=== PATIENT | female | born 1935 | race Caucasian/White ===

== ENCOUNTER 2016-09-02 21:55 | Inpatient (IN) | payer OTHER ==
[2016-09-02 22:17] VITALS: BMI 50.8
[2016-09-02 22:46] LABS: BASOPHIL 0.4 % (0-2.0); EOSINOPHIL 0.7 % (0-4.5); MCH 28.5 pg (25.7-33.7); MCHC 32.6 g/dl (32.0-36.0); MEAN CELL VOLUME 87.5 fl (80-96); PLATELET COUNT 182 K/MM3 (134-434); RDW 16.2 % (11.6-15.6); WHITE BLOOD COUNT 15.7 K/mm3 (4.0-10.0)
--- NOTE | 2016-09-02 22:51 | PDOC ---
History of Present Illness - General Stated Complaint: DIFFICULTY BREATHING Time Seen by Provider: 09/02/16 21:58 History Source: Patient, Family (Daughter ) Exam Limitations: No Limitations - History of Present Illness Initial Comments: 09/02/16 23:22 81yo Female patient w/ significant past medical history presents to ED via EMS c /o diff breathing. Patient states she took Ativan 1.5 mg at 3pm because she was anxious, patient reports symptoms did not subside. When patient daughter went to check on her, she called 911. Patient denies CP, Abd pain, n/v/d, dizziness, fever, cough, congestion, back pain, rectal bleeding, hematuria, or any other complaints at this time. Timing/Duration: reports: this evening Severity: reports: moderate Possible Cause: Yes: unknown cause Modifying Factors: worse with: activity, albuterol inhaler, albuterol nebulizer , antibiotics, coughing, lying down, oxygen, rest, other Associated Symptoms: reports: shortness of breath. denies: denies symptoms, chest pain/soreness, cough, dizziness, earache, facial pain, fever/chills, headache, lightheadedness, muscle aches, nasal congestion, nasal drainage, sinus infection, sore throat, wheezing, other Aspirin Received prior to arrival: No: no aspirin today, unknown, 81 mg x 1, 81 mg x 2, 81 mg x 3, 81 mg x 4, 325 mg x 1, provided at home, provided by EMS, provided by ED Past History - Travel Traveled outside of the country in the last 30 days: No Close contact w/someone who was outside of country & ill: No - Past Medical History Allergies/Adverse Reactions: Allergies Allergy/AdvReac Type Severity Reaction Status Date / Time diltiazem HCl [From Cardizem] Allergy Rash Verified 05/11/16 16:33 Home Medications: Ambulatory Orders Allopurinol [Zyloprim -] 100 mg PO BID 05/11/16 Aspirin [ASA -] 81 mg PO DAILY 05/11/16 Atorvastatin Calcium [Lipitor] 10 mg PO DAILY 05/11/16 Gabapentin [Neurontin -] 100 mg PO QID 05/11/16 Gabapentin [Neurontin -] 300 mg PO DAILY 05/11/16 Glimepiride [Amaryl -] 1 mg PO PRN 05/11/16 Insulin (Levemir) [Levemir Vial] 30 unit SQ DAILY 05/11/16 Lorazepam [Ativan] 1 mg PO TID 05/11/16 Metoprolol Succinate [Toprol Xl -] 25 mg PO BID 05/11/16 Omeprazole Magnesium [Prilosec] 20 mg PO BID 05/11/16 Sertraline HCl [Zoloft -] 50 mg PO DAILY 05/11/16 Tramadol HCl [Ultram] 50 mg PO Q8H 05/11/16 Furosemide [Lasix -] 40 mg PO DAILY 09/02/16 Anemia: Yes Asthma: No Cancer: Yes (COLON) Cardiac Disorders: No CVA: No COPD: No CHF: No Dementia: No Diabetes: Yes (x20 yrs) GI Disorders: Yes (chronic constipation) Disorders: Yes HTN: Yes Hypercholesterolemia: Yes Liver Disease: No Suicide Attempt (Hx): No Seizures: No Thyroid Disease: No - Surgical History Abdominal Surgery: Yes (HERNIA,COLON RESECTION) Appendectomy: Yes Cardiac Surgery: No Cholecystectomy: No Lung Surgery: No Neurologic Surgery: No Orthopedic Surgery: No - Immunization History Immunization Up to Date: Yes - Psycho/Social/Smoking Cessation Hx Anxiety: No Suicidal Ideation: No Smoking Status: No Smoking History: Unknown if ever smoked Have you smoked in the past 12 months: No Number of Cigarettes Smoked Daily: 0 Hx Alcohol Use: No Drug/Substance Use Hx: No Substance Use Type: None Hx Substance Use Treatment: No Respiratory Specific PMHX - Complaint Specific PMHX Angina: No Bronchitis: No Pneumonia: No Pulmonary Embolus: No TB (Tuberculosis): No Review of Systems - Review of Systems Able to Perform ROS?: Yes Is the patient limited Upper Sorbian proficient: No Constitutional: No: Chills, Fever Respiratory: Yes: Shortness of Breath. No: Cough, Wheezing, Hemoptysis Cardiac (ROS): Yes: Palpitations. No: Chest Pain, Lightheadedness, Syncope, Chest Tightness ABD/GI: No: Constipated, Diarrhea, Nausea, Poor Appetite, Poor Fluid Intake, Vomiting : No: Dysuria, Flank Pain, Urgency Musculoskeletal: No: Back Pain Integumentary: No: Erythema, Rash Neurological: No: Headache, Numbness, Paresthesia, Seizure, Tingling, Tremors, Weakness, Ataxia, Dizziness All Other Systems: Reviewed and Negative *Physical Exam - Vital Signs Last Vital Signs Temp Pulse Resp BP Pulse Ox 98.7 F 58 L 26 H 150/95 100 09/02/16 22:12 09/02/16 22:12 09/02/16 22:12 09/02/16 22:12 09/02/16 22:13 - Physical Exam Comments: 09/02/16 23:34 Patient on Bipap upon arrival. General Appearance: Yes: Nourished, Appropriately Dressed, Apparent Distress, Mild Distress Neck: positive: Trachea midline, Supple. negative: Decreased range of motion, Stridor, Lymphadenopathy (R), Lymphadenopathy (L) Respiratory/Chest: positive: Accessory Muscle Use, Rales. negative: Respiratory Distress, Labored Respiration, Rapid RR Cardiovascular: positive: Regular Rhythm, Regular Rate, Edema (BLE) Gastrointestinal/Abdominal: positive: Normal Bowel Sounds, Soft, Distended. negative: Guarding, Rebound, Tenderness Musculoskeletal: positive: Normal Inspection. negative: CVA Tenderness, Vertebral Tenderness Extremity: positive: Normal Capillary Refill, Normal Inspection, Normal Range of Motion, Pedal Edema, Swelling. negative: Erythema Integumentary: positive: Normal Color, Dry, Warm. negative: Erythema, Hives, Petechiae, Swelling Neurologic: positive: inspector floor II-XII NML intact, Fully Oriented, Alert, Normal Mood/ Affect, Normal Response, Motor Strength 5/5 ED Treatment Course - LABORATORY CBC & Chemistry Diagram: 09/02/16 22:30 09/02/16 22:30 - RADIOLOGY Radiology Studies Ordered: Category Date Time Status CHEST X-RAY PORTABLE* [RAD] Stat Radiology 09/02/16 22:12 Ordered *DC/Admit/Observation/Transfer Diagnosis at time of Disposition: CKD (chronic kidney disease) stage 4, GFR 15-29 ml/min Pneumonia Qualifiers: Pneumonia type: due to unspecified organism Laterality: left Lung location: lower lobe of lung Qualified Code(s): J18.1 - Lobar pneumonia, unspecified organism CHF (congestive heart failure) Qualifiers: Congestive heart failure type: unspecified congestive heart failure type Congestive heart failure chronicity: acute on chronic Qualified Code(s): I50.9 - Heart failure, unspecified - Discharge Dispostion Condition at time of disposition: Fair Admit: Yes
[2016-09-02 23:22] LABS: INR 1.07 (0.82-1.09); PROTHROMBIN TIME (PATIENT) 11.8 SEC (9.98-11.88)
[2016-09-02 23:24] LABS: ACTIVATED PTT 28.9 SECONDS (26.9-34.4)
[2016-09-02 23:31] LABS: URINE APPEARANCE CLEAR; URINE BILIRUBIN NEGATIVE (NEGATIVE); URINE COLOR STRAW; URINE GLUCOSE (UA) NEGATIVE (NEGATIVE); URINE KETONE NEGATIVE (NEGATIVE); URINE LEUK ESTERASE NEGATIVE (NEGATIVE); URINE NITRITE NEGATIVE (NEGATIVE); URINE UROBILINOGEN NEGATIVE E.U./dl (0.2-1.0)
[2016-09-02 23:56] LABS: ALBUMIN 3.7 g/dl (3.4-5.0); CALCIUM 9.1 mg/dL (8.5-10.1)
[2016-09-03 00:03] LABS: URINE BLOOD 1+ (NEGATIVE); URINE PROTEIN 1+ (NEGATIVE)
[2016-09-03 00:07] LABS: URINE RBC <1 /hpf (0-3); URINE WBC <1 /hpf (3-5)
[2016-09-03 00:12] LABS: BILIRUBIN,TOTAL 0.5 mg/dL (0.2-1.0); CREATININE 1.6 mg/dL (0.55-1.02); TOT PROT 7.6 g/dl (6.4-8.2); TROPONIN I 0.06 ng/ml (0.00-0.05)
[2016-09-03] MEDS ORDERED: CEFTRIAXONE 2 GM in DEXTROSE 5%-WATER - 100 ML IVPB ONE (00:30)
[2016-09-03] MEDS ORDERED: FUROSEMIDE 40 MG/4 ML INJECTABLE VIAL IVPB ONE (00:30)
[2016-09-03] MEDS ORDERED: AZITHROMYCIN IVPB 500 MG in DEXTROSE 5%-WATER - 250 ML IVPB ONE (00:30)
[2016-09-03] MEDS ORDERED: AZITHROMYCIN IVPB 250 ML IVPB ONE (00:40)
[2016-09-03] MEDS ORDERED: FUROSEMIDE 40 MG/4 ML INJECTABLE VIAL ONE (00:42)
[2016-09-03] MEDS ORDERED: CEFTRIAXONE 100 ML IVPB ONE (01:18)
[2016-09-03] MEDS ORDERED: traMADol HCL 50 MG TABLET PO PRN (02:02)
[2016-09-03] MEDS: ACETAMINOPHEN 325 MG TABLET (FP) PO PRN ×3 (03:24→22:26)
[2016-09-03] MEDS ORDERED: LORazepam 1 MG TABLET PO SCH (06:00)
[2016-09-03] MEDS: INSULIN DETEMIR 100 UNITS/ML MDV SQ SCH (06:57)
[2016-09-03] MEDS: GLIMEPIRIDE 1 MG TABLET (FP) PO SCH (06:57)
[2016-09-03] MEDS ORDERED: PT OWN MED DRAWER 7, Y5N ONE ×2 (07:04→22:17)
[2016-09-03] MEDS: ALLOPURINOL 100 MG TABLET (FP) PO SCH ×2 (09:44→22:23)
[2016-09-03] MEDS: PANTOPRAZOLE 20 MG TABLET (FP) PO SCH ×2 (09:44→22:23)
[2016-09-03] MEDS: SERTRALINE HCL 50 MG TABLET (FP) PO SCH (09:44)
[2016-09-03] MEDS: METOPROLOL SUCCINATE 25 MG TAB.SR.24H (FP) PO SCH ×2 (09:44→22:27)
[2016-09-03] MEDS: cefTRIAXone 1 GM/50 ML BAG (PRE-DOCKED) IVPB SCH (09:46)
[2016-09-03] MEDS: ASPIRIN 81 MG CHEWABLE TABLETS PO SCH (09:46)
[2016-09-03] MEDS ORDERED: FUROSEMIDE 40 MG TABLET (FP) PO SCH (10:00)
[2016-09-03] MEDS ORDERED: GABAPENTIN 100 MG CAPSULE (FP) PO SCH (10:00)
[2016-09-03] MEDS ORDERED: OXYCODONE/APAP 5/325MG COMBO TABLET PO PRN (11:03)
[2016-09-03] MEDS: AZITHROMYCIN IVPB 500 MG/250 ML D5W PRE-DOCKED IVPB SCH (11:07)
--- NOTE | 2016-09-03 11:16 | HP ---
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 In ER CXR ? effusion VS infiltrate and high BNP, elevated WBC and renal failure. Patient on 700mg Gabapentin and Sertaline with tramadol. History Source: Patient Limitations to Obtaining History: No Limitations - Past Medical History Cardiovascular: Yes: CHF, HTN, Hyperlipdemia Gastrointestinal: Yes: Cancer, GERD, Other (Colon CA operated 7 years ago) Renal/: Yes: Renal Inusuff (creat 2 at baseline for years, stable, non proteinuric) ...: No Psych: Yes: Anxiety, Depression Musculoskeletal: Yes: Chronic low back pain Rheumatology: Yes: Gout Endocrine: Yes: Diabetes Mellitus - Past Surgical History Past Surgical History: Yes: Appendectomy, Colectomy (partial), Hernia Repair - Smoking History Smoking history: Never smoked Have you smoked in the past 12 months: No Aproximately how many cigarettes per day: 0 - Alcohol/Substance Use Hx Alcohol Use: No History of Substance Use: reports: None - Social History ADL: Independent History of Recent Travel: No Home Medications - Allergies Allergies/Adverse Reactions: Allergies Allergy/AdvReac Type Severity Reaction Status Date / Time diltiazem HCl [From Cardizem] Allergy Rash Verified 09/03/16 02:54 - Home Medications Home Medications: Ambulatory Orders Allopurinol [Zyloprim -] 100 mg PO BID 05/11/16 Aspirin [ASA -] 81 mg PO DAILY 05/11/16 Atorvastatin Calcium [Lipitor] 10 mg PO DAILY 05/11/16 Gabapentin [Neurontin -] 100 mg PO QID 05/11/16 Gabapentin [Neurontin -] 300 mg PO DAILY 05/11/16 Glimepiride [Amaryl -] 1 mg PO PRN 05/11/16 Insulin (Levemir) [Levemir Vial] 30 unit SQ DAILY 05/11/16 Lorazepam [Ativan] 1 mg PO TID 05/11/16 Metoprolol Succinate [Toprol Xl -] 25 mg PO BID 05/11/16 Omeprazole Magnesium [Prilosec] 20 mg PO BID 05/11/16 Sertraline HCl [Zoloft -] 50 mg PO DAILY 05/11/16 Tramadol HCl [Ultram] 50 mg PO Q8H 05/11/16 Furosemide [Lasix -] 40 mg PO DAILY 09/02/16 Family Disease History - Family Disease History Family Disease History: Diabetes: Mother, Heart Disease: Father, Other: Sister ( CVA) Review of Systems - Review of Systems Constitutional: reports: Weakness Eyes: reports: No Symptoms Cardiovascular: reports: Shortness of Breath Respiratory: reports: Orthopnea, PND. denies: Cough Gastrointestinal: reports: Constipation Genitourinary: reports: No Symptoms Musculoskeletal: reports: Back Pain Psychiatric: reports: Anxiety, Depression Physical Examination Vital Signs: Vital Signs Temperature 99.3 F 09/03/16 06:00 Pulse Rate 77 09/03/16 06:00 Respiratory Rate 20 09/03/16 06:00 Blood Pressure 107/71 09/03/16 06:00 O2 Sat by Pulse Oximetry (%) 94 L 09/03/16 03:00 Constitutional: Yes: Calm Eyes: Yes: Conjunctiva Clear Cardiovascular: Yes: Regular Rate and Rhythm, Other (markedly decreased heart sounds) Respiratory: Yes: Diminished, Rales (both bases) Gastrointestinal: Yes: Abdomen, Obese. No: Tenderness Renal/: Yes: Cee Present Edema: LLE: 1+, RLE: 1+ Neurological: Yes: Alert, Oriented Imaging - Results Chest X-ray: Report Reviewed Problem List - Problems (1) CHF (congestive heart failure) Assessment/Plan: On IV Lasix; ?? exacerbated by 700 mg Neurontin; will lower to 300mg a day Code(s): I50.9 - HEART FAILURE, UNSPECIFIED Qualifiers: Congestive heart failure type: unspecified congestive heart failure type Congestive heart failure chronicity: acute on chronic Qualified Code(s): I50.9 - Heart failure, unspecified (2) CKD (chronic kidney disease) stage 4, GFR 15-29 ml/min Assessment/Plan: To get Renal MD evaluation Code(s): N18.4 - CHRONIC KIDNEY DISEASE, STAGE 4 (SEVERE) (3) Pneumonia Assessment/Plan: WBC> 15,000; on antibiotics Pulmonary consult placed Code(s): J18.9 - PNEUMONIA, UNSPECIFIED ORGANISM Qualifiers: Pneumonia type: due to unspecified organism Laterality: left Lung location: lower lobe of lung Qualified Code(s): J18.1 - Lobar pneumonia, unspecified organism (4) Anxiety Assessment/Plan: On Rx Code(s): F41.9 - ANXIETY DISORDER, UNSPECIFIED (5) Chronic back pain greater than 3 months duration Assessment/Plan: Will Xray due to history Colon Ca Code(s): M54.9 - DORSALGIA, UNSPECIFIED G89.29 - OTHER CHRONIC PAIN
[2016-09-03] MEDS: HEPARIN NA (PORCINE) 5,000 UNITS/ML 1ML VIAL SQ SCH ×2 (11:52→22:23)
[2016-09-03] MEDS: GABAPENTIN 300 MG CAPSULE (FP) PO SCH (11:52)
--- NOTE | 2016-09-03 12:19 | EKG ---
Test Reason : Blood Pressure : / mmHG Vent. Rate : 103 BPM Atrial Rate : 103 BPM P-R Int : 198 ms QRS Dur : 142 ms QT Int : 418 ms P-R-T Axes : -05 -08 136 degrees QTc Int : 547 ms POOR DATA QUALITY, INTERPRETATION MAY BE ADVERSELY AFFECTED SINUS TACHYCARDIA WITH PREMATURE SUPRAVENTRICULAR COMPLEXES LEFT BUNDLE BRANCH BLOCK ABNORMAL ECG WHEN COMPARED WITH ECG OF 15-MAY-2015 14:32, FUSION COMPLEXES ARE NO LONGER PRESENT PREMATURE SUPRAVENTRICULAR COMPLEXES ARE NOW PRESENT Confirmed by KEN PRATT MD ([id number]) on 09/03/2016 12:18:52 PM Referred By: Confirmed By:KEN PRATT MD
--- NOTE | 2016-09-03 14:09 | CON.PULM ---
Consult Consult Specialty:: PULM/CCM Referred by:: JERMAINE Reason for Consultation:: abnormal CXR - History of Present Illness Chief Complaint: SOB History of Present Illness: 81 F, with listed multiple medical problems. Admitted via the ER due to progressive SOB. Patient is a life long non-smoker. No travel history or sick contacts. (+) Nasal congestion and mild URI symptoms. No hemoptysis. CXR : possible blunted left CP angle - History Source History Provided By: Patient Limitations to Obtaining History: No Limitations - Past Medical History Cardio/Vascular: Yes: CHF, HTN, Hyperlipdemia Gastrointestinal: Yes: Cancer, GERD, Other (Colon CA operated 7 years ago) Renal/: Yes: Renal Inusuff (creat 2 at baseline for years, stable, non proteinuric) ...: No Psych: Yes: Anxiety, Depression Musculoskeletal: Yes: Chronic low back pain Rheumatology: Yes: Gout Endocrine: Yes: Diabetes Mellitus - Past Surgical History Past Surgical History: Yes: Appendectomy, Colectomy (partial), Hernia Repair - Alcohol/Substance Use Hx Alcohol Use: No History of Substance Use: reports: None - Smoking History Smoking history: Never smoked Have you smoked in the past 12 months: No Aproximately how many cigarettes per day: 0 - Social History ADL: Independent History of Recent Travel: No Home Medications - Allergies Allergies/Adverse Reactions: Allergies Allergy/AdvReac Type Severity Reaction Status Date / Time diltiazem HCl [From Cardizem] Allergy Rash Verified 09/03/16 02:54 - Home Medications Home Medications: Ambulatory Orders Allopurinol [Zyloprim -] 100 mg PO BID 05/11/16 Aspirin [ASA -] 81 mg PO DAILY 05/11/16 Atorvastatin Calcium [Lipitor] 10 mg PO DAILY 05/11/16 Gabapentin [Neurontin -] 100 mg PO QID 05/11/16 Gabapentin [Neurontin -] 300 mg PO DAILY 05/11/16 Glimepiride [Amaryl -] 1 mg PO PRN 05/11/16 Insulin (Levemir) [Levemir Vial] 30 unit SQ DAILY 05/11/16 Lorazepam [Ativan] 1 mg PO TID 05/11/16 Metoprolol Succinate [Toprol Xl -] 25 mg PO BID 05/11/16 Omeprazole Magnesium [Prilosec] 20 mg PO BID 05/11/16 Sertraline HCl [Zoloft -] 50 mg PO DAILY 05/11/16 Tramadol HCl [Ultram] 50 mg PO Q8H 05/11/16 Furosemide [Lasix -] 40 mg PO DAILY 09/02/16 Family Disease History - Family Disease History Family Disease History: Diabetes: Mother, Heart Disease: Father, Other: Sister ( CVA) Physical Exam Vital Sings: Vital Signs Temperature 98.9 F 09/03/16 09:00 Pulse Rate 69 09/03/16 11:43 Respiratory Rate 20 09/03/16 09:00 Blood Pressure 126/65 09/03/16 09:00 O2 Sat by Pulse Oximetry (%) 95 09/03/16 11:43 Constitutional: Yes: Obese Eyes: Yes: WNL, Conjunctiva Clear, EOM Intact HENT: Yes: Atraumatic, Normocephalic Neck: Yes: Supple, Trachea Midline Cardiovascular: Yes: Regular Rate and Rhythm Respiratory: Yes: Diminished, On Nasal O2, Rhonchi, SOB. No: Accessory Muscle Use, Rales, Stridor, Tachypnea, Wheezes ...Inspection: Yes: WNL ...Clubbing: No Gastrointestinal: Yes: WNL, Normal Bowel Sounds, Soft, Abdomen, Obese Renal/: Yes: WNL Musculoskeletal: Yes: WNL Extremities: Yes: WNL Edema: Yes Peripheral Pulses WNL: Yes Integumentary: Yes: WNL Neurological: Yes: WNL, Alert, Oriented ...Motor Strength: WNL Psychiatric: Yes: WNL, Alert, Oriented Imaging - Results Chest X-ray: Report Reviewed, Image Reviewed Problem List - Problems (1) CHF (congestive heart failure) Code(s): I50.9 - HEART FAILURE, UNSPECIFIED Qualifiers: Congestive heart failure type: unspecified congestive heart failure type Congestive heart failure chronicity: acute on chronic Qualified Code(s): I50.9 - Heart failure, unspecified (2) CKD (chronic kidney disease) stage 4, GFR 15-29 ml/min Code(s): N18.4 - CHRONIC KIDNEY DISEASE, STAGE 4 (SEVERE) (3) Chest pain Code(s): R07.9 - CHEST PAIN, UNSPECIFIED (4) Chronic back pain greater than 3 months duration Code(s): M54.9 - DORSALGIA, UNSPECIFIED G89.29 - OTHER CHRONIC PAIN (5) Pneumonia Code(s): J18.9 - PNEUMONIA, UNSPECIFIED ORGANISM Qualifiers: Pneumonia type: due to unspecified organism Laterality: left Lung location: lower lobe of lung Qualified Code(s): J18.1 - Lobar pneumonia, unspecified organism (6) Anxiety Code(s): F41.9 - ANXIETY DISORDER, UNSPECIFIED (7) Back injury Code(s): S39.92XA - UNSPECIFIED INJURY OF LOWER BACK, INITIAL ENCOUNTER (8) Cervical spine arthritis Code(s): M46.92 - UNSPECIFIED INFLAMMATORY SPONDYLOPATHY, CERVICAL REGION (9) Diabetes Code(s): E11.9 - TYPE 2 DIABETES MELLITUS WITHOUT COMPLICATIONS (10) Dizziness Code(s): R42 - DIZZINESS AND GIDDINESS (11) GERD (gastroesophageal reflux disease) Code(s): K21.9 - GASTRO-ESOPHAGEAL REFLUX DISEASE WITHOUT ESOPHAGITIS (12) HTN (hypertension) with goal to be determined Code(s): I10 - ESSENTIAL (PRIMARY) HYPERTENSION (13) Hyperlipemia Code(s): E78.5 - HYPERLIPIDEMIA, UNSPECIFIED (14) Morbid obesity Code(s): E66.01 - MORBID (SEVERE) OBESITY DUE TO EXCESS CALORIES (15) Neuropathy Code(s): G62.9 - POLYNEUROPATHY, UNSPECIFIED Assessment/Plan Agree with empiric ABX coverage Check sputum Check urine Follow blood cultures O2 as needed Lasix Would hold on steroids for now VTE prophylaxis Will follow Thank you. Dr Cunha
[2016-09-03] MEDS: POLYETHYLENE GLYCOL 3350 119 GM BTL PO SCH (14:14)
--- NOTE | 2016-09-03 16:24 | CONSULT ---
Consult Consult Specialty:: Nephrology ( Eddie/ Vitaliy) Referred by:: Dr. Benavidez Reason for Consultation:: Many thanks for this consult referral. 81 y/o female known to me from outpatient f/u admitted with Acute shortess of breath and possible CHF, and ? Pleumonia. On Loop diuretics and IV abx. The patient has h /o Coronary artery disease, DM2, CA colon, s/p Hemicolectomy, Ch. back pain, peripheral neuropathy, HTN and Hyperlipidemia. the patient is morbidly obese, and has alos h/o Ch. PVD - History Source History Provided By: Patient, Medical Record - Past Medical History Cardio/Vascular: Yes: CHF, HTN, Hyperlipdemia Gastrointestinal: Yes: Cancer, GERD, Other (Colon CA operated 7 years ago) Renal/: Yes: Renal Inusuff (creat 2 at baseline for years, stable, non proteinuric) ...: No Heme/Onc: Yes: Anemia Psych: Yes: Anxiety, Depression Musculoskeletal: Yes: Chronic low back pain Rheumatology: Yes: Gout Endocrine: Yes: Diabetes Mellitus - Past Surgical History Past Surgical History: Yes: Appendectomy, Colectomy (partial), Hernia Repair - Alcohol/Substance Use Hx Alcohol Use: No History of Substance Use: reports: None - Smoking History Smoking history: Never smoked Have you smoked in the past 12 months: No Aproximately how many cigarettes per day: 0 - Social History ADL: Independent History of Recent Travel: No Home Medications - Allergies Allergies/Adverse Reactions: Allergies Allergy/AdvReac Type Severity Reaction Status Date / Time diltiazem HCl [From Cardizem] Allergy Rash Verified 09/03/16 02:54 - Home Medications Home Medications: Ambulatory Orders Allopurinol [Zyloprim -] 100 mg PO BID 05/11/16 Aspirin [ASA -] 81 mg PO DAILY 05/11/16 Atorvastatin Calcium [Lipitor] 10 mg PO DAILY 05/11/16 Gabapentin [Neurontin -] 100 mg PO QID 05/11/16 Gabapentin [Neurontin -] 300 mg PO DAILY 05/11/16 Glimepiride [Amaryl -] 1 mg PO PRN 05/11/16 Insulin (Levemir) [Levemir Vial] 30 unit SQ DAILY 05/11/16 Lorazepam [Ativan] 1 mg PO TID 05/11/16 Metoprolol Succinate [Toprol Xl -] 25 mg PO BID 05/11/16 Omeprazole Magnesium [Prilosec] 20 mg PO BID 05/11/16 Sertraline HCl [Zoloft -] 50 mg PO DAILY 05/11/16 Tramadol HCl [Ultram] 50 mg PO Q8H 05/11/16 Furosemide [Lasix -] 40 mg PO DAILY 09/02/16 Family Disease History - Family Disease History Family Disease History: Diabetes: Mother, Heart Disease: Father, Other: Sister ( CVA) Review of Systems - Review of Systems Constitutional: reports: Malaise, Weakness HENT: reports: No Symptoms Neck: reports: Stiffness Cardiovascular: reports: Edema, Shortness of Breath Respiratory: reports: Exercise Intolerance, SOB, SOB on Exertion Gastrointestinal: reports: Abdominal Pain, Bloating Genitourinary: reports: No Symptoms Breasts: reports: No Symptoms Reported Musculoskeletal: reports: Back Pain, Extremity Pain Integumentary: reports: Erythema Neurological: reports: Numbness Hematology/Lymphatic: reports: No Symptoms Psychiatric: reports: Anxiety Physical Exam Vital Signs: Vital Signs Temperature 97.7 F 09/03/16 13:45 Pulse Rate 68 09/03/16 13:45 Respiratory Rate 19 09/03/16 13:45 Blood Pressure 128/63 09/03/16 13:45 O2 Sat by Pulse Oximetry (%) 95 09/03/16 11:43 Constitutional: Yes: Well Nourished, Anxious, Obese HENT: Yes: Atraumatic, Normocephalic Neck: Yes: Trachea Midline Cardiovascular: Yes: Regular Rate and Rhythm, S1, S2 Respiratory: Yes: Regular, CTA Bilaterally, Diminished Gastrointestinal: Yes: Normal Bowel Sounds, Abdomen, Obese Renal/: Yes: WNL Extremities: Yes: Erythema Edema: Yes Edema: LLE: 1+, RLE: 1+ Neurological: Yes: Alert, Oriented Problem List - Problems (1) CHF (congestive heart failure) Code(s): I50.9 - HEART FAILURE, UNSPECIFIED Qualifiers: Congestive heart failure type: unspecified congestive heart failure type Congestive heart failure chronicity: acute on chronic Qualified Code(s): I50.9 - Heart failure, unspecified (2) Chest pain Code(s): R07.9 - CHEST PAIN, UNSPECIFIED (3) Chronic back pain greater than 3 months duration Code(s): M54.9 - DORSALGIA, UNSPECIFIED G89.29 - OTHER CHRONIC PAIN (4) Pneumonia Code(s): J18.9 - PNEUMONIA, UNSPECIFIED ORGANISM Qualifiers: Pneumonia type: due to unspecified organism Laterality: left Lung location: lower lobe of lung Qualified Code(s): J18.1 - Lobar pneumonia, unspecified organism (5) Anxiety Code(s): F41.9 - ANXIETY DISORDER, UNSPECIFIED (6) Back injury Code(s): S39.92XA - UNSPECIFIED INJURY OF LOWER BACK, INITIAL ENCOUNTER (7) Cellulitis Code(s): L03.90 - CELLULITIS, UNSPECIFIED (8) Cervical spine arthritis Code(s): M46.92 - UNSPECIFIED INFLAMMATORY SPONDYLOPATHY, CERVICAL REGION (9) Diabetes Code(s): E11.9 - TYPE 2 DIABETES MELLITUS WITHOUT COMPLICATIONS (10) Dizziness Code(s): R42 - DIZZINESS AND GIDDINESS (11) Edema Code(s): R60.9 - EDEMA, UNSPECIFIED (12) Hypertension Code(s): I10 - ESSENTIAL (PRIMARY) HYPERTENSION (13) Neuropathy Code(s): G62.9 - POLYNEUROPATHY, UNSPECIFIED (14) Normocytic anemia Code(s): D64.9 - ANEMIA, UNSPECIFIED (15) Renal insufficiency Code(s): N28.9 - DISORDER OF KIDNEY AND URETER, UNSPECIFIED Assessment/Plan 81 y/o female admitted with Acute shortness of breath. Has a possible Acute respiratory infection. On Antibiotics. The patient is also on IV loop diuretics for possible CHF ( Has edema of the LE) The Azotema is Acute, superimposed on CKD. The acute real dysfunctio most likely Hemodynamic Aneia Chronic, and related to multifactorial etiology. Basic w/u as ordered. Will monitor the renal functions with you. Thank you. Will follow with you. Iam Smith
[2016-09-03] MEDS: LORazepam 1 MG TABLET PO SCH (22:23)
[2016-09-03] MEDS: ATORVASTATIN CA 10 MG TABLET (FP) PO SCH (22:23)
[2016-09-03] MEDS: oxyCODONE HCL 5 MG TABLET PO PRN (22:25)
[2016-09-04] MEDS: NYSTATIN 100,000 UNIT/GM TOPICAL CREAM 15 GM TUBE TP SCH ×3 (00:03→21:30)
[2016-09-04] MEDS: ACETAMINOPHEN 325 MG TABLET (FP) PO PRN ×3 (05:31→18:30)
[2016-09-04] MEDS: oxyCODONE HCL 5 MG TABLET PO PRN ×3 (05:31→18:29)
[2016-09-04] MEDS ORDERED: PT OWN MED DRAWER 7, Y5N ONE ×3 (06:18→21:10)
[2016-09-04] MEDS: GLIMEPIRIDE 1 MG TABLET (FP) PO SCH (06:23)
[2016-09-04] MEDS: INSULIN DETEMIR 100 UNITS/ML MDV SQ SCH (06:26)
[2016-09-04 08:21] LABS: BASOPHIL 0.6 % (0-2.0); EOSINOPHIL 4.3 % (0-4.5); MCHC 32.6 g/dl (32.0-36.0); MEAN CELL VOLUME 88.9 fl (80-96); MEAN PLT VOLUME 9.1 fl (7.5-11.1); PLATELET COUNT 146 K/MM3 (134-434); RDW 15.3 % (11.6-15.6); WHITE BLOOD COUNT 6.7 K/mm3 (4.0-10.0)
[2016-09-04 09:00] LABS: ALBUMIN 2.9 g/dl (3.4-5.0); BILIRUBIN,TOTAL 0.3 mg/dL (0.2-1.0); CALCIUM 8.3 mg/dL (8.5-10.1); CREATININE 2.4 mg/dL (0.55-1.02); MAGNESIUM 1.9 mg/dL (1.8-2.4); TOT PROT 6.3 g/dl (6.4-8.2)
[2016-09-04] MEDS: cefTRIAXone 1 GM/50 ML BAG (PRE-DOCKED) IVPB SCH (09:31)
[2016-09-04] MEDS: PANTOPRAZOLE 20 MG TABLET (FP) PO SCH ×2 (09:31→21:31)
[2016-09-04] MEDS: LORazepam 1 MG TABLET PO SCH ×2 (09:32→21:26)
[2016-09-04] MEDS: HEPARIN NA (PORCINE) 5,000 UNITS/ML 1ML VIAL SQ SCH ×2 (09:32→21:29)
[2016-09-04] MEDS: ASPIRIN 81 MG CHEWABLE TABLETS PO SCH (09:32)
[2016-09-04] MEDS: GABAPENTIN 300 MG CAPSULE (FP) PO SCH (09:32)
[2016-09-04] MEDS: ALLOPURINOL 100 MG TABLET (FP) PO SCH ×2 (09:32→21:31)
[2016-09-04] MEDS: SERTRALINE HCL 50 MG TABLET (FP) PO SCH (09:32)
[2016-09-04] MEDS: POLYETHYLENE GLYCOL 3350 119 GM BTL PO SCH (09:33)
[2016-09-04] MEDS ORDERED: FUROSEMIDE 40 MG/4 ML INJECTABLE VIAL IVPB SCH (10:00)
[2016-09-04] MEDS: AZITHROMYCIN IVPB 500 MG/250 ML D5W PRE-DOCKED IVPB SCH (10:06)
[2016-09-04] MEDS: METOPROLOL SUCCINATE 25 MG TAB.SR.24H (FP) PO SCH ×3 (11:30→23:37)
--- NOTE | 2016-09-04 12:00 | PN ---
Progress Note (short form) - Note Progress Note: Subjectively feels better today. Nocturnal desaturation likely due to OSAS. BiPAP placed at bedside and patient reports that she used it with good response. Intake & Output 09/01/16 09/02/16 09/03/16 09/04/16 23:59 23:59 23:59 23:59 Intake Total 1150 Output Total 1600 300 Balance -450 -300 Weight 260 lb 279 lb 9.6 oz Last Vital Signs Temp Pulse Resp BP Pulse Ox 97.6 F 64 20 128/55 93 L 09/04/16 09:49 09/04/16 09:49 09/04/16 09:49 09/04/16 09:49 09/03/16 21:00 Active Medications Acetaminophen (Tylenol -) 650 mg PO Q6H PRN PRN Reason: FEVER OR PAIN Last Admin: 09/03/16 10:01 Dose: 650 mg Acetaminophen (Tylenol -) 325 mg PO Q4H PRN PRN Reason: PAIN 6-10 Stop: 09/06/16 11:15 Last Admin: 09/04/16 05:31 Dose: 325 mg Allopurinol (Zyloprim -) 100 mg PO BID [facility] Last Admin: 09/04/16 09:32 Dose: 100 mg Aspirin (Asa -) 81 mg PO DAILY [facility] Last Admin: 09/04/16 09:32 Dose: 81 mg Atorvastatin Calcium (Lipitor -) 10 mg PO HS [facility] Last Admin: 09/03/16 22:23 Dose: 10 mg Azithromycin (Zithromax 500mg Ivpb (Pre-Docked)) 500 mg IVPB DAILY [facility] Last Admin: 09/04/16 10:06 Dose: 500 mg Ceftriaxone Sodium (Rocephin 1gm Ivpb (Pre-Docked)) 1 gm IVPB DAILY [facility] Last Admin: 09/04/16 09:31 Dose: 1 gm Furosemide (Lasix Injection -) 40 mg IVPB DAILY [facility] Gabapentin (Neurontin -) 300 mg PO DAILY [facility] Last Admin: 09/04/16 09:32 Dose: 300 mg Glimepiride (Amaryl -) 1 mg PO DAILY@0700 [facility] Last Admin: 09/04/16 06:23 Dose: 1 mg Heparin Sodium (Porcine) (Heparin -) 5,000 unit SQ BID [facility] Last Admin: 09/04/16 09:32 Dose: 5,000 unit Insulin Detemir (Levemir Vial) 30 units SQ AM [facility] Last Admin: 09/04/16 06:26 Dose: 30 units Lorazepam (Ativan -) 1 mg PO BID [facility] Last Admin: 09/04/16 09:32 Dose: 1 mg Metoprolol Succinate (Toprol Xl -) 25 mg PO BID [facility] Last Admin: 09/03/16 22:27 Dose: 25 mg Nystatin (Mycostatin Cream -) 1 applic TP BID [facility] Last Admin: 09/04/16 09:51 Dose: Not Given Oxycodone HCl (Roxicodone -) 5 mg PO Q4H PRN PRN Reason: PAIN 6-10 Last Admin: 09/04/16 05:31 Dose: 5 mg Pantoprazole Sodium (Protonix -) 20 mg PO BID [facility] Last Admin: 09/04/16 09:31 Dose: 20 mg Polyethylene Glycol (Miralax (For Daily Use) -) 17 gm PO DAILY [facility] Last Admin: 09/04/16 09:33 Dose: Not Given Sertraline HCl (Zoloft -) 50 mg PO DAILY [facility] Last Admin: 09/04/16 09:32 Dose: 50 mg Constitutional: Yes: Obese, NAD on 4 L NC O2 Eyes: Yes: WNL, Conjunctiva Clear, EOM Intact HENT: Yes: Atraumatic, Normocephalic Neck: Yes: Supple, Trachea Midline Cardiovascular: Yes: Regular Rate and Rhythm Respiratory: Yes: Diminished, On Nasal O2, Rhonchi, SOB. No: Accessory Muscle Use, Rales, Stridor, Tachypnea, Wheezes ...Inspection: Yes: WNL ...Clubbing: No Gastrointestinal: Yes: WNL, Normal Bowel Sounds, Soft, Abdomen, Obese Renal/: Yes: WNL Musculoskeletal: Yes: WNL Extremities: Yes: WNL Edema: Yes Peripheral Pulses WNL: Yes Integumentary: Yes: WNL Neurological: Yes: WNL, Alert, Oriented ...Motor Strength: WNL Psychiatric: Yes: WNL, Alert, Oriented Laboratory Results - last 24 hr 09/03/16 09/04/16 09/04/16 16:17 06:23 07:00 WBC 6.7 D RBC 3.68 Hgb 10.7 D Hct 32.7 MCV 88.9 MCHC 32.6 RDW 15.3 Plt Count 146 MPV 9.1 Neutrophils % 62.0 D Lymphocytes % 24.0 D Monocytes % 9.1 D Eosinophils % 4.3 D Basophils % 0.6 Sodium Potassium Chloride Carbon Dioxide Anion Gap BUN Creatinine Creat Clearance w eGFR POC Glucometer 69 110 Random Glucose Calcium Magnesium Total Bilirubin AST ALT Alkaline Phosphatase Total Protein Albumin 09/04/16 07:00 WBC RBC Hgb Hct MCV MCHC RDW Plt Count MPV Neutrophils % Lymphocytes % Monocytes % Eosinophils % Basophils % Sodium 140 Potassium 4.0 Chloride 103 Carbon Dioxide 24 Anion Gap 13 BUN 68 H D Creatinine 2.4 H D Creat Clearance w eGFR 19.28 POC Glucometer Random Glucose 67 L D Calcium 8.3 L Magnesium 1.9 Total Bilirubin 0.3 D AST 22 ALT 22 Alkaline Phosphatase 88 Total Protein 6.3 L Albumin 2.9 L D Problem List - Problems (1) CHF (congestive heart failure) Code(s): I50.9 - HEART FAILURE, UNSPECIFIED Qualifiers: Congestive heart failure type: unspecified congestive heart failure type Congestive heart failure chronicity: acute on chronic Qualified Code(s): I50.9 - Heart failure, unspecified (2) CKD (chronic kidney disease) stage 4, GFR 15-29 ml/min Code(s): N18.4 - CHRONIC KIDNEY DISEASE, STAGE 4 (SEVERE) (3) Chest pain Code(s): R07.9 - CHEST PAIN, UNSPECIFIED (4) Chronic back pain greater than 3 months duration Code(s): M54.9 - DORSALGIA, UNSPECIFIED G89.29 - OTHER CHRONIC PAIN (5) Pneumonia Code(s): J18.9 - PNEUMONIA, UNSPECIFIED ORGANISM Qualifiers: Pneumonia type: due to unspecified organism Laterality: left Lung location: lower lobe of lung Qualified Code(s): J18.1 - Lobar pneumonia, unspecified organism (6) Anxiety Code(s): F41.9 - ANXIETY DISORDER, UNSPECIFIED (7) Back injury Code(s): S39.92XA - UNSPECIFIED INJURY OF LOWER BACK, INITIAL ENCOUNTER (8) Cervical spine arthritis Code(s): M46.92 - UNSPECIFIED INFLAMMATORY SPONDYLOPATHY, CERVICAL REGION (9) Diabetes Code(s): E11.9 - TYPE 2 DIABETES MELLITUS WITHOUT COMPLICATIONS (10) Dizziness Code(s): R42 - DIZZINESS AND GIDDINESS (11) GERD (gastroesophageal reflux disease) Code(s): K21.9 - GASTRO-ESOPHAGEAL REFLUX DISEASE WITHOUT ESOPHAGITIS (12) HTN (hypertension) with goal to be determined Code(s): I10 - ESSENTIAL (PRIMARY) HYPERTENSION (13) Hyperlipemia Code(s): E78.5 - HYPERLIPIDEMIA, UNSPECIFIED (14) Morbid obesity -> LIKELY OSAS Code(s): E66.01 - MORBID (SEVERE) OBESITY DUE TO EXCESS CALORIES (15) Neuropathy Code(s): G62.9 - POLYNEUROPATHY, UNSPECIFIED Assessment/Plan Agree with empiric ABX coverage Check sputum Follow blood cultures O2 as needed Lasix Would hold on steroids for now VTE prophylaxis Will need formal sleep apnea workup after discharge -> For now will order empiric BiPAP Dr Cunha Problem List - Problems (1) CHF (congestive heart failure) Code(s): I50.9 - HEART FAILURE, UNSPECIFIED Qualifiers: Congestive heart failure type: unspecified congestive heart failure type Congestive heart failure chronicity: acute on chronic Qualified Code(s): I50.9 - Heart failure, unspecified (2) CKD (chronic kidney disease) stage 4, GFR 15-29 ml/min Code(s): N18.4 - CHRONIC KIDNEY DISEASE, STAGE 4 (SEVERE) (3) Chest pain Code(s): R07.9 - CHEST PAIN, UNSPECIFIED (4) Chronic back pain greater than 3 months duration Code(s): M54.9 - DORSALGIA, UNSPECIFIED G89.29 - OTHER CHRONIC PAIN (5) Pneumonia Code(s): J18.9 - PNEUMONIA, UNSPECIFIED ORGANISM Qualifiers: Pneumonia type: due to unspecified organism Laterality: left Lung location: lower lobe of lung Qualified Code(s): J18.1 - Lobar pneumonia, unspecified organism (6) Anxiety Code(s): F41.9 - ANXIETY DISORDER, UNSPECIFIED (7) Back injury Code(s): S39.92XA - UNSPECIFIED INJURY OF LOWER BACK, INITIAL ENCOUNTER (8) Cervical spine arthritis Code(s): M46.92 - UNSPECIFIED INFLAMMATORY SPONDYLOPATHY, CERVICAL REGION (9) Diabetes Code(s): E11.9 - TYPE 2 DIABETES MELLITUS WITHOUT COMPLICATIONS (10) Dizziness Code(s): R42 - DIZZINESS AND GIDDINESS (11) GERD (gastroesophageal reflux disease) Code(s): K21.9 - GASTRO-ESOPHAGEAL REFLUX DISEASE WITHOUT ESOPHAGITIS (12) HTN (hypertension) with goal to be determined Code(s): I10 - ESSENTIAL (PRIMARY) HYPERTENSION (13) Hyperlipemia Code(s): E78.5 - HYPERLIPIDEMIA, UNSPECIFIED (14) Morbid obesity Code(s): E66.01 - MORBID (SEVERE) OBESITY DUE TO EXCESS CALORIES (15) Neuropathy Code(s): G62.9 - POLYNEUROPATHY, UNSPECIFIED
--- NOTE | 2016-09-04 13:18 | PN ---
Progress Note, Physician Chief Complaint: feels less SOB History of Present Illness: Patient with multiple comorbidities and dealing with CHF vs VIDYA vs CHF. Today she feels better but did use CPAP at nite. Lab show increasing renal lab values and Lasix held today as BP also a little lower. will repeat lab in AM. Xray of back noted: patient to follow up in Dr. Mcgowan's office visit. BGM noted; I will D/C generic amaryl due to low glucose value and higher renal lab. - Current Medication List Current Medications: Active Medications Acetaminophen (Tylenol -) 650 mg PO Q6H PRN PRN Reason: FEVER OR PAIN Last Admin: 09/03/16 10:01 Dose: 650 mg Acetaminophen (Tylenol -) 325 mg PO Q4H PRN PRN Reason: PAIN 6-10 Stop: 09/06/16 11:15 Last Admin: 09/04/16 05:31 Dose: 325 mg Allopurinol (Zyloprim -) 100 mg PO BID [facility] Last Admin: 09/04/16 09:32 Dose: 100 mg Aspirin (Asa -) 81 mg PO DAILY [facility] Last Admin: 09/04/16 09:32 Dose: 81 mg Atorvastatin Calcium (Lipitor -) 10 mg PO HS [facility] Last Admin: 09/03/16 22:23 Dose: 10 mg Azithromycin (Zithromax 500mg Ivpb (Pre-Docked)) 500 mg IVPB DAILY [facility] Last Admin: 09/04/16 10:06 Dose: 500 mg Furosemide (Lasix Injection -) 40 mg IVPB DAILY [facility] Gabapentin (Neurontin -) 300 mg PO DAILY [facility] Last Admin: 09/04/16 09:32 Dose: 300 mg Glimepiride (Amaryl -) 1 mg PO DAILY@0700 [facility] Last Admin: 09/04/16 06:23 Dose: 1 mg Heparin Sodium (Porcine) (Heparin -) 5,000 unit SQ BID [facility] Last Admin: 09/04/16 09:32 Dose: 5,000 unit Insulin Detemir (Levemir Vial) 30 units SQ AM [facility] Last Admin: 09/04/16 06:26 Dose: 30 units Lorazepam (Ativan -) 1 mg PO BID [facility] Last Admin: 09/04/16 09:32 Dose: 1 mg Metoprolol Succinate (Toprol Xl -) 25 mg PO BID [facility] Last Admin: 09/03/16 22:27 Dose: 25 mg Nystatin (Mycostatin Cream -) 1 applic TP BID [facility] Last Admin: 09/04/16 09:51 Dose: Not Given Oxycodone HCl (Roxicodone -) 5 mg PO Q4H PRN PRN Reason: PAIN 6-10 Last Admin: 09/04/16 05:31 Dose: 5 mg Pantoprazole Sodium (Protonix -) 20 mg PO BID [facility] Last Admin: 09/04/16 09:31 Dose: 20 mg Polyethylene Glycol (Miralax (For Daily Use) -) 17 gm PO DAILY [facility] Last Admin: 09/04/16 09:33 Dose: Not Given Sertraline HCl (Zoloft -) 50 mg PO DAILY [facility] Last Admin: 09/04/16 09:32 Dose: 50 mg - Objective Vital Signs: Vital Signs Temperature 97.6 F 09/04/16 09:49 Pulse Rate 64 09/04/16 09:49 Respiratory Rate 20 09/04/16 09:49 Blood Pressure 128/55 09/04/16 09:49 O2 Sat by Pulse Oximetry (%) 93 L 09/03/16 21:00 Constitutional: Yes: Calm Eyes: Yes: Conjunctiva Clear Cardiovascular: Yes: Regular Rate and Rhythm Respiratory: Yes: Diminished, Rhonchi (both bases) Gastrointestinal: Yes: Soft, Distention Genitourinary: Yes: Cee Present Edema: LLE: Trace, RLE: Trace Neurological: Yes: Alert, Oriented Labs: CBC, BMP 09/04/16 07:00 09/04/16 07:00 INR, PTT INR 1.07 (0.82-1.09) 09/02/16 22:30 - ....Imaging X-ray: Report Reviewed EKG: Report Reviewed Problem List - Problems (1) CHF (congestive heart failure) Assessment/Plan: Less SOB; will hold lasix today due to renal and BP issues. Code(s): I50.9 - HEART FAILURE, UNSPECIFIED Qualifiers: Congestive heart failure type: unspecified congestive heart failure type Congestive heart failure chronicity: acute on chronic Qualified Code(s): I50.9 - Heart failure, unspecified (2) CKD (chronic kidney disease) stage 4, GFR 15-29 ml/min Assessment/Plan: Higher values; await F/U renal MD Code(s): N18.4 - CHRONIC KIDNEY DISEASE, STAGE 4 (SEVERE) (3) Pneumonia Assessment/Plan: On antibiotic Rx Code(s): J18.9 - PNEUMONIA, UNSPECIFIED ORGANISM Qualifiers: Pneumonia type: due to unspecified organism Laterality: left Lung location: lower lobe of lung Qualified Code(s): J18.1 - Lobar pneumonia, unspecified organism (4) Anxiety Assessment/Plan: On Rx. Code(s): F41.9 - ANXIETY DISORDER, UNSPECIFIED (5) Chronic back pain greater than 3 months duration Assessment/Plan: Multiple changes noted; on pain Rx. Code(s): M54.9 - DORSALGIA, UNSPECIFIED G89.29 - OTHER CHRONIC PAIN (6) Diabetes Assessment/Plan: AM Glucose 67; to D/C amaryl for now. renal failure the issue. Code(s): E11.9 - TYPE 2 DIABETES MELLITUS WITHOUT COMPLICATIONS
--- NOTE | 2016-09-04 15:15 | CON.CARD ---
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 For the past 3 months has slowly decreased her lasix dose from 40 mg/day to 5- 10 mg/day due to side effects of urinary frequency/urgency For the past few months associated progressive weight gain and bai. Acutely worsened over the past 2 days - unable to walk to bathroom and back without significant dyspnea. + assocated early satiety and LE edema no cp, palps, dizziness, bleeding, transient neurologic symptoms no f/c/s, cough congestion, n/v/d, headache, visual disturbances. sleeps in a recliner at baseline. no worsened orthopnea. PMHx: per hpi Past Surgical History: Yes: Appendectomy, Colectomy (partial), Hernia Repair Social hx: never smoker, no etoh Family Disease History: Diabetes: Mother, Heart Disease: Father, Other: Sister ( CVA) ROS: per hpi Home Medications - Allergies Allergies/Adverse Reactions: Allergies Allergy/AdvReac Type Severity Reaction Status Date / Time diltiazem HCl [From Cardizem] Allergy Rash Verified 09/03/16 02:54 Ambulatory Orders Allopurinol [Zyloprim -] 100 mg PO BID 05/11/16 Aspirin [ASA -] 81 mg PO DAILY 05/11/16 Atorvastatin Calcium [Lipitor] 10 mg PO DAILY 05/11/16 Gabapentin [Neurontin -] 100 mg PO QID 05/11/16 Gabapentin [Neurontin -] 300 mg PO DAILY 05/11/16 Glimepiride [Amaryl -] 1 mg PO PRN 05/11/16 Insulin (Levemir) [Levemir Vial] 30 unit SQ DAILY 05/11/16 Lorazepam [Ativan] 1 mg PO TID 05/11/16 Metoprolol Succinate [Toprol Xl -] 25 mg PO BID 05/11/16 Omeprazole Magnesium [Prilosec] 20 mg PO BID 05/11/16 Sertraline HCl [Zoloft -] 50 mg PO DAILY 05/11/16 Tramadol HCl [Ultram] 50 mg PO Q8H 05/11/16 Furosemide [Lasix -] 40 mg PO DAILY 09/02/16 Current Medications Acetaminophen (Tylenol -) 650 mg PO Q6H PRN PRN Reason: FEVER OR PAIN Last Admin: 09/03/16 10:01 Dose: 650 mg Acetaminophen (Tylenol -) 325 mg PO Q4H PRN PRN Reason: PAIN 6-10 Stop: 09/06/16 11:15 Last Admin: 09/04/16 13:42 Dose: 325 mg Allopurinol (Zyloprim -) 100 mg PO BID [facility] Last Admin: 09/04/16 09:32 Dose: 100 mg Aspirin (Asa -) 81 mg PO DAILY [facility] Last Admin: 09/04/16 09:32 Dose: 81 mg Atorvastatin Calcium (Lipitor -) 10 mg PO HS [facility] Last Admin: 09/03/16 22:23 Dose: 10 mg Azithromycin (Zithromax 500mg Ivpb (Pre-Docked)) 500 mg IVPB DAILY [facility] Last Admin: 09/04/16 10:06 Dose: 500 mg Furosemide (Lasix Injection -) 40 mg IVPB DAILY [facility] Last Admin: 09/04/16 13:19 Dose: Not Given Gabapentin (Neurontin -) 300 mg PO DAILY [facility] Last Admin: 09/04/16 09:32 Dose: 300 mg Heparin Sodium (Porcine) (Heparin -) 5,000 unit SQ BID [facility] Last Admin: 09/04/16 09:32 Dose: 5,000 unit Insulin Detemir (Levemir Vial) 30 units SQ AM [facility] Last Admin: 09/04/16 06:26 Dose: 30 units Lorazepam (Ativan -) 1 mg PO BID [facility] Last Admin: 09/04/16 09:32 Dose: 1 mg Metoprolol Succinate (Toprol Xl -) 25 mg PO BID [facility] Last Admin: 09/04/16 13:43 Dose: 25 mg Nystatin (Mycostatin Cream -) 1 applic TP BID [facility] Last Admin: 09/04/16 09:51 Dose: Not Given Oxycodone HCl (Roxicodone -) 5 mg PO Q4H PRN PRN Reason: PAIN 6-10 Last Admin: 09/04/16 13:41 Dose: 5 mg Pantoprazole Sodium (Protonix -) 20 mg PO BID [facility] Last Admin: 09/04/16 09:31 Dose: 20 mg Polyethylene Glycol (Miralax (For Daily Use) -) 17 gm PO DAILY [facility] Last Admin: 09/04/16 09:33 Dose: Not Given Sertraline HCl (Zoloft -) 50 mg PO DAILY [facility] Last Admin: 09/04/16 09:32 Dose: 50 mg Vital Signs - 24 hr 09/03/16 09/03/16 09/03/16 18:00 21:00 22:34 Temperature 98.7 F Pulse Rate 72 77 Respiratory 20 Rate Blood Pressure 138/75 155/76 O2 Sat by Pulse 93 L Oximetry (%) 09/04/16 09/04/16 09/04/16 06:00 09:00 09:49 Temperature 98.1 F 97.6 F Pulse Rate 69 64 Respiratory 20 20 Rate Blood Pressure 121/55 128/55 O2 Sat by Pulse 94 L Oximetry (%) 09/04/16 13:51 Temperature 98.9 F Pulse Rate 73 Respiratory 16 Rate Blood Pressure 126/74 O2 Sat by Pulse Oximetry (%) Intake & Output 09/02/16 09/03/16 09/04/16 09/05/16 07:59 07:59 07:59 07:59 Intake Total 0 1150 Output Total 700 1200 400 Balance -700 -50 -400 Weight 279 lb 9.6 oz NAD, calm jvd tds, neck supple ctab, nl effort rrr nl s1, s2 no m/r/g + bs soft nt nd ext with trace edema + dp/pt no carotid bruits alert and oriented x3 no jaundice, diaphoresis CBC, BMP 09/04/16 07:00 09/04/16 07:00 Laboratory Tests 05/15/15 09/02/16 09/04/16 14:40 22:30 07:00 Magnesium 1.9 Total Bilirubin 0.3 D AST 22 ALT 22 Alkaline Phosphatase 88 Troponin I 0.06 H B-Natriuretic Peptide 2113.71 H 4973.38 H Albumin 2.9 L D EKG: sinus tach 103 bpm, pac. lbbb CXR: poor quality, cardiomegaly, possible pleural effusion Cardiomyopathy: -mild, global LV hypo with EF 40% noted on 08/17 echo and similarly on 12/17 mibi -no ischemia on perfusion images seen, and no transient ischemic dilation (TID) noted to suggest "balanced ischemia" from multivessel CAD -? obesity/VIDYA related (BMI around 50)--never tested per pt but sleeps in recliner -mild acute heart failure exacerbation in setting of non-adherence to lasix. Now s/p 40 mg IV lasix x2 with improvement in sx's, but worsened bun/cr. Would get weight to better assess volume status. (over vs. underdiuresis). Unless weight shows compelling data for under-diuresis, would transition to PO lasix 40 mg daily - con't toprol 25 bid HTN: -reasonably controlled here; no med changes at present, con't asa for primary prevention DM: -per dr oswald HPL: -on statin, -cont same--outpt f/u CKD: - bline cr around 2.0. managment as above.
[2016-09-04] MEDS: ATORVASTATIN CA 10 MG TABLET (FP) PO SCH (21:29)
[2016-09-05] MEDS: INSULIN DETEMIR 100 UNITS/ML MDV SQ SCH (06:31)
[2016-09-05] MEDS: ACETAMINOPHEN 325 MG TABLET (FP) PO PRN ×3 (06:32→21:13)
[2016-09-05] MEDS: oxyCODONE HCL 5 MG TABLET PO PRN ×3 (06:32→21:12)
[2016-09-05 06:55] LABS: BASOPHIL 0.9 % (0-2.0); EOSINOPHIL 5.2 % (0-4.5); MCH 28.7 pg (25.7-33.7); MCHC 32.3 g/dl (32.0-36.0); MEAN CELL VOLUME 88.9 fl (80-96); NEUTROPHILS 58.5 % (42.8-82.8); PLATELET COUNT 148 K/MM3 (134-434); RDW 15.8 % (11.6-15.6); WHITE BLOOD COUNT 6.2 K/mm3 (4.0-10.0)
[2016-09-05 07:19] LABS: CALCIUM 8.6 mg/dL (8.5-10.1); CREATININE 2.4 mg/dL (0.55-1.02); PHOSPHOROUS 5.4 mg/dL (2.5-4.9)
--- NOTE | 2016-09-05 08:58 | PN ---
Progress Note, Physician - Current Medication List Current Medications: Active Medications Acetaminophen (Tylenol -) 650 mg PO Q6H PRN PRN Reason: FEVER OR PAIN Last Admin: 09/03/16 10:01 Dose: 650 mg Acetaminophen (Tylenol -) 325 mg PO Q4H PRN PRN Reason: PAIN 6-10 Stop: 09/06/16 11:15 Last Admin: 09/05/16 06:32 Dose: 325 mg Allopurinol (Zyloprim -) 100 mg PO BID [facility] Last Admin: 09/04/16 21:31 Dose: 100 mg Aspirin (Asa -) 81 mg PO DAILY [facility] Last Admin: 09/04/16 09:32 Dose: 81 mg Atorvastatin Calcium (Lipitor -) 10 mg PO HS [facility] Last Admin: 09/04/16 21:29 Dose: 10 mg Azithromycin (Zithromax 500mg Ivpb (Pre-Docked)) 500 mg IVPB DAILY [facility] Last Admin: 09/04/16 10:06 Dose: 500 mg Furosemide (Lasix -) 40 mg PO DAILY [facility] Gabapentin (Neurontin -) 300 mg PO DAILY [facility] Last Admin: 09/04/16 09:32 Dose: 300 mg Heparin Sodium (Porcine) (Heparin -) 5,000 unit SQ BID [facility] Last Admin: 09/04/16 21:29 Dose: 5,000 unit Insulin Detemir (Levemir Vial) 30 units SQ AM [facility] Last Admin: 09/05/16 06:31 Dose: 30 units Lorazepam (Ativan -) 1 mg PO BID [facility] Last Admin: 09/04/16 21:26 Dose: 1 mg Metoprolol Succinate (Toprol Xl -) 25 mg PO BID [facility] Last Admin: 09/04/16 23:37 Dose: Not Given Nystatin (Mycostatin Cream -) 1 applic TP BID [facility] Last Admin: 09/04/16 21:30 Dose: 1 applic Oxycodone HCl (Roxicodone -) 5 mg PO Q4H PRN PRN Reason: PAIN 6-10 Last Admin: 09/05/16 06:32 Dose: 5 mg Pantoprazole Sodium (Protonix -) 20 mg PO BID [facility] Last Admin: 09/04/16 21:31 Dose: 20 mg Polyethylene Glycol (Miralax (For Daily Use) -) 17 gm PO DAILY [facility] Last Admin: 09/04/16 09:33 Dose: Not Given Sertraline HCl (Zoloft -) 50 mg PO DAILY [facility] Last Admin: 09/04/16 09:32 Dose: 50 mg - Objective Vital Signs: Vital Signs Temperature 98.4 F 09/05/16 06:00 Pulse Rate 67 09/05/16 06:00 Respiratory Rate 20 09/05/16 06:00 Blood Pressure 120/58 09/05/16 06:00 O2 Sat by Pulse Oximetry (%) 96 09/05/16 02:08 Labs: CBC, BMP 09/05/16 06:15 09/05/16 06:15 INR, PTT INR 1.07 (0.82-1.09) 09/02/16 22:30 Assessment/Plan CXR: poor quality, cardiomegaly, possible pleural effusion nonisch cardiomyopathy/acute syst chf: -moderately decr'd EF (global)--approx 40% noted on 08/17 echo and similarly on mibi -no ischemia on perfusion images seen, and no transient ischemic dilation (TID) noted to suggest "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 obesity/VIDYA related (BMI around 50)--never tested per pt but sleeps in recliner -09/04: mild acute heart failure exacerbation in setting of non-adherence to lasix. Now s/p 40 mg IV lasix x2 with improvement in sx's, but worsened bun/ cr. -wt 279 here initially, no f/u weights, no baseline weight to use as target ( may be confounded by calories/morbid obesity as well) -labile creatinines on prior admits here (1.7-3.0), ? baseline runs 1.7-2.0 -09/05: will use sx's and labs to guide diuresis -bnp here 4900 (prior range 1-2K) -cxr on admit no definite congestion seen -given bun/creat appears dry, will hold diuretics, follow daily weights (lift scale) -pt should be encouraged to comply with lasix as outpt, and if urinary freq is prohibitive, rec eval or trial of myrbetriq/other to allow adequate lasix dosing -rec outpt sleep study to r/o treatable cause of nonisch CMP -f/u rpt echo -con't toprol 25 bid; if EF remains low on echo here, would add nitrates/hydral as bp tolerates (defer TOMAS/ARB for now given OTF and previously labile creatinines--though should be re-visited as outpt HTN: -well controlled here; -same meds DM: -per dr oswald HPL: -on statin, -cont same--outpt f/u OTF on CKD: -labile creatinines in past, as above -suspect bun/creat up at present due to overdiuresis
[2016-09-05] MEDS ORDERED: PT OWN MED DRAWER 7, Y5N ONE ×2 (09:26→20:51)
[2016-09-05] MEDS: HEPARIN NA (PORCINE) 5,000 UNITS/ML 1ML VIAL SQ SCH ×2 (09:28→21:09)
[2016-09-05] MEDS: AZITHROMYCIN IVPB 500 MG/250 ML D5W PRE-DOCKED IVPB SCH (09:28)
[2016-09-05] MEDS: NYSTATIN 100,000 UNIT/GM TOPICAL CREAM 15 GM TUBE TP SCH ×2 (09:28→21:11)
[2016-09-05] MEDS: ALLOPURINOL 100 MG TABLET (FP) PO SCH ×2 (09:29→21:12)
[2016-09-05] MEDS: METOPROLOL SUCCINATE 25 MG TAB.SR.24H (FP) PO SCH ×2 (09:29→21:11)
[2016-09-05] MEDS: ASPIRIN 81 MG CHEWABLE TABLETS PO SCH (09:29)
[2016-09-05] MEDS: SERTRALINE HCL 50 MG TABLET (FP) PO SCH (09:29)
[2016-09-05] MEDS: GABAPENTIN 300 MG CAPSULE (FP) PO SCH (09:29)
[2016-09-05] MEDS: PANTOPRAZOLE 20 MG TABLET (FP) PO SCH ×2 (09:29→21:11)
[2016-09-05] MEDS: LORazepam 1 MG TABLET PO SCH ×2 (09:29→21:05)
[2016-09-05] MEDS: POLYETHYLENE GLYCOL 3350 119 GM BTL PO SCH (09:31)
--- NOTE | 2016-09-05 13:19 | PN ---
Progress Note (short form) - Note Progress Note: Renal Follow up for OTF on CKD and volume overload Pt seen and examined at the bedside getting ECHO done reports feeling better SOB is much improved no Chest pain, abd pain, N/V/D, no fever or chills Vital Signs Temperature 98.5 F 09/05/16 09:00 Pulse Rate 70 09/05/16 09:00 Respiratory Rate 20 09/05/16 09:00 Blood Pressure 153/74 09/05/16 09:00 O2 Sat by Pulse Oximetry (%) 95 09/05/16 09:00 Intake & Output 09/02/16 09/03/16 09/04/16 09/05/16 23:59 23:59 23:59 23:59 Intake Total 1150 1150 250 Output Total 1600 1100 1000 Balance -450 50 -750 Weight 260 lb 279 lb 9.6 oz Gen: NAD, awake and alert CVS: RRR, No M/R Lungs: Dec BS, no rales Abd: Soft, Obese, NT/ND Ext: Trace edema in LE CBC, BMP 09/05/16 06:15 09/05/16 06:15 Current Medications Acetaminophen (Tylenol -) 650 mg PO Q6H PRN PRN Reason: FEVER OR PAIN Last Admin: 09/03/16 10:01 Dose: 650 mg Acetaminophen (Tylenol -) 325 mg PO Q4H PRN PRN Reason: PAIN 6-10 Stop: 09/06/16 11:15 Last Admin: 09/05/16 06:32 Dose: 325 mg Allopurinol (Zyloprim -) 100 mg PO BID [facility] Last Admin: 09/05/16 09:29 Dose: 100 mg Aspirin (Asa -) 81 mg PO DAILY [facility] Last Admin: 09/05/16 09:29 Dose: 81 mg Atorvastatin Calcium (Lipitor -) 10 mg PO HS [facility] Last Admin: 09/04/16 21:29 Dose: 10 mg Azithromycin (Zithromax 500mg Ivpb (Pre-Docked)) 500 mg IVPB DAILY [facility] Last Admin: 09/05/16 09:28 Dose: 500 mg Gabapentin (Neurontin -) 300 mg PO DAILY [facility] Last Admin: 09/05/16 09:29 Dose: 300 mg Heparin Sodium (Porcine) (Heparin -) 5,000 unit SQ BID [facility] Last Admin: 09/05/16 09:28 Dose: 5,000 unit Insulin Detemir (Levemir Vial) 30 units SQ AM [facility] Last Admin: 09/05/16 06:31 Dose: 30 units Lorazepam (Ativan -) 1 mg PO BID [facility] Last Admin: 09/05/16 09:29 Dose: 1 mg Metoprolol Succinate (Toprol Xl -) 25 mg PO BID [facility] Last Admin: 09/05/16 09:29 Dose: 25 mg Nystatin (Mycostatin Cream -) 1 applic TP BID [facility] Last Admin: 09/05/16 09:28 Dose: 1 applic Oxycodone HCl (Roxicodone -) 5 mg PO Q4H PRN PRN Reason: PAIN 6-10 Last Admin: 09/05/16 06:32 Dose: 5 mg Pantoprazole Sodium (Protonix -) 20 mg PO BID [facility] Last Admin: 09/05/16 09:29 Dose: 20 mg Polyethylene Glycol (Miralax (For Daily Use) -) 17 gm PO DAILY [facility] Last Admin: 09/05/16 09:31 Dose: 17 gm Sertraline HCl (Zoloft -) 50 mg PO DAILY [facility] Last Admin: 09/05/16 09:29 Dose: 50 mg A/P 81 year old woman with PMhx of CKD Stage 4 w/o proteinuria, Hypertension, CHF presented with sob and admitted for acute CHF exacerbation with peak Cr elevation to 2.4 #Acute on Chronic Renal insufficiency in setting of CHF and IV diuresis Cr stable and pt is non-oliguric pt is clinically improved from CHF off diuretics at the present time once renal function improves can restart oral diuretics no TOMAS or ARB for now Trend BUN/Cr' Thank you Pablo Burks DO
--- NOTE | 2016-09-05 14:48 | PN ---
Progress Note, Physician History of Present Illness: PULMONARY ALERT,FEELING BETTER,LESS DYSPNEIC,SLEPT WELL ON BIPAP - Current Medication List Current Medications: Active Medications Acetaminophen (Tylenol -) 650 mg PO Q6H PRN PRN Reason: FEVER OR PAIN Last Admin: 09/03/16 10:01 Dose: 650 mg Acetaminophen (Tylenol -) 325 mg PO Q4H PRN PRN Reason: PAIN 6-10 Stop: 09/06/16 11:15 Last Admin: 09/05/16 14:41 Dose: 325 mg Allopurinol (Zyloprim -) 100 mg PO BID [facility] Last Admin: 09/05/16 09:29 Dose: 100 mg Aspirin (Asa -) 81 mg PO DAILY [facility] Last Admin: 09/05/16 09:29 Dose: 81 mg Atorvastatin Calcium (Lipitor -) 10 mg PO HS [facility] Last Admin: 09/04/16 21:29 Dose: 10 mg Azithromycin (Zithromax 500mg Ivpb (Pre-Docked)) 500 mg IVPB DAILY [facility] Last Admin: 09/05/16 09:28 Dose: 500 mg Gabapentin (Neurontin -) 300 mg PO DAILY [facility] Last Admin: 09/05/16 09:29 Dose: 300 mg Heparin Sodium (Porcine) (Heparin -) 5,000 unit SQ BID [facility] Last Admin: 09/05/16 09:28 Dose: 5,000 unit Insulin Detemir (Levemir Vial) 30 units SQ AM [facility] Last Admin: 09/05/16 06:31 Dose: 30 units Lorazepam (Ativan -) 1 mg PO BID [facility] Last Admin: 09/05/16 09:29 Dose: 1 mg Metoprolol Succinate (Toprol Xl -) 25 mg PO BID [facility] Last Admin: 09/05/16 09:29 Dose: 25 mg Nystatin (Mycostatin Cream -) 1 applic TP BID [facility] Last Admin: 09/05/16 09:28 Dose: 1 applic Oxycodone HCl (Roxicodone -) 5 mg PO Q4H PRN PRN Reason: PAIN 6-10 Last Admin: 09/05/16 14:39 Dose: 5 mg Pantoprazole Sodium (Protonix -) 20 mg PO BID [facility] Last Admin: 09/05/16 09:29 Dose: 20 mg Polyethylene Glycol (Miralax (For Daily Use) -) 17 gm PO DAILY [facility] Last Admin: 09/05/16 09:31 Dose: 17 gm Sertraline HCl (Zoloft -) 50 mg PO DAILY [facility] Last Admin: 09/05/16 09:29 Dose: 50 mg - Objective Vital Signs: Vital Signs Temperature 98.5 F 09/05/16 09:00 Pulse Rate 70 09/05/16 09:00 Respiratory Rate 20 09/05/16 09:00 Blood Pressure 153/74 09/05/16 09:00 O2 Sat by Pulse Oximetry (%) 95 09/05/16 09:00 Constitutional: Yes: Well Nourished, Calm Eyes: Yes: WNL HENT: Yes: WNL Neck: Yes: WNL Cardiovascular: Yes: Regular Rate and Rhythm, S1, S2 Respiratory: Yes: Diminished Gastrointestinal: Yes: Normal Bowel Sounds, Soft Extremities: Yes: WNL Edema: Yes Labs: CBC, BMP 09/05/16 06:15 09/05/16 06:15 INR, PTT INR 1.07 (0.82-1.09) 09/02/16 22:30 Assessment/Plan Problem List - Problems (1) CHF (congestive heart failure) Code(s): I50.9 - HEART FAILURE, UNSPECIFIED Qualifiers: Congestive heart failure type: unspecified congestive heart failure type Congestive heart failure chronicity: acute on chronic Qualified Code(s): I50.9 - Heart failure, unspecified (2) CKD (chronic kidney disease) stage 4, GFR 15-29 ml/min Code(s): N18.4 - CHRONIC KIDNEY DISEASE, STAGE 4 (SEVERE) (3) Chest pain Code(s): R07.9 - CHEST PAIN, UNSPECIFIED (4) Chronic back pain greater than 3 months duration Code(s): M54.9 - DORSALGIA, UNSPECIFIED G89.29 - OTHER CHRONIC PAIN (5) Pneumonia Code(s): J18.9 - PNEUMONIA, UNSPECIFIED ORGANISM Qualifiers: Pneumonia type: due to unspecified organism Laterality: left Lung location: lower lobe of lung Qualified Code(s): J18.1 - Lobar pneumonia, unspecified organism (6) Anxiety Code(s): F41.9 - ANXIETY DISORDER, UNSPECIFIED (7) Back injury Code(s): S39.92XA - UNSPECIFIED INJURY OF LOWER BACK, INITIAL ENCOUNTER (8) Cervical spine arthritis Code(s): M46.92 - UNSPECIFIED INFLAMMATORY SPONDYLOPATHY, CERVICAL REGION (9) Diabetes Code(s): E11.9 - TYPE 2 DIABETES MELLITUS WITHOUT COMPLICATIONS (10) Dizziness Code(s): R42 - DIZZINESS AND GIDDINESS (11) GERD (gastroesophageal reflux disease) Code(s): K21.9 - GASTRO-ESOPHAGEAL REFLUX DISEASE WITHOUT ESOPHAGITIS (12) HTN (hypertension) with goal to be determined Code(s): I10 - ESSENTIAL (PRIMARY) HYPERTENSION (13) Hyperlipemia Code(s): E78.5 - HYPERLIPIDEMIA, UNSPECIFIED (14) Morbid obesity -> LIKELY OSAS Code(s): E66.01 - MORBID (SEVERE) OBESITY DUE TO EXCESS CALORIES (15) Neuropathy Code(s): G62.9 - POLYNEUROPATHY, UNSPECIFIED Assessment/Plan ABX O2 as needed Lasix BIPAP VTE prophylaxis Will need formal sleep apnea workup after discharge . DR MOSLEY
--- NOTE | 2016-09-05 15:28 | PN ---
Physical Exam: SUBJECTIVE: Patient seen and examined. Denies any pain/discomfort, states she is comfortable at rest. OBJECTIVE: Appears comfortable at rest Cee with 800cc of cloudy yellow urine Vital Signs Period Temp Pulse Resp BP Sys/Lopez Pulse Ox Last 24 Hr 97.7 F-98.5 F 67-72 16-20 112-153/54-81 95-98 GENERAL: The patient is awake, alert, and fully oriented, in no acute distress. HEAD: Normal with no signs of trauma. EYES: PERRL, extraocular movements intact, sclera anicteric, conjunctiva clear. No ptosis. ENT: Ears normal, nares patent, oropharynx clear without exudates, moist mucous membranes. NECK: Trachea midline, full range of motion, supple. LUNGS: diminished breath sounds bilaterally HEART: Regular rate and rhythm ABDOMEN: Soft, nontender, nondistended, normoactive bowel sounds, no guarding, no rebound, no hepatosplenomegaly, no masses. EXTREMITIES: no edema. NEUROLOGICAL: Normal speech, gait not observed. PSYCH: Normal mood, normal affect. SKIN: Warm, dry, normal turgor, no rashes or lesions noted Laboratory Results - last 24 hr 09/04/16 09/04/16 09/04/16 17:12 17:32 17:32 WBC RBC Hgb Hct MCV MCHC RDW Plt Count MPV Neutrophils % Lymphocytes % Monocytes % Eosinophils % Basophils % Sodium Potassium Chloride Carbon Dioxide Anion Gap BUN Creatinine POC Glucometer 131 Random Glucose Calcium Phosphorus Magnesium B-Natriuretic Peptide U Random Total Protein Ur Random Sodium 13 Ur Random Urea Nitrogn 543 Urine Creatinine 09/04/16 09/04/16 09/05/16 17:32 17:32 06:15 WBC 6.2 RBC 3.62 Hgb 10.4 L Hct 32.2 L MCV 88.9 MCHC 32.3 RDW 15.8 H Plt Count 148 MPV 9.0 Neutrophils % 58.5 Lymphocytes % 25.5 Monocytes % 9.9 Eosinophils % 5.2 H Basophils % 0.9 Sodium Potassium Chloride Carbon Dioxide Anion Gap BUN Creatinine POC Glucometer Random Glucose Calcium Phosphorus Magnesium B-Natriuretic Peptide U Random Total Protein 30 H Ur Random Sodium Ur Random Urea Nitrogn Urine Creatinine 60.6 09/05/16 09/05/16 09/05/16 06:15 06:15 06:29 WBC RBC Hgb Hct MCV MCHC RDW Plt Count MPV Neutrophils % Lymphocytes % Monocytes % Eosinophils % Basophils % Sodium 139 Potassium 4.3 Chloride 101 Carbon Dioxide 29 D Anion Gap 9 BUN 72 H Creatinine 2.4 H POC Glucometer 145 Random Glucose 134 H D Calcium 8.6 Phosphorus 5.4 H Magnesium 2.0 B-Natriuretic Peptide 2394.97 H Cancelled U Random Total Protein Ur Random Sodium Ur Random Urea Nitrogn Urine Creatinine 09/05/16 11:04 WBC RBC Hgb Hct MCV MCHC RDW Plt Count MPV Neutrophils % Lymphocytes % Monocytes % Eosinophils % Basophils % Sodium Potassium Chloride Carbon Dioxide Anion Gap BUN Creatinine POC Glucometer 232 Random Glucose Calcium Phosphorus Magnesium B-Natriuretic Peptide U Random Total Protein Ur Random Sodium Ur Random Urea Nitrogn Urine Creatinine Active Medications Generic Name Dose Route Start Last Admin Trade Name Freq PRN Reason Stop Dose Admin Acetaminophen 650 mg 09/03/16 02:02 09/03/16 10:01 Tylenol - PO 650 mg Q6H PRN Administration FEVER OR PAIN Acetaminophen 325 mg 09/03/16 11:16 09/05/16 14:41 Tylenol - PO 09/06/16 11:15 325 mg Q4H PRN Administration PAIN 6-10 Allopurinol 100 mg 09/03/16 10:00 09/05/16 09:29 Zyloprim - PO 100 mg BID [facility] Administration Aspirin 81 mg 09/03/16 10:00 09/05/16 09:29 Asa - PO 81 mg DAILY [facility] Administration Atorvastatin Calcium 10 mg 09/03/16 22:00 09/04/16 21:29 Lipitor - PO 10 mg HS [facility] Administration Azithromycin 500 mg 09/03/16 10:00 09/05/16 09:28 Zithromax 500mg Ivpb (Pre-Docked) IVPB 500 mg DAILY [facility] Administration Gabapentin 300 mg 09/03/16 10:00 09/05/16 09:29 Neurontin - PO 300 mg DAILY [facility] Administration Heparin Sodium (Porcine) 5,000 unit 09/03/16 11:15 09/05/16 09:28 Heparin - SQ 5,000 unit BID [facility] Administration Insulin Detemir 30 units 09/03/16 07:00 09/05/16 06:31 Levemir Vial SQ 30 units AM [facility] Administration Lorazepam 1 mg 09/03/16 22:00 09/05/16 09:29 Ativan - PO 1 mg BID [facility] Administration Metoprolol Succinate 25 mg 09/03/16 10:00 09/05/16 09:29 Toprol Xl - PO 25 mg BID [facility] Administration Nystatin 1 applic 09/03/16 22:00 09/05/16 09:28 Mycostatin Cream - TP 1 applic BID [facility] Administration Oxycodone HCl 5 mg 09/03/16 11:16 09/05/16 14:39 Roxicodone - PO 5 mg Q4H PRN Administration PAIN 6-10 Pantoprazole Sodium 20 mg 09/03/16 10:00 09/05/16 09:29 Protonix - PO 20 mg BID [facility] Administration Polyethylene Glycol 17 gm 09/03/16 12:15 09/05/16 09:31 Miralax (For Daily Use) - PO 17 gm DAILY [facility] Administration Sertraline HCl 50 mg 09/03/16 10:00 09/05/16 09:29 Zoloft - PO 50 mg DAILY [facility] Administration ASSESSMENT/PLAN: Patient is an 81 year old patient with a past medical history of CHF, HTN, HLD, CKD , IDDM with probable diabetic neuropathy, hemicolectomy for Colon cancer, chronic back pain, GERD, anxiety/depression and gout who presents to the ED on with shortness of breath and orthopnea. Imaging: Chest Xray - 09/02/2106 - Cardiac silhouette shows mod enlarged unfolding of aortic arch, cannot rule out small left pleural effusion Cardiology: CHF - congestive heart failure - acute on chronic/orthopena Assessment/Plan: On home dose of Lasix PO 40mg daily, now in acute exacerbation She is now s/p 40 mg IV lasix x 2 with improvement in symptoms Tolerating CPAP and PRN oxygen Monitor BUN/Creat while on IV Lasix On Toprol 25mg BID Cardiology following Monitor daily weights, strict I&Os : Acute Kidney Injury Assessment/Plan: Acute on chronic Kidney Disease in setting of CHF and diuresis Baseline Creatinine ~ 1.5 - 2 Patient is improving from CHF, tolerating room air intermittently Lasix as per Cardiology Will continue to trend BUN/Cr Renal following Pulmonary: Pneumonia - acute Assessment/Plan: On Zithromax 500mg ivpb daily Oxygen PRN Monitor respiratory status on BIPAP and nasal cannula Tolerating periods of room air, no oxygen at home Check O2 saturation pre/post ambulation Endocrine: Diabetes mellitus Assessment/Plan: Monitor BGMs on Levemir and Novolog F.E.N. Fluids: No IVF, tolerating PO Electrolytes: bmp in a.m. Nutrition: diabetic diet Prophylaxis: DVT: Heparin BID GI: Protonix 20mg BID Disposition: Requires inpatient hospitalization. Full code. On d/c will need formal sleep apnea workup after discharge. Visit type - Emergency Visit Emergency Visit: Yes ED Registration Date: 09/03/16 Care time: The patient presented to the Emergency Department on the above date and was hospitalized for further evaluation of their emergent condition. - New Patient This patient is new to me today: Yes Date on this admission: 09/06/16 - Critical Care Critical Care patient: No - Discharge Referral Referred to [facility] Med [facility].C.: No
[2016-09-05] MEDS: ATORVASTATIN CA 10 MG TABLET (FP) PO SCH (21:10)
--- NOTE | 2016-09-05 21:31 | PN ---
Progress Note (short form) - Note Progress Note: Chief Complaint: SOB and Dizzyness S: sob improved, although not ambulating as much as she would at home. no cp , palps, dizziness. stopped IV lasix yesterday Current Medications Acetaminophen (Tylenol -) 650 mg PO Q6H PRN PRN Reason: FEVER OR PAIN Last Admin: 09/03/16 10:01 Dose: 650 mg Acetaminophen (Tylenol -) 325 mg PO Q4H PRN PRN Reason: PAIN 6-10 Stop: 09/06/16 11:15 Last Admin: 09/05/16 21:13 Dose: 325 mg Allopurinol (Zyloprim -) 100 mg PO BID [facility] Last Admin: 09/05/16 21:12 Dose: 100 mg Aspirin (Asa -) 81 mg PO DAILY [facility] Last Admin: 09/05/16 09:29 Dose: 81 mg Atorvastatin Calcium (Lipitor -) 10 mg PO HS [facility] Last Admin: 09/05/16 21:10 Dose: 10 mg Azithromycin (Zithromax 500mg Ivpb (Pre-Docked)) 500 mg IVPB DAILY [facility] Last Admin: 09/05/16 09:28 Dose: 500 mg Gabapentin (Neurontin -) 300 mg PO DAILY [facility] Last Admin: 09/05/16 09:29 Dose: 300 mg Heparin Sodium (Porcine) (Heparin -) 5,000 unit SQ BID [facility] Last Admin: 09/05/16 21:09 Dose: 5,000 unit Insulin Detemir (Levemir Vial) 30 units SQ AM [facility] Last Admin: 09/05/16 06:31 Dose: 30 units Lorazepam (Ativan -) 1 mg PO BID [facility] Last Admin: 09/05/16 21:05 Dose: 1 mg Metoprolol Succinate (Toprol Xl -) 25 mg PO BID [facility] Last Admin: 09/05/16 21:11 Dose: 25 mg Nystatin (Mycostatin Cream -) 1 applic TP BID [facility] Last Admin: 09/05/16 21:11 Dose: 1 applic Oxycodone HCl (Roxicodone -) 5 mg PO Q4H PRN PRN Reason: PAIN 6-10 Last Admin: 09/05/16 21:12 Dose: 5 mg Pantoprazole Sodium (Protonix -) 20 mg PO BID [facility] Last Admin: 09/05/16 21:11 Dose: 20 mg Polyethylene Glycol (Miralax (For Daily Use) -) 17 gm PO DAILY [facility] Last Admin: 09/05/16 09:31 Dose: 17 gm Sertraline HCl (Zoloft -) 50 mg PO DAILY [facility] Last Admin: 09/05/16 09:29 Dose: 50 mg Vital Signs - 24 hr 09/04/16 09/04/16 09/04/16 21:39 22:31 23:35 Temperature 97.8 F Pulse Rate 72 Respiratory 16 Rate Blood Pressure 125/59 112/57 O2 Sat by Pulse 98 Oximetry (%) 09/04/16 09/05/16 09/05/16 23:37 02:08 06:00 Temperature 98.4 F Pulse Rate 67 67 Respiratory 20 Rate Blood Pressure 113/61 120/58 O2 Sat by Pulse 96 Oximetry (%) 09/05/16 09/05/16 09/05/16 09:00 14:19 19:00 Temperature 98.5 F 98.5 F 97.7 F Pulse Rate 70 71 68 Respiratory 20 20 18 Rate Blood Pressure 153/74 119/54 132/68 O2 Sat by Pulse 95 Oximetry (%) Intake & Output 09/03/16 09/04/16 09/05/16 09/06/16 07:59 07:59 07:59 07:59 Intake Total 0 1150 1150 1200 Output Total 700 1200 1800 700 Balance -700 -50 -650 500 Weight 279 lb 9.6 oz 268 lbs NAD, calm jvd tds, neck supple ctab, nl effort rrr nl s1, s2 no m/r/g + bs soft nt nd ext with trace edema + dp/pt no carotid bruits alert and oriented x3 no jaundice, diaphoresis CBC, BMP 09/05/16 06:15 09/05/16 06:15 EKG: sinus tach 103 bpm, pac. lbbb CXR: poor quality, cardiomegaly, possible pleural effusion Cardiomyopathy: -mild, global LV hypo with EF 40% noted on 08/17 echo and similarly on 12/17 mibi -no ischemia on perfusion images seen, and no transient ischemic dilation (TID) noted to suggest "balanced ischemia" from multivessel CAD -? obesity/VIDYA related (BMI around 50)--never tested per pt but sleeps in recliner -mild acute heart failure exacerbation in setting of non-adherence to lasix. Now s/p 40 mg IV lasix x2 with improvement in sx's, but worsened bun/cr. Would get weight to better assess volume status. (over vs. underdiuresis). Unless weight shows compelling data for under-diuresis, - last received IV lasix yesterday. Would start PO lasix 40 mg tomorrow - con't toprol 25 bid HTN: -reasonably controlled here; no med changes at present, con't asa for primary prevention DM: -per dr oswald HPL: -on statin, -cont same--outpt f/u CKD: - bline cr around 2.0. managment as above.
[2016-09-06] MEDS: INSULIN DETEMIR 100 UNITS/ML MDV SQ SCH (06:31)
[2016-09-06] MEDS: oxyCODONE HCL 5 MG TABLET PO PRN ×2 (06:32→22:30)
[2016-09-06] MEDS: ACETAMINOPHEN 325 MG TABLET (FP) PO PRN ×2 (06:33→22:33)
[2016-09-06 07:22] LABS: BASOPHIL 0.6 % (0-2.0); EOSINOPHIL 4.2 % (0-4.5); MCH 28.8 pg (25.7-33.7); MCHC 32.3 g/dl (32.0-36.0); MEAN PLT VOLUME 9.1 fl (7.5-11.1); NEUTROPHILS 64.9 % (42.8-82.8); PLATELET COUNT 164 K/MM3 (134-434); RDW 15.5 % (11.6-15.6); WHITE BLOOD COUNT 6.6 K/mm3 (4.0-10.0)
[2016-09-06 07:52] LABS: CALCIUM 8.9 mg/dL (8.5-10.1); CREATININE 2.2 mg/dL (0.55-1.02); MAGNESIUM 2.1 mg/dL (1.8-2.4); PHOSPHOROUS 4.2 mg/dL (2.5-4.9)
[2016-09-06] MEDS ORDERED: PT OWN MED DRAWER 7, Y5N ONE (09:18)
[2016-09-06] MEDS: AZITHROMYCIN IVPB 500 MG/250 ML D5W PRE-DOCKED IVPB SCH (09:21)
[2016-09-06] MEDS: HEPARIN NA (PORCINE) 5,000 UNITS/ML 1ML VIAL SQ SCH ×2 (09:21→22:20)
[2016-09-06] MEDS: SERTRALINE HCL 50 MG TABLET (FP) PO SCH (09:22)
[2016-09-06] MEDS: METOPROLOL SUCCINATE 25 MG TAB.SR.24H (FP) PO SCH ×2 (09:22→22:23)
[2016-09-06] MEDS: PANTOPRAZOLE 20 MG TABLET (FP) PO SCH ×2 (09:22→22:23)
[2016-09-06] MEDS: NYSTATIN 100,000 UNIT/GM TOPICAL CREAM 15 GM TUBE TP SCH ×2 (09:22→22:22)
[2016-09-06] MEDS: ALLOPURINOL 100 MG TABLET (FP) PO SCH ×2 (09:22→22:23)
[2016-09-06] MEDS: LORazepam 1 MG TABLET PO SCH ×2 (09:22→22:20)
[2016-09-06] MEDS: GABAPENTIN 300 MG CAPSULE (FP) PO SCH (09:22)
[2016-09-06] MEDS: ASPIRIN 81 MG CHEWABLE TABLETS PO SCH (09:22)
[2016-09-06] MEDS: POLYETHYLENE GLYCOL 3350 119 GM BTL PO SCH (09:35)
--- NOTE | 2016-09-06 09:50 | PN ---
Physical Exam: SUBJECTIVE: Patient seen and examined. Denies chest pain or shortness of breath. OBJECTIVE: golden with hematuria, will d/c golden and send UA and UC will order PT and pre and post oxygen h/h sable Vital Signs Period Temp Pulse Resp BP Sys/Lopez Pulse Ox Last 24 Hr 97.7 F-98.7 F 68-76 18-20 108-134/45-68 93-98 GENERAL: The patient is awake, alert, and fully oriented, in no acute distress. HEAD: Normal with no signs of trauma. EYES: PERRL, extraocular movements intact, sclera anicteric, conjunctiva clear. No ptosis. ENT: Ears normal, nares patent, oropharynx clear without exudates, moist mucous membranes. NECK: Trachea midline, full range of motion, supple. LUNGS: diminished breath sounds bilaterally HEART: Regular rate and rhythm ABDOMEN: Soft, nontender, nondistended, normoactive bowel sounds, no guarding, no rebound, no hepatosplenomegaly, no masses. EXTREMITIES: no edema. NEUROLOGICAL: Normal speech, gait not observed. PSYCH: Normal mood, normal affect. SKIN: Warm, dry, normal turgor, no rashes or lesions noted Laboratory Results - last 24 hr 09/04/16 09/05/16 09/05/16 07:00 11:04 16:55 WBC RBC Hgb Hct MCV MCHC RDW Plt Count MPV Neutrophils % Lymphocytes % Monocytes % Eosinophils % Basophils % Sodium Potassium Chloride Carbon Dioxide Anion Gap BUN Creatinine POC Glucometer 232 171 Random Glucose Calcium Phosphorus Magnesium Carcinoembryonic Ag 4.4 09/06/16 09/06/16 09/06/16 05:35 05:35 06:28 WBC 6.6 RBC 3.74 Hgb 10.8 Hct 33.3 MCV 89.0 MCHC 32.3 RDW 15.5 Plt Count 164 MPV 9.1 Neutrophils % 64.9 Lymphocytes % 21.1 Monocytes % 9.2 Eosinophils % 4.2 Basophils % 0.6 Sodium 140 Potassium 4.4 Chloride 102 Carbon Dioxide 28 Anion Gap 10 BUN 68 H Creatinine 2.2 H POC Glucometer 147 Random Glucose 145 H Calcium 8.9 Phosphorus 4.2 D Magnesium 2.1 Carcinoembryonic Ag Active Medications Generic Name Dose Route Start Last Admin Trade Name Freq PRN Reason Stop Dose Admin Acetaminophen 650 mg 09/03/16 02:02 09/03/16 10:01 Tylenol - PO 650 mg Q6H PRN Administration FEVER OR PAIN Acetaminophen 325 mg 09/03/16 11:16 09/06/16 06:33 Tylenol - PO 09/06/16 11:15 325 mg Q4H PRN Administration PAIN 6-10 Allopurinol 100 mg 09/03/16 10:00 09/06/16 09:22 Zyloprim - PO 100 mg BID MANUEL Administration Aspirin 81 mg 09/03/16 10:00 09/06/16 09:22 Asa - PO 81 mg DAILY MANUEL Administration Atorvastatin Calcium 10 mg 09/03/16 22:00 09/05/16 21:10 Lipitor - PO 10 mg HS MANUEL Administration Azithromycin 500 mg 09/03/16 10:00 09/06/16 09:21 Zithromax 500mg Ivpb (Pre-Docked) IVPB 500 mg DAILY MANUEL Administration Gabapentin 300 mg 09/03/16 10:00 09/06/16 09:22 Neurontin - PO 300 mg DAILY MANUEL Administration Heparin Sodium (Porcine) 5,000 unit 09/03/16 11:15 09/06/16 09:21 Heparin - SQ 5,000 unit BID MANUEL Administration Insulin Detemir 30 units 09/03/16 07:00 09/06/16 06:31 Levemir Vial SQ 30 units AM MANUEL Administration Lorazepam 1 mg 09/03/16 22:00 09/06/16 09:22 Ativan - PO 1 mg BID MANUEL Administration Metoprolol Succinate 25 mg 09/03/16 10:00 09/06/16 09:22 Toprol Xl - PO 25 mg BID MANUEL Administration Nystatin 1 applic 09/03/16 22:00 09/06/16 09:22 Mycostatin Cream - TP 1 applic BID MANUEL Administration Oxycodone HCl 5 mg 09/03/16 11:16 09/06/16 06:32 Roxicodone - PO 5 mg Q4H PRN Administration PAIN 6-10 Pantoprazole Sodium 20 mg 09/03/16 10:00 09/06/16 09:22 Protonix - PO 20 mg BID MANUEL Administration Polyethylene Glycol 17 gm 09/03/16 12:15 09/06/16 09:35 Miralax (For Daily Use) - PO 17 gm DAILY MANUEL Administration Sertraline HCl 50 mg 09/03/16 10:00 09/06/16 09:22 Zoloft - PO 50 mg DAILY MANUEL Administration ASSESSMENT/PLAN: Patient is an 81 year old patient with a past medical history of CHF, HTN, HLD, CKD , IDDM with probable diabetic neuropathy, hemicolectomy for Colon cancer, chronic back pain, GERD, anxiety/depression and gout who presents to the ED on with shortness of breath and orthopnea. Imaging: Chest Xray - 09/02/2106 - Cardiac silhouette shows mod enlarged unfolding of aortic arch, cannot rule out small left pleural effusion Echo 09/06/2016 - LV sys fx mod. reduced, impaired LV relaxation, mild MV thickening, mild-mod mitral regurg, mod tricuspid regurg, mild pulm htn, mild aortic regurg. Cardiology: CHF - congestive heart failure - acute on chronic/orthopena Assessment/Plan: On home dose of Lasix PO 40mg daily, now in acute exacerbation Lasix as per cardiology Tolerating CPAP and PRN oxygen Monitor BUN/Creat while on IV Lasix On Toprol 25mg BID Cardiology following Monitor daily weights, strict I&Os : Acute Kidney Injury Assessment/Plan: Acute on chronic Kidney Disease in setting of CHF and diuresis Baseline Creatinine ~ 1.5 - 2 Patient is improving from CHF, tolerating room air intermittently Lasix as per Cardiology Will continue to trend BUN/Cr Renal following Pulmonary: Pneumonia - acute Assessment/Plan: On Zithromax 500mg ivpb daily Oxygen PRN Monitor respiratory status on BIPAP and nasal cannula Tolerating periods of room air, no oxygen at home Check O2 saturation pre/post ambulation Endocrine: Diabetes mellitus Assessment/Plan: Monitor BGMs on Levemir and Novolog F.E.N. Fluids: No IVF, tolerating PO Electrolytes: bmp in a.m. Nutrition: diabetic diet Prophylaxis: DVT: Heparin BID GI: Protonix 20mg BID Disposition: Requires inpatient hospitalization. Full code. On d/c will need formal sleep apnea workup after discharge. Visit type - Emergency Visit Emergency Visit: Yes ED Registration Date: 09/03/16 Care time: The patient presented to the Emergency Department on the above date and was hospitalized for further evaluation of their emergent condition. - New Patient This patient is new to me today: No - Critical Care Critical Care patient: No - Discharge Referral Referred to [facility] Med P.C.: No
[2016-09-06 11:44] LABS: URINE APPEARANCE SLCLOUDY; URINE BILIRUBIN NEGATIVE (NEGATIVE); URINE COLOR YELLOW; URINE GLUCOSE (UA) NEGATIVE (NEGATIVE); URINE KETONE NEGATIVE (NEGATIVE); URINE NITRITE NEGATIVE (NEGATIVE); URINE UROBILINOGEN NEGATIVE E.U./dl (0.2-1.0)
[2016-09-06 11:50] LABS: URINE BLOOD 3+ (NEGATIVE); URINE LEUK ESTERASE 1+ (NEGATIVE); URINE PROTEIN 2+ (NEGATIVE)
[2016-09-06 12:12] LABS: URINE RBC 1945 /hpf (0-3); URINE WBC 121 /hpf (3-5); YEAST MODERATE
--- NOTE | 2016-09-06 12:30 | PN ---
Progress Note (short form) - Note Progress Note: Renal Follow up for OTF on CKD and volume overload Pt seen and examined at the bedside has a mild cough (non-productive) sob is improved on NC o2 no chest pain, abd pain Vital Signs Temperature 98.4 F 09/06/16 09:00 Pulse Rate 70 09/06/16 10:47 Respiratory Rate 20 09/06/16 09:00 Blood Pressure 134/64 09/06/16 09:00 O2 Sat by Pulse Oximetry (%) 94 L 09/06/16 10:47 Intake & Output 09/03/16 09/04/16 09/05/16 09/06/16 23:59 23:59 23:59 23:59 Intake Total 1150 1150 1700 335 Output Total 1600 1100 2200 Balance -450 50 -500 335 Weight 279 lb 9.6 oz 268 lb 272 lb 2 oz Gen: NAD, awake and alert CVS: RRR, No M/R Lungs: Dec BS, no rales Abd: Soft, Obese, NT/ND Ext: Trace edema in LE CBC, BMP 09/06/16 05:35 09/06/16 05:35 Laboratory Tests 09/04/16 09/04/16 09/06/16 17:32 17:32 05:35 Calcium 8.9 Phosphorus 4.2 D Magnesium 2.1 Urine Protein Urine Blood Ur Leukocyte Esterase Urine RBC Urine WBC U Random Total Protein 30 H Urine Creatinine 60.6 09/06/16 11:00 Calcium Phosphorus Magnesium Urine Protein 2+ H Urine Blood 3+ H Ur Leukocyte Esterase 1+ H Urine RBC 1945 Urine WBC 121 U Random Total Protein Urine Creatinine Current Medications Acetaminophen (Tylenol -) 650 mg PO Q6H PRN PRN Reason: FEVER OR PAIN Last Admin: 09/03/16 10:01 Dose: 650 mg Allopurinol (Zyloprim -) 100 mg PO BID [facility] Last Admin: 09/06/16 09:22 Dose: 100 mg Aspirin (Asa -) 81 mg PO DAILY [facility] Last Admin: 09/06/16 09:22 Dose: 81 mg Atorvastatin Calcium (Lipitor -) 10 mg PO HS [facility] Last Admin: 09/05/16 21:10 Dose: 10 mg Azithromycin (Zithromax 500mg Ivpb (Pre-Docked)) 500 mg IVPB DAILY [facility] Last Admin: 09/06/16 09:21 Dose: 500 mg Gabapentin (Neurontin -) 300 mg PO DAILY [facility] Last Admin: 09/06/16 09:22 Dose: 300 mg Heparin Sodium (Porcine) (Heparin -) 5,000 unit SQ BID [facility] Last Admin: 09/06/16 09:21 Dose: 5,000 unit Insulin Detemir (Levemir Vial) 30 units SQ AM [facility] Last Admin: 09/06/16 06:31 Dose: 30 units Lorazepam (Ativan -) 1 mg PO BID [facility] Last Admin: 09/06/16 09:22 Dose: 1 mg Metoprolol Succinate (Toprol Xl -) 25 mg PO BID [facility] Last Admin: 09/06/16 09:22 Dose: 25 mg Nystatin (Mycostatin Cream -) 1 applic TP BID [facility] Last Admin: 09/06/16 09:22 Dose: 1 applic Oxycodone HCl (Roxicodone -) 5 mg PO Q4H PRN PRN Reason: PAIN 6-10 Last Admin: 09/06/16 06:32 Dose: 5 mg Pantoprazole Sodium (Protonix -) 20 mg PO BID [facility] Last Admin: 09/06/16 09:22 Dose: 20 mg Polyethylene Glycol (Miralax (For Daily Use) -) 17 gm PO DAILY [facility] Last Admin: 09/06/16 09:35 Dose: 17 gm Sertraline HCl (Zoloft -) 50 mg PO DAILY [facility] Last Admin: 09/06/16 09:22 Dose: 50 mg A/P 81 year old woman with PMhx of CKD Stage 4 w/o proteinuria, Hypertension, CHF presented with sob and admitted for acute CHF exacerbation with peak Cr elevation to 2.4 #Acute on Chronic Renal insufficiency in setting of CHF and IV diuresis Renal function with mild improvement off diuretics CHF is clinically improved continue to trend BUN/Cr Cardiology following will need maintenance diuretics on discharge Pt with subnephrotic proteinuria Thank you Pablo Burks DO
--- NOTE | 2016-09-06 13:09 | PN ---
Progress Note (short form) - Note Progress Note: Subjectively feels better today. Some cough. No CP. SOB improved. Intake & Output 09/03/16 09/04/16 09/05/16 09/06/16 23:59 23:59 23:59 23:59 Intake Total 1150 1150 1700 335 Output Total 1600 1100 2200 Balance -450 50 -500 335 Weight 279 lb 9.6 oz 268 lb 272 lb 2 oz Last Vital Signs Temp Pulse Resp BP Pulse Ox 98.4 F 70 20 134/64 94 L 09/06/16 09:00 09/06/16 10:47 09/06/16 09:00 09/06/16 09:00 09/06/16 10:47 Active Medications Acetaminophen (Tylenol -) 650 mg PO Q6H PRN PRN Reason: FEVER OR PAIN Last Admin: 09/03/16 10:01 Dose: 650 mg Allopurinol (Zyloprim -) 100 mg PO BID [facility] Last Admin: 09/06/16 09:22 Dose: 100 mg Aspirin (Asa -) 81 mg PO DAILY [facility] Last Admin: 09/06/16 09:22 Dose: 81 mg Atorvastatin Calcium (Lipitor -) 10 mg PO HS [facility] Last Admin: 09/05/16 21:10 Dose: 10 mg Azithromycin (Zithromax 500mg Ivpb (Pre-Docked)) 500 mg IVPB DAILY [facility] Last Admin: 09/06/16 09:21 Dose: 500 mg Gabapentin (Neurontin -) 300 mg PO DAILY [facility] Last Admin: 09/06/16 09:22 Dose: 300 mg Heparin Sodium (Porcine) (Heparin -) 5,000 unit SQ BID [facility] Last Admin: 09/06/16 09:21 Dose: 5,000 unit Insulin Detemir (Levemir Vial) 30 units SQ AM [facility] Last Admin: 09/06/16 06:31 Dose: 30 units Lorazepam (Ativan -) 1 mg PO BID [facility] Last Admin: 09/06/16 09:22 Dose: 1 mg Metoprolol Succinate (Toprol Xl -) 25 mg PO BID [facility] Last Admin: 09/06/16 09:22 Dose: 25 mg Nystatin (Mycostatin Cream -) 1 applic TP BID [facility] Last Admin: 09/06/16 09:22 Dose: 1 applic Oxycodone HCl (Roxicodone -) 5 mg PO Q4H PRN PRN Reason: PAIN 6-10 Last Admin: 09/06/16 06:32 Dose: 5 mg Pantoprazole Sodium (Protonix -) 20 mg PO BID [facility] Last Admin: 09/06/16 09:22 Dose: 20 mg Polyethylene Glycol (Miralax (For Daily Use) -) 17 gm PO DAILY [facility] Last Admin: 09/06/16 09:35 Dose: 17 gm Sertraline HCl (Zoloft -) 50 mg PO DAILY [facility] Last Admin: 09/06/16 09:22 Dose: 50 mg Constitutional: Yes: Obese, NAD on NC O2 Eyes: Yes: WNL, Conjunctiva Clear, EOM Intact HENT: Yes: Atraumatic, Normocephalic Neck: Yes: Supple, Trachea Midline Cardiovascular: Yes: Regular Rate and Rhythm Respiratory: Yes: Diminished, On Nasal O2, Rhonchi, SOB. No: Accessory Muscle Use, Rales, Stridor, Tachypnea, Wheezes ...Inspection: Yes: WNL ...Clubbing: No Gastrointestinal: Yes: WNL, Normal Bowel Sounds, Soft, Abdomen, Obese Renal/: Yes: WNL Musculoskeletal: Yes: WNL Extremities: Yes: WNL Edema: Yes Peripheral Pulses WNL: Yes Integumentary: Yes: WNL Neurological: Yes: WNL, Alert, Oriented ...Motor Strength: WNL Psychiatric: Yes: WNL, Alert, Oriented Laboratory Results - last 24 hr 09/04/16 09/05/16 09/06/16 07:00 16:55 05:35 WBC 6.6 RBC 3.74 Hgb 10.8 Hct 33.3 MCV 89.0 MCHC 32.3 RDW 15.5 Plt Count 164 MPV 9.1 Neutrophils % 64.9 Lymphocytes % 21.1 Monocytes % 9.2 Eosinophils % 4.2 Basophils % 0.6 Sodium Potassium Chloride Carbon Dioxide Anion Gap BUN Creatinine POC Glucometer 171 Random Glucose Calcium Phosphorus Magnesium Carcinoembryonic Ag 4.4 Urine Color Urine Appearance Urine pH Ur Specific [place] Urine Protein Urine Glucose (UA) Urine Ketones Urine Blood Urine Nitrite Urine Bilirubin Urine Urobilinogen Ur Leukocyte Esterase Urine RBC Urine WBC Ur Epithelial Cells Urine Yeast 09/06/16 09/06/16 09/06/16 05:35 06:28 11:00 WBC RBC Hgb Hct MCV MCHC RDW Plt Count MPV Neutrophils % Lymphocytes % Monocytes % Eosinophils % Basophils % Sodium 140 Potassium 4.4 Chloride 102 Carbon Dioxide 28 Anion Gap 10 BUN 68 H Creatinine 2.2 H POC Glucometer 147 Random Glucose 145 H Calcium 8.9 Phosphorus 4.2 D Magnesium 2.1 Carcinoembryonic Ag Urine Color Yellow Urine Appearance Slcloudy Urine pH 5.0 Ur Specific [place] 1.016 Urine Protein 2+ H Urine Glucose (UA) Negative Urine Ketones Negative Urine Blood 3+ H Urine Nitrite Negative Urine Bilirubin Negative Urine Urobilinogen Negative Ur Leukocyte Esterase 1+ H Urine RBC 1945 Urine WBC 121 Ur Epithelial Cells Rare Urine Yeast Moderate Problem List - Problems (1) CHF (congestive heart failure) Code(s): I50.9 - HEART FAILURE, UNSPECIFIED Qualifiers: Congestive heart failure type: unspecified congestive heart failure type Congestive heart failure chronicity: acute on chronic Qualified Code(s): I50.9 - Heart failure, unspecified (2) CKD (chronic kidney disease) stage 4, GFR 15-29 ml/min Code(s): N18.4 - CHRONIC KIDNEY DISEASE, STAGE 4 (SEVERE) (3) Chest pain Code(s): R07.9 - CHEST PAIN, UNSPECIFIED (4) Chronic back pain greater than 3 months duration Code(s): M54.9 - DORSALGIA, UNSPECIFIED G89.29 - OTHER CHRONIC PAIN (5) Pneumonia Code(s): J18.9 - PNEUMONIA, UNSPECIFIED ORGANISM Qualifiers: Pneumonia type: due to unspecified organism Laterality: left Lung location: lower lobe of lung Qualified Code(s): J18.1 - Lobar pneumonia, unspecified organism (6) Anxiety Code(s): F41.9 - ANXIETY DISORDER, UNSPECIFIED (7) Back injury Code(s): S39.92XA - UNSPECIFIED INJURY OF LOWER BACK, INITIAL ENCOUNTER (8) Cervical spine arthritis Code(s): M46.92 - UNSPECIFIED INFLAMMATORY SPONDYLOPATHY, CERVICAL REGION (9) Diabetes Code(s): E11.9 - TYPE 2 DIABETES MELLITUS WITHOUT COMPLICATIONS (10) Dizziness Code(s): R42 - DIZZINESS AND GIDDINESS (11) GERD (gastroesophageal reflux disease) Code(s): K21.9 - GASTRO-ESOPHAGEAL REFLUX DISEASE WITHOUT ESOPHAGITIS (12) HTN (hypertension) with goal to be determined Code(s): I10 - ESSENTIAL (PRIMARY) HYPERTENSION (13) Hyperlipemia Code(s): E78.5 - HYPERLIPIDEMIA, UNSPECIFIED (14) Morbid obesity -> LIKELY OSAS Code(s): E66.01 - MORBID (SEVERE) OBESITY DUE TO EXCESS CALORIES (15) Neuropathy Code(s): G62.9 - POLYNEUROPATHY, UNSPECIFIED Assessment/Plan Zmax O2 as needed Lasix Monitor off steroids VTE prophylaxis Will need formal sleep apnea workup after discharge Check O2 saturation pre/post ambulation Would be ideal to set up nocturnal O2 for now Can likely D/C tomorrow Dr Cunha Problem List - Problems (1) CHF (congestive heart failure) Code(s): I50.9 - HEART FAILURE, UNSPECIFIED Qualifiers: Congestive heart failure type: unspecified congestive heart failure type Congestive heart failure chronicity: acute on chronic Qualified Code(s ): I50.9 - Heart failure, unspecified (2) CKD (chronic kidney disease) stage 4, GFR 15-29 ml/min Code(s): N18.4 - CHRONIC KIDNEY DISEASE, STAGE 4 (SEVERE) (3) Chest pain Code(s): R07.9 - CHEST PAIN, UNSPECIFIED (4) Chronic back pain greater than 3 months duration Code(s): M54.9 - DORSALGIA, UNSPECIFIED G89.29 - OTHER CHRONIC PAIN (5) Pneumonia Code(s): J18.9 - PNEUMONIA, UNSPECIFIED ORGANISM Qualifiers: Pneumonia type: due to unspecified organism Laterality: left Lung location: lower lobe of lung Qualified Code(s): J18.1 - Lobar pneumonia, unspecified organism (6) Anxiety Code(s): F41.9 - ANXIETY DISORDER, UNSPECIFIED (7) Back injury Code(s): S39.92XA - UNSPECIFIED INJURY OF LOWER BACK, INITIAL ENCOUNTER (8) Cervical spine arthritis Code(s): M46.92 - UNSPECIFIED INFLAMMATORY SPONDYLOPATHY, CERVICAL REGION (9) Diabetes Code(s): E11.9 - TYPE 2 DIABETES MELLITUS WITHOUT COMPLICATIONS (10) Dizziness Code(s): R42 - DIZZINESS AND GIDDINESS (11) GERD (gastroesophageal reflux disease) Code(s): K21.9 - GASTRO-ESOPHAGEAL REFLUX DISEASE WITHOUT ESOPHAGITIS (12) HTN (hypertension) with goal to be determined Code(s): I10 - ESSENTIAL (PRIMARY) HYPERTENSION (13) Hyperlipemia Code(s): E78.5 - HYPERLIPIDEMIA, UNSPECIFIED (14) Morbid obesity Code(s): E66.01 - MORBID (SEVERE) OBESITY DUE TO EXCESS CALORIES (15) Neuropathy Code(s): G62.9 - POLYNEUROPATHY, UNSPECIFIED
--- NOTE | 2016-09-06 13:17 | PN ---
Progress Note (short form) - Note Progress Note: Chief Complaint: SOB and Dizzyness S: Mild increase in weight off diuretics. No worsening of HF symptoms. SOB remains improved, no cp, palps, dizziness. Current Medications Acetaminophen (Tylenol -) 650 mg PO Q6H PRN PRN Reason: FEVER OR PAIN Last Admin: 09/03/16 10:01 Dose: 650 mg Allopurinol (Zyloprim -) 100 mg PO BID [facility] Last Admin: 09/06/16 09:22 Dose: 100 mg Aspirin (Asa -) 81 mg PO DAILY [facility] Last Admin: 09/06/16 09:22 Dose: 81 mg Atorvastatin Calcium (Lipitor -) 10 mg PO HS [facility] Last Admin: 09/05/16 21:10 Dose: 10 mg Azithromycin (Zithromax 500mg Ivpb (Pre-Docked)) 500 mg IVPB DAILY [facility] Last Admin: 09/06/16 09:21 Dose: 500 mg Gabapentin (Neurontin -) 300 mg PO DAILY [facility] Last Admin: 09/06/16 09:22 Dose: 300 mg Heparin Sodium (Porcine) (Heparin -) 5,000 unit SQ BID [facility] Last Admin: 09/06/16 09:21 Dose: 5,000 unit Insulin Detemir (Levemir Vial) 30 units SQ AM [facility] Last Admin: 09/06/16 06:31 Dose: 30 units Lorazepam (Ativan -) 1 mg PO BID [facility] Last Admin: 09/06/16 09:22 Dose: 1 mg Metoprolol Succinate (Toprol Xl -) 25 mg PO BID [facility] Last Admin: 09/06/16 09:22 Dose: 25 mg Nystatin (Mycostatin Cream -) 1 applic TP BID [facility] Last Admin: 09/06/16 09:22 Dose: 1 applic Oxycodone HCl (Roxicodone -) 5 mg PO Q4H PRN PRN Reason: PAIN 6-10 Last Admin: 09/06/16 06:32 Dose: 5 mg Pantoprazole Sodium (Protonix -) 20 mg PO BID [facility] Last Admin: 09/06/16 09:22 Dose: 20 mg Polyethylene Glycol (Miralax (For Daily Use) -) 17 gm PO DAILY [facility] Last Admin: 09/06/16 09:35 Dose: 17 gm Sertraline HCl (Zoloft -) 50 mg PO DAILY [facility] Last Admin: 09/06/16 09:22 Dose: 50 mg Vital Signs - 24 hr 09/05/16 09/05/16 09/05/16 14:19 19:00 21:00 Temperature 98.5 F 97.7 F Pulse Rate 71 68 Respiratory 20 18 18 Rate Blood Pressure 119/54 132/68 O2 Sat by Pulse 98 Oximetry (%) 09/05/16 09/05/16 09/06/16 22:00 23:45 01:14 Temperature 98.4 F Pulse Rate 75 Respiratory 18 Rate Blood Pressure 108/45 O2 Sat by Pulse 98 93 L Oximetry (%) 09/06/16 09/06/16 09/06/16 06:00 09:00 10:44 Temperature 98.7 F 98.4 F Pulse Rate 69 76 Respiratory 20 20 Rate Blood Pressure 112/53 134/64 O2 Sat by Pulse 93 L 94 L Oximetry (%) 09/06/16 10:47 Temperature Pulse Rate 70 Respiratory Rate Blood Pressure O2 Sat by Pulse 94 L Oximetry (%) Intake & Output 09/04/16 09/05/16 09/06/16 09/07/16 07:59 07:59 07:59 07:59 Intake Total 1150 1150 1820 215 Output Total 1200 1800 1200 Balance -50 -650 620 215 Weight 268 lbs 272 lb 2 oz NAD, calm jvd tds, neck supple ctab, nl effort rrr nl s1, s2 no m/r/g + bs soft nt nd ext with trace edema + dp/pt no carotid bruits alert and oriented x3 no jaundice, diaphoresis CBC, BMP 09/06/16 05:35 09/06/16 05:35 EKG: sinus tach 103 bpm, pac. lbbb CXR: poor quality, cardiomegaly, possible pleural effusion Cardiomyopathy: -mild, global LV hypo with EF 40% noted on 08/17 echo and similarly on 12/17 mibi -no ischemia on perfusion images seen, and no transient ischemic dilation (TID) noted to suggest "balanced ischemia" from multivessel CAD -? obesity/VIDYA related (BMI around 50)--never tested per pt but sleeps in recliner -09/04: mild acute heart failure exacerbation in setting of non-adherence to lasix. Now s/p 40 mg IV lasix x2 with improvement in sx's, but worsened bun/ cr. Would get weight to better assess volume status. (over vs. underdiuresis) . Unless weight shows compelling data for under-diuresis, would transition to PO lasix 40 mg daily - 09/05: bun/cr unchanged po lasix held - 09/06: mild increase in weight, bun/cr improving. Will initiate po lasix 40 mg/ day. echo today. - con't toprol 25 bid HTN: -reasonably controlled here; no med changes at present, con't asa for primary prevention DM: -per dr oswald HPL: -on statin, -cont same--outpt f/u CKD: - bline cr around 2.0. managment as above.
[2016-09-06] MEDS: INSULIN SLIDING SCALE (NOVOLOG) 1 VIAL SQ SCH ×2 (17:57→22:25)
[2016-09-06] MEDS: ATORVASTATIN CA 10 MG TABLET (FP) PO SCH (22:22)
[2016-09-07] MEDS: INSULIN DETEMIR 100 UNITS/ML MDV SQ SCH (06:46)
[2016-09-07] MEDS: INSULIN SLIDING SCALE (NOVOLOG) 1 VIAL SQ SCH ×4 (06:47→21:35)
[2016-09-07] MEDS: oxyCODONE HCL 5 MG TABLET PO PRN ×2 (06:47→16:58)
[2016-09-07] MEDS: ACETAMINOPHEN 325 MG TABLET (FP) PO PRN ×2 (06:48→16:59)
[2016-09-07 08:09] LABS: ALBUMIN 2.8 g/dl (3.4-5.0); BASOPHIL 0.9 % (0-2.0); BILIRUBIN,TOTAL 0.3 mg/dL (0.2-1.0); CALCIUM 8.7 mg/dL (8.5-10.1); EOSINOPHIL 5.5 % (0-4.5); MAGNESIUM 2.2 mg/dL (1.8-2.4); MCH 28.7 pg (25.7-33.7); MCHC 32.5 g/dl (32.0-36.0); MEAN CELL VOLUME 88.3 fl (80-96); MEAN PLT VOLUME 9.2 fl (7.5-11.1); NEUTROPHILS 60.7 % (42.8-82.8); PHOSPHOROUS 3.7 mg/dL (2.5-4.9); PLATELET COUNT 156 K/MM3 (134-434); RDW 15.3 % (11.6-15.6); TOT PROT 6.3 g/dl (6.4-8.2)
[2016-09-07] MEDS ORDERED: PT OWN MED DRAWER 7, Y5N ONE (09:58)
[2016-09-07] MEDS: AZITHROMYCIN IVPB 500 MG/250 ML D5W PRE-DOCKED IVPB SCH (10:13)
[2016-09-07] MEDS: SERTRALINE HCL 50 MG TABLET (FP) PO SCH (10:14)
[2016-09-07] MEDS: LORazepam 1 MG TABLET PO SCH ×2 (10:14→20:59)
[2016-09-07] MEDS: ALLOPURINOL 100 MG TABLET (FP) PO SCH ×2 (10:14→20:59)
[2016-09-07] MEDS: PANTOPRAZOLE 20 MG TABLET (FP) PO SCH ×2 (10:14→20:59)
[2016-09-07] MEDS: ASPIRIN 81 MG CHEWABLE TABLETS PO SCH (10:14)
[2016-09-07] MEDS: METOPROLOL SUCCINATE 25 MG TAB.SR.24H (FP) PO SCH ×2 (10:14→20:59)
[2016-09-07] MEDS: POLYETHYLENE GLYCOL 3350 119 GM BTL PO SCH (10:14)
[2016-09-07] MEDS: HEPARIN NA (PORCINE) 5,000 UNITS/ML 1ML VIAL SQ SCH ×2 (10:14→20:59)
[2016-09-07] MEDS: NYSTATIN 100,000 UNIT/GM TOPICAL CREAM 15 GM TUBE TP SCH ×2 (10:15→21:50)
--- NOTE | 2016-09-07 11:51 | PN ---
Progress Note (short form) - Note Progress Note: Renal Follow up for OTF on CKD and volume overload Pt seen and examined at the bedside feels better no sob or chest pain no N//V/D Vital Signs Temperature 98.1 F 09/07/16 06:00 Pulse Rate 66 09/07/16 06:00 Respiratory Rate 22 09/07/16 06:00 Blood Pressure 129/63 09/07/16 06:00 O2 Sat by Pulse Oximetry (%) 97 09/07/16 02:52 Intake & Output 09/04/16 09/05/16 09/06/16 09/07/16 23:59 23:59 23:59 23:59 Intake Total 1150 1700 1185 305 Output Total 1100 2200 300 Balance 50 -500 885 305 Weight 268 lb 272 lb 2 oz 273 lb 6.4 oz Gen: NAD, awake and alert CVS: RRR, No M/R Lungs: Dec BS, no rales Abd: Soft, Obese, NT/ND Ext: Trace edema in LE CBC, BMP 09/07/16 06:30 09/07/16 06:30 Laboratory Tests 09/07/16 06:30 Calcium 8.7 Phosphorus 3.7 Magnesium 2.2 Albumin 2.8 L Current Medications Acetaminophen (Tylenol -) 650 mg PO Q6H PRN PRN Reason: FEVER OR PAIN Last Admin: 09/07/16 06:48 Dose: 650 mg Allopurinol (Zyloprim -) 100 mg PO BID [facility] Last Admin: 09/07/16 10:14 Dose: 100 mg Aspirin (Asa -) 81 mg PO DAILY [facility] Last Admin: 09/07/16 10:14 Dose: 81 mg Atorvastatin Calcium (Lipitor -) 10 mg PO HS [facility] Last Admin: 09/06/16 22:22 Dose: 10 mg Azithromycin (Zithromax 500mg Ivpb (Pre-Docked)) 500 mg IVPB DAILY [facility] Last Admin: 09/07/16 10:13 Dose: 500 mg Gabapentin (Neurontin -) 300 mg PO DAILY [facility] Last Admin: 09/06/16 09:22 Dose: 300 mg Heparin Sodium (Porcine) (Heparin -) 5,000 unit SQ BID [facility] Last Admin: 09/07/16 10:14 Dose: 5,000 unit Insulin Aspart (Novolog Vial Sliding Scale -) 1 vial SQ ACHS [facility] PRN Reason: Protocol Last Admin: 09/07/16 06:47 Dose: Not Given Insulin Detemir (Levemir Vial) 30 units SQ AM [facility] Last Admin: 09/07/16 06:46 Dose: 30 units Lorazepam (Ativan -) 1 mg PO BID [facility] Last Admin: 09/07/16 10:14 Dose: 1 mg Metoprolol Succinate (Toprol Xl -) 25 mg PO BID [facility] Last Admin: 09/07/16 10:14 Dose: 25 mg Nystatin (Mycostatin Cream -) 1 applic TP BID [facility] Last Admin: 09/07/16 10:15 Dose: 1 applic Oxycodone HCl (Roxicodone -) 5 mg PO Q4H PRN PRN Reason: PAIN 6-10 Last Admin: 09/07/16 06:47 Dose: 5 mg Pantoprazole Sodium (Protonix -) 20 mg PO BID [facility] Last Admin: 09/07/16 10:14 Dose: 20 mg Polyethylene Glycol (Miralax (For Daily Use) -) 17 gm PO DAILY [facility] Last Admin: 09/07/16 10:14 Dose: 17 gm Sertraline HCl (Zoloft -) 50 mg PO DAILY [facility] Last Admin: 09/07/16 10:14 Dose: 50 mg Torsemide (Demadex -) 20 mg PO DAILY [facility] A/P 81 year old woman with PMhx of CKD Stage 4 w/o proteinuria, Hypertension, CHF presented with sob and admitted for acute CHF exacerbation with peak Cr elevation to 2.4 #Acute on Chronic Renal insufficiency in setting of CHF and IV diuresis Renal function imporveved and near baseline Agree with starting Torsemide Trend BUN/cr and daily weights Thank you Pablo Burks DO
[2016-09-07] MEDS: GABAPENTIN 300 MG CAPSULE (FP) PO SCH (12:28)
[2016-09-07] MEDS: TORSEMIDE 20 MG TABLET (FP) PO SCH (12:28)
--- NOTE | 2016-09-07 13:02 | PN ---
Physical Exam: SUBJECTIVE: Patient seen and examined. She denies shortness of breath. Sitting in chair with 2 liter of oxygen. States she experiences intermittent periods of breathlessness at home. Does not have oxygen at home. OBJECTIVE: Sitting in chair, comfortable on 2 liters of nasal cannula. Vital Signs Period Temp Pulse Resp BP Sys/Lopez Pulse Ox Last 24 Hr 97.9 F-98.9 F 59-84 16-22 129-148/62-69 94-97 GENERAL: The patient is awake, alert, and fully oriented, in no acute distress. HEAD: Normal with no signs of trauma. EYES: PERRL, extraocular movements intact, sclera anicteric, conjunctiva clear. No ptosis. ENT: Ears normal, nares patent, oropharynx clear without exudates, moist mucous membranes. NECK: Trachea midline, full range of motion, supple. LUNGS: diminished breath sounds bilaterally HEART: Regular rate and rhythm ABDOMEN: Soft, nontender, nondistended, normoactive bowel sounds, no guarding, no rebound, no hepatosplenomegaly, no masses. EXTREMITIES: trace edema on bilateral lower extremity NEUROLOGICAL: Normal speech, gait not observed. PSYCH: Normal mood, normal affect. SKIN: Warm, dry, normal turgor, no rashes or lesions noted Laboratory Results - last 24 hr 09/06/16 09/06/16 09/07/16 17:11 22:24 06:30 WBC RBC Hgb Hct MCV MCHC RDW Plt Count MPV Neutrophils % Lymphocytes % Monocytes % Eosinophils % Basophils % Sodium 142 Potassium 4.0 Chloride 106 Carbon Dioxide 27 Anion Gap 9 BUN 69 H Creatinine 2.0 H Creat Clearance w eGFR 23.79 POC Glucometer 160 208 Random Glucose 107 H D Calcium 8.7 Phosphorus 3.7 Magnesium 2.2 Total Bilirubin 0.3 AST 20 ALT 26 Alkaline Phosphatase 92 Total Protein 6.3 L Albumin 2.8 L 09/07/16 09/07/16 09/07/16 06:30 06:45 12:27 WBC 7.0 RBC 3.47 L Hgb 10.0 L Hct 30.6 L MCV 88.3 MCHC 32.5 RDW 15.3 Plt Count 156 MPV 9.2 Neutrophils % 60.7 Lymphocytes % 22.9 Monocytes % 10.0 Eosinophils % 5.5 H Basophils % 0.9 Sodium Potassium Chloride Carbon Dioxide Anion Gap BUN Creatinine Creat Clearance w eGFR POC Glucometer 110 380 Random Glucose Calcium Phosphorus Magnesium Total Bilirubin AST ALT Alkaline Phosphatase Total Protein Albumin Active Medications Generic Name Dose Route Start Last Admin Trade Name Freq PRN Reason Stop Dose Admin Acetaminophen 650 mg 09/03/16 02:02 09/07/16 06:48 Tylenol - PO 650 mg Q6H PRN Administration FEVER OR PAIN Allopurinol 100 mg 09/03/16 10:00 09/07/16 10:14 Zyloprim - PO 100 mg BID MANUEL Administration Aspirin 81 mg 09/03/16 10:00 09/07/16 10:14 Asa - PO 81 mg DAILY MANUEL Administration Atorvastatin Calcium 10 mg 09/03/16 22:00 09/06/16 22:22 Lipitor - PO 10 mg HS MANUEL Administration Azithromycin 500 mg 09/03/16 10:00 09/07/16 10:13 Zithromax 500mg Ivpb (Pre-Docked) IVPB 500 mg DAILY MANUEL Administration Gabapentin 300 mg 09/03/16 10:00 09/07/16 12:28 Neurontin - PO 300 mg DAILY MANUEL Administration Heparin Sodium (Porcine) 5,000 unit 09/03/16 11:15 09/07/16 10:14 Heparin - SQ 5,000 unit BID MANUEL Administration Insulin Aspart 1 vial 09/06/16 16:30 09/07/16 12:29 Novolog Vial Sliding Scale - SQ 10 units ACHS MANUEL Administration Protocol Insulin Detemir 30 units 09/03/16 07:00 09/07/16 06:46 Levemir Vial SQ 30 units AM MANUEL Administration Lorazepam 1 mg 09/03/16 22:00 09/07/16 10:14 Ativan - PO 1 mg BID MANUEL Administration Metoprolol Succinate 25 mg 09/03/16 10:00 09/07/16 10:14 Toprol Xl - PO 25 mg BID MNAUEL Administration Nystatin 1 applic 09/03/16 22:00 09/07/16 10:15 Mycostatin Cream - TP 1 applic BID MANUEL Administration Oxycodone HCl 5 mg 09/03/16 11:16 09/07/16 06:47 Roxicodone - PO 5 mg Q4H PRN Administration PAIN 6-10 Pantoprazole Sodium 20 mg 09/03/16 10:00 09/07/16 10:14 Protonix - PO 20 mg BID MANUEL Administration Polyethylene Glycol 17 gm 09/03/16 12:15 09/07/16 10:14 Miralax (For Daily Use) - PO 17 gm DAILY MANUEL Administration Sertraline HCl 50 mg 09/03/16 10:00 09/07/16 10:14 Zoloft - PO 50 mg DAILY MANUEL Administration Torsemide 20 mg 09/07/16 10:00 09/07/16 12:28 Demadex - PO 20 mg DAILY MANUEL Administration ASSESSMENT/PLAN: Patient is an 81 year old patient with a past medical history of CHF, HTN, HLD, CKD , IDDM with probable diabetic neuropathy, hemicolectomy for Colon cancer, chronic back pain, GERD, anxiety/depression and gout who presents to the ED on with shortness of breath and orthopnea. Imaging: Chest Xray - 09/02/2106 - Cardiac silhouette shows mod enlarged unfolding of aortic arch, cannot rule out small left pleural effusion Echo 09/06/2016 - LV sys fx mod. reduced, impaired LV relaxation, mild MV thickening, mild-mod mitral regurg, mod tricuspid regurg, mild pulm htn, mild aortic regurg. Cardiology: CHF - congestive heart failure - acute on chronic/orthopena Assessment/Plan: On admission was on home dose of Lasix PO 40mg and came in acute exacerbation Started on Torsemide today Tolerating CPAP and PRN oxygen Monitor BUN/Creat On Toprol 25mg BID Cardiology following May require home oxygen, pre and post ordered prior to d/c Monitor daily weights, strict I&Os : Acute Kidney Injury Assessment/Plan: Acute on chronic Kidney Disease in setting of CHF and diuresis Baseline Creatinine ~ 1.5 - 2 Patient is improving from CHF, tolerating room air intermittently Will continue to trend BUN/Cr Renal following Pulmonary: Pneumonia - acute Assessment/Plan: On Zithromax 500mg ivpb daily Oxygen PRN Monitor respiratory status on BIPAP and nasal cannula Tolerating periods of room air, no oxygen at home Check O2 saturation pre/post ambulation Endocrine: Diabetes mellitus Assessment/Plan: Monitor BGMs on Levemir and Novolog F.E.N. Fluids: No IVF, tolerating PO Electrolytes: bmp in a.m. Nutrition: diabetic diet Prophylaxis: DVT: Heparin BID GI: Protonix 20mg BID Disposition: Requires inpatient hospitalization. Full code. On d/c will need formal sleep apnea workup after discharge. Visit type - Emergency Visit Emergency Visit: Yes ED Registration Date: 09/03/16 Care time: The patient presented to the Emergency Department on the above date and was hospitalized for further evaluation of their emergent condition. - New Patient This patient is new to me today: No - Critical Care Critical Care patient: No - Discharge Referral Referred to [facility] No
--- NOTE | 2016-09-07 15:27 | PN ---
Progress Note (short form) - Note Progress Note: PULMONARY RESTING COMFORTABLY Constitutional: Yes: Obese, NAD on NC O2 Eyes: Yes: WNL, Conjunctiva Clear, EOM Intact HENT: Yes: Atraumatic, Normocephalic Neck: Yes: Supple, Trachea Midline Cardiovascular: Yes: Regular Rate and Rhythm Respiratory: Yes: Diminished, On Nasal O2, Rhonchi, SOB. No: Accessory Muscle Use, Rales, Stridor, Tachypnea, Wheezes ...Inspection: Yes: WNL ...Clubbing: No Gastrointestinal: Yes: WNL, Normal Bowel Sounds, Soft, Abdomen, Obese Renal/: Yes: WNL Musculoskeletal: Yes: WNL Extremities: Yes: WNL Edema: Yes Peripheral Pulses WNL: Yes Integumentary: Yes: WNL Neurological: Yes: WNL, Alert, Oriented ...Motor Strength: WNL Psychiatric: Yes: WNL, Alert, Oriented LABS/MEDS/NOTES/IMAGING REVIEWED (1) CHF (congestive heart failure) Code(s): I50.9 - HEART FAILURE, UNSPECIFIED Qualifiers: Congestive heart failure type: unspecified congestive heart failure type Congestive heart failure chronicity: acute on chronic Qualified Code(s): I50.9 - Heart failure, unspecified (2) CKD (chronic kidney disease) stage 4, GFR 15-29 ml/min Code(s): N18.4 - CHRONIC KIDNEY DISEASE, STAGE 4 (SEVERE) (3) Chest pain Code(s): R07.9 - CHEST PAIN, UNSPECIFIED (4) Chronic back pain greater than 3 months duration Code(s): M54.9 - DORSALGIA, UNSPECIFIED G89.29 - OTHER CHRONIC PAIN (5) Pneumonia Code(s): J18.9 - PNEUMONIA, UNSPECIFIED ORGANISM Qualifiers: Pneumonia type: due to unspecified organism Laterality: left Lung location: lower lobe of lung Qualified Code(s): J18.1 - Lobar pneumonia, unspecified organism (6) Anxiety Code(s): F41.9 - ANXIETY DISORDER, UNSPECIFIED (7) Back injury Code(s): S39.92XA - UNSPECIFIED INJURY OF LOWER BACK, INITIAL ENCOUNTER (8) Cervical spine arthritis Code(s): M46.92 - UNSPECIFIED INFLAMMATORY SPONDYLOPATHY, CERVICAL REGION (9) Diabetes Code(s): E11.9 - TYPE 2 DIABETES MELLITUS WITHOUT COMPLICATIONS (10) Dizziness Code(s): R42 - DIZZINESS AND GIDDINESS (11) GERD (gastroesophageal reflux disease) Code(s): K21.9 - GASTRO-ESOPHAGEAL REFLUX DISEASE WITHOUT ESOPHAGITIS (12) HTN (hypertension) with goal to be determined Code(s): I10 - ESSENTIAL (PRIMARY) HYPERTENSION (13) Hyperlipemia Code(s): E78.5 - HYPERLIPIDEMIA, UNSPECIFIED (14) Morbid obesity -> LIKELY OSAS Code(s): E66.01 - MORBID (SEVERE) OBESITY DUE TO EXCESS CALORIES (15) Neuropathy Code(s): G62.9 - POLYNEUROPATHY, UNSPECIFIED O2 as needed Lasix Monitor off steroids VTE prophylaxis Will need formal sleep apnea workup after discharge Check O2 saturation pre/post ambulation Would be ideal to set up nocturnal O2 for now Petra ASHFORD MD
[2016-09-07 16:01] LABS: EOSINOPHIL 4.8 % (0-4.5); MCH 28.8 pg (25.7-33.7); MCHC 32.6 g/dl (32.0-36.0); MEAN CELL VOLUME 88.4 fl (80-96); MEAN PLT VOLUME 9.1 fl (7.5-11.1); NEUTROPHILS 65.8 % (42.8-82.8); PLATELET COUNT 167 K/MM3 (134-434); RDW 15.5 % (11.6-15.6); WHITE BLOOD COUNT 7.2 K/mm3 (4.0-10.0)
--- NOTE | 2016-09-07 18:16 | PN ---
Progress Note (short form) - Note Progress Note: CC: sob S: No worsening of HF symptoms. SOB remains improved, no cp, palps, dizziness. Current Medications Acetaminophen (Tylenol -) 650 mg PO Q6H PRN PRN Reason: FEVER OR PAIN Last Admin: 09/07/16 16:59 Dose: 650 mg Allopurinol (Zyloprim -) 100 mg PO BID [facility] Last Admin: 09/07/16 10:14 Dose: 100 mg Aspirin (Asa -) 81 mg PO DAILY [facility] Last Admin: 09/07/16 10:14 Dose: 81 mg Atorvastatin Calcium (Lipitor -) 10 mg PO HS [facility] Last Admin: 09/06/16 22:22 Dose: 10 mg Azithromycin (Zithromax 500mg Ivpb (Pre-Docked)) 500 mg IVPB DAILY [facility] Last Admin: 09/07/16 10:13 Dose: 500 mg Gabapentin (Neurontin -) 300 mg PO DAILY [facility] Last Admin: 09/07/16 12:28 Dose: 300 mg Heparin Sodium (Porcine) (Heparin -) 5,000 unit SQ BID [facility] Last Admin: 09/07/16 10:14 Dose: 5,000 unit Insulin Aspart (Novolog Vial Sliding Scale -) 1 vial SQ ACHS [facility] PRN Reason: Protocol Last Admin: 09/07/16 17:01 Dose: Not Given Insulin Detemir (Levemir Vial) 30 units SQ AM [facility] Last Admin: 09/07/16 06:46 Dose: 30 units Lorazepam (Ativan -) 1 mg PO BID [facility] Last Admin: 09/07/16 10:14 Dose: 1 mg Metoprolol Succinate (Toprol Xl -) 25 mg PO BID [facility] Last Admin: 09/07/16 10:14 Dose: 25 mg Nystatin (Mycostatin Cream -) 1 applic TP BID [facility] Last Admin: 09/07/16 10:15 Dose: 1 applic Oxycodone HCl (Roxicodone -) 5 mg PO Q4H PRN PRN Reason: PAIN 6-10 Last Admin: 09/07/16 16:58 Dose: 5 mg Pantoprazole Sodium (Protonix -) 20 mg PO BID [facility] Last Admin: 09/07/16 10:14 Dose: 20 mg Polyethylene Glycol (Miralax (For Daily Use) -) 17 gm PO DAILY [facility] Last Admin: 09/07/16 10:14 Dose: 17 gm Sertraline HCl (Zoloft -) 50 mg PO DAILY [facility] Last Admin: 09/07/16 10:14 Dose: 50 mg Torsemide (Demadex -) 20 mg PO DAILY [facility] Last Admin: 09/07/16 12:28 Dose: 20 mg Vital Signs - 24 hr 09/06/16 09/06/16 09/06/16 21:00 22:00 22:45 Temperature 98.9 F Pulse Rate 59 L Respiratory 16 16 Rate Blood Pressure 142/65 O2 Sat by Pulse 96 97 Oximetry (%) 09/07/16 09/07/16 09/07/16 02:52 06:00 09:00 Temperature 98.1 F Pulse Rate 66 Respiratory 22 22 Rate Blood Pressure 129/63 O2 Sat by Pulse 97 95 Oximetry (%) 09/07/16 09/07/16 10:00 14:14 Temperature 98.9 F 98.2 F Pulse Rate 66 62 Respiratory 20 22 Rate Blood Pressure 133/65 116/57 O2 Sat by Pulse Oximetry (%) Intake & Output 09/05/16 09/06/16 09/07/16 09/08/16 07:59 07:59 07:59 07:59 Intake Total 1150 1820 1185 425 Output Total 1800 1200 300 Balance -650 620 885 425 Weight 272 lb 2 oz 273 lb 6.4 oz NAD, calm jvd tds, neck supple ctab, nl effort rrr nl s1, s2 no m/r/g + bs soft nt nd ext with trace edema + dp/pt no carotid bruits alert and oriented x3 no jaundice, diaphoresis CBC, BMP 09/07/16 15:35 09/07/16 06:30 echo here: LV mod decreased systolic function. moderate global HK with severe apical HK, mild ar, Mild-mod MAC, mild-mod MR, mod tr, rvsp 30-40, Cardiomyopathy: -mild, global LV hypo with EF 40% noted on 08/17 echo and similarly on 12/17 mibi -no ischemia on perfusion images seen, and no transient ischemic dilation (TID) noted to suggest "balanced ischemia" from multivessel CAD -? obesity/VIDYA related (BMI around 50)--never tested per pt but sleeps in recliner -09/04: mild acute heart failure exacerbation in setting of non-adherence to lasix. Now s/p 40 mg IV lasix x2 with improvement in sx's, but worsened bun/ cr. Would get weight to better assess volume status. (over vs. underdiuresis) . Unless weight shows compelling data for under-diuresis, would transition to PO lasix 40 mg daily - 09/05: bun/cr unchanged po lasix held - 09/06: mild increase in weight, bun/cr improving. restarted on po diuretic mg/ day. echo today. - 09/07: weight and reanl function stable con't torsemide. - con't toprol 25 bid - echo here with worsened LV function and suggestion of worsened RWMA. currently still with hypoxia. consider repeat stress test as inpatient vs. outpatient once respiratory status improves. HTN: -reasonably controlled here; no med changes at present, con't asa for primary prevention DM: -per dr oswald HPL: -on statin, -cont same--outpt f/u CKD: - bline cr around 2.0. managment as above.
[2016-09-07] MEDS: ATORVASTATIN CA 10 MG TABLET (FP) PO SCH (20:59)
[2016-09-08] MEDS: oxyCODONE HCL 5 MG TABLET PO PRN ×2 (03:53→21:07)
[2016-09-08] MEDS: ACETAMINOPHEN 325 MG TABLET (FP) PO PRN (03:54)
[2016-09-08] MEDS: INSULIN DETEMIR 100 UNITS/ML MDV SQ SCH (06:33)
[2016-09-08] MEDS: INSULIN SLIDING SCALE (NOVOLOG) 1 VIAL SQ SCH ×4 (06:33→21:19)
[2016-09-08 07:42] LABS: EOSINOPHIL 5.1 % (0-4.5); MCHC 32.5 g/dl (32.0-36.0); NEUTROPHILS 67.3 % (42.8-82.8); PLATELET COUNT 160 K/MM3 (134-434); RDW 15.4 % (11.6-15.6); WHITE BLOOD COUNT 7.3 K/mm3 (4.0-10.0)
[2016-09-08 08:57] LABS: ALBUMIN 2.9 g/dl (3.4-5.0); BILIRUBIN,TOTAL 0.3 mg/dL (0.2-1.0); CALCIUM 9.1 mg/dL (8.5-10.1); CREATININE 2.1 mg/dL (0.55-1.02); MAGNESIUM 2.1 mg/dL (1.8-2.4); PHOSPHOROUS 4.2 mg/dL (2.5-4.9); TOT PROT 6.4 g/dl (6.4-8.2)
[2016-09-08] MEDS: METOPROLOL SUCCINATE 25 MG TAB.SR.24H (FP) PO SCH ×2 (10:55→21:12)
[2016-09-08] MEDS: SERTRALINE HCL 50 MG TABLET (FP) PO SCH (10:55)
[2016-09-08] MEDS: ALLOPURINOL 100 MG TABLET (FP) PO SCH ×2 (10:55→21:12)
[2016-09-08] MEDS: ASPIRIN 81 MG CHEWABLE TABLETS PO SCH (10:55)
[2016-09-08] MEDS: TORSEMIDE 20 MG TABLET (FP) PO SCH (10:55)
[2016-09-08] MEDS: PANTOPRAZOLE 20 MG TABLET (FP) PO SCH ×2 (10:55→21:12)
[2016-09-08] MEDS: GABAPENTIN 300 MG CAPSULE (FP) PO SCH (10:55)
[2016-09-08] MEDS: AZITHROMYCIN IVPB 500 MG/250 ML D5W PRE-DOCKED IVPB SCH (10:56)
[2016-09-08] MEDS: NYSTATIN 100,000 UNIT/GM TOPICAL CREAM 15 GM TUBE TP SCH ×2 (10:56→21:19)
[2016-09-08] MEDS: LORazepam 1 MG TABLET PO SCH ×2 (10:56→21:12)
[2016-09-08] MEDS: POLYETHYLENE GLYCOL 3350 119 GM BTL PO SCH (10:56)
[2016-09-08] MEDS: HEPARIN NA (PORCINE) 5,000 UNITS/ML 1ML VIAL SQ SCH ×2 (10:56→21:12)
--- NOTE | 2016-09-08 11:01 | PN ---
Physical Exam: SUBJECTIVE: Patient seen and examined at bedside. Lying in bed on BIPAP. OBJECTIVE: Vital Signs Period Temp Pulse Resp BP Sys/Lopez Pulse Ox Last 24 Hr 97.8 F-98.2 F 62-64 18-22 116-125/57-59 GENERAL: The patient is awake, alert, in no acute distress. HEAD: Normal with no signs of trauma. EYES: PERRL, extraocular movements intact, sclera anicteric, conjunctiva clear. No ptosis. LUNGS: Breath sounds equal, clear to auscultation bilaterally, no wheezes, no crackles, no accessory muscle use. HEART: Regular rate and rhythm, S1, S2 without murmur, rub or gallop. ABDOMEN: Soft, nontender, nondistended, normoactive bowel sounds, no guarding, no rebound, no hepatosplenomegaly, no masses. EXTREMITIES: 2+ pulses, warm, well-perfused, no edema. NEUROLOGICAL: Cranial nerves II through XII grossly intact. Normal speech, gait not observed. PSYCH: Normal mood, normal affect. SKIN: Warm, dry, normal turgor, no rashes or lesions noted Laboratory Results - last 24 hr 09/07/16 09/07/16 09/07/16 12:27 15:35 17:00 WBC 7.2 RBC 3.61 Hgb 10.4 L Hct 31.9 L MCV 88.4 MCHC 32.6 RDW 15.5 Plt Count 167 MPV 9.1 Neutrophils % 65.8 Lymphocytes % 19.6 Monocytes % 8.8 Eosinophils % 4.8 H Basophils % 1.0 Sodium Potassium Chloride Carbon Dioxide Anion Gap BUN Creatinine Creat Clearance w eGFR POC Glucometer 380 110 Random Glucose Calcium Phosphorus Magnesium Total Bilirubin AST ALT Alkaline Phosphatase Total Protein Albumin 09/07/16 09/08/16 09/08/16 21:29 06:30 06:30 WBC 7.3 RBC 3.41 L Hgb 9.9 L Hct 30.4 L MCV 89.0 MCHC 32.5 RDW 15.4 Plt Count 160 MPV 9.0 Neutrophils % 67.3 Lymphocytes % 18.5 Monocytes % 8.1 Eosinophils % 5.1 H Basophils % 1.0 Sodium 140 Potassium 4.2 Chloride 102 Carbon Dioxide 28 Anion Gap 10 BUN 71 H Creatinine 2.1 H Creat Clearance w eGFR 22.49 POC Glucometer 165 Random Glucose 136 H D Calcium 9.1 Phosphorus 4.2 Magnesium 2.1 Total Bilirubin 0.3 AST 21 ALT 24 Alkaline Phosphatase 89 Total Protein 6.4 Albumin 2.9 L 09/08/16 06:31 WBC RBC Hgb Hct MCV MCHC RDW Plt Count MPV Neutrophils % Lymphocytes % Monocytes % Eosinophils % Basophils % Sodium Potassium Chloride Carbon Dioxide Anion Gap BUN Creatinine Creat Clearance w eGFR POC Glucometer 153 Random Glucose Calcium Phosphorus Magnesium Total Bilirubin AST ALT Alkaline Phosphatase Total Protein Albumin Active Medications Generic Name Dose Route Start Last Admin Trade Name Freq PRN Reason Stop Dose Admin Acetaminophen 650 mg 09/03/16 02:02 09/08/16 03:54 Tylenol - PO 650 mg Q6H PRN Administration FEVER OR PAIN Allopurinol 100 mg 09/03/16 10:00 09/08/16 10:55 Zyloprim - PO 100 mg BID MANUEL Administration Aspirin 81 mg 09/03/16 10:00 09/08/16 10:55 Asa - PO 81 mg DAILY MANUEL Administration Atorvastatin Calcium 10 mg 09/03/16 22:00 09/07/16 20:59 Lipitor - PO 10 mg HS MANUEL Administration Azithromycin 500 mg 09/03/16 10:00 09/08/16 10:56 Zithromax 500mg Ivpb (Pre-Docked) IVPB 500 mg DAILY MANUEL Administration Gabapentin 300 mg 09/03/16 10:00 09/08/16 10:55 Neurontin - PO 300 mg DAILY MANUEL Administration Heparin Sodium (Porcine) 5,000 unit 09/03/16 11:15 09/08/16 10:56 Heparin - SQ 5,000 unit BID MANUEL Administration Insulin Aspart 1 vial 09/06/16 16:30 09/08/16 06:33 Novolog Vial Sliding Scale - SQ 2 units ACHS MANUEL Administration Protocol Insulin Detemir 30 units 09/03/16 07:00 09/08/16 06:33 Levemir Vial SQ 30 units AM MANUEL Administration Lorazepam 1 mg 09/03/16 22:00 09/08/16 10:56 Ativan - PO 1 mg BID MANUEL Administration Metoprolol Succinate 25 mg 09/03/16 10:00 09/08/16 10:55 Toprol Xl - PO 25 mg BID MANUEL Administration Nystatin 1 applic 09/03/16 22:00 09/08/16 10:56 Mycostatin Cream - TP 1 applic BID MANUEL Administration Oxycodone HCl 5 mg 09/03/16 11:16 09/08/16 03:53 Roxicodone - PO 5 mg Q4H PRN Administration PAIN 6-10 Pantoprazole Sodium 20 mg 09/03/16 10:00 09/08/16 10:55 Protonix - PO 20 mg BID MANUEL Administration Polyethylene Glycol 17 gm 09/03/16 12:15 09/08/16 10:56 Miralax (For Daily Use) - PO 17 gm DAILY MANUEL Administration Sertraline HCl 50 mg 09/03/16 10:00 09/08/16 10:55 Zoloft - PO 50 mg DAILY MANUEL Administration Torsemide 20 mg 09/07/16 10:00 09/08/16 10:55 Demadex - PO 20 mg DAILY MANUEL Administration ASSESSMENT/PLAN: 81 year-old woman with PMH of HTN, HLD, CHF, IDDM, and CKD Stage 4 w/o proteinuria, colon cancer s/p hemicolectomy, chronic back pain, GERD, and anxiety and depression, admitted for CHF exacerbation and OTF. Acute on chronic systolic and diastolic heart failure --Echo 09/06: LV function moderately reduced, also diastolic dysfunction, moderate global hypokinesis, severe apical wall hypokinesis; RV normal; mild to moderate MR; moderate TR; mild pHTN; mild AI --continue Torsemide Acute on chronic renal insufficiency, resolved --Cr 2.1, baseline 2.0 Hematuria --09/06 urine 1900 RBCs likely from golden trauma --will get repeat urine Chronic hypoxic respiratory failure --pre post testing today showed SaO2 81% on room air at rest; requires 3L NC at rest to achieve SaO2 93% --will require home O2 on discharge OSAS likely secondary to morbid obesity --BIPAP at night and PRN --will need outpatient workup CAP --afebrile, no leukocytosis --tomorrow last dose of azithromycin IDDM --Levemir 30U qam --Novolog sliding scale coverage F/E/N Fluids: PO intake adequate Electrolytes: replete as indicated Nutrition: diabetic diet DVT prophylaxis: subq heparin, oob, ambulation Dispo: continues to require inpatient care. Full Code. Visit type - Emergency Visit Emergency Visit: Yes ED Registration Date: 09/03/16 Care time: The patient presented to the Emergency Department on the above date and was hospitalized for further evaluation of their emergent condition. - New Patient This patient is new to me today: Yes Date on this admission: 09/08/16 - Critical Care Critical Care patient: No
[2016-09-08] MEDS ORDERED: INSULIN (NOVOLOG) ASPART 100 UNITS/ML 10ML VIAL ONE (11:25)
--- NOTE | 2016-09-08 12:19 | PN ---
Progress Note (short form) - Note Progress Note: OOB to chair. Subjectively feels better today. Some cough. No CP. SOB improved. Intake & Output 09/05/16 09/06/16 09/07/16 09/08/16 23:59 23:59 23:59 23:59 Intake Total 1700 1185 1395 215 Output Total 2200 300 Balance -700 099 0563 215 Weight 268 lb 272 lb 2 oz 273 lb 6.4 oz 273 lb 6.4 oz Last Vital Signs Temp Pulse Resp BP Pulse Ox 98.3 F 66 20 137/71 95 09/08/16 09:00 09/08/16 09:00 09/08/16 09:00 09/08/16 09:00 09/07/16 09:00 Active Medications Acetaminophen (Tylenol -) 650 mg PO Q6H PRN PRN Reason: FEVER OR PAIN Last Admin: 09/08/16 03:54 Dose: 650 mg Allopurinol (Zyloprim -) 100 mg PO BID [facility] Last Admin: 09/08/16 10:55 Dose: 100 mg Aspirin (Asa -) 81 mg PO DAILY [facility] Last Admin: 09/08/16 10:55 Dose: 81 mg Atorvastatin Calcium (Lipitor -) 10 mg PO HS [facility] Last Admin: 09/07/16 20:59 Dose: 10 mg Azithromycin (Zithromax 500mg Ivpb (Pre-Docked)) 500 mg IVPB DAILY [facility] Last Admin: 09/08/16 10:56 Dose: 500 mg Gabapentin (Neurontin -) 300 mg PO DAILY [facility] Last Admin: 09/08/16 10:55 Dose: 300 mg Heparin Sodium (Porcine) (Heparin -) 5,000 unit SQ BID [facility] Last Admin: 09/08/16 10:56 Dose: 5,000 unit Insulin Aspart (Novolog Vial Sliding Scale -) 1 vial SQ ACHS [facility] PRN Reason: Protocol Last Admin: 09/08/16 06:33 Dose: 2 units Insulin Detemir (Levemir Vial) 30 units SQ AM [facility] Last Admin: 09/08/16 06:33 Dose: 30 units Lorazepam (Ativan -) 1 mg PO BID [facility] Last Admin: 09/08/16 10:56 Dose: 1 mg Metoprolol Succinate (Toprol Xl -) 25 mg PO BID [facility] Last Admin: 09/08/16 10:55 Dose: 25 mg Nystatin (Mycostatin Cream -) 1 applic TP BID [facility] Last Admin: 09/08/16 10:56 Dose: 1 applic Oxycodone HCl (Roxicodone -) 5 mg PO Q4H PRN PRN Reason: PAIN 6-10 Last Admin: 09/08/16 03:53 Dose: 5 mg Pantoprazole Sodium (Protonix -) 20 mg PO BID [facility] Last Admin: 09/08/16 10:55 Dose: 20 mg Polyethylene Glycol (Miralax (For Daily Use) -) 17 gm PO DAILY [facility] Last Admin: 09/08/16 10:56 Dose: 17 gm Sertraline HCl (Zoloft -) 50 mg PO DAILY [facility] Last Admin: 09/08/16 10:55 Dose: 50 mg Torsemide (Demadex -) 20 mg PO DAILY [facility] Last Admin: 09/08/16 10:55 Dose: 20 mg Constitutional: Yes: Obese, NAD on NC O2 Eyes: Yes: WNL, Conjunctiva Clear, EOM Intact HENT: Yes: Atraumatic, Normocephalic Neck: Yes: Supple, Trachea Midline Cardiovascular: Yes: Regular Rate and Rhythm Respiratory: Yes: Diminished, On Nasal O2, Rhonchi, SOB. No: Accessory Muscle Use, Rales, Stridor, Tachypnea, Wheezes ...Inspection: Yes: WNL ...Clubbing: No Gastrointestinal: Yes: WNL, Normal Bowel Sounds, Soft, Abdomen, Obese Renal/: Yes: WNL Musculoskeletal: Yes: WNL Extremities: Yes: WNL Edema: Yes Peripheral Pulses WNL: Yes Integumentary: Yes: WNL Neurological: Yes: WNL, Alert, Oriented ...Motor Strength: WNL Psychiatric: Yes: WNL, Alert, Oriented Laboratory Results - last 24 hr 09/07/16 09/07/16 09/07/16 12:27 15:35 17:00 WBC 7.2 RBC 3.61 Hgb 10.4 L Hct 31.9 L MCV 88.4 MCHC 32.6 RDW 15.5 Plt Count 167 MPV 9.1 Neutrophils % 65.8 Lymphocytes % 19.6 Monocytes % 8.8 Eosinophils % 4.8 H Basophils % 1.0 Sodium Potassium Chloride Carbon Dioxide Anion Gap BUN Creatinine Creat Clearance w eGFR POC Glucometer 380 110 Random Glucose Calcium Phosphorus Magnesium Total Bilirubin AST ALT Alkaline Phosphatase Total Protein Albumin 09/07/16 09/08/16 09/08/16 21:29 06:30 06:30 WBC 7.3 RBC 3.41 L Hgb 9.9 L Hct 30.4 L MCV 89.0 MCHC 32.5 RDW 15.4 Plt Count 160 MPV 9.0 Neutrophils % 67.3 Lymphocytes % 18.5 Monocytes % 8.1 Eosinophils % 5.1 H Basophils % 1.0 Sodium 140 Potassium 4.2 Chloride 102 Carbon Dioxide 28 Anion Gap 10 BUN 71 H Creatinine 2.1 H Creat Clearance w eGFR 22.49 POC Glucometer 165 Random Glucose 136 H D Calcium 9.1 Phosphorus 4.2 Magnesium 2.1 Total Bilirubin 0.3 AST 21 ALT 24 Alkaline Phosphatase 89 Total Protein 6.4 Albumin 2.9 L 09/08/16 09/08/16 06:31 11:11 WBC RBC Hgb Hct MCV MCHC RDW Plt Count MPV Neutrophils % Lymphocytes % Monocytes % Eosinophils % Basophils % Sodium Potassium Chloride Carbon Dioxide Anion Gap BUN Creatinine Creat Clearance w eGFR POC Glucometer 153 221 Random Glucose Calcium Phosphorus Magnesium Total Bilirubin AST ALT Alkaline Phosphatase Total Protein Albumin Problem List - Problems (1) CHF (congestive heart failure) Code(s): I50.9 - HEART FAILURE, UNSPECIFIED Qualifiers: Congestive heart failure type: unspecified congestive heart failure type Congestive heart failure chronicity: acute on chronic Qualified Code(s): I50.9 - Heart failure, unspecified (2) CKD (chronic kidney disease) stage 4, GFR 15-29 ml/min Code(s): N18.4 - CHRONIC KIDNEY DISEASE, STAGE 4 (SEVERE) (3) Chest pain Code(s): R07.9 - CHEST PAIN, UNSPECIFIED (4) Chronic back pain greater than 3 months duration Code(s): M54.9 - DORSALGIA, UNSPECIFIED G89.29 - OTHER CHRONIC PAIN (5) Pneumonia Code(s): J18.9 - PNEUMONIA, UNSPECIFIED ORGANISM Qualifiers: Pneumonia type: due to unspecified organism Laterality: left Lung location: lower lobe of lung Qualified Code(s): J18.1 - Lobar pneumonia, unspecified organism (6) Anxiety Code(s): F41.9 - ANXIETY DISORDER, UNSPECIFIED (7) Back injury Code(s): S39.92XA - UNSPECIFIED INJURY OF LOWER BACK, INITIAL ENCOUNTER (8) Cervical spine arthritis Code(s): M46.92 - UNSPECIFIED INFLAMMATORY SPONDYLOPATHY, CERVICAL REGION (9) Diabetes Code(s): E11.9 - TYPE 2 DIABETES MELLITUS WITHOUT COMPLICATIONS (10) Dizziness Code(s): R42 - DIZZINESS AND GIDDINESS (11) GERD (gastroesophageal reflux disease) Code(s): K21.9 - GASTRO-ESOPHAGEAL REFLUX DISEASE WITHOUT ESOPHAGITIS (12) HTN (hypertension) with goal to be determined Code(s): I10 - ESSENTIAL (PRIMARY) HYPERTENSION (13) Hyperlipemia Code(s): E78.5 - HYPERLIPIDEMIA, UNSPECIFIED (14) Morbid obesity -> LIKELY OSAS Code(s): E66.01 - MORBID (SEVERE) OBESITY DUE TO EXCESS CALORIES (15) Neuropathy Code(s): G62.9 - POLYNEUROPATHY, UNSPECIFIED Assessment/Plan Zmax D/C after tomorrow's dose O2 as needed Lasix Monitor off steroids VTE prophylaxis Check O2 saturation pre/post ambulation Can likely D/C tomorrow Will need formal sleep apnea workup after discharge : concern for OSAS as the patient snores, has a history of witnessed apneas, has Excessive Daytime Sleepiness, and has been noted to desaturate at night during the hospital course. Dr Cunha Problem List - Problems (1) CHF (congestive heart failure) Code(s): I50.9 - HEART FAILURE, UNSPECIFIED Qualifiers: Congestive heart failure type: unspecified congestive heart failure type Congestive heart failure chronicity: acute on chronic Qualified Code(s ): I50.9 - Heart failure, unspecified (2) CKD (chronic kidney disease) stage 4, GFR 15-29 ml/min Code(s): N18.4 - CHRONIC KIDNEY DISEASE, STAGE 4 (SEVERE) (3) Chest pain Code(s): R07.9 - CHEST PAIN, UNSPECIFIED (4) Chronic back pain greater than 3 months duration Code(s): M54.9 - DORSALGIA, UNSPECIFIED G89.29 - OTHER CHRONIC PAIN (5) Pneumonia Code(s): J18.9 - PNEUMONIA, UNSPECIFIED ORGANISM Qualifiers: Pneumonia type: due to unspecified organism Laterality: left Lung location: lower lobe of lung Qualified Code(s): J18.1 - Lobar pneumonia, unspecified organism (6) Anxiety Code(s): F41.9 - ANXIETY DISORDER, UNSPECIFIED (7) Back injury Code(s): S39.92XA - UNSPECIFIED INJURY OF LOWER BACK, INITIAL ENCOUNTER (8) Cervical spine arthritis Code(s): M46.92 - UNSPECIFIED INFLAMMATORY SPONDYLOPATHY, CERVICAL REGION (9) Diabetes Code(s): E11.9 - TYPE 2 DIABETES MELLITUS WITHOUT COMPLICATIONS (10) Dizziness Code(s): R42 - DIZZINESS AND GIDDINESS (11) GERD (gastroesophageal reflux disease) Code(s): K21.9 - GASTRO-ESOPHAGEAL REFLUX DISEASE WITHOUT ESOPHAGITIS (12) HTN (hypertension) with goal to be determined Code(s): I10 - ESSENTIAL (PRIMARY) HYPERTENSION (13) Hyperlipemia Code(s): E78.5 - HYPERLIPIDEMIA, UNSPECIFIED (14) Morbid obesity Code(s): E66.01 - MORBID (SEVERE) OBESITY DUE TO EXCESS CALORIES (15) Neuropathy Code(s): G62.9 - POLYNEUROPATHY, UNSPECIFIED
--- NOTE | 2016-09-08 13:43 | PN ---
Progress Note, Physician Chief Complaint: Patient with CKD 4 admitted with CHF. On PO Torsemide. Maintains good urine output. Reports feeling better. Vital signs in acceptable range. History of Present Illness: Shortness of breath improved. - Current Medication List Current Medications: Active Medications Acetaminophen (Tylenol -) 650 mg PO Q6H PRN PRN Reason: FEVER OR PAIN Last Admin: 09/08/16 03:54 Dose: 650 mg Allopurinol (Zyloprim -) 100 mg PO BID [facility] Last Admin: 09/08/16 10:55 Dose: 100 mg Aspirin (Asa -) 81 mg PO DAILY [facility] Last Admin: 09/08/16 10:55 Dose: 81 mg Atorvastatin Calcium (Lipitor -) 10 mg PO HS [facility] Last Admin: 09/07/16 20:59 Dose: 10 mg Azithromycin (Zithromax 500mg Ivpb (Pre-Docked)) 500 mg IVPB DAILY [facility] Last Admin: 09/08/16 10:56 Dose: 500 mg Gabapentin (Neurontin -) 300 mg PO DAILY [facility] Last Admin: 09/08/16 10:55 Dose: 300 mg Heparin Sodium (Porcine) (Heparin -) 5,000 unit SQ BID [facility] Last Admin: 09/08/16 10:56 Dose: 5,000 unit Insulin Aspart (Novolog Vial Sliding Scale -) 1 vial SQ ACHS [facility] PRN Reason: Protocol Last Admin: 09/08/16 12:56 Dose: 4 units Insulin Detemir (Levemir Vial) 30 units SQ AM [facility] Last Admin: 09/08/16 06:33 Dose: 30 units Lorazepam (Ativan -) 1 mg PO BID [facility] Last Admin: 09/08/16 10:56 Dose: 1 mg Metoprolol Succinate (Toprol Xl -) 25 mg PO BID [facility] Last Admin: 09/08/16 10:55 Dose: 25 mg Nystatin (Mycostatin Cream -) 1 applic TP BID [facility] Last Admin: 09/08/16 10:56 Dose: 1 applic Oxycodone HCl (Roxicodone -) 5 mg PO Q4H PRN PRN Reason: PAIN 6-10 Last Admin: 09/08/16 03:53 Dose: 5 mg Pantoprazole Sodium (Protonix -) 20 mg PO BID [facility] Last Admin: 09/08/16 10:55 Dose: 20 mg Polyethylene Glycol (Miralax (For Daily Use) -) 17 gm PO DAILY [facility] Last Admin: 09/08/16 10:56 Dose: 17 gm Sertraline HCl (Zoloft -) 50 mg PO DAILY [facility] Last Admin: 09/08/16 10:55 Dose: 50 mg Torsemide (Demadex -) 20 mg PO DAILY [facility] Last Admin: 09/08/16 10:55 Dose: 20 mg - Objective Vital Signs: Vital Signs Temperature 98.3 F 09/08/16 09:00 Pulse Rate 76 09/08/16 12:35 Respiratory Rate 20 09/08/16 09:00 Blood Pressure 137/71 09/08/16 09:00 O2 Sat by Pulse Oximetry (%) 95 09/08/16 12:42 Constitutional: Yes: Well Nourished, Anxious Eyes: Yes: Conjunctiva Clear HENT: No: WNL, Atraumatic, Normocephalic, Drooling, Epistaxis, Hoarseness, Nasal Congestion, Pharyngeal Erythema, Rhinnorhea, Thrush, Tonsillar Exudate, Other Neck: No: WNL, Supple, Trachea Midline, Decreased ROM, Lymphadenopathy, Rigid, Tenderness, Thyromegaly, Other Cardiovascular: Yes: S1, S2, S3 Respiratory: Yes: Regular, Diminished Gastrointestinal: Yes: Soft, Abdomen, Obese Edema: Yes Neurological: Yes: Alert Labs: CBC, BMP 09/08/16 06:30 09/08/16 06:30 INR, PTT INR 1.07 (0.82-1.09) 09/02/16 22:30 Problem List - Problems (1) CHF (congestive heart failure) Code(s): I50.9 - HEART FAILURE, UNSPECIFIED Qualifiers: Congestive heart failure type: unspecified congestive heart failure type Congestive heart failure chronicity: acute on chronic Qualified Code(s ): I50.9 - Heart failure, unspecified (2) Chest pain Code(s): R07.9 - CHEST PAIN, UNSPECIFIED (3) Chronic back pain greater than 3 months duration Code(s): M54.9 - DORSALGIA, UNSPECIFIED G89.29 - OTHER CHRONIC PAIN (4) Pneumonia Code(s): J18.9 - PNEUMONIA, UNSPECIFIED ORGANISM Qualifiers: Pneumonia type: due to unspecified organism Laterality: left Lung location: lower lobe of lung Qualified Code(s): J18.1 - Lobar pneumonia, unspecified organism (5) Anxiety Code(s): F41.9 - ANXIETY DISORDER, UNSPECIFIED (6) Back injury Code(s): S39.92XA - UNSPECIFIED INJURY OF LOWER BACK, INITIAL ENCOUNTER (7) Cellulitis Code(s): L03.90 - CELLULITIS, UNSPECIFIED (8) Cervical spine arthritis Code(s): M46.92 - UNSPECIFIED INFLAMMATORY SPONDYLOPATHY, CERVICAL REGION (9) Diabetes Code(s): E11.9 - TYPE 2 DIABETES MELLITUS WITHOUT COMPLICATIONS (10) Dizziness Code(s): R42 - DIZZINESS AND GIDDINESS (11) Edema Code(s): R60.9 - EDEMA, UNSPECIFIED (12) Hypertension Code(s): I10 - ESSENTIAL (PRIMARY) HYPERTENSION (13) Neuropathy Code(s): G62.9 - POLYNEUROPATHY, UNSPECIFIED (14) Normocytic anemia Code(s): D64.9 - ANEMIA, UNSPECIFIED (15) Renal insufficiency Code(s): N28.9 - DISORDER OF KIDNEY AND URETER, UNSPECIFIED Assessment/Plan 81 y/o female admitted with Acute shortness of breath. The patient is also on PO Torsemide. BUN/ Cr slightly higher than her baseline. Will just watch for now. Aneima Chronic, and related to multifactorial etiology. Taper off steroids. Will monitor the renal functions on the current regimen. When discharged, the patient will require close outpatient f/u. Thank you. Will follow with you. Iam Smith
--- NOTE | 2016-09-08 20:58 | PN ---
Progress Note (short form) - Note Progress Note: CC: sob States that she had a pre and post - O2 sat today but her oxygen was low at rest. SOB is stable and ambulating to bathroom without dyspnea on oxygen. no cp, palps, dizziness. Current Medications Acetaminophen (Tylenol -) 650 mg PO Q6H PRN PRN Reason: FEVER OR PAIN Last Admin: 09/08/16 03:54 Dose: 650 mg Allopurinol (Zyloprim -) 100 mg PO BID [facility] Last Admin: 09/08/16 10:55 Dose: 100 mg Aspirin (Asa -) 81 mg PO DAILY [facility] Last Admin: 09/08/16 10:55 Dose: 81 mg Atorvastatin Calcium (Lipitor -) 10 mg PO HS [facility] Last Admin: 09/07/16 20:59 Dose: 10 mg Azithromycin (Zithromax 500mg Ivpb (Pre-Docked)) 500 mg IVPB DAILY [facility] Last Admin: 09/08/16 10:56 Dose: 500 mg Gabapentin (Neurontin -) 300 mg PO DAILY [facility] Last Admin: 09/08/16 10:55 Dose: 300 mg Heparin Sodium (Porcine) (Heparin -) 5,000 unit SQ BID [facility] Last Admin: 09/08/16 10:56 Dose: 5,000 unit Insulin Aspart (Novolog Vial Sliding Scale -) 1 vial SQ ACHS [facility] PRN Reason: Protocol Last Admin: 09/08/16 18:23 Dose: 2 units Insulin Detemir (Levemir Vial) 30 units SQ AM [facility] Last Admin: 09/08/16 06:33 Dose: 30 units Lorazepam (Ativan -) 1 mg PO BID [facility] Last Admin: 09/08/16 10:56 Dose: 1 mg Metoprolol Succinate (Toprol Xl -) 25 mg PO BID [facility] Last Admin: 09/08/16 10:55 Dose: 25 mg Nystatin (Mycostatin Cream -) 1 applic TP BID [facility] Last Admin: 09/08/16 10:56 Dose: 1 applic Oxycodone HCl (Roxicodone -) 5 mg PO Q4H PRN PRN Reason: PAIN 6-10 Last Admin: 09/08/16 03:53 Dose: 5 mg Pantoprazole Sodium (Protonix -) 20 mg PO BID [facility] Last Admin: 09/08/16 10:55 Dose: 20 mg Polyethylene Glycol (Miralax (For Daily Use) -) 17 gm PO DAILY [facility] Last Admin: 09/08/16 10:56 Dose: 17 gm Sertraline HCl (Zoloft -) 50 mg PO DAILY [facility] Last Admin: 09/08/16 10:55 Dose: 50 mg Torsemide (Demadex -) 20 mg PO DAILY [facility] Last Admin: 09/08/16 10:55 Dose: 20 mg Vital Signs - 24 hr 09/07/16 09/08/16 09/08/16 22:00 06:32 09:00 Temperature 97.9 F 98.1 F 98.3 F Pulse Rate 69 63 66 Respiratory 18 20 20 Rate Blood Pressure 120/75 125/57 137/71 O2 Sat by Pulse 95 93 L Oximetry (%) 09/08/16 09/08/16 09/08/16 12:35 12:42 14:23 Temperature 98.2 F Pulse Rate 70 67 Respiratory 24 Rate Blood Pressure 143/67 O2 Sat by Pulse 93 L 95 Oximetry (%) 09/08/16 09/08/16 09/08/16 14:46 14:47 18:00 Temperature 98.0 F Pulse Rate 70 74 Respiratory 16 Rate Blood Pressure 152/82 O2 Sat by Pulse 93 L 95 Oximetry (%) Intake & Output 09/06/16 09/07/16 09/08/16 09/09/16 07:59 07:59 07:59 07:59 Intake Total 1820 1185 1275 1080 Output Total 1200 300 Balance 409 455 1341 1080 Weight 272 lb 2 oz 273 lb 6.4 oz 273 lb 6.4 oz NAD, calm jvd tds, neck supple ctab, nl effort rrr nl s1, s2 no m/r/g + bs soft nt nd no e/c/c + dp/pt no carotid bruits alert and oriented x3 no jaundice, diaphoresis CBC, BMP 09/08/16 06:30 09/08/16 06:30 EKG: sinus tach 103 bpm, pac. lbbb CXR: poor quality, cardiomegaly, possible pleural effusion echo here: LV mod decreased systolic function. moderate global HK with severe apical HK, mild ar, Mild-mod MAC, mild-mod MR, mod tr, rvsp 30-40, acute heart failure exacerbation (NICM): -mild, global LV hypo with EF 40% and anterior HK noted on 08/17 echo and similarly on 12/17 mibi -no ischemia on perfusion images seen, and no transient ischemic dilation (TID) noted to suggest "balanced ischemia" from multivessel CAD --> presumed NICM -? obesity/VIDYA related (BMI around 50)--never tested per pt but sleeps in recliner -09/04: mild acute heart failure exacerbation in setting of non-adherence to lasix. Now s/p 40 mg IV lasix x2 with improvement in sx's, but worsened bun/ cr. Would get weight to better assess volume status. (over vs. underdiuresis) . Unless weight shows compelling data for under-diuresis, would transition to PO lasix 40 mg daily - 09/05: Weight responded to IV lasix. Appears now to be successfully diuresed/ overdiuresed. holding lasix. - 09/06: mild increase in weight, bun/cr improving. started on torsemide 20 mg/day - 09/08-09/09: weight and renal function stable on torsemide continue - con't toprol 25 bid - echo here with worsened LV function and suggestion of worsened RWMA. currently still with hypoxia. consider repeat stress test as inpatient vs. outpatient once respiratory status improves. HTN: -reasonably controlled here; no med changes at present, con't asa for primary prevention DM: -per pmd HPL: -on statin, -cont same--outpt f/u CKD: - bline cr around 2.0. managment as above.
[2016-09-08] MEDS: ATORVASTATIN CA 10 MG TABLET (FP) PO SCH (21:12)
[2016-09-08 22:21] LABS: URINE APPEARANCE CLEAR; URINE BILIRUBIN NEGATIVE (NEGATIVE); URINE COLOR STRAW; URINE GLUCOSE (UA) NEGATIVE (NEGATIVE); URINE KETONE NEGATIVE (NEGATIVE); URINE NITRITE NEGATIVE (NEGATIVE); URINE UROBILINOGEN NEGATIVE E.U./dl (0.2-1.0)
[2016-09-08 22:40] LABS: URINE BLOOD 3+ (NEGATIVE); URINE LEUK ESTERASE 2+ (NEGATIVE); URINE PROTEIN 1+ (NEGATIVE)
[2016-09-08 22:53] LABS: URINE BACTERIA RARE /hpf (NONE SEEN); URINE MUCUS RARE; URINE RBC 51 /hpf (0-3); URINE WBC 15 /hpf (3-5)
[2016-09-09] MEDS: INSULIN DETEMIR 100 UNITS/ML MDV SQ SCH (06:36)
[2016-09-09] MEDS: INSULIN SLIDING SCALE (NOVOLOG) 1 VIAL SQ SCH ×3 (06:37→17:02)
[2016-09-09] MEDS: oxyCODONE HCL 5 MG TABLET PO PRN ×2 (06:39→15:04)
[2016-09-09] MEDS: ACETAMINOPHEN 325 MG TABLET (FP) PO PRN ×2 (06:40→15:03)
[2016-09-09 07:47] LABS: BASOPHIL 1.3 % (0-2.0); EOSINOPHIL 5.7 % (0-4.5); MCH 28.6 pg (25.7-33.7); MCHC 32.5 g/dl (32.0-36.0); MEAN CELL VOLUME 87.9 fl (80-96); MEAN PLT VOLUME 8.9 fl (7.5-11.1); PLATELET COUNT 166 K/MM3 (134-434); RDW 15.2 % (11.6-15.6)
[2016-09-09 08:12] LABS: BILIRUBIN,TOTAL 0.5 mg/dL (0.2-1.0); CALCIUM 9.3 mg/dL (8.5-10.1); COCKROFT - GAULT 39.559; CREATININE 2.1 mg/dL (0.55-1.02); PHOSPHOROUS 3.9 mg/dL (2.5-4.9); TOT PROT 6.5 g/dl (6.4-8.2)
[2016-09-09] MEDS ORDERED: PT OWN MED DRAWER 7, Y5N ONE (10:47)
[2016-09-09] MEDS: AZITHROMYCIN IVPB 500 MG/250 ML D5W PRE-DOCKED IVPB SCH (10:55)
[2016-09-09] MEDS: HEPARIN NA (PORCINE) 5,000 UNITS/ML 1ML VIAL SQ SCH (10:55)
[2016-09-09] MEDS: GABAPENTIN 300 MG CAPSULE (FP) PO SCH (10:56)
[2016-09-09] MEDS: TORSEMIDE 20 MG TABLET (FP) PO SCH (10:56)
[2016-09-09] MEDS: POLYETHYLENE GLYCOL 3350 119 GM BTL PO SCH (10:56)
[2016-09-09] MEDS: METOPROLOL SUCCINATE 25 MG TAB.SR.24H (FP) PO SCH (10:56)
[2016-09-09] MEDS: SERTRALINE HCL 50 MG TABLET (FP) PO SCH (10:56)
[2016-09-09] MEDS: ALLOPURINOL 100 MG TABLET (FP) PO SCH (10:56)
[2016-09-09] MEDS: LORazepam 1 MG TABLET PO SCH (10:56)
[2016-09-09] MEDS: NYSTATIN 100,000 UNIT/GM TOPICAL CREAM 15 GM TUBE TP SCH (10:56)
[2016-09-09] MEDS: ASPIRIN 81 MG CHEWABLE TABLETS PO SCH (10:56)
[2016-09-09] MEDS: PANTOPRAZOLE 20 MG TABLET (FP) PO SCH (10:56)
--- NOTE | 2016-09-09 13:37 | DS ---
Physical Exam: SUBJECTIVE: Patient seen and examined OBJECTIVE: Vital Signs Period Temp Pulse Resp BP Sys/Lopez Pulse Ox Last 24 Hr 97.4 F-98.2 F 65-86 16-24 122-152/65-82 93-96 PHYSICAL EXAM GENERAL: The patient is awake, alert, in no acute distress. HEAD: Normal with no signs of trauma. EYES: PERRL, extraocular movements intact, sclera anicteric, conjunctiva clear. No ptosis. LUNGS: Breath sounds equal, clear to auscultation bilaterally, no wheezes, no crackles, no accessory muscle use. HEART: Regular rate and rhythm, S1, S2 without murmur, rub or gallop. ABDOMEN: Soft, nontender, nondistended, normoactive bowel sounds, no guarding, no rebound, no hepatosplenomegaly, no masses. EXTREMITIES: 2+ pulses, warm, well-perfused, no edema. NEUROLOGICAL: Cranial nerves II through XII grossly intact. Normal speech, gait not observed. PSYCH: Normal mood, normal affect. SKIN: Warm, dry, normal turgor, no rashes or lesions noted LABS Laboratory Results - last 24 hr 09/08/16 09/08/16 09/08/16 18:02 21:18 21:28 WBC RBC Hgb Hct MCV MCHC RDW Plt Count MPV Neutrophils % Lymphocytes % Monocytes % Eosinophils % Basophils % Sodium Potassium Chloride Carbon Dioxide Anion Gap BUN Creatinine Creat Clearance w eGFR POC Glucometer 164 144 Random Glucose Calcium Phosphorus Magnesium Total Bilirubin AST ALT Alkaline Phosphatase Total Protein Albumin Urine Color Straw Urine Appearance Clear Urine pH 5.0 Ur Specific [place] 1.009 Urine Protein 1+ H Urine Glucose (UA) Negative Urine Ketones Negative Urine Blood 3+ H Urine Nitrite Negative Urine Bilirubin Negative Urine Urobilinogen Negative Ur Leukocyte Esterase 2+ H Urine RBC 51 Urine WBC 15 Ur Epithelial Cells Rare Urine Bacteria Rare Urine Mucus Rare 09/09/16 09/09/16 09/09/16 06:30 06:30 06:34 WBC 6.0 RBC 3.46 L Hgb 9.9 L Hct 30.4 L MCV 87.9 MCHC 32.5 RDW 15.2 Plt Count 166 MPV 8.9 Neutrophils % 56.0 Lymphocytes % 27.9 D Monocytes % 9.1 Eosinophils % 5.7 H Basophils % 1.3 Sodium 142 Potassium 4.2 Chloride 103 Carbon Dioxide 29 Anion Gap 10 BUN 76 H Creatinine 2.1 H Creat Clearance w eGFR 22.49 POC Glucometer 160 Random Glucose 142 H Calcium 9.3 Phosphorus 3.9 Magnesium 2.0 Total Bilirubin 0.5 D AST 21 ALT 24 Alkaline Phosphatase 89 Total Protein 6.5 Albumin 3.0 L Urine Color Urine Appearance Urine pH Ur Specific [place] Urine Protein Urine Glucose (UA) Urine Ketones Urine Blood Urine Nitrite Urine Bilirubin Urine Urobilinogen Ur Leukocyte Esterase Urine RBC Urine WBC Ur Epithelial Cells Urine Bacteria Urine Mucus 09/09/16 11:09 WBC RBC Hgb Hct MCV MCHC RDW Plt Count MPV Neutrophils % Lymphocytes % Monocytes % Eosinophils % Basophils % Sodium Potassium Chloride Carbon Dioxide Anion Gap BUN Creatinine Creat Clearance w eGFR POC Glucometer 154 Random Glucose Calcium Phosphorus Magnesium Total Bilirubin AST ALT Alkaline Phosphatase Total Protein Albumin Urine Color Urine Appearance Urine pH Ur Specific [place] Urine Protein Urine Glucose (UA) Urine Ketones Urine Blood Urine Nitrite Urine Bilirubin Urine Urobilinogen Ur Leukocyte Esterase Urine RBC Urine WBC Ur Epithelial Cells Urine Bacteria Urine Mucus HOSPITAL COURSE: Date of Admission:09/03/16 Date of Discharge: 09/09/16 81 year-old woman with PMH of HTN, HLD, CHF, IDDM, and CKD Stage 4 w/o proteinuria, colon cancer s/p hemicolectomy, chronic back pain, GERD, and anxiety and depression, admitted for CHF exacerbation and OTF. Acute on chronic systolic and diastolic heart failure --Echo 09/06: LV function moderately reduced, also diastolic dysfunction, moderate global hypokinesis, severe apical wall hypokinesis; RV normal; mild to moderate MR; moderate TR; mild pHTN; mild AI --continued Torsemide Acute on chronic renal insufficiency, resolved --Cr 2.1, baseline 2.0 Hematuria, resolved --09/06 urine 1900 RBCs likely from golden trauma --repeat urine resolved Chronic hypoxic respiratory failure --pre post testing today showed SaO2 81% on room air at rest; requires 3L NC at rest to achieve SaO2 93% --will require home O2 on discharge OSAS likely secondary to morbid obesity --BIPAP at night and PRN --will need outpatient workup CAP --afebrile, no leukocytosis --completed course of azithromycin IDDM --Levemir 30U qam --Novolog sliding scale coverage Minutes to complete discharge: 35 Discharge Summary Reason For Visit: CONGESTIVE HEART FAILURE,CHRONIC KIDNEY DISEASE, Current Active Problems CHF (congestive heart failure) (Acute) CKD (chronic kidney disease) stage 4, GFR 15-29 ml/min (Acute) Chest pain (Acute) Chronic back pain greater than 3 months duration (Acute) Pneumonia (Acute) Condition: Improved - Instructions Diet, Activity, Other Instructions: A new prescription has been sent to your pharmacy for torsemide which is a diuretic/water pill. You should take this medication instead of Lasix. Stop taking Lasix and start taking torsemide. You should follow up with your regular trimming department blocker, Dr. Rosas, within one week of your discharge. Arrangements are being made for delivery of oxygen to your home. Return to the emergency department for any new or worsening symptoms. Referrals: Hattie Mcgowan MD [Primary Care Provider] - Disposition: INTERMEDIATE FACILITY - Home Medications Comprehensive Discharge Medication List: Ambulatory Orders Allopurinol [Zyloprim -] 100 mg PO BID 05/11/16 Aspirin [ASA -] 81 mg PO DAILY 05/11/16 Atorvastatin Calcium [Lipitor] 10 mg PO DAILY 05/11/16 Gabapentin [Neurontin -] 100 mg PO QID 05/11/16 Gabapentin [Neurontin -] 300 mg PO DAILY 05/11/16 Glimepiride [Amaryl -] 1 mg PO PRN 05/11/16 Insulin (Levemir) [Levemir Vial] 30 unit SQ DAILY 05/11/16 Lorazepam [Ativan] 1 mg PO TID 05/11/16 Metoprolol Succinate [Toprol Xl -] 25 mg PO BID 05/11/16 Omeprazole Magnesium [Prilosec] 20 mg PO BID 05/11/16 Sertraline HCl [Zoloft -] 50 mg PO DAILY 05/11/16 Tramadol HCl [Ultram] 50 mg PO Q8H 05/11/16 Furosemide [Lasix -] 40 mg PO DAILY 09/02/16 This patient is new to me today: Yes Date on this admission: 09/16/16 Emergency Visit: Yes ED Registration Date: 09/03/16 Care time: The patient presented to the Emergency Department on the above date and was hospitalized for further evaluation of their emergent condition. Critical Care patient: No - Discharge Referral Referred to [facility] Med P.C.: No
[2016-09-09] MEDS ORDERED: MINERAL OIL ENEMA 133 ML ENEMA PR ONE (14:30)
--- NOTE | 2016-09-09 15:07 | PN ---
Progress Note (short form) - Note Progress Note: Renal Follow up for OTF on CKD and volume overload Pt seen and examined at the bedside no acute complaints feels weak no sob or chest pain has not had a BM in 1 week Vital Signs Temperature 98.2 F 09/09/16 10:00 Pulse Rate 68 09/09/16 10:00 Respiratory Rate 22 09/09/16 10:00 Blood Pressure 134/68 09/09/16 10:00 O2 Sat by Pulse Oximetry (%) 94 L 09/09/16 09:53 Intake & Output 09/06/16 09/07/16 09/08/16 09/09/16 23:59 23:59 23:59 23:59 Intake Total 1185 1395 1280 165 Output Total 300 300 Balance 885 1395 980 165 Weight 272 lb 2 oz 273 lb 6.4 oz 273 lb 6.4 oz 272 lb 3.2 oz Gen: NAD, awake and alert CVS: RRR, No M/R Lungs: Dec BS, no rales Abd: Soft, Obese, NT/ND Ext: Trace edema in LE CBC, BMP 09/09/16 06:30 09/09/16 06:30 Current Medications Acetaminophen (Tylenol -) 650 mg PO Q6H PRN PRN Reason: FEVER OR PAIN Last Admin: 09/09/16 06:40 Dose: 650 mg Allopurinol (Zyloprim -) 100 mg PO BID [facility] Last Admin: 09/09/16 10:56 Dose: 100 mg Aspirin (Asa -) 81 mg PO DAILY [facility] Last Admin: 09/09/16 10:56 Dose: 81 mg Atorvastatin Calcium (Lipitor -) 10 mg PO HS [facility] Last Admin: 09/08/16 21:12 Dose: 10 mg Azithromycin (Zithromax 500mg Ivpb (Pre-Docked)) 500 mg IVPB DAILY [facility] Last Admin: 09/09/16 10:55 Dose: 500 mg Gabapentin (Neurontin -) 300 mg PO DAILY [facility] Last Admin: 09/09/16 10:56 Dose: 300 mg Heparin Sodium (Porcine) (Heparin -) 5,000 unit SQ BID [facility] Last Admin: 09/09/16 10:55 Dose: 5,000 unit Insulin Aspart (Novolog Vial Sliding Scale -) 1 vial SQ ACHS [facility] PRN Reason: Protocol Last Admin: 09/09/16 11:41 Dose: 2 units Insulin Detemir (Levemir Vial) 30 units SQ AM [facility] Last Admin: 09/09/16 06:36 Dose: 30 units Lorazepam (Ativan -) 1 mg PO BID [facility] Last Admin: 09/09/16 10:56 Dose: 1 mg Metoprolol Succinate (Toprol Xl -) 25 mg PO BID [facility] Last Admin: 09/09/16 10:56 Dose: 25 mg Nystatin (Mycostatin Cream -) 1 applic TP BID [facility] Last Admin: 09/09/16 10:56 Dose: 1 applic Oxycodone HCl (Roxicodone -) 5 mg PO Q4H PRN PRN Reason: PAIN 6-10 Last Admin: 09/09/16 06:39 Dose: 5 mg Pantoprazole Sodium (Protonix -) 20 mg PO BID [facility] Last Admin: 09/09/16 10:56 Dose: 20 mg Polyethylene Glycol (Miralax (For Daily Use) -) 17 gm PO DAILY [facility] Last Admin: 09/09/16 10:56 Dose: 17 gm Sertraline HCl (Zoloft -) 50 mg PO DAILY [facility] Last Admin: 09/09/16 10:56 Dose: 50 mg Torsemide (Demadex -) 20 mg PO DAILY [facility] Last Admin: 09/09/16 10:56 Dose: 20 mg A/P 81 year old woman with PMhx of CKD Stage 4 w/o proteinuria, Hypertension, CHF presented with sob and admitted for acute CHF exacerbation with peak Cr elevation to 2.4 #Acute on Chronic Renal insufficiency in setting of CHF and IV diuresis Renal function now stable continue Torsemide 20mg Daily Trend daily weights to follow up with Dr. Morgan next week for monitoring of renal function #Constipation Will given Mineral Oil ennemas avoid Fleet enemas because of renal insufficiency Thank you Pablo Burks DO
[2016-09-09 15:10] VITALS: BP 141/76; PULSE 82; TEMP 97.7
== END 2016-09-09 20:12 | DRG 291 ==
LOC: JER 21:55 → JERBED 09-03 00:37 → UNDOADMIN 09-03 00:49 → JERBED 09-03 00:49 → J5S 09-03 03:06
PROVIDERS: ADMIT Internal Medicine; ATTEND Nurse Practitioner Family
PROC: 5A09557 Assistance with Respiratory Ventilation, Greater than 96 Consecutive Hours, Continuous Positive Airway Pressure (ICD-10-PCS; principal; 2016-09-04)
DX: I13.0 Hypertensive heart and chronic kidney disease with heart failure and stage 1 through stage 4 chronic kidney disease, or unspecified chronic kidney disease (principal); I50.43 Acute on chronic combined systolic (congestive) and diastolic (congestive) heart failure; J18.9 Pneumonia, unspecified organism; N18.4 Chronic kidney disease, stage 4 (severe); N17.8 Other acute kidney failure; Z68.43 Body mass index [BMI] 50.0-59.9, adult; J96.11 Chronic respiratory failure with hypoxia; D64.9 Anemia, unspecified; E78.00 Pure hypercholesterolemia, unspecified; E11.9 Type 2 diabetes mellitus without complications; M54.89 Other dorsalgia; E11.40 Type 2 diabetes mellitus with diabetic neuropathy, unspecified; K21.9 Gastro-esophageal reflux disease without esophagitis; F41.8 Other specified anxiety disorders; M10.9 Gout, unspecified; E11.22 Type 2 diabetes mellitus with diabetic chronic kidney disease; I42.8 Other cardiomyopathies; I50.9 Heart failure, unspecified; E66.01 Morbid (severe) obesity due to excess calories; Z71.3 Dietary counseling and surveillance; M46.82 Other specified inflammatory spondylopathies, cervical region; G47.33 Obstructive sleep apnea (adult) (pediatric); R31.9 Hematuria, unspecified; Z79.4 Long term (current) use of insulin; Z85.038 Personal history of other malignant neoplasm of large intestine
CPT/HCPCS: 36415; 71010-TC; 72100-TC; 80048; 80053; 81003; 81015; 82378; 82550; 82570; 83735; 83880; 84100; 84156; 84300; 84484; 84540; 85025; 85610; 85730; 87040; 87070; 87086; 87205; 87899; 93005; 93010; 93306-TC; 94660; 94761; 97116-GP; 97161-GP; 99283-25; J1644

== ENCOUNTER 2017-05-17 09:42 | Inpatient (IN) | payer OTHER ==
--- NOTE | 2017-05-17 11:09 | PDOC ---
History of Present Illness - General Chief Complaint: Injury Stated Complaint: FALL Time Seen by Provider: 05/17/17 09:47 History Source: Patient Exam Limitations: No Limitations - History of Present Illness Initial Comments: 05/17/17 09:47 81-year-old female presents the ED status post injury. Patient states was leaning over to cone picker a pill that she dropped to the floor when she started slide forward onto a chair that she was using to reach down and get the medication. Patient states the chair started to slide forward causing her to continue to strain her low back. Patient then started to call for her daughter who arrived and placed a pillow beneath her knees secondary to chronic bilateral knee pain. Patient states continue to slide forward and so her daughter called EMS who arrived and could not get patient up off the ground without being her first on the ground and then lifting her up. Patient was complaining of lower back pain and difficulty intubating secondary to low back pain so was brought to the ER for further evaluation. Patient states no previous injury of back pain but has history of arthritic knees and hands. Patient states took her medications morning including her tramadol. Patient has no other complaints at this time. Occurred: reports: just prior to arrival Severity: reports: mild Pain Location: reports: back Method of Injury: Yes: other (strain) Loss of Consciousness: no loss of consciousness Associated Symptoms (Fall): trouble walking Past History - Travel Traveled outside of the country in the last 30 days: No - Past Medical History Allergies/Adverse Reactions: Allergies Allergy/AdvReac Type Severity Reaction Status Date / Time diltiazem HCl [From Cardizem] Allergy Rash Verified 05/17/17 10:16 Home Medications: Ambulatory Orders Allopurinol [Zyloprim -] 100 mg PO BID 05/17/17 Aspirin [Ecotrin] 81 mg PO Q2D 05/17/17 Atorvastatin Ca [Lipitor] 10 mg PO HS 05/17/17 Ergocalciferol [Vitamin D2] 50,000 unit PO ONCE 05/17/17 Gabapentin [Neurontin] 300 mg PO DAILY 05/17/17 Glimepiride [Amaryl] 1 mg PO PRN 05/17/17 Insulin (Levemir) [Levemir Vial] 38 unit SQ DAILY 05/17/17 Lorazepam [Ativan] 1 mg PO TID 05/17/17 Omeprazole Magnesium [Prilosec] 20 mg PO DAILY 05/17/17 Sertraline HCl [Zoloft -] 50 mg PO DAILY 05/17/17 Torsemide 20 mg PO DAILY 05/17/17 Tramadol HCl 50 mg PO TID 05/17/17 Anemia: Yes Asthma: No Cancer: Yes (COLON) Cardiac Disorders: No CVA: No COPD: No CHF: No Dementia: No Diabetes: Yes (x20 yrs) GI Disorders: Yes (chronic constipation) Disorders: Yes HTN: Yes Hypercholesterolemia: Yes Liver Disease: No Seizures: No Thyroid Disease: No - Surgical History Abdominal Surgery: Yes (HERNIA,COLON RESECTION) Appendectomy: Yes Cardiac Surgery: No Cholecystectomy: No Lung Surgery: No Neurologic Surgery: No Orthopedic Surgery: No - Immunization History Immunization Up to Date: Yes - Suicide/Smoking/Psychosocial Hx Smoking Status: No Smoking History: Never smoked Have you smoked in the past 12 months: No Number of Cigarettes Smoked Daily: 0 Information on smoking cessation initiated: No Hx Alcohol Use: No Drug/Substance Use Hx: No Substance Use Type: None Hx Substance Use Treatment: No Patient Lives Alone: No Lives with/in: daughter Trauma Specific PMHX - Complaint Specific PMHX Back Injury: No Review of Systems - Review of Systems Able to Perform ROS?: Yes Constitutional: No: Symptoms Reported ABD/GI: No: Symptoms Reported Musculoskeletal: Yes: Back Pain, Muscle Pain (lower back) Integumentary: No: Symptoms Reported Neurological: No: Weakness Hematologic/Lymphatic: No: Symptoms Reported *Physical Exam - Vital Signs Last Vital Signs Temp Pulse Resp BP Pulse Ox 98.9 F 78 14 127/63 99 05/17/17 10:11 05/17/17 10:11 05/17/17 10:11 05/17/17 10:11 05/17/17 10:11 - Physical Exam General Appearance: Yes: Nourished, Appropriately Dressed. No: Apparent Distress Neck: positive: Supple. negative: Decreased range of motion Respiratory/Chest: positive: Lungs Clear, Normal Breath Sounds. negative: Respiratory Distress, Accessory Muscle Use Cardiovascular: positive: Regular Rhythm, Regular Rate. negative: Murmur Gastrointestinal/Abdominal: positive: Soft. negative: Tenderness Musculoskeletal: positive: Vertebral Tenderness (t11-l4). negative: CVA Tenderness Integumentary: positive: Normal Color, Warm, Moist Neurologic: positive: Normal Mood/Affect, Motor Strength 5/5 (moving all extremities actively) ED Treatment Course - RADIOLOGY Radiology Studies Ordered: Category Date Time Status SPINE-LUMBAR ONLY [RAD] Stat Radiology 05/17/17 10:34 Ordered SPINE-THORACIC [RAD] Stat Radiology 05/17/17 10:34 Ordered Medical Decision Making - Medical Decision Making 05/17/17 10:04 Patient complains of low back pain. Patient on exam has T11-L3 tenderness. Patient had no other acute findings. Patient ordered for x-rays of her lumbar and thoracic spine including one Percocet. If negative will attempt to ambulate patient. Family at bedside. 05/17/17 12:05 Patient's x-ray of the lumbar and thoracic spine shows no gross evidence of fracture or acute bony pathology. There are severe degenerative arthritic changes and diffuse osteoporosis. Patient will attempt to ambulate. 05/17/17 12:47 Patient was able to ambulate with myself and a medical biller/coder without difficulty. After discussing with pt of her discharge, patient was fearful stating she feels as if she may fall she goes home. Patient states the bathroom at home is down the [address]iel and feels she cannot walk that distance. Daughter is requesting physical therapy/evaluation. I have discussed case with case management who recommended PT eval. Patient has an appointment at 1:00 for evaluation. Patient currently in wheelchair. 05/17/17 14:20 Physical therapy states patient has limited mobility and would benefit from short-term rehabilitation for gait strengthening imbalance. Case discussed with hospitalist who accepted the case. Patient placed for labs, chest x-ray and urine. 05/17/17 14:34 Pt apparently is under the [facility], Pt's admission switched to Dr Nik Patterson whom I spoke to and states to admit to med/surg obs status. *DC/Admit/Observation/Transfer Diagnosis at time of Disposition: Weakness of back, Obesity, Back pain - Discharge Dispostion Admit: Yes - Referrals Referrals: Hattie Mcgowan MD [Primary Care Provider] - - Patient Instructions - Post Discharge Activity
[2017-05-17] MEDS ORDERED: ONDANSETRON 4 MG/2 ML VIAL IVPUSH PRN (15:02)
--- NOTE | 2017-05-17 15:13 | HP ---
Admitting History and Physical - Primary Care Physician PCP: Radha Cano - Admission Chief Complaint: I'm in pain History of Present Illness: Ms Carl is an 81 year old female who comes in complaining of pain. She says she has chronic pain in her shoulders and knees at home. She was sitting today and dropped a pill. She was reaching forward to get it and she began to lose her balance and slip. She says she did not fall nor did she hit her back. She says her daughter was able to stop her fall so she did not sustain trauma, but also she was caught in an uncomfortable half sitting/half slipping position. EMS was called and when they arrived they were able to lower her to the floor. After that she came into the ER. She says that it was mechanical and she did not have lightheadedness, vertigo, or loss of consciousness. She denies fevers, chills, chest pain, shortness of breath, nausea, vomiting, diarrhea, constipation, difficulty or pain on urination, or swelling. She is endorsing hitting her abdomen on the chair repeatedly and that is causing her a lot of pain. She says she also is having worsening of her arm, shoulder, and knee pain. Spoke with Antionette Tirado who states that she was able to ambulate her without difficulty (also as documented in her note) and after she was told she was safe for discharge that she became unable to ambulate. History Source: Patient Limitations to Obtaining History: No Limitations - Past Medical History Cardiovascular: Yes: CHF, HTN, Hyperlipdemia Gastrointestinal: Yes: Cancer, GERD, Other (Colon CA operated 7 years ago) Renal/: Yes: Renal Inusuff (creat 2 at baseline for years, stable, non proteinuric) Heme/Onc: Yes: Anemia Psych: Yes: Anxiety, Depression Musculoskeletal: Yes: Chronic low back pain Rheumatology: Yes: Gout Endocrine: Yes: Diabetes Mellitus - Past Surgical History Past Surgical History: Yes: Appendectomy, Colectomy (partial), Hernia Repair - Smoking History Smoking history: Never smoked Have you smoked in the past 12 months: No Aproximately how many cigarettes per day: 0 - Alcohol/Substance Use Hx Alcohol Use: No History of Substance Use: reports: None - Social History Usual Living Arrangement: Yes: With Child ADL: Independent History of Recent Travel: No Home Medications - Allergies Allergies/Adverse Reactions: Allergies Allergy/AdvReac Type Severity Reaction Status Date / Time diltiazem HCl [From Cardizem] Allergy Rash Verified 05/17/17 10:16 - Home Medications Home Medications: Ambulatory Orders Allopurinol [Zyloprim -] 100 mg PO BID 05/17/17 Aspirin [Ecotrin] 81 mg PO Q2D 05/17/17 Atorvastatin Ca [Lipitor] 10 mg PO HS 05/17/17 Ergocalciferol [Vitamin D2] 50,000 unit PO ONCE 05/17/17 Gabapentin [Neurontin] 300 mg PO DAILY 05/17/17 Glimepiride [Amaryl] 1 mg PO PRN 05/17/17 Insulin (Levemir) [Levemir Vial] 38 unit SQ DAILY 05/17/17 Lorazepam [Ativan] 1 mg PO TID 05/17/17 Omeprazole Magnesium [Prilosec] 20 mg PO DAILY 05/17/17 Sertraline HCl [Zoloft -] 50 mg PO DAILY 05/17/17 Torsemide 20 mg PO DAILY 05/17/17 Tramadol HCl 50 mg PO TID 05/17/17 Family Disease History - Family Disease History Family Disease History: Diabetes: Mother, Heart Disease: Father, Other: Sister ( CVA) Review of Systems Findings/Remarks: Full review of systems obtained, as per HPI and otherwise negative. Physical Examination Vital Signs: Vital Signs Temperature 36.6 C 05/17/17 14:10 Pulse Rate 78 05/17/17 10:11 Respiratory Rate 16 05/17/17 14:10 Blood Pressure 145/76 05/17/17 14:10 O2 Sat by Pulse Oximetry (%) 99 05/17/17 10:11 Constitutional: Yes: No Distress, Calm, Obese Eyes: Yes: Conjunctiva Clear, EOM Intact, PERRL Cardiovascular: Yes: Regular Rate and Rhythm. No: Gallop, Murmur, Rub Respiratory: Yes: Regular, CTA Bilaterally. No: Rales, Rhonchi, Wheezes Gastrointestinal: Yes: Normal Bowel Sounds, Soft. No: Distention, Tenderness Extremities: Yes: WNL Edema: No Labs: Laboratory Results - last 24 hr 05/17/17 05/17/17 15:09 15:09 WBC 11.0 H D RBC 4.17 D Hgb 12.1 D Hct 37.6 D MCV 90.2 MCH 29.1 MCHC 32.2 RDW 15.5 Plt Count 212 D MPV 9.3 Neutrophils % 80.4 D Lymphocytes % 13.8 D Monocytes % 4.6 Eosinophils % 0.7 D Basophils % 0.5 Sodium 140 Potassium 4.6 Chloride 105 Carbon Dioxide 26 Anion Gap 9 BUN 45 H D Creatinine 1.6 H D Creat Clearance w eGFR 30.78 Random Glucose 160 H Calcium 9.4 Total Bilirubin 0.4 AST 29 D ALT 25 Alkaline Phosphatase 138 H D Total Protein 7.4 Albumin 3.3 L Imaging - Results Chest X-ray: Report Reviewed, Image Reviewed X-ray: Report Reviewed Problem List - Problems (1) Back pain Assessment/Plan: -patient complains of possible back pain, but also abdominal pain that she cannot distinguish -patient did not have any trauma, states she did not fall off her chair -admit under observation -pain control with percocet -PT consult and evaluation -may benefit from home PT -? secondary gain Code(s): M54.9 - DORSALGIA, UNSPECIFIED Qualifiers: Back pain location: back pain in unspecified location Chronicity: acute Back pain laterality: midline Qualified Code(s): M54.9 - Dorsalgia, unspecified (2) CAD (coronary artery disease) Assessment/Plan: -stable -continue toprol xl, aspirin, lipitor Code(s): I25.10 - ATHSCL HEART DISEASE OF [place] CORONARY ARTERY W/O ANG PCTRS (3) CHF (congestive heart failure) Assessment/Plan: -not in exacerbation -continue torsemide Code(s): I50.9 - HEART FAILURE, UNSPECIFIED Qualifiers: Congestive heart failure type: unspecified congestive heart failure type Congestive heart failure chronicity: acute on chronic Qualified Code(s): I50.9 - Heart failure, unspecified (4) Diabetes Assessment/Plan: -continue levemir -diabetic diet -FSBS and SSI Code(s): E11.9 - TYPE 2 DIABETES MELLITUS WITHOUT COMPLICATIONS Qualifiers: Diabetes mellitus type: type 2 Diabetes mellitus complication status: with kidney complications Diabetes mellitus complication detail: with chronic kidney disease Diabetes mellitus half-way insulin use: with half-way use Chronic kidney disease stage: stage 4 (severe) Qualified Code(s): E11.22 - Type 2 diabetes mellitus with diabetic chronic kidney disease; N18.4 - Chronic kidney disease, stage 4 (severe); N18.4 - Chronic kidney disease, stage 4 ( severe); N18.4 - Chronic kidney disease, stage 4 (severe); N18.4 - Chronic kidney disease, stage 4 (severe); Z79.4 - jail (current) use of insulin; Z79.4 - jail (current) use of insulin; Z79.4 - intermediate accountant (current) use of insulin; Z79.4 - intermediate accountant (current) use of insulin (5) HTN (hypertension) with goal to be determined Assessment/Plan: -continue toprol xl and torsemide -monitor Code(s): I10 - ESSENTIAL (PRIMARY) HYPERTENSION (6) Hyperlipemia Assessment/Plan: -continue lipitor Code(s): E78.5 - HYPERLIPIDEMIA, UNSPECIFIED (7) Morbid obesity Assessment/Plan: -outpatient weight loss program Code(s): E66.01 - MORBID (SEVERE) OBESITY DUE TO EXCESS CALORIES Assessment/Plan Dispo -planning for 24 hour observation and evaluation if ambulation is improved with pain control tomorrow
[2017-05-17 15:24] LABS: BASO % 0.5 % (0-2.0); EOS % 0.7 % (0-4.5); MCH 29.1 pg (25.7-33.7); MCHC 32.2 g/dl (32.0-36.0); MEAN CELL VOLUME 90.2 fl (80-96); MEAN PLT VOLUME 9.3 fl (7.5-11.1); NEUT % 80.4 % (42.8-82.8); PLATELET COUNT 212 K/MM3 (134-434); RDW 15.5 % (11.6-15.6)
[2017-05-17 15:37] LABS: CALCIUM 9.4 mg/dL (8.5-10.1)
[2017-05-17 15:41] LABS: ALBUMIN 3.3 g/dl (3.4-5.0); ANION GAP 9 (8-16); CO2 26 mmol/L (21-32); CREATININE 1.6 mg/dL (0.55-1.02); GLUCOSE,RANDOM 160 mg/dL (74-106); SGPT/ALT 25 U/L (12-78)
[2017-05-17 15:43] LABS: ALK PHOS 138 U/L (45-117); BILIRUBIN,TOTAL 0.4 mg/dL (0.2-1.0); TOT PROT 7.4 g/dl (6.4-8.2)
[2017-05-17 15:45] LABS: SGOT/AST 29 U/L (15-37)
[2017-05-17] MEDS: INSULIN SLIDING SCALE (NOVOLOG) 1 VIAL SQ SCH ×2 (16:36→22:20)
[2017-05-17 16:49] VITALS: BMI 55.3
[2017-05-17 18:22] LABS: URINE APPEARANCE SLCLOUDY; URINE BILIRUBIN NEGATIVE (NEGATIVE); URINE BLOOD NEGATIVE (NEGATIVE); URINE COLOR YELLOW; URINE GLUCOSE (UA) NEGATIVE (NEGATIVE); URINE KETONE NEGATIVE (NEGATIVE); URINE NITRITE NEGATIVE (NEGATIVE); URINE UROBILINOGEN NEGATIVE mg/dL (0.2-1.0)
[2017-05-17 18:44] LABS: URINE LEUK ESTERASE 3+ (NEGATIVE); URINE PROTEIN 1+ (NEGATIVE)
[2017-05-17 18:57] LABS: URINE RBC 2 /hpf (0-3); URINE WBC 36 /hpf (3-5)
[2017-05-17] MEDS: oxyCODONE HCL 5 MG TABLET PO PRN (19:56)
[2017-05-17] MEDS: ACETAMINOPHEN 325 MG TABLET (FP) PO PRN (19:57)
[2017-05-17 22:01] LABS: URINE LEUK ESTERASE 2+ (NEGATIVE)
[2017-05-17] MEDS: LORazepam 1 MG TABLET PO SCH (22:17)
[2017-05-17] MEDS: DOCUSATE SODIUM 100 MG CAPSULE (FP) PO SCH (22:18)
[2017-05-17] MEDS: POLYETHYLENE GLYCOL 3350 119 GM BTL PO SCH (22:18)
[2017-05-17] MEDS: ATORVASTATIN CA 10 MG TABLET (FP) PO SCH (22:18)
[2017-05-17] MEDS: NYSTATIN 100,000 UNIT/GM TOPICAL CREAM 15 GM TUBE TP SCH (23:00)
[2017-05-18] MEDS: ACETAMINOPHEN 325 MG TABLET (FP) PO PRN ×4 (04:04→20:29)
[2017-05-18] MEDS: oxyCODONE HCL 5 MG TABLET PO PRN ×4 (04:04→20:28)
[2017-05-18] MEDS: LORazepam 1 MG TABLET PO SCH ×3 (06:23→21:33)
[2017-05-18] MEDS: INSULIN DETEMIR 100 UNITS/ML MDV SQ SCH (06:23)
[2017-05-18] MEDS: INSULIN SLIDING SCALE (NOVOLOG) 1 VIAL SQ SCH ×4 (06:23→21:38)
[2017-05-18] MEDS ORDERED: INSULIN (NOVOLOG) ASPART 100 UNITS/ML 10ML VIAL ONE (07:04)
[2017-05-18 08:49] LABS: BASO % 0.9 % (0-2.0); EOS % 2.5 % (0-4.5); MCHC 32.3 g/dl (32.0-36.0); MEAN CELL VOLUME 89.8 fl (80-96); MEAN PLT VOLUME 8.8 fl (7.5-11.1); NEUT % 71.9 % (42.8-82.8); PLATELET COUNT 175 K/MM3 (134-434); WHITE BLOOD COUNT 7.7 K/mm3 (4.0-10.0)
[2017-05-18] MEDS: ASPIRIN COATED 81 MG TABLET.EC PO SCH (09:34)
[2017-05-18] MEDS: SERTRALINE HCL 50 MG TABLET (FP) PO SCH (09:34)
[2017-05-18] MEDS: GABAPENTIN 300 MG CAPSULE (FP) PO SCH (09:34)
[2017-05-18] MEDS: PANTOPRAZOLE 20 MG TABLET (FP) PO SCH (09:35)
[2017-05-18] MEDS: DOCUSATE SODIUM 100 MG CAPSULE (FP) PO SCH ×2 (09:35→21:33)
[2017-05-18] MEDS: ALLOPURINOL 100 MG TABLET (FP) PO SCH (09:35)
[2017-05-18] MEDS ORDERED: PT OWN MED DRAWER 7, Y5N ONE (09:41)
[2017-05-18 10:04] LABS: ANION GAP 11 (8-16); CALCIUM 8.8 mg/dL (8.5-10.1); CO2 25 mmol/L (21-32); CREATININE 1.6 mg/dL (0.55-1.02); GLUCOSE,RANDOM 146 mg/dL (74-106); PHOSPHOROUS 3.4 mg/dL (2.5-4.9)
[2017-05-18] MEDS: TORSEMIDE 20 MG TABLET (FP) PO SCH (12:22)
[2017-05-18] MEDS: POLYETHYLENE GLYCOL 3350 119 GM BTL PO SCH ×2 (12:23→21:33)
[2017-05-18] MEDS: NYSTATIN 100,000 UNIT/GM TOPICAL CREAM 15 GM TUBE TP SCH ×2 (12:23→21:33)
--- NOTE | 2017-05-18 15:58 | PN ---
Progress Note, Physician Chief Complaint: Ms Carl complains of pain in her back, abdomen, arms, and legs again today but says it is better controlled with percocet. - Current Medication List Current Medications: Active Medications Acetaminophen (Tylenol -) 650 mg PO Q4H PRN PRN Reason: FEVER OR PAIN Last Admin: 05/18/17 12:21 Dose: 650 mg Allopurinol (Zyloprim -) 200 mg PO DAILY [facility] Last Admin: 05/18/17 09:35 Dose: 200 mg Aspirin (Ecotrin -) 81 mg PO DAILY [facility] Last Admin: 05/18/17 09:34 Dose: 81 mg Atorvastatin Calcium (Lipitor -) 10 mg PO HS [facility] Last Admin: 05/17/17 22:18 Dose: 10 mg Docusate Sodium (Colace -) 100 mg PO BID [facility] Last Admin: 05/18/17 09:35 Dose: 100 mg Gabapentin (Neurontin -) 300 mg PO DAILY [facility] Last Admin: 05/18/17 09:34 Dose: 300 mg Insulin Aspart (Novolog Vial Sliding Scale -) 1 vial SQ ACHS [facility] PRN Reason: Protocol Last Admin: 05/18/17 12:00 Dose: Not Given Insulin Detemir (Levemir Vial) 38 units SQ AM [facility] Last Admin: 05/18/17 06:23 Dose: 38 units Lorazepam (Ativan -) 1 mg PO TID [facility] Last Admin: 05/18/17 14:39 Dose: 1 mg Nystatin (Mycostatin Cream -) 1 applic TP BID [facility] Last Admin: 05/18/17 12:23 Dose: 1 applic Ondansetron HCl (Zofran Injection) 4 mg IVPUSH Q6H PRN PRN Reason: NAUSEA Oxycodone HCl (Roxicodone -) 5 mg PO Q4H PRN PRN Reason: PAIN Last Admin: 05/18/17 12:20 Dose: 5 mg Pantoprazole Sodium (Protonix -) 20 mg PO DAILY [facility] Last Admin: 05/18/17 09:35 Dose: 20 mg Polyethylene Glycol (Miralax (For Daily Use) -) 17 gm PO BID [facility] Last Admin: 05/18/17 12:23 Dose: 17 grams Sertraline HCl (Zoloft -) 50 mg PO DAILY [facility] Last Admin: 05/18/17 09:34 Dose: 25 mg Torsemide (Demadex -) 20 mg PO DAILY [facility] Last Admin: 05/18/17 12:22 Dose: 10 mg - Objective Vital Signs: Vital Signs Temperature 36.9 C 05/18/17 14:38 Pulse Rate 80 05/18/17 14:38 Respiratory Rate 20 05/18/17 14:38 Blood Pressure 132/65 05/18/17 14:38 O2 Sat by Pulse Oximetry (%) 96 05/17/17 22:00 Constitutional: Yes: No Distress, Calm, Obese Cardiovascular: Yes: Regular Rate and Rhythm. No: Gallop, Murmur, Rub Respiratory: Yes: Regular, CTA Bilaterally. No: Rales, Rhonchi, Wheezes Gastrointestinal: Yes: Normal Bowel Sounds, Soft. No: Distention, Tenderness Extremities: Yes: WNL Edema: No Labs: CBC, BMP 05/18/17 08:00 05/18/17 08:00 Problem List - Problems (1) Back pain Code(s): M54.9 - DORSALGIA, UNSPECIFIED Qualifiers: Back pain location: back pain in unspecified location Chronicity: acute Back pain laterality: midline Qualified Code(s): M54.9 - Dorsalgia, unspecified (2) CAD (coronary artery disease) Code(s): I25.10 - ATHSCL HEART DISEASE OF [place] CORONARY ARTERY W/O ANG PCTRS (3) CHF (congestive heart failure) Code(s): I50.9 - HEART FAILURE, UNSPECIFIED Qualifiers: Congestive heart failure type: unspecified congestive heart failure type Congestive heart failure chronicity: acute on chronic Qualified Code(s): I50.9 - Heart failure, unspecified (4) Diabetes Code(s): E11.9 - TYPE 2 DIABETES MELLITUS WITHOUT COMPLICATIONS Qualifiers: Diabetes mellitus type: type 2 Diabetes mellitus complication status: with kidney complications Diabetes mellitus complication detail: with chronic kidney disease Diabetes mellitus termite renewal inspector insulin use: with termite renewal inspector use Chronic kidney disease stage: stage 4 (severe) Qualified Code(s): E11.22 - Type 2 diabetes mellitus with diabetic chronic kidney disease; N18.4 - Chronic kidney disease, stage 4 (severe); N18.4 - Chronic kidney disease, stage 4 ( severe); N18.4 - Chronic kidney disease, stage 4 (severe); N18.4 - Chronic kidney disease, stage 4 (severe); Z79.4 - lobsterman (current) use of insulin; Z79.4 - FPC (current) use of insulin; Z79.4 - lobsterman (current) use of insulin; Z79.4 - lobsterman (current) use of insulin (5) HTN (hypertension) with goal to be determined Code(s): I10 - ESSENTIAL (PRIMARY) HYPERTENSION (6) Hyperlipemia Code(s): E78.5 - HYPERLIPIDEMIA, UNSPECIFIED (7) Morbid obesity Code(s): E66.01 - MORBID (SEVERE) OBESITY DUE TO EXCESS CALORIES Assessment/Plan (1) Back pain Assessment/Plan: -patient with multiple pain complaints, improved with oxycodone -continue prn oxycodone -continue PT -will keep patient again to have PT again tomorrow Code(s): M54.9 - DORSALGIA, UNSPECIFIED Qualifiers: Back pain location: back pain in unspecified location Chronicity: acute Back pain laterality: midline Qualified Code(s): M54.9 - Dorsalgia, unspecified (2) CAD (coronary artery disease) Assessment/Plan: -stable -continue toprol xl, aspirin, lipitor Code(s): I25.10 - ATHSCL HEART DISEASE OF [place] CORONARY ARTERY W/O ANG PCTRS (3) CHF (congestive heart failure) Assessment/Plan: -not in exacerbation -continue torsemide Code(s): I50.9 - HEART FAILURE, UNSPECIFIED Qualifiers: Congestive heart failure type: unspecified congestive heart failure type Congestive heart failure chronicity: acute on chronic Qualified Code(s): I50.9 - Heart failure, unspecified (4) Diabetes Assessment/Plan: -continue levemir -diabetic diet -FSBS and SSI Code(s): E11.9 - TYPE 2 DIABETES MELLITUS WITHOUT COMPLICATIONS Qualifiers: Diabetes mellitus type: type 2 Diabetes mellitus complication status: with kidney complications Diabetes mellitus complication detail: with chronic kidney disease Diabetes mellitus alf insulin use: with alf use Chronic kidney disease stage: stage 4 (severe) Qualified Code(s): E11.22 - Type 2 diabetes mellitus with diabetic chronic kidney disease; N18.4 - Chronic kidney disease, stage 4 (severe); N18.4 - Chronic kidney disease, stage 4 ( severe); N18.4 - Chronic kidney disease, stage 4 (severe); N18.4 - Chronic kidney disease, stage 4 (severe); Z79.4 - lobsterman (current) use of insulin; Z79.4 - FPC (current) use of insulin; Z79.4 - lobsterman (current) use of insulin; Z79.4 - lobsterman (current) use of insulin (5) HTN (hypertension) with goal to be determined Assessment/Plan: -continue toprol xl and torsemide -monitor Code(s): I10 - ESSENTIAL (PRIMARY) HYPERTENSION (6) Hyperlipemia Assessment/Plan: -continue lipitor Code(s): E78.5 - HYPERLIPIDEMIA, UNSPECIFIED (7) Morbid obesity Assessment/Plan: -outpatient weight loss program Code(s): E66.01 - MORBID (SEVERE) OBESITY DUE TO EXCESS CALORIES
[2017-05-18] MEDS: ATORVASTATIN CA 10 MG TABLET (FP) PO SCH (21:33)
[2017-05-19] MEDS: oxyCODONE HCL 5 MG TABLET PO PRN (01:32)
[2017-05-19] MEDS: INSULIN SLIDING SCALE (NOVOLOG) 1 VIAL SQ SCH ×4 (06:07→22:15)
[2017-05-19] MEDS: INSULIN DETEMIR 100 UNITS/ML MDV SQ SCH (06:07)
[2017-05-19] MEDS: LORazepam 1 MG TABLET PO SCH ×3 (06:07→22:18)
[2017-05-19] MEDS ORDERED: BISACODYL 10 MG SUPP.RECT RC ONE (10:15)
[2017-05-19] MEDS ORDERED: PT OWN MED DRAWER 7, Y5N ONE (10:17)
[2017-05-19] MEDS: ALLOPURINOL 100 MG TABLET (FP) PO SCH (10:19)
[2017-05-19] MEDS: DOCUSATE SODIUM 100 MG CAPSULE (FP) PO SCH ×2 (10:19→22:18)
[2017-05-19] MEDS: SERTRALINE HCL 50 MG TABLET (FP) PO SCH (10:19)
[2017-05-19] MEDS: ASPIRIN COATED 81 MG TABLET.EC PO SCH ×2 (10:19→10:33)
[2017-05-19] MEDS: GABAPENTIN 300 MG CAPSULE (FP) PO SCH (10:19)
[2017-05-19] MEDS: PANTOPRAZOLE 20 MG TABLET (FP) PO SCH (10:19)
[2017-05-19] MEDS: TORSEMIDE 20 MG TABLET (FP) PO SCH (10:20)
[2017-05-19] MEDS: POLYETHYLENE GLYCOL 3350 119 GM BTL PO SCH ×2 (10:27→22:17)
[2017-05-19] MEDS ORDERED: MAGNESIUM CITRATE 300 ML BOTTLE PO PRN (10:30)
--- NOTE | 2017-05-19 11:11 | PN ---
Progress Note, Physician Chief Complaint: Ms Carl complains of difficulty urinating and bloating abdominal pain. Still with chronic pain complaints. No sob. - Current Medication List Current Medications: Active Medications Acetaminophen (Tylenol -) 650 mg PO Q4H PRN PRN Reason: FEVER OR PAIN Last Admin: 05/18/17 20:29 Dose: 650 mg Allopurinol (Zyloprim -) 200 mg PO DAILY [facility] Last Admin: 05/19/17 10:19 Dose: 200 mg Aspirin (Ecotrin -) 81 mg PO DAILY [facility] Last Admin: 05/19/17 10:33 Dose: Not Given Atorvastatin Calcium (Lipitor -) 10 mg PO HS [facility] Last Admin: 05/18/17 21:33 Dose: 10 mg Docusate Sodium (Colace -) 100 mg PO BID [facility] Last Admin: 05/19/17 10:19 Dose: 100 mg Gabapentin (Neurontin -) 300 mg PO DAILY [facility] Last Admin: 05/19/17 10:19 Dose: 300 mg Insulin Aspart (Novolog Vial Sliding Scale -) 1 vial SQ ACHS [facility] PRN Reason: Protocol Last Admin: 05/19/17 06:07 Dose: Not Given Insulin Detemir (Levemir Vial) 38 units SQ AM [facility] Last Admin: 05/19/17 06:07 Dose: 38 units Lorazepam (Ativan -) 1 mg PO TID [facility] Last Admin: 05/19/17 06:07 Dose: 1 mg Magnesium Citrate (Citroma -) 300 ml PO Q48H PRN PRN Reason: CONSTIPATION Stop: 05/21/17 10:29 Nystatin (Mycostatin Cream -) 1 applic TP BID [facility] Last Admin: 05/18/17 21:33 Dose: 1 applic Ondansetron HCl (Zofran Injection) 4 mg IVPUSH Q6H PRN PRN Reason: NAUSEA Oxycodone HCl (Roxicodone -) 5 mg PO Q4H PRN PRN Reason: PAIN Last Admin: 05/19/17 01:32 Dose: 5 mg Pantoprazole Sodium (Protonix -) 20 mg PO DAILY [facility] Last Admin: 05/19/17 10:19 Dose: 20 mg Polyethylene Glycol (Miralax (For Daily Use) -) 17 gm PO BID [facility] Last Admin: 05/19/17 10:27 Dose: 17 grams Sertraline HCl (Zoloft -) 50 mg PO DAILY [facility] Last Admin: 05/19/17 10:19 Dose: 50 mg Simethicone (Mylicon -) 80 mg PO Q6H PRN PRN Reason: GAS Torsemide (Demadex -) 20 mg PO DAILY [facility] Last Admin: 05/19/17 10:20 Dose: Not Given - Objective Vital Signs: Vital Signs Temperature 36.8 C 05/19/17 10:00 Pulse Rate 109 H 05/19/17 10:00 Respiratory Rate 20 05/19/17 10:00 Blood Pressure 96/43 05/19/17 10:00 O2 Sat by Pulse Oximetry (%) 93 L 05/19/17 00:00 Constitutional: Yes: No Distress, Calm, Obese (morbid) Cardiovascular: Yes: Regular Rate and Rhythm. No: Gallop, Murmur, Rub Respiratory: Yes: Regular, CTA Bilaterally. No: Rales, Rhonchi, Wheezes Gastrointestinal: Yes: Normal Bowel Sounds, Soft, Distention. No: Tenderness Extremities: Yes: WNL Edema: No Labs: CBC, BMP 05/18/17 08:00 05/18/17 08:00 Problem List - Problems (1) Back pain Code(s): M54.9 - DORSALGIA, UNSPECIFIED Qualifiers: Back pain location: back pain in unspecified location Chronicity: acute Back pain laterality: midline Qualified Code(s): M54.9 - Dorsalgia, unspecified (2) CAD (coronary artery disease) Code(s): I25.10 - ATHSCL HEART DISEASE OF [place] CORONARY ARTERY W/O ANG PCTRS (3) CHF (congestive heart failure) Code(s): I50.9 - HEART FAILURE, UNSPECIFIED Qualifiers: Congestive heart failure type: unspecified congestive heart failure type Congestive heart failure chronicity: acute on chronic Qualified Code(s): I50.9 - Heart failure, unspecified (4) Diabetes Code(s): E11.9 - TYPE 2 DIABETES MELLITUS WITHOUT COMPLICATIONS Qualifiers: Diabetes mellitus type: type 2 Diabetes mellitus complication status: with kidney complications Diabetes mellitus complication detail: with chronic kidney disease Diabetes mellitus snf insulin use: with watermelon inspector use Chronic kidney disease stage: stage 4 (severe) Qualified Code(s): E11.22 - Type 2 diabetes mellitus with diabetic chronic kidney disease; N18.4 - Chronic kidney disease, stage 4 (severe); N18.4 - Chronic kidney disease, stage 4 ( severe); N18.4 - Chronic kidney disease, stage 4 (severe); N18.4 - Chronic kidney disease, stage 4 (severe); Z79.4 - halfway (current) use of insulin; Z79.4 - halfway (current) use of insulin; Z79.4 - terminal manager (current) use of insulin; Z79.4 - terminal manager (current) use of insulin (5) HTN (hypertension) with goal to be determined Code(s): I10 - ESSENTIAL (PRIMARY) HYPERTENSION (6) Hyperlipemia Code(s): E78.5 - HYPERLIPIDEMIA, UNSPECIFIED (7) Morbid obesity Code(s): E66.01 - MORBID (SEVERE) OBESITY DUE TO EXCESS CALORIES Assessment/Plan (1) Back pain Assessment/Plan: -continue oxycodone prn -continue PT -patient unsafe discharge home, will admit to inpatient for further PT and improvement -may need SNF Code(s): M54.9 - DORSALGIA, UNSPECIFIED Qualifiers: Back pain location: back pain in unspecified location Chronicity: acute Back pain laterality: midline Qualified Code(s): M54.9 - Dorsalgia, unspecified (2) CAD (coronary artery disease) Assessment/Plan: -stable -continue toprol xl, aspirin, lipitor Code(s): I25.10 - ATHSCL HEART DISEASE OF [place] CORONARY ARTERY W/O ANG PCTRS (3) CHF (congestive heart failure) Assessment/Plan: -not in exacerbation -continue torsemide, hold for hypotesion Code(s): I50.9 - HEART FAILURE, UNSPECIFIED Qualifiers: Congestive heart failure type: unspecified congestive heart failure type Congestive heart failure chronicity: acute on chronic Qualified Code(s): I50.9 - Heart failure, unspecified (4) Diabetes Assessment/Plan: -continue levemir -diabetic diet -FSBS and SSI Code(s): E11.9 - TYPE 2 DIABETES MELLITUS WITHOUT COMPLICATIONS Qualifiers: Diabetes mellitus type: type 2 Diabetes mellitus complication status: with kidney complications Diabetes mellitus complication detail: with chronic kidney disease Diabetes mellitus snf insulin use: with watermelon inspector use Chronic kidney disease stage: stage 4 (severe) Qualified Code(s): E11.22 - Type 2 diabetes mellitus with diabetic chronic kidney disease; N18.4 - Chronic kidney disease, stage 4 (severe); N18.4 - Chronic kidney disease, stage 4 ( severe); N18.4 - Chronic kidney disease, stage 4 (severe); N18.4 - Chronic kidney disease, stage 4 (severe); Z79.4 - halfway (current) use of insulin; Z79.4 - halfway (current) use of insulin; Z79.4 - terminal manager (current) use of insulin; Z79.4 - terminal manager (current) use of insulin (5) HTN (hypertension) with goal to be determined Assessment/Plan: -continue toprol xl and torsemide -monitor Code(s): I10 - ESSENTIAL (PRIMARY) HYPERTENSION (6) Hyperlipemia Assessment/Plan: -continue lipitor Code(s): E78.5 - HYPERLIPIDEMIA, UNSPECIFIED (7) Morbid obesity Assessment/Plan: -outpatient weight loss program Code(s): E66.01 - MORBID (SEVERE) OBESITY DUE TO EXCESS CALORIES (9) Hesitancy -bladder scan shows minimal urine -however with hesitancy will check urinalysis and urine culture -if positive, start antibiotics (10) Constipation -secondary to narcotics -continue colace and miralax -bisacodyl suppository -mag citrate
[2017-05-19] MEDS: SIMETHICONE 80 MG TAB.CHEW (FP) PO PRN (12:18)
[2017-05-19 13:31] LABS: TROPONIN I 0.05 ng/ml (0.00-0.05)
[2017-05-19] MEDS: HEPARIN NA (PORCINE) 5,000 UNITS/ML 1ML VIAL SQ SCH ×2 (13:51→22:18)
[2017-05-19] MEDS: NYSTATIN 100,000 UNIT/GM TOPICAL CREAM 15 GM TUBE TP SCH ×2 (13:55→22:17)
[2017-05-19 17:57] LABS: URINE APPEARANCE CLEAR; URINE BILIRUBIN NEGATIVE (NEGATIVE); URINE BLOOD NEGATIVE (NEGATIVE); URINE COLOR LTYELLOW; URINE GLUCOSE (UA) NEGATIVE (NEGATIVE); URINE KETONE NEGATIVE (NEGATIVE); URINE LEUK ESTERASE TRACE (NEGATIVE); URINE NITRITE NEGATIVE (NEGATIVE); URINE PROTEIN NEGATIVE (NEGATIVE); URINE UROBILINOGEN NEGATIVE mg/dL (0.2-1.0)
[2017-05-19 19:23] LABS: TROPONIN I 0.05 ng/ml (0.00-0.05)
[2017-05-19 20:31] LABS: URINE LEUK ESTERASE Negative (NEGATIVE)
[2017-05-19] MEDS: ATORVASTATIN CA 10 MG TABLET (FP) PO SCH (22:18)
[2017-05-20] MEDS: INSULIN DETEMIR 100 UNITS/ML MDV SQ SCH (06:27)
[2017-05-20] MEDS ORDERED: INSULIN DETEMIR 100 UNITS/ML MDV SQ ONE ×2 (06:27→07:35)
[2017-05-20] MEDS: HEPARIN NA (PORCINE) 5,000 UNITS/ML 1ML VIAL SQ SCH ×3 (06:28→21:27)
[2017-05-20] MEDS: LORazepam 1 MG TABLET PO SCH ×3 (06:28→21:27)
[2017-05-20] MEDS: INSULIN SLIDING SCALE (NOVOLOG) 1 VIAL SQ SCH ×4 (06:28→21:40)
[2017-05-20] MEDS: ACETAMINOPHEN 325 MG TABLET (FP) PO PRN ×2 (06:37→12:00)
[2017-05-20] MEDS ORDERED: INSULIN (NOVOLOG) ASPART 100 UNITS/ML 10ML VIAL ONE ×3 (07:35→18:42)
[2017-05-20] MEDS ORDERED: PT OWN MED DRAWER 7, Y5N ONE (09:02)
[2017-05-20] MEDS: GABAPENTIN 300 MG CAPSULE (FP) PO SCH (09:13)
[2017-05-20] MEDS: DOCUSATE SODIUM 100 MG CAPSULE (FP) PO SCH ×2 (09:13→21:27)
[2017-05-20] MEDS: ASPIRIN COATED 81 MG TABLET.EC PO SCH (09:13)
[2017-05-20] MEDS: SERTRALINE HCL 50 MG TABLET (FP) PO SCH (09:13)
[2017-05-20] MEDS: TORSEMIDE 20 MG TABLET (FP) PO SCH (09:14)
[2017-05-20] MEDS: PANTOPRAZOLE 20 MG TABLET (FP) PO SCH (09:14)
[2017-05-20] MEDS: POLYETHYLENE GLYCOL 3350 119 GM BTL PO SCH ×2 (09:14→21:27)
[2017-05-20] MEDS: NYSTATIN 100,000 UNIT/GM TOPICAL CREAM 15 GM TUBE TP SCH ×2 (09:14→21:27)
[2017-05-20] MEDS: ALLOPURINOL 100 MG TABLET (FP) PO SCH (09:14)
[2017-05-20] MEDS: oxyCODONE HCL 5 MG TABLET PO PRN ×2 (11:59→20:01)
--- NOTE | 2017-05-20 12:30 | PN ---
Progress Note, Physician Chief Complaint: C/O Chest Wall pain , running nose, and constipation History of Present Illness: 81 yrs old morbidly obese F with multiple medical co-morbidities present with a mechanical fall with back and chest trauma, H/O HTN, T2DM, CAD, High Cholesterol, back apin - Current Medication List Current Medications: Active Medications Acetaminophen (Tylenol -) 650 mg PO Q4H PRN PRN Reason: FEVER OR PAIN Last Admin: 05/20/17 12:00 Dose: 650 mg Allopurinol (Zyloprim -) 200 mg PO DAILY [facility] Last Admin: 05/20/17 09:14 Dose: 200 mg Aspirin (Ecotrin -) 81 mg PO DAILY [facility] Last Admin: 05/20/17 09:13 Dose: 81 mg Atorvastatin Calcium (Lipitor -) 10 mg PO HS [facility] Last Admin: 05/19/17 22:18 Dose: 10 mg Docusate Sodium (Colace -) 100 mg PO BID [facility] Last Admin: 05/20/17 09:13 Dose: 100 mg Gabapentin (Neurontin -) 300 mg PO DAILY [facility] Last Admin: 05/20/17 09:13 Dose: 300 mg Heparin Sodium (Porcine) (Heparin -) 5,000 unit SQ TID [facility] Last Admin: 05/20/17 06:28 Dose: 5,000 unit Insulin Aspart (Novolog Vial Sliding Scale -) 1 vial SQ ACHS [facility] PRN Reason: Protocol Last Admin: 05/20/17 11:59 Dose: 2 units Insulin Detemir (Levemir Vial) 38 units SQ AM [facility] Last Admin: 05/20/17 06:27 Dose: 38 units Lorazepam (Ativan -) 1 mg PO TID [facility] Last Admin: 05/20/17 06:28 Dose: 1 mg Magnesium Citrate (Citroma -) 300 ml PO Q48H PRN PRN Reason: CONSTIPATION Stop: 05/21/17 10:29 Nystatin (Mycostatin Cream -) 1 applic TP BID [facility] Last Admin: 05/20/17 09:14 Dose: 1 applic Ondansetron HCl (Zofran Injection) 4 mg IVPUSH Q6H PRN PRN Reason: NAUSEA Last Admin: 05/19/17 12:18 Dose: 4 mg Oxycodone HCl (Roxicodone -) 5 mg PO Q4H PRN PRN Reason: PAIN Last Admin: 05/20/17 11:59 Dose: 5 mg Pantoprazole Sodium (Protonix -) 20 mg PO DAILY [facility] Last Admin: 05/20/17 09:14 Dose: 20 mg Polyethylene Glycol (Miralax (For Daily Use) -) 17 gm PO BID [facility] Last Admin: 05/20/17 09:14 Dose: 17 grams Sertraline HCl (Zoloft -) 50 mg PO DAILY [facility] Last Admin: 05/20/17 09:13 Dose: 50 mg Simethicone (Mylicon -) 80 mg PO Q6H PRN PRN Reason: GAS Last Admin: 05/19/17 12:18 Dose: 80 mg Torsemide (Demadex -) 20 mg PO DAILY [facility] Last Admin: 05/20/17 09:14 Dose: 20 mg - Objective Vital Signs: Vital Signs Temperature 98.6 F 05/20/17 09:12 Pulse Rate 113 H 05/20/17 09:12 Respiratory Rate 22 05/20/17 09:12 Blood Pressure 123/81 05/20/17 09:12 O2 Sat by Pulse Oximetry (%) 94 L 05/20/17 09:10 Sitting on the lilly c/o chest wall pain HEENT: Mm moist no anemioa, PERRLA EOMI NECK; No JVSD No Bruit CHEST: Small bruise on ant chest wall at sternum tenderest + CVS: S1S2 R ABD: Obese, non tender Bs + EXT: Trace edema feet DRAW MACHINE OPERATOR: Non focal Labs: CBC, BMP 05/18/17 08:00 05/18/17 08:00 Problem List - Problems (1) Fall Assessment/Plan: At base line patient has gait instability due to obesity, old age and back pain , will F/U PT recommendations Code(s): W19.XXXA - UNSPECIFIED FALL, INITIAL ENCOUNTER (2) Morbid obesity with BMI of 50.0-59.9, adult Assessment/Plan: Nutritional consult as out patient Code(s): E66.01 - MORBID (SEVERE) OBESITY DUE TO EXCESS CALORIES; Z68.43 - BODY MASS INDEX (BMI) 50-59.9 , ADULT (3) CHF (congestive heart failure) Assessment/Plan: H/O Diastolic HF at present compensated Code(s): I50.9 - HEART FAILURE, UNSPECIFIED Qualifiers: Congestive heart failure type: unspecified congestive heart failure type Congestive heart failure chronicity: acute on chronic Qualified Code(s): I50.9 - Heart failure, unspecified (4) Chronic back pain greater than 3 months duration Assessment/Plan: Chronic pain cont pain management Code(s): M54.9 - DORSALGIA, UNSPECIFIED; G89.29 - OTHER CHRONIC PAIN (5) GERD (gastroesophageal reflux disease) Assessment/Plan: ConT PPI Code(s): K21.9 - GASTRO-ESOPHAGEAL REFLUX DISEASE WITHOUT ESOPHAGITIS (6) T2DM (type 2 diabetes mellitus) Assessment/Plan: On Levmir and correction dose insulin optimize Glycemic control Code(s): E11.9 - TYPE 2 DIABETES MELLITUS WITHOUT COMPLICATIONS (7) CAD (coronary artery disease) Assessment/Plan: Stable no c/o cardaic chest pain cont all home meds Code(s): I25.10 - ATHSCL HEART DISEASE OF [place] CORONARY ARTERY W/O ANG PCTRS (8) Anxiety Assessment/Plan: Cont Home medication at present satble Code(s): F41.9 - ANXIETY DISORDER, UNSPECIFIED (9) Ambulatory dysfunction Assessment/Plan: Pt evaluation, fall precautions Code(s): R26.2 - DIFFICULTY IN WALKING, NOT ELSEWHERE CLASSIFIED
[2017-05-20] MEDS ORDERED: BISACODYL 5 MG TABLET.DR (FP) PO PRN (12:33)
[2017-05-20] MEDS: LORATADINE 10 MG TABLET PO SCH (12:55)
[2017-05-20] MEDS: ATORVASTATIN CA 10 MG TABLET (FP) PO SCH (21:27)
[2017-05-21] MEDS: INSULIN SLIDING SCALE (NOVOLOG) 1 VIAL SQ SCH ×4 (06:04→21:48)
[2017-05-21] MEDS: INSULIN DETEMIR 100 UNITS/ML MDV SQ SCH (06:23)
[2017-05-21] MEDS: LORazepam 1 MG TABLET PO SCH ×3 (06:23→21:48)
[2017-05-21] MEDS: HEPARIN NA (PORCINE) 5,000 UNITS/ML 1ML VIAL SQ SCH ×3 (06:23→21:48)
[2017-05-21] MEDS ORDERED: INSULIN (NOVOLOG) ASPART 100 UNITS/ML 10ML VIAL ONE (06:31)
[2017-05-21 08:12] LABS: BASO % 0.7 % (0-2.0); EOS % 2.6 % (0-4.5); MCH 28.8 pg (25.7-33.7); MEAN PLT VOLUME 9.3 fl (7.5-11.1); NEUT % 74.4 % (42.8-82.8); PLATELET COUNT 156 K/MM3 (134-434); RDW 15.8 % (11.6-15.6); WHITE BLOOD COUNT 7.9 K/mm3 (4.0-10.0)
[2017-05-21 08:30] LABS: ANION GAP 12 (8-16); CALCIUM 8.6 mg/dL (8.5-10.1); CO2 25 mmol/L (21-32); CREATININE 1.9 mg/dL (0.55-1.02); GLUCOSE,RANDOM 158 mg/dL (74-106)
[2017-05-21] MEDS: SERTRALINE HCL 50 MG TABLET (FP) PO SCH (09:20)
[2017-05-21] MEDS: LORATADINE 10 MG TABLET PO SCH (09:20)
[2017-05-21] MEDS: DOCUSATE SODIUM 100 MG CAPSULE (FP) PO SCH ×2 (09:20→21:47)
[2017-05-21] MEDS: ASPIRIN COATED 81 MG TABLET.EC PO SCH (09:20)
[2017-05-21] MEDS: PANTOPRAZOLE 20 MG TABLET (FP) PO SCH (09:20)
[2017-05-21] MEDS: TORSEMIDE 20 MG TABLET (FP) PO SCH (09:20)
[2017-05-21] MEDS: GABAPENTIN 300 MG CAPSULE (FP) PO SCH (09:20)
[2017-05-21] MEDS: ALLOPURINOL 100 MG TABLET (FP) PO SCH (09:20)
[2017-05-21] MEDS: NYSTATIN 100,000 UNIT/GM TOPICAL CREAM 15 GM TUBE TP SCH (09:21)
[2017-05-21] MEDS: POLYETHYLENE GLYCOL 3350 119 GM BTL PO SCH ×2 (09:21→21:48)
[2017-05-21] MEDS: oxyCODONE HCL 5 MG TABLET PO PRN ×2 (09:27→13:50)
--- NOTE | 2017-05-21 11:47 | PN ---
Progress Note, Physician Chief Complaint: C/O Chest Wall pain , running nose, and constipation History of Present Illness: 81 yrs old morbidly obese F with multiple medical co-morbidities present with a mechanical fall with back and chest trauma, H/O HTN, T2DM, CAD, High Cholesterol, back apin - Current Medication List Current Medications: Active Medications Acetaminophen (Tylenol -) 650 mg PO Q4H PRN PRN Reason: FEVER OR PAIN Last Admin: 05/20/17 12:00 Dose: 650 mg Allopurinol (Zyloprim -) 200 mg PO DAILY [facility] Last Admin: 05/21/17 09:20 Dose: 200 mg Aspirin (Ecotrin -) 81 mg PO DAILY [facility] Last Admin: 05/21/17 09:20 Dose: 81 mg Atorvastatin Calcium (Lipitor -) 10 mg PO HS [facility] Last Admin: 05/20/17 21:27 Dose: 10 mg Bisacodyl (Dulcolax -) 5 mg PO DAILY [facility] PRN Reason: CONSTIPATION Docusate Sodium (Colace -) 100 mg PO BID [facility] Last Admin: 05/21/17 09:20 Dose: 100 mg Gabapentin (Neurontin -) 300 mg PO DAILY [facility] Last Admin: 05/21/17 09:20 Dose: 300 mg Heparin Sodium (Porcine) (Heparin -) 5,000 unit SQ TID [facility] Last Admin: 05/21/17 06:23 Dose: 5,000 unit Insulin Aspart (Novolog Vial Sliding Scale -) 1 vial SQ ACHS [facility] PRN Reason: Protocol Last Admin: 05/21/17 06:04 Dose: Not Given Insulin Detemir (Levemir Vial) 38 units SQ AM [facility] Last Admin: 05/21/17 06:23 Dose: 38 units Loratadine (Claritin -) 10 mg PO DAILY [facility] Last Admin: 05/21/17 09:20 Dose: 10 mg Lorazepam (Ativan -) 1 mg PO TID [facility] Last Admin: 05/21/17 06:23 Dose: 1 mg Nystatin (Mycostatin Cream -) 1 applic TP BID [facility] Last Admin: 05/21/17 09:21 Dose: 1 applic Ondansetron HCl (Zofran Injection) 4 mg IVPUSH Q6H PRN PRN Reason: NAUSEA Last Admin: 05/19/17 12:18 Dose: 4 mg Oxycodone HCl (Roxicodone -) 5 mg PO Q4H PRN PRN Reason: PAIN Last Admin: 05/21/17 09:27 Dose: 5 mg Pantoprazole Sodium (Protonix -) 20 mg PO DAILY [facility] Last Admin: 05/21/17 09:20 Dose: 20 mg Polyethylene Glycol (Miralax (For Daily Use) -) 17 gm PO BID [facility] Last Admin: 05/21/17 09:21 Dose: Not Given Sertraline HCl (Zoloft -) 50 mg PO DAILY [facility] Last Admin: 05/21/17 09:20 Dose: 50 mg Simethicone (Mylicon -) 80 mg PO Q6H PRN PRN Reason: GAS Last Admin: 05/19/17 12:18 Dose: 80 mg Torsemide (Demadex -) 20 mg PO DAILY [facility] Last Admin: 05/21/17 09:20 Dose: 20 mg - Objective Vital Signs: Vital Signs Temperature 98.0 F 05/21/17 06:00 Pulse Rate 102 H 05/21/17 06:00 Respiratory Rate 20 05/21/17 06:00 Blood Pressure 110/80 05/21/17 06:00 O2 Sat by Pulse Oximetry (%) 90 L 05/20/17 21:00 Sitting on the lilly c/o chest wall pain HEENT: Mm moist no anemioa, PERRLA EOMI NECK; No JVSD No Bruit CHEST: Small bruise on ant chest wall at sternum tenderest + CVS: S1S2 R ABD: Obese, non tender Bs + EXT: Trace edema feet ANIMAL ASSISTED THERAPIST: Non focal Labs: CBC, BMP 05/21/17 07:45 05/21/17 07:45 Problem List - Problems (1) Fall Assessment/Plan: At base line patient has gait instability due to obesity, old age and back pain , will F/U PT recommendations Code(s): W19.XXXA - UNSPECIFIED FALL, INITIAL ENCOUNTER (2) Morbid obesity with BMI of 50.0-59.9, adult Assessment/Plan: Nutritional consult as out patient Code(s): E66.01 - MORBID (SEVERE) OBESITY DUE TO EXCESS CALORIES; Z68.43 - BODY MASS INDEX (BMI) 50-59.9 , ADULT (3) CHF (congestive heart failure) Assessment/Plan: H/O Diastolic HF at present compensated Code(s): I50.9 - HEART FAILURE, UNSPECIFIED Qualifiers: Congestive heart failure type: unspecified congestive heart failure type Congestive heart failure chronicity: acute on chronic Qualified Code(s): I50.9 - Heart failure, unspecified (4) Chronic back pain greater than 3 months duration Assessment/Plan: Chronic pain cont pain management Code(s): M54.9 - DORSALGIA, UNSPECIFIED; G89.29 - OTHER CHRONIC PAIN (5) GERD (gastroesophageal reflux disease) Assessment/Plan: ConT PPI Code(s): K21.9 - GASTRO-ESOPHAGEAL REFLUX DISEASE WITHOUT ESOPHAGITIS (6) T2DM (type 2 diabetes mellitus) Assessment/Plan: On Levmir and correction dose insulin optimize Glycemic control Code(s): E11.9 - TYPE 2 DIABETES MELLITUS WITHOUT COMPLICATIONS (7) CAD (coronary artery disease) Assessment/Plan: Stable no c/o cardaic chest pain cont all home meds Code(s): I25.10 - ATHSCL HEART DISEASE OF [place] CORONARY ARTERY W/O ANG PCTRS (8) Anxiety Assessment/Plan: Cont Home medication at present satble Code(s): F41.9 - ANXIETY DISORDER, UNSPECIFIED (9) Ambulatory dysfunction Assessment/Plan: Pt evaluation, fall precautions Code(s): R26.2 - DIFFICULTY IN WALKING, NOT ELSEWHERE CLASSIFIED
[2017-05-21] MEDS: SIMETHICONE 80 MG TAB.CHEW (FP) PO PRN (19:54)
[2017-05-21] MEDS: ATORVASTATIN CA 10 MG TABLET (FP) PO SCH (21:47)
[2017-05-22] MEDS: NYSTATIN 100,000 UNIT/GM TOPICAL CREAM 15 GM TUBE TP SCH ×2 (01:36→11:38)
[2017-05-22] MEDS: HEPARIN NA (PORCINE) 5,000 UNITS/ML 1ML VIAL SQ SCH ×2 (06:01→15:08)
[2017-05-22] MEDS: LORazepam 1 MG TABLET PO SCH ×2 (06:01→15:08)
[2017-05-22] MEDS: SIMETHICONE 80 MG TAB.CHEW (FP) PO PRN (06:01)
[2017-05-22] MEDS: INSULIN SLIDING SCALE (NOVOLOG) 1 VIAL SQ SCH ×2 (06:42→11:38)
[2017-05-22] MEDS: INSULIN DETEMIR 100 UNITS/ML MDV SQ SCH (06:42)
[2017-05-22] MEDS: DOCUSATE SODIUM 100 MG CAPSULE (FP) PO SCH (09:50)
[2017-05-22] MEDS: LORATADINE 10 MG TABLET PO SCH (09:51)
[2017-05-22] MEDS: PANTOPRAZOLE 20 MG TABLET (FP) PO SCH (09:51)
[2017-05-22] MEDS: ALLOPURINOL 100 MG TABLET (FP) PO SCH (09:51)
[2017-05-22] MEDS: GABAPENTIN 300 MG CAPSULE (FP) PO SCH (09:52)
[2017-05-22] MEDS: ASPIRIN COATED 81 MG TABLET.EC PO SCH (09:52)
[2017-05-22] MEDS: SERTRALINE HCL 50 MG TABLET (FP) PO SCH (09:52)
[2017-05-22] MEDS: POLYETHYLENE GLYCOL 3350 119 GM BTL PO SCH (09:52)
[2017-05-22] MEDS: TORSEMIDE 20 MG TABLET (FP) PO SCH (09:56)
[2017-05-22] MEDS ORDERED: INSULIN (NOVOLOG) ASPART 100 UNITS/ML 10ML VIAL ONE (11:36)
--- NOTE | 2017-05-22 12:04 | DS ---
Physical Examination Vital Signs: Vital Signs Temperature 37.2 C 05/22/17 09:57 Pulse Rate 111 H 05/22/17 09:57 Respiratory Rate 22 05/22/17 09:57 Blood Pressure 128/89 05/22/17 09:57 O2 Sat by Pulse Oximetry (%) 93 L 05/21/17 21:00 Constitutional: Yes: No Distress, Calm, Obese Cardiovascular: Yes: Regular Rate and Rhythm. No: Gallop, Murmur, Rub Respiratory: Yes: Regular, CTA Bilaterally. No: Rales, Rhonchi, Wheezes Gastrointestinal: Yes: Normal Bowel Sounds, Soft. No: Distention, Tenderness Extremities: Yes: WNL Edema: No Labs: CBC, BMP 05/21/17 07:45 05/21/17 07:45 Discharge Summary Reason For Visit: FALL Current Active Problems Back pain (Acute) Fall (Acute) Morbid obesity with BMI of 50.0-59.9, adult (Acute) Obesity (Acute) T2DM (type 2 diabetes mellitus) (Acute) Weakness of back (Acute) Hospital Course: (1) Back pain Code(s): M54.9 - DORSALGIA, UNSPECIFIED Qualifiers: Back pain location: back pain in unspecified location Chronicity: acute Back pain laterality: midline Qualified Code(s): M54.9 - Dorsalgia, unspecified (2) CAD (coronary artery disease) Code(s): I25.10 - ATHSCL HEART DISEASE OF [place] CORONARY ARTERY W/O ANG PCTRS (3) CHF (congestive heart failure) Code(s): I50.9 - HEART FAILURE, UNSPECIFIED Qualifiers: Congestive heart failure type: unspecified congestive heart failure type Congestive heart failure chronicity: acute on chronic Qualified Code(s): I50.9 - Heart failure, unspecified (4) Diabetes Code(s): E11.9 - TYPE 2 DIABETES MELLITUS WITHOUT COMPLICATIONS Qualifiers: Diabetes mellitus type: type 2 Diabetes mellitus complication status: with kidney complications Diabetes mellitus complication detail: with chronic kidney disease Diabetes mellitus termite exterminator helper insulin use: with termite exterminator helper use Chronic kidney disease stage: stage 4 (severe) Qualified Code(s): E11.22 - Type 2 diabetes mellitus with diabetic chronic kidney disease; N18.4 - Chronic kidney disease, stage 4 (severe); N18.4 - Chronic kidney disease, stage 4 ( severe); N18.4 - Chronic kidney disease, stage 4 (severe); N18.4 - Chronic kidney disease, stage 4 (severe); Z79.4 - termite technician (current) use of insulin; Z79.4 - termite technician (current) use of insulin; Z79.4 - senior living (current) use of insulin; Z79.4 - termite technician (current) use of insulin (5) HTN (hypertension) with goal to be determined Code(s): I10 - ESSENTIAL (PRIMARY) HYPERTENSION (6) Hyperlipemia Code(s): E78.5 - HYPERLIPIDEMIA, UNSPECIFIED (7) Morbid obesity Code(s): E66.01 - MORBID (SEVERE) OBESITY DUE TO EXCESS CALORIES Ms Carl is an 81 year old female who comes in with worsening back pain secondary to slipping out of the chair. She did not fall nor did she have trauma , but she states holding herself from falling caused an exacerbation of her pain. She says when EMS came she was lowered to the floor, but when she was being stood up to come to the hospital the chair hit her chest multiple times causing chest pain. She originally came in under observation, however after attempting PT here she was unsafe to discharge home. She continued to have PT here and pain control. She complained of constipation and was started on a stool softener. She had a bowel movement after this. Currently she is stable and safe for discharge to SNF for further care. 32 minutes spent in preparation of this discharge Condition: Stable - Instructions Diet, Activity, Other Instructions: 1800kcal diabetic diet. Up with assistance, further activity per PT at SNF Referrals: Radha Cano MD [Staff Physician] - Disposition: [facility]ILITY - Home Medications Comprehensive Discharge Medication List: Ambulatory Orders Allopurinol [Zyloprim -] 100 mg PO BID 05/17/17 Aspirin [Ecotrin] 81 mg PO Q2D 05/17/17 Atorvastatin Ca [Lipitor] 10 mg PO HS 05/17/17 Ergocalciferol [Vitamin D2] 50,000 unit PO MONTHLY 05/17/17 Gabapentin [Neurontin] 300 mg PO HS 05/17/17 Insulin (Levemir) [Levemir Vial] 38 unit SQ DAILY 05/17/17 Lactobacillus Acidophilus [Acidophilus Probiotic] 0.5 mg PO ASDIR 05/17/17 Lorazepam [Ativan] 1 mg PO TID 05/17/17 Metoprolol Tartrate 25 mg PO BID 05/17/17 Omeprazole Magnesium [Prilosec] 20 mg PO DAILY 05/17/17 Ropinirole HCl 0.5 mg PO DAILY 05/17/17 Sertraline HCl [Zoloft -] 50 mg PO DAILY 05/17/17 Torsemide 20 mg PO DAILY 05/17/17 Tramadol HCl 50 mg PO TID 05/17/17 Bisacodyl [Bisacodyl -] 5 mg PO DAILY PRN tablet. 05/22/17 Docusate Sodium [Colace -] 100 mg PO BID capsule 05/22/17 Insulin Sliding Scale [Novolog Vial Sliding Scale -] 1 vial SQ ACHS units 05/22 Loratadine [Claritin -] 10 mg PO DAILY tablet 05/22/17 Nystatin Cream [Mycostatin Cream -] 1 applic TP BID applic 05/22/17 Polyethylene Glycol 3350 [Miralax 119 gm Btl -] 17 gm PO BID bottle 05/22/17 Simethicone [Mylicon -] 80 mg PO Q6H PRN tab.chew 05/22/17
[2017-05-22 13:57] VITALS: BP 120/75; PULSE 113; TEMP 97.8
--- NOTE | 2017-05-23 01:52 | EKG ---
Test Reason : Blood Pressure : / mmHG Vent. Rate : 101 BPM Atrial Rate : 101 BPM P-R Int : 196 ms QRS Dur : 142 ms QT Int : 402 ms P-R-T Axes : -05 -11 155 degrees QTc Int : 521 ms SINUS TACHYCARDIA LEFT BUNDLE BRANCH BLOCK ABNORMAL ECG WHEN COMPARED WITH ECG OF 02-SEP-2016 22:18, PREMATURE SUPRAVENTRICULAR COMPLEXES ARE NO LONGER PRESENT Confirmed by RENA PATEL MD ([id number]) on 05/23/2017 1:51:48 AM Referred By: Confirmed By:RENA PATEL MD
== END 2017-05-22 16:26 | DRG 552 ==
LOC: JER 09:42 → JERBED 14:23 → J5S 19:38 → OBSVTOIN 05-19 11:06
PROVIDERS: ADMIT Internal Medicine; ATTEND Internal Medicine
DX: M54.89 Other dorsalgia (principal); I13.0 Hypertensive heart and chronic kidney disease with heart failure and stage 1 through stage 4 chronic kidney disease, or unspecified chronic kidney disease; N18.4 Chronic kidney disease, stage 4 (severe); Z68.43 Body mass index [BMI] 50.0-59.9, adult; I50.32 Chronic diastolic (congestive) heart failure; E66.01 Morbid (severe) obesity due to excess calories; K59.09 Other constipation; K21.9 Gastro-esophageal reflux disease without esophagitis; F41.8 Other specified anxiety disorders; M10.9 Gout, unspecified; S29.8XXA Other specified injuries of thorax, initial encounter; D64.9 Anemia, unspecified; I25.10 Atherosclerotic heart disease of native coronary artery without angina pectoris; E78.5 Hyperlipidemia, unspecified; E11.22 Type 2 diabetes mellitus with diabetic chronic kidney disease; R39.11 Hesitancy of micturition; R26.89 Other abnormalities of gait and mobility; R26.2 Difficulty in walking, not elsewhere classified; W01.0XXA Fall on same level from slipping, tripping and stumbling without subsequent striking against object, initial encounter; Y93.89 Activity, other specified; Y92.098 Other place in other non-institutional residence as the place of occurrence of the external cause; Z85.038 Personal history of other malignant neoplasm of large intestine; Z79.4 Long term (current) use of insulin
CPT/HCPCS: 36415; 71010-TC; 72070-TC; 72100-TC; 73562-TC-RT; 80048; 80053; 81003; 81015; 82550; 82553; 83735; 84100; 84484; 85025; 87086; 93005; 93010; 97116-GP; 97162-GP; 99284-25; G0378; J1644

== ENCOUNTER 2018-07-20 15:08 | Inpatient (IN) | payer OTHER, MEDICARE ==
--- NOTE | 2018-07-20 15:14 | PDOC ---
Rapid Medical Evaluation Medical Evaluation: Allergies Allergy/AdvReac Type Severity Reaction Status Date / Time diltiazem HCl [From Cardizem] Allergy Rash Verified 07/20/18 15:10 07/20/18 15:10 I performed a brief in-person evaluation of this patient. Chief complaint: Shortness of breath since Monday night Pertinent physical exam findings: Mild tachypnea. Clear lungs, Irregular rhythm , no murmurs, LE edema with ulcerations. I have ordered the following: EKG, CXR, cardiac labs Patient will proceed to the ED for further evaluation. Discharge Disposition - Diagnosis Shortness of breath - Referrals - Patient Instructions - Post Discharge Activity
--- NOTE | 2018-07-20 15:35 | PDOC ---
History of Present Illness - General Chief Complaint: Shortness of Breath Stated Complaint: SENT BY PCP Time Seen by Provider: 07/20/18 15:29 History Source: Patient, Family (Daughter) Exam Limitations: No Limitations Past History - Past Medical History Allergies/Adverse Reactions: Allergies Allergy/AdvReac Type Severity Reaction Status Date / Time diltiazem HCl [From Cardizem] Allergy Rash Verified 07/20/18 15:10 Home Medications: Ambulatory Orders Allopurinol [Zyloprim -] 100 mg PO BID 05/17/17 Aspirin [Ecotrin] 81 mg PO Q2D 05/17/17 Atorvastatin Ca [Lipitor] 10 mg PO HS 05/17/17 Ergocalciferol [Vitamin D2] 50,000 unit PO MONTHLY 05/17/17 Gabapentin [Neurontin] 300 mg PO BID 05/17/17 Insulin (Levemir) [Levemir Vial] 38 unit SQ DAILY 05/17/17 Lorazepam [Ativan] 1 mg PO BID 05/17/17 Metoprolol Tartrate 25 mg PO BID 05/17/17 Omeprazole Magnesium [Prilosec] 20 mg PO DAILY 05/17/17 Ropinirole HCl 0.5 mg PO DAILY 05/17/17 Torsemide 20 mg PO DAILY 05/17/17 Tramadol HCl 50 mg PO BID 05/17/17 Furosemide Injection [Lasix Injection -] 40 mg IVPUSH ONCE #1 vial 07/20/18 Glimepiride [Amaryl -] 1 mg PO DAILY 07/20/18 LORazepam [Ativan] 1 mg PO BID 07/20/18 Anemia: Yes Asthma: No Cancer: Yes (COLON) Cardiac Disorders: No CVA: No COPD: No CHF: No Dementia: No Diabetes: Yes (x20 yrs) GI Disorders: Yes (chronic constipation) Disorders: Yes HTN: Yes Hypercholesterolemia: Yes Liver Disease: No Seizures: No Thyroid Disease: No - Surgical History Abdominal Surgery: Yes (HERNIA,COLON RESECTION) Appendectomy: Yes Cardiac Surgery: No Cholecystectomy: No Lung Surgery: No Neurologic Surgery: No Orthopedic Surgery: No - Immunization History Immunization Up to Date: Yes - Suicide/Smoking/Psychosocial Hx Smoking Status: No Smoking History: Unknown if ever smoked Have you smoked in the past 12 months: No Number of Cigarettes Smoked Daily: 0 Hx Alcohol Use: No Drug/Substance Use Hx: No Substance Use Type: None Hx Substance Use Treatment: No *Physical Exam - Vital Signs Last Vital Signs Temp Pulse Resp BP Pulse Ox 97.5 F L 95 H 22 H 130/80 96 07/20/18 15:18 07/20/18 15:18 07/20/18 15:18 07/20/18 15:18 07/20/18 15:18 Moderate Sedation - Procedure Monitoring Vital Signs: Procedure Monitoring Vital Signs Temperature 97.5 F L 07/20/18 15:18 Pulse Rate 95 H 07/20/18 15:18 Respiratory Rate 22 H 07/20/18 15:18 Blood Pressure 130/80 07/20/18 15:18 O2 Sat by Pulse Oximetry (%) 96 07/20/18 15:18 ED Treatment Course - LABORATORY CBC & Chemistry Diagram: 07/20/18 15:32 07/20/18 15:32 Medical Decision Making - Medical Decision Making Pt was seen at bedside, also will be seen by attending Dr. Coleman. Pt presenting with complaints of worsened SOB from her baseline since Monday (07/18) night. Pt states she can normally ambulate around the house with a walker, but has been unable to even walk to the bathroom in her home without getting SOB since Monday night. The pt normally has to sleep in a recliner propped upwards. Vitals stable, pt afebrile. Pt in NAD, normal body habitus. PE showed pt alert and oriented. secretary to the vice president generally intact, muscular strength and sensation intact. Eyes PERRLA, EOMI. Oropharynx without erythema or exudates. No nasal congestion , hearing intact. Clear heart sounds, S1/S2, no JVD, b/l pedal edema, or heart murmur. Clear lung sounds, no respiratory distress, wheezes, crackles, or accessory muscle use. No abdominal or CVA tenderness to palpation, no rebound, no guarding. Abdomen soft, non-distended, and with normoactive bowel sounds. Skin without jaundice or rash. Considering CHF exacerbation vs ACS vs infectious (pneumonia). Less concern for PE as pt not tachycardic, leg swelling is b/l and chronic. Ordered work-up including CBC, CMP, BNP, troponin, ECG, chest x-ray. Pt comfortable and saturating mid 90%s on room air. Will reassess after lab work for needed diuresis. Will continue to reassess pt and monitor for symptomatic improvement. 07/20/18 15:52 ECG showed LBBB, chronic for pt, no acute ST segment elevations. Chest x-ray showed cardiomegaly and increased infiltrate in RML and RLL. No fevers/chills, no increased WBC -- likely CHF exacerbation. CBC WNL. CMP: BUN/Cr 49/2.0 Coags WNL BNP 2078, which is consistent with prior admissions. Trop .05 -- likely demand 07/20/18 16:30 Providing 40 mg IV lasix for diuresis. Spoke with hospitalist team who accepted pt for admission to tele observation. 07/20/18 17:14 *DC/Admit/Observation/Transfer Diagnosis at time of Disposition: Shortness of breath - Prescriptions Prescriptions: Furosemide Injection [Lasix Injection -] 40 mg IVPUSH ONCE #1 vial - Referrals - Patient Instructions - Post Discharge Activity
[2018-07-20 15:54] LABS: BASO % 0.8 % (0-2.0); EOS % 3.1 % (0-4.5); HEMATOCRIT 35.6 % (32.4-45.2); HEMOGLOBIN 11.8 GM/dL (10.7-15.3); LYMPH % 21.6 % (8-40); MCH 31.2 pg (25.7-33.7); MCHC 33.2 g/dl (32.0-36.0); MEAN CELL VOLUME 94.1 fl (80-96); MEAN PLT VOLUME 8.8 fl (7.5-11.1); MONO % 7.1 % (3.8-10.2); NEUT % 67.4 % (42.8-82.8); PLATELET COUNT 179 K/MM3 (134-434); RBC 3.78 M/mm3 (3.60-5.2); RDW 15.7 % (11.6-15.6); WHITE BLOOD COUNT 8.5 K/mm3 (4.0-10.0)
[2018-07-20 16:05] LABS: INR 0.96 (0.83-1.09); PROTHROMBIN TIME (PATIENT) 11.3 SEC (9.7-13.0)
[2018-07-20 16:22] LABS: ALBUMIN 3.4 g/dl (3.4-5.0); ALK PHOS 93 U/L (45-117); ANION GAP 7 MMOL/L (8-16); BILIRUBIN,TOTAL 0.4 mg/dL (0.2-1); BLOOD UREA NITROGEN 49 mg/dL (7-18); CHLORIDE 104 mmol/L (98-107); CO2 30 mmol/L (21-32); GLUCOSE,RANDOM 119 mg/dL (74-106); N-TERMINAL BNP 2078.9 pg/ml (5-450); POTASSIUM 4.5 mmol/L (3.5-5.1); SGOT/AST 16 U/L (15-37); SGPT/ALT 16 U/L (13-61); SODIUM 141 mmol/L (136-145); TOT PROT 7.3 g/dl (6.4-8.2)
--- NOTE | 2018-07-20 17:03 | PDOC ---
Attending Attestation - HPI HPI: 07/20/18 17:16 The patient is a 82 year old female, with a significant PMH of diabetes, CHF, hypertension, hyperlipidemia, and renal insufficiency, who presents to the emergency department with 2 days of worsening shortness of breath. The patient states she is normally able to walk around her apartment with the assistance of a walker. However, she states beginning Monday night she began to feel short of breath and is unable to even ambulate to the bathroom. The patient states she did not take her Lasix this morning but reports she has otherwise been compliant with her medications. The patient denies chest pain, palpitations, headache and dizziness. Denies fever, chills, nausea, vomit, diarrhea and constipation. Denies dysuria, frequency, urgency and hematuria. Allergies: diltiazem HCl Documentation prepared by Ramos Banuelos, acting as medical biller for Kenneth Coleman MD. - Physicial Exam PE: 07/20/18 17:49 Vitals: Triage vital signs reviewed General Appearance: No acute distress, well nourished, well developed Head: Atraumatic Neck: Supple; No nuchal rigidity Chest Wall: Nontender Cardiac: Regular rate and rhythm, no murmurs, no rubs, no gallops Lungs: (+) Bilateral crackles on auscultation. Abdomen: Soft, nondistended, normal bowel sounds, nontender to palpation Rectal: Exam deferred Extremities: (+) Bilateral lower extremity edema. Full range of motion to all extremities, no cyanosis, clubbing. Skin: Warm and dry, no rashes or lesions, no rash, no petechiae Psych: Normal mood, normal affect <Ramos Banuelos - Last Filed: 07/20/18 17:49> - Resident Resident Name: Shirley Sarah - ED Attending Attestation I have performed the following: I have examined & evaluated the patient, The case was reviewed & discussed with the resident, I agree w/resident's findings & plan, Exceptions are as noted - Medical Decision Making The patient is a 82 year old female, with a significant PMH of diabetes, CHF, hypertension, hyperlipidemia, and renal insufficiency, who presents to the emergency department with 2 days of worsening shortness of breath. The patient states she is normally able to walk around her apartment with the assistance of a walker. However, she states beginning Monday night she began to feel short of breath and is unable to even ambulate to the bathroom. The patient states she did not take her Lasix this morning but reports she has otherwise been compliant with her medications. History and examination consistent with CHF exacerbation patient with difficulty ambulating secondary to dyspnea and leg swelling We will observe overnight for diuresis and further management. <Kenneth Coleman - Last Filed: 07/20/18 18:52> Heart Score/ECG Review - ECG Impressions Comment:: 07/20/18 18:52 Left bundle-branch block unchanged from previous EKG. <Kenneth Coleman - Last Filed: 07/20/18 18:52>
[2018-07-20] MEDS ORDERED: FUROSEMIDE 40 MG/4 ML INJECTABLE VIAL IVPUSH ONE (17:12)
[2018-07-20] MEDS ORDERED: FUROSEMIDE 40 MG/4 ML INJECTABLE VIAL ONE (17:43)
--- NOTE | 2018-07-20 18:00 | PN ---
Teaching Attending Note Name of Resident: Christiano Centeno ATTENDING PHYSICIAN STATEMENT I saw and evaluated the patient. I reviewed the resident's note and discussed the case with the resident. I agree with the resident's findings and plan as documented with exceptions below. SUBJECTIVE: 82 yof with PMHx of chronic systolic heart failure, morbid obesity, VIDYA not on CPAP, IDDM, CKD stage III (baseline cr around 1.8-2), HTN, HLD, colon ca s/p resection 2006, has been progressively getting short of breath with exertion, over last 1 year. Uses a walker to ambulate. Over last 2 days patient has been getting short of breath with minimal exertion, today was seen by PCP who advised her to come to the ED. Sleeps on a recliner with no recent change. Has chronic leg edema with blisters with no recent exacerbation or change. Denies any weight gain, dietary non compliance, fevers, chills, URI like illness, chest pain, palpitations, abdominal or urinary symptoms. Reports seen her system validation engineer Dr. Rosas 1 year ago, with last stress test/2D echo about a year back. 12 point ROS done, neg except above. OBJECTIVE: Vital Signs Period Temp Pulse Resp BP Sys/Lopez Pulse Ox Last 24 Hr 97.5 F 95 22 130/80 93-96 Intake & Output 07/17/18 07/18/18 07/19/18 07/20/18 23:59 23:59 23:59 23:59 Weight 175 lb GENERAL: Awake, alert, and fully oriented, in no acute distress. HEAD: Normal with no signs of trauma. EYES: Pupils equal, round and reactive to light, extraocular movements intact, sclera anicteric, conjunctiva clear. No lid lag. EARS, NOSE, THROAT: Ears normal, nares patent, oropharynx clear without exudates. Moist mucous membranes. NECK: soft, supple, no JVD, body habitus limiting further exam. LUNGS: patient unable to sit up currently, few dependent rales, no wheezing, positive air entry HEART: Regular rate and rhythm, normal S1 and S2 ABDOMEN: Soft, obese, scars from prior abdominal surgeries, vague LMQ tenderness (chronic per patient), no voluntary or involuntary guarding or rigidity MUSCULOSKELETAL: no spinal tenderness, moves all extremities freely UPPER EXTREMITIES: 2+ pulses, warm, well-perfused. No cyanosis. No clubbing. No peripheral edema. LOWER EXTREMITIES: chronic skin hyperpigmentation with healed superifical ulcers /blisters, no active erythema or discharge, 1+ pedal edema L>R NEUROLOGICAL: AAOX3, facial symmetry, speech normal tongue midline, moves all extremities in bed with no focal deficit, further exam limited PSYCHIATRIC: Cooperative. Good eye contact. Appropriate mood and affect. SKIN: Warm, dry, normal turgor, no rashes or lesions noted, normal capillary refill. Home Medications Medication Instructions Recorded Aspirin [Ecotrin] 81 mg PO Q2D 05/17/17 Atorvastatin Ca [Lipitor] 10 mg PO HS 05/17/17 Ergocalciferol [Vitamin D2] 50,000 unit PO MONTHLY 05/17/17 Gabapentin [Neurontin] 300 mg PO BID 05/17/17 Insulin (Levemir) [Levemir Vial] 38 unit SQ DAILY 05/17/17 Omeprazole Magnesium [Prilosec] 20 mg PO DAILY 05/17/17 Torsemide 20 mg PO DAILY 05/17/17 Tramadol HCl 50 mg PO BID 05/17/17 Allopurinol [Zyloprim -] 100 mg PO BID 07/20/18 Glimepiride [Amaryl -] 1 mg PO HS 07/20/18 LORazepam [Ativan] 1 mg PO BID 07/20/18 Metoprolol Succinate [Toprol Xl] 25 mg PO BID 07/20/18 Ropinirole HCl [Requip] 0.5 mg PO HS 07/20/18 Active Medications Allopurinol (Zyloprim -) 100 mg PO BID [facility] Aspirin (Ecotrin -) 81 mg PO Q2D [facility] Atorvastatin Calcium (Lipitor -) 10 mg PO HS [facility] Ergocalciferol (Drisdol -) 50,000 unit PO MONTHLY [facility] Furosemide (Lasix Injection -) 40 mg IVPUSH ONCE ONE Stop: 07/20/18 17:13 Last Admin: 07/20/18 17:44 Dose: 40 mg Furosemide (Lasix -) 40 mg PO DAILY [facility] Gabapentin (Neurontin -) 300 mg PO BID [facility] Heparin Sodium (Porcine) (Heparin -) 5,000 unit SQ BID [facility] Insulin Aspart (Novolog Vial Sliding Scale -) 0 vial SQ ACHS [facility]; Protocol Insulin Detemir (Levemir Vial) 38 units SQ AM [facility] Lorazepam (Ativan -) 1 mg PO BID [facility] Metoprolol Succinate (Toprol Xl -) 25 mg PO BID [facility] Non-Formulary Medication (Omeprazole Magnesium [Prilosec]) 20 mg PO DAILY [facility] Ropinirole HCl (Requip -) 0.5 mg PO HS [facility] Tramadol HCl (Ultram -) 50 mg PO BID [facility] Laboratory Results - last 24 hr 07/20/18 07/20/18 07/20/18 15:32 15:32 15:32 WBC 8.5 RBC 3.78 Hgb 11.8 Hct 35.6 MCV 94.1 MCH 31.2 MCHC 33.2 RDW 15.7 H Plt Count 179 MPV 8.8 Absolute Neuts (auto) 5.8 Neutrophils % 67.4 Lymphocytes % 21.6 D Monocytes % 7.1 Eosinophils % 3.1 Basophils % 0.8 Nucleated RBC % 0 PT with INR 11.30 INR 0.96 Sodium 141 Potassium 4.5 Chloride 104 Carbon Dioxide 30 Anion Gap 7 L BUN 49 H Creatinine 2.0 H Creat Clearance w eGFR 23.74 Random Glucose 119 H Calcium 9.0 Total Bilirubin 0.4 AST 16 ALT 16 Alkaline Phosphatase 93 Creatine Kinase 85 Troponin I 0.05 B-Natriuretic Peptide 2078.9 H Total Protein 7.3 Albumin 3.4 CXR images reviewed, ?RLL airspace disease, await official read EKG: NSR, LBBB ASSESSMENT AND PLAN: 82 yof with PMHx of chronic systolic heart failure, morbid obesity, VIDYA not on CPAP, IDDM, CKD stage III (baseline cr around 1.8-2), HTN, HLD, colon ca s/p resection 2006 admitted with worsening dyspnea on exertion -Dyspnea on exertion, ?acute on chronic systolic heart failure, ?anginal equivalent, VIDYA with suspected OHS with progression, low suspicion for infectious process -CKD stage III -IDDM -VIDYA not on cpap (unable to tolerate) -HTN -HLD -Colon cancer s/p resection in 2006 Plan: Trial with lasix 40 mg IV x 1, strict I/Os, daily weights. Additional diuresis if patient responds well. Exertional symptoms, ?anginal equivalent. Telemetry/cycle troponins. ASA/statin/metoprolol. Low suspicion for infectious process. Influenza screen CT chest non contrast. 2D echo, can be done outpatient if patient improves. Cardiology consult Dr. Ginelli. Creatinine at baseline, monitor on diuresis. Continue levemir, ISS. diabetic diet, hold amaryl Continue gabapentin/ativan/tramadol with monitoring of respiratory status DVTPPX heparin Code status: discussed with patient in detail, wants to be DNR/DNI, Witnessed by Daughter Cecilia. Wants her daughter Cecilia to be her HCP. Will need PT eval and CM consult for dispo planning. Admit to obs tele Plan discussed with patient and daughter at bedside in detail, all questions answered total admit time 55 min .
--- NOTE | 2018-07-20 18:15 | HP ---
Admitting History and Physical - Primary Care Physician PCP: Rachael MD - Admission Chief Complaint: shortness of breath History of Present Illness: 82 yo F h/o IDDM, systolic CHF, HTN, HLD, and chronic kidney disease p/w worsening shortness of breath x 2 days. Patient endorses increasing exertional dyspnea since this Monday. She usually walks around her block with walker fine but now would become short of breath from living room to bathroom. She admits to missing 2 doses of torsemide. Denies chest pain, abd pain, urinary or bowel sx. History Source: Patient, Family Member Limitations to Obtaining History: No Limitations - Past Medical History Cardiovascular: Yes: CHF, HTN, Hyperlipdemia Gastrointestinal: Yes: Cancer, GERD, Other (Colon CA operated 7 years ago) Renal/: Yes: Renal Inusuff (creat 2 at baseline for years, stable, non proteinuric) Heme/Onc: Yes: Anemia Psych: Yes: Anxiety, Depression Musculoskeletal: Yes: Chronic low back pain Rheumatology: Yes: Gout Endocrine: Yes: Diabetes Mellitus - Past Surgical History Past Surgical History: Yes: Appendectomy, Colectomy (partial), Hernia Repair - Smoking History Smoking history: Unknown if ever smoked Have you smoked in the past 12 months: No Aproximately how many cigarettes per day: 0 - Alcohol/Substance Use Hx Alcohol Use: No History of Substance Use: reports: None - Social History ADL: Independent History of Recent Travel: No Home Medications - Allergies Allergies/Adverse Reactions: Allergies Allergy/AdvReac Type Severity Reaction Status Date / Time diltiazem HCl [From Cardizem] Allergy Rash Verified 07/20/18 15:10 - Home Medications Home Medications: Ambulatory Orders Aspirin [Ecotrin] 81 mg PO Q2D 05/17/17 Atorvastatin Ca [Lipitor] 10 mg PO HS 05/17/17 Ergocalciferol [Vitamin D2] 50,000 unit PO MONTHLY 05/17/17 Gabapentin [Neurontin] 300 mg PO BID 05/17/17 Insulin (Levemir) [Levemir Vial] 38 unit SQ DAILY 05/17/17 Omeprazole Magnesium [Prilosec] 20 mg PO DAILY 05/17/17 Torsemide 20 mg PO DAILY 05/17/17 Tramadol HCl 50 mg PO BID 05/17/17 Allopurinol [Zyloprim -] 100 mg PO BID 07/20/18 Glimepiride [Amaryl -] 1 mg PO HS 07/20/18 LORazepam [Ativan] 1 mg PO BID 07/20/18 Metoprolol Succinate [Toprol Xl] 25 mg PO BID 07/20/18 Ropinirole HCl [Requip] 0.5 mg PO HS 07/20/18 Family Disease History - Family Disease History Family Disease History: Diabetes: Mother, Heart Disease: Father, Other: Sister ( CVA) Review of Systems - Review of Systems Constitutional: reports: Loss of Appetite, Weakness. denies: Fever Cardiovascular: reports: Edema, Shortness of Breath. denies: Chest Pain, Palpitations Respiratory: reports: Exercise Intolerance, Orthopnea, PND, Snoring, SOB on Exertion. denies: Cough Neurological: reports: No Symptoms Physical Examination Vital Signs: Vital Signs Temperature 97.5 F L 07/20/18 15:18 Pulse Rate 95 H 07/20/18 15:18 Respiratory Rate 22 H 07/20/18 15:18 Blood Pressure 130/80 07/20/18 15:18 O2 Sat by Pulse Oximetry (%) 93 L 07/20/18 15:55 Constitutional: Yes: No Distress, Calm, Obese Cardiovascular: Yes: Regular Rate and Rhythm, S1, S2. No: Murmur Respiratory: Yes: Other (dependent crackles in R lobe) Gastrointestinal: Yes: Normal Bowel Sounds, Soft, Abdomen, Obese, Tenderness Edema: Yes Edema: LLE: 2+, RLE: 2+ Peripheral Pulses WNL: Yes Neurological: Yes: Alert, Oriented Labs: CBC, BMP 07/20/18 15:32 07/20/18 15:32 Imaging - Results X-ray: Report Reviewed, Image Reviewed Assessment/Plan 82 yo F h/o IDDM, systolic CHF, HTN, HLD, and chronic kidney disease admitted for chf exacerbation. acute on chronic systolic and diastolic heart failure - IV lasix 40mg x 1 in ED - cont. PO lasix 40mg tomorrow - strict I/O daily weight - Sodium controlled diet CKD stage 3-4 - at baseline, cont. to monitor VIDYA - 2/2 morbid obesty - outpatient pulm. followup for c-pap IDDM - cont. levemir 38 units in AM with breakfast - BGM and sliding scale FEN - no additoinal fluid - replete as needed - nutrition: sodium controlled diet PT eval dvt: subq heparin Visit type - Emergency Visit Emergency Visit: Yes ED Registration Date: 07/20/18 Care time: The patient presented to the Emergency Department on the above date and was hospitalized for further evaluation of their emergent condition. - New Patient This patient is new to me today: Yes Date on this admission: 07/20/18 - Critical Care Critical Care patient: No
[2018-07-20 19:06] LABS: URINE APPEARANCE CLEAR; URINE BILIRUBIN NEGATIVE (<2.0 mg/dL); URINE COLOR LTYELLOW; URINE GLUCOSE (UA) NEGATIVE (NEGATIVE); URINE KETONE NEGATIVE (NEGATIVE); URINE LEUK ESTERASE 1+ (NEGATIVE); URINE NITRITE NEGATIVE (NEGATIVE); URINE PROTEIN NEGATIVE (NEGATIVE); URINE UROBILINOGEN NEGATIVE mg/dL (0.2-1.0)
[2018-07-20 19:12] LABS: EPI CELLS FEW /HPF (FEW); URINE MUCUS RARE
[2018-07-20] MEDS ORDERED: metoPROLOL SUCCINATE 25 MG TAB.SR.24H (FP) PO SCH (22:00)
[2018-07-20] MEDS: traMADol HCL 50 MG TABLET PO SCH (23:47)
[2018-07-20] MEDS: ATORVASTATIN CA 10 MG TABLET (FP) PO SCH (23:49)
[2018-07-20] MEDS: ALLOPURINOL 100 MG TABLET (FP) PO SCH (23:49)
[2018-07-20] MEDS: LORazepam 1 MG TABLET PO SCH (23:49)
[2018-07-20] MEDS: GABAPENTIN 300 MG CAPSULE (FP) PO SCH (23:49)
[2018-07-20] MEDS: HEPARIN NA (PORCINE) 5,000 UNITS/ML 1ML VIAL SQ SCH (23:49)
[2018-07-20] MEDS: INSULIN SLIDING SCALE (NOVOLOG) 1 VIAL SQ SCH (23:50)
[2018-07-20] MEDS: metoPROLOL SUCCINATE 25 MG TAB.SR.24H (FP) PO SCH (23:53)
[2018-07-21] MEDS: rOPINIRole HCL 0.5 MG TABLET PO SCH ×2 (00:14→22:37)
[2018-07-21] MEDS: INSULIN SLIDING SCALE (NOVOLOG) 1 VIAL SQ SCH ×4 (06:01→22:37)
[2018-07-21] MEDS: INSULIN (LEVEMIR) 100 UNITS/ML UNITS SQ SCH (06:36)
[2018-07-21 07:50] LABS: BASO % 0.8 % (0-2.0); EOS % 3.8 % (0-4.5); HEMATOCRIT 34.7 % (32.4-45.2); HEMOGLOBIN 11.6 GM/dL (10.7-15.3); LYMPH % 25.5 % (8-40); MCH 31.3 pg (25.7-33.7); MCHC 33.5 g/dl (32.0-36.0); MEAN CELL VOLUME 93.5 fl (80-96); MEAN PLT VOLUME 9.1 fl (7.5-11.1); MONO % 8.1 % (3.8-10.2); NEUT % 61.8 % (42.8-82.8); PLATELET COUNT 172 K/MM3 (134-434); RBC 3.72 M/mm3 (3.60-5.2); RDW 15.6 % (11.6-15.6); WHITE BLOOD COUNT 7.8 K/mm3 (4.0-10.0)
[2018-07-21 08:06] LABS: INR 1.02 (0.83-1.09)
[2018-07-21 08:08] LABS: ACTIVATED PTT 27.3 SECONDS (25.2-36.5)
[2018-07-21 08:57] LABS: ANION GAP 8 MMOL/L (8-16); BLOOD UREA NITROGEN 47 mg/dL (7-18); CALCIUM 9.1 mg/dL (8.5-10.1); CHLORIDE 105 mmol/L (98-107); CO2 29 mmol/L (21-32); CREATININE 1.8 mg/dL (0.55-1.3); GLUCOSE,RANDOM 114 mg/dL (74-106); MAGNESIUM 1.9 mg/dL (1.8-2.4); POTASSIUM 3.9 mmol/L (3.5-5.1); SODIUM 142 mmol/L (136-145)
--- NOTE | 2018-07-21 09:42 | CON.CARD ---
Consult Consult Specialty:: cardio - History of Present Illness Chief Complaint: sob History of Present Illness: 82 F here with increased sob sx's longstanding h/o sob walking across the room at home, but incr severity of the sob the past 3-4 days. sleeps in recliner long time--no PND sx's. chronic feet swelling, not appreciably worse she says but new skin blisters being treated by vascular. feels chest heaviness which is mild when she has her PATINO sx's--this is also unchanged for 2+ yrs she says. she feels this sx was present at time of prior workup with stress test <2 yrs ago. +audible wheezing at times--THIS IS NEW FOR HER notes that she is having difficulty urinating after IV lasix here. feels urge but cannot expel--has to push on her abdomen near bladder to get it out. has urinary incontinence upon standing up at home, and here today her sob felt better but after ate breakfast she felt breathless. also, was unable to get up oob to work with PT today denies sore throat, cough/phlegm PMH: syst CHF likely nonischemic CAD morbid obesity CKD HTN DM - Past Medical History Cardio/Vascular: Yes: CHF, HTN, Hyperlipdemia Gastrointestinal: Yes: Cancer, GERD, Other (Colon CA operated 7 years ago) Renal/: Yes: Renal Inusuff (creat 2 at baseline for years, stable, non proteinuric) Psych: Yes: Anxiety, Depression Musculoskeletal: Yes: Chronic low back pain Rheumatology: Yes: Gout Endocrine: Yes: Diabetes Mellitus - Past Surgical History Past Surgical History: Yes: Appendectomy, Colectomy (partial), Hernia Repair - Alcohol/Substance Use Hx Alcohol Use: No History of Substance Use: reports: None - Smoking History Smoking history: Unknown if ever smoked Have you smoked in the past 12 months: No Aproximately how many cigarettes per day: 0 - Social History ADL: Independent History of Recent Travel: No Home Medications - Allergies Allergies/Adverse Reactions: Allergies Allergy/AdvReac Type Severity Reaction Status Date / Time diltiazem HCl [From Cardizem] Allergy Rash Verified 07/20/18 15:10 - Home Medications Home Medications: Ambulatory Orders Aspirin [Ecotrin] 81 mg PO Q2D 05/17/17 Atorvastatin Ca [Lipitor] 10 mg PO HS 05/17/17 Ergocalciferol [Vitamin D2] 50,000 unit PO MONTHLY 05/17/17 Gabapentin [Neurontin] 300 mg PO BID 05/17/17 Insulin (Levemir) [Levemir Vial] 38 unit SQ DAILY 05/17/17 Omeprazole Magnesium [Prilosec] 20 mg PO DAILY 05/17/17 Torsemide 20 mg PO DAILY 05/17/17 Tramadol HCl 50 mg PO BID 05/17/17 Allopurinol [Zyloprim -] 100 mg PO BID 07/20/18 Glimepiride [Amaryl -] 1 mg PO HS 07/20/18 LORazepam [Ativan] 1 mg PO BID 07/20/18 Metoprolol Succinate [Toprol Xl] 25 mg PO BID 07/20/18 Ropinirole HCl [Requip] 0.5 mg PO HS 07/20/18 Family Disease History - Family Disease History Family Disease History: Diabetes: Mother, Heart Disease: Father, Other: Sister ( CVA) Review of Systems - Review of Systems Constitutional: denies: Chills, Fever Eyes: denies: Eye Pain HENT: denies: Nasal Congestion Neck: denies: Stiffness Cardiovascular: denies: Palpitations Respiratory: denies: Orthopnea, PND Gastrointestinal: denies: Diarrhea, Rectal Bleeding Genitourinary: denies: Burning, Hematuria Musculoskeletal: denies: Muscle Pain Integumentary: denies: Rash Neurological: denies: Numbness, Seizure, Syncope Endocrine: denies: Excessive Sweating Hematology/Lymphatic: denies: Excessive Bleeding Vital Signs: Vital Signs Temperature 97.9 F 07/21/18 06:00 Pulse Rate 75 07/21/18 06:00 Respiratory Rate 20 07/21/18 06:00 Blood Pressure 117/75 07/21/18 06:00 O2 Sat by Pulse Oximetry (%) 93 L 07/21/18 01:54 Constitutional: Yes: Well Nourished, No Distress Eyes: No: Sclera Icterus HENT: No: Nasal Congestion Neck: No: Decreased ROM Respiratory: Yes: CTA Bilaterally. No: Accessory Muscle Use, Rales, Wheezes Gastrointestinal: Yes: Normal Bowel Sounds. No: Distention, Hepatomegaly, Palpable Mass, Tenderness Cardiovascular: Yes: Regular Rate and Rhythm JVD: No Carotid Bruit: No PMI: Non-Displaced Heart Sounds: Yes: S1, S2. No: Gallop Murmur: No: Systolic Murmur, Diastolic Murmur Musculoskeletal: Yes: Other (No kyphosis) Extremities: No: Cold, Cyanosis Edema: Yes (1+ nonpitting ankles) Peripheral Pulses: 2+ Left Carotid, 2+ Right Carotid, 2+ Left Doralis Pedis, 2+ Right Dorsalis Pedis Integumentary: No: Jaundice Neurological: Yes: Alert, Oriented (x3) Psychiatric: No: Agitated - Other Data Labs, Other Data: CBC, BMP 07/21/18 07:00 07/21/18 07:00 INR, PTT INR 1.02 (0.83-1.09) 07/21/18 07:00 Troponin, BNP 07/20/18 07/21/18 15:32 00:30 Troponin I 0.05 0.05 B-Natriuretic Peptide 2078.9 H Troponin, BNP 07/20/18 07/21/18 15:32 00:30 Troponin I 0.05 0.05 B-Natriuretic Peptide 2078.9 H Laboratory Tests 07/20/18 07/21/18 07/21/18 15:32 00:30 07:00 WBC Hgb Plt Count Sodium 142 Potassium 3.9 Carbon Dioxide 29 BUN 47 H Creatinine 1.8 H AST 16 ALT 16 Troponin I 0.05 0.05 B-Natriuretic Peptide 2078.9 H Albumin 3.4 07/21/18 07:00 WBC 7.8 Hgb 11.6 Plt Count 172 Sodium Potassium Carbon Dioxide BUN Creatinine AST ALT Troponin I B-Natriuretic Peptide Albumin Assessment/Plan EKG: NSR, LBBB (no change) CT chest: probable mild ATX > small infiltrate in RLL. mild R base bronchiectasis. extensive cor calcifications. no pulmonary vascular congestion, no effusions. Echo 2017: LV mod decreased systolic function. moderate global HK with severe apical HK, mild ar, Mild-mod MAC, mild-mod MR, mod tr, rvsp 30-40 MPI (mandy) 2017: LBBB on EKG. mild apical-anteroseptal ischemia. mildly reduced LVEF. no TID. MPI (mandy) 2014: LBBB on EKG. no ischemia. EF 40%. no TID noted. acute syst CHF, venous ins'y/chronic LE edema: -h/o NICM with moderately reduced LVEF, follows with dr arana as outpt (last seen 2017)--controlled on torsemide 20 qd -on metoprolol 25 bid, no TOMAS sec to advanced CKD -here with incr SOB (NYHA IV) the past few days -BNP 2K in pt with low GFR (baseline 2-4K) -CT chest no effusions or pulm edema/vasc congestion pattern. new wheezing sx's at home. -given no signs of pulm infection, acute cardiac ischemia (would not likely cause wheezing), or other etiology, the most likely etiology of acute on chronic PATINO WITH NEW WHEEZING is volume overload (? right > left sided) -received lasix 40 IV yest--renal fxn improved. still with sob today. physical habitus very TDS for volume assessment (short/thick neck). + urinary obstructive sx's described. -07/21: repeat lasix 40 IV x 1 today. observe sx's and creatinine--? golden, renal sono depending on clinical course (d/w'd dr coronado, hospitalist). reassess tomorrow re: lasix dose. -repeat echo (r/o cor pulmonale in obese pt never worked up for sleep apnea) ? CAD: -++cor calcifications on CT chest--images reviewed, with dense calcifications in distal LMCA, involving LAD/LCX bifurcation and mult calcifications along LAD (less so in RCA) - mild ischemia in small area of LAD distribution on 2017 stress test (apical anteroseptum) with corresponding regional variability of LV dysfunction worst in this region on echo. - medically managed by dr arana (hi risk of ANUSHKA from cath, ? perfusion appearance artifactual related to LBBB/soft tissue or breast attenuation) - has chronic mild chest heaviness accompanying her sob which is unchanged presently--CHF > angina sx - old LBBB on EKG. troponins neg here - continue home aspirin, statin, BB - will rpt pharm MPI here monday to r/o high risk or changed ischemia pattern. depending on clinical course, can consider outpatient FDG-PET perfusion for more accurate non-invasive rule out of balanced ischemia--per dr arana HTN: - bp controlled - cont home meds DM, on insulin: -per pmd HPL: -continue home statin (atorva 10) CKD: - bline creat 1.7-2.0. - renal fxn stable here
[2018-07-21] MEDS ORDERED: FUROSEMIDE 40 MG/4 ML INJECTABLE VIAL IVPUSH ONE (09:53)
[2018-07-21] MEDS ORDERED: PATIENT'S OWN MEDICATION (NON-FORMULARY) (Omeprazole Magnesium [Prilosec] 20 MG) PO SCH (10:00)
[2018-07-21] MEDS ORDERED: FUROSEMIDE 40 MG TABLET (FP) PO SCH (10:00)
[2018-07-21] MEDS ORDERED: FUROSEMIDE 40 MG/4 ML INJECTABLE VIAL IVPUSH SCH (10:00)
[2018-07-21] MEDS ORDERED: PT OWN MED DRAWER 7, Y5N ONE (11:19)
[2018-07-21] MEDS: HEPARIN NA (PORCINE) 5,000 UNITS/ML 1ML VIAL SQ SCH ×2 (11:28→22:40)
[2018-07-21] MEDS: traMADol HCL 50 MG TABLET PO SCH ×2 (11:28→22:35)
[2018-07-21] MEDS: ALLOPURINOL 100 MG TABLET (FP) PO SCH ×2 (11:29→22:34)
[2018-07-21] MEDS: LORazepam 1 MG TABLET PO SCH ×2 (11:29→22:34)
[2018-07-21] MEDS: GABAPENTIN 300 MG CAPSULE (FP) PO SCH ×2 (11:29→22:34)
[2018-07-21] MEDS: PANTOPRAZOLE 20 MG TABLET (FP) PO SCH (11:29)
[2018-07-21] MEDS: metoPROLOL SUCCINATE 25 MG TAB.SR.24H (FP) PO SCH ×2 (11:30→22:35)
--- NOTE | 2018-07-21 13:07 | EKG ---
Test Reason : Blood Pressure : / mmHG Vent. Rate : 082 BPM Atrial Rate : 082 BPM P-R Int : 208 ms QRS Dur : 126 ms QT Int : 418 ms P-R-T Axes : 035 -09 149 degrees QTc Int : 488 ms POOR DATA QUALITY, INTERPRETATION MAY BE ADVERSELY AFFECTED NORMAL SINUS RHYTHM WITH 1ST DEGREE A-V BLOCK LEFT BUNDLE BRANCH BLOCK ABNORMAL ECG WHEN COMPARED WITH ECG OF 19-MAY-2017 12:28, NO SIGNIFICANT CHANGE WAS FOUND Confirmed by JEANNE HARP MD ([id number]) on 07/21/2018 1:07:45 PM Referred By: Confirmed By:JEANNE HARP MD
--- NOTE | 2018-07-21 13:28 | PN ---
Physical Exam: SUBJECTIVE: Patient seen and examined, overall unchanged from yesterday, no new complaints. OBJECTIVE: Vital Signs Period Temp Pulse Resp BP Sys/Lopez Pulse Ox Last 24 Hr 97.5 F-97.9 F 75-95 20-22 117-144/67-80 93-96 GENERAL: The patient is awake, alert, and fully oriented, in no acute distress. HEAD: Normal with no signs of trauma. EYES: PERRL, extraocular movements intact, sclera anicteric, conjunctiva clear. No ptosis. ENT: Ears normal, nares patent, oropharynx clear without exudates, moist mucous membranes. NECK: soft, supple, no JVD visualized LUNGS: decreased effort, few basilar rales HEART: Regular rate and rhythm, S1, S2 ABDOMEN: Soft, obese, nontender, nondistended, normoactive bowel sounds, no guarding, no rebound EXTREMITIES: chronic changes bilateral LE with no new concerns, trace pedal edema unchanged PSYCH: Normal mood, normal affect. SKIN: Warm, dry, normal turgor, no rashes or lesions noted back small pimple healed right gluteal fold, no erythema or discharge today Laboratory Results - last 24 hr 07/20/18 07/20/18 07/20/18 15:32 15:32 15:32 WBC 8.5 RBC 3.78 Hgb 11.8 Hct 35.6 MCV 94.1 MCH 31.2 MCHC 33.2 RDW 15.7 H Plt Count 179 MPV 8.8 Absolute Neuts (auto) 5.8 Neutrophils % 67.4 Lymphocytes % 21.6 D Monocytes % 7.1 Eosinophils % 3.1 Basophils % 0.8 Nucleated RBC % 0 PT with INR 11.30 INR 0.96 PTT (Actin FS) Sodium 141 Potassium 4.5 Chloride 104 Carbon Dioxide 30 Anion Gap 7 L BUN 49 H Creatinine 2.0 H Creat Clearance w eGFR 23.74 POC Glucometer Random Glucose 119 H Calcium 9.0 Phosphorus Magnesium Total Bilirubin 0.4 AST 16 ALT 16 Alkaline Phosphatase 93 Creatine Kinase 85 Troponin I 0.05 B-Natriuretic Peptide 2078.9 H Total Protein 7.3 Albumin 3.4 Urine Color Urine Appearance Urine pH Ur Specific Reading Urine Protein Urine Glucose (UA) Urine Ketones Urine Blood Urine Nitrite Urine Bilirubin Urine Urobilinogen Ur Leukocyte Esterase Urine WBC (Auto) Urine RBC (Auto) Ur Epithelial Cells Urine Mucus Influenza A (Rapid) Influenza B (Rapid) 07/20/18 07/20/18 07/20/18 18:47 18:53 23:45 WBC RBC Hgb Hct MCV MCH MCHC RDW Plt Count MPV Absolute Neuts (auto) Neutrophils % Lymphocytes % Monocytes % Eosinophils % Basophils % Nucleated RBC % PT with INR INR PTT (Actin FS) Sodium Potassium Chloride Carbon Dioxide Anion Gap BUN Creatinine Creat Clearance w eGFR POC Glucometer 85 172 Random Glucose Calcium Phosphorus Magnesium Total Bilirubin AST ALT Alkaline Phosphatase Creatine Kinase Troponin I B-Natriuretic Peptide Total Protein Albumin Urine Color Ltyellow Urine Appearance Clear Urine pH 7.0 D Ur Specific Reading 1.013 Urine Protein Negative Urine Glucose (UA) Negative Urine Ketones Negative Urine Blood Negative Urine Nitrite Negative Urine Bilirubin Negative Urine Urobilinogen Negative Ur Leukocyte Esterase 1+ H Urine WBC (Auto) 8 Urine RBC (Auto) None Ur Epithelial Cells Few Urine Mucus Rare Influenza A (Rapid) Influenza B (Rapid) 07/21/18 07/21/18 07/21/18 00:30 00:30 05:46 WBC RBC Hgb Hct MCV MCH MCHC RDW Plt Count MPV Absolute Neuts (auto) Neutrophils % Lymphocytes % Monocytes % Eosinophils % Basophils % Nucleated RBC % PT with INR INR PTT (Actin FS) Sodium Potassium Chloride Carbon Dioxide Anion Gap BUN Creatinine Creat Clearance w eGFR POC Glucometer 133 Random Glucose Calcium Phosphorus Magnesium Total Bilirubin AST ALT Alkaline Phosphatase Creatine Kinase Troponin I 0.05 B-Natriuretic Peptide Total Protein Albumin Urine Color Urine Appearance Urine pH Ur Specific Reading Urine Protein Urine Glucose (UA) Urine Ketones Urine Blood Urine Nitrite Urine Bilirubin Urine Urobilinogen Ur Leukocyte Esterase Urine WBC (Auto) Urine RBC (Auto) Ur Epithelial Cells Urine Mucus Influenza A (Rapid) Negative Influenza B (Rapid) Negative 07/21/18 07/21/18 07/21/18 07:00 07:00 07:00 WBC 7.8 RBC 3.72 Hgb 11.6 Hct 34.7 MCV 93.5 MCH 31.3 MCHC 33.5 RDW 15.6 Plt Count 172 MPV 9.1 Absolute Neuts (auto) 4.8 Neutrophils % 61.8 Lymphocytes % 25.5 Monocytes % 8.1 Eosinophils % 3.8 Basophils % 0.8 Nucleated RBC % 0 PT with INR 12.00 INR 1.02 PTT (Actin FS) 27.3 Sodium 142 Potassium 3.9 Chloride 105 Carbon Dioxide 29 Anion Gap 8 BUN 47 H Creatinine 1.8 H Creat Clearance w eGFR 26.81 POC Glucometer Random Glucose 114 H Calcium 9.1 Phosphorus 4.0 Magnesium 1.9 Total Bilirubin AST ALT Alkaline Phosphatase Creatine Kinase Troponin I 0.05 B-Natriuretic Peptide Total Protein Albumin Urine Color Urine Appearance Urine pH Ur Specific Reading Urine Protein Urine Glucose (UA) Urine Ketones Urine Blood Urine Nitrite Urine Bilirubin Urine Urobilinogen Ur Leukocyte Esterase Urine WBC (Auto) Urine RBC (Auto) Ur Epithelial Cells Urine Mucus Influenza A (Rapid) Influenza B (Rapid) 07/21/18 12:25 WBC RBC Hgb Hct MCV MCH MCHC RDW Plt Count MPV Absolute Neuts (auto) Neutrophils % Lymphocytes % Monocytes % Eosinophils % Basophils % Nucleated RBC % PT with INR INR PTT (Actin FS) Sodium Potassium Chloride Carbon Dioxide Anion Gap BUN Creatinine Creat Clearance w eGFR POC Glucometer 180 Random Glucose Calcium Phosphorus Magnesium Total Bilirubin AST ALT Alkaline Phosphatase Creatine Kinase Troponin I B-Natriuretic Peptide Total Protein Albumin Urine Color Urine Appearance Urine pH Ur Specific Reading Urine Protein Urine Glucose (UA) Urine Ketones Urine Blood Urine Nitrite Urine Bilirubin Urine Urobilinogen Ur Leukocyte Esterase Urine WBC (Auto) Urine RBC (Auto) Ur Epithelial Cells Urine Mucus Influenza A (Rapid) Influenza B (Rapid) Active Medications Generic Name Dose Route Start Last Admin Trade Name Dangeloq PRN Reason Stop Dose Admin Allopurinol 100 mg 07/20/18 22:00 07/21/18 11:29 Zyloprim - PO 100 mg BID MANUEL Administration Aspirin 81 mg 07/22/18 10:00 Ecotrin - PO Q2D MANUEL Atorvastatin Calcium 10 mg 07/20/18 22:00 07/20/18 23:49 Lipitor - PO 10 mg HS MANUEL Administration Ergocalciferol 50,000 unit 07/20/18 18:15 Drisdol - PO MONTHLY MANUEL Furosemide 20 mg 07/22/18 10:00 Lasix Injection - IVPUSH DAILY MANUEL Gabapentin 300 mg 07/20/18 22:00 07/21/18 11:29 Neurontin - PO 300 mg BID MANUEL Administration Heparin Sodium (Porcine) 5,000 unit 07/20/18 22:00 07/21/18 11:28 Heparin - SQ 5,000 unit BID MANUEL Administration Insulin Aspart 1 vial 07/20/18 22:00 07/21/18 12:27 Novolog Vial Sliding Scale - SQ 2 units ACHS MANUEL Administration Protocol Insulin Detemir 38 units 07/21/18 07:00 07/21/18 06:36 Levemir Vial SQ 38 units AM MANUEL Administration Lorazepam 1 mg 07/20/18 22:00 07/21/18 11:29 Ativan - PO 1 mg BID MANUEL Administration Metoprolol Succinate 25 mg 07/20/18 22:00 07/21/18 11:30 Toprol Xl - PO 25 mg BID MANUEL Administration Pantoprazole Sodium 20 mg 07/21/18 10:00 07/21/18 11:29 Protonix - PO 20 mg DAILY MANUEL Administration Ropinirole HCl 0.5 mg 07/20/18 22:00 07/21/18 00:14 Requip - PO 0.5 mg HS MANUEL Administration Tramadol HCl 50 mg 07/20/18 22:00 07/21/18 11:28 Ultram - PO 50 mg BID MANUEL Administration CT chest results reviewed ASSESSMENT/PLAN: 82 yof with PMHx of chronic systolic heart failure, morbid obesity, VIDYA not on CPAP, IDDM, CKD stage III (baseline cr around 1.8-2), HTN, HLD, colon ca s/p resection 2006 admitted with worsening dyspnea on exertion -Dyspnea on exertion, ?acute on chronic systolic heart failure, ?anginal equivalent, VIDYA with suspected OHS with progression, low suspicion for infectious process -CKD stage III -IDDM -VIDYA not on cpap (unable to tolerate) -HTN -HLD -Colon cancer s/p resection in 2006 Plan: s/p lasix 40mg IV on admission. Cardiology input noted. trial with lasix IV, strict I/os, daily weights. 2D echo, stress test. ASA/statin/metoprolol. Low suspicion for infectious process. Influenza screen neg. CT chest noted. Continue levemir, ISS. diabetic diet, hold amaryl Continue gabapentin/ativan/tramadol with monitoring of respiratory status [id number] heparin Code status: DNR/DNI PT eval and CM consult for dispo planning. needs IV diuresis and close monitoring and additional cardiac work up Plan discussed with patient and nursing in detail, all questions answered Visit type - Emergency Visit Emergency Visit: Yes ED Registration Date: 07/21/18 Care time: The patient presented to the Emergency Department on the above date and was hospitalized for further evaluation of their emergent condition. - New Patient This patient is new to me today: No - Critical Care Critical Care patient: No - Discharge Referral Referred to [facility] No
[2018-07-21] MEDS: ATORVASTATIN CA 10 MG TABLET (FP) PO SCH (22:34)
[2018-07-22] MEDS: INSULIN SLIDING SCALE (NOVOLOG) 1 VIAL SQ SCH ×4 (06:48→22:27)
[2018-07-22] MEDS: INSULIN (LEVEMIR) 100 UNITS/ML UNITS SQ SCH (06:49)
[2018-07-22] MEDS ORDERED: PT OWN MED DRAWER 7, Y5N ONE (09:03)
[2018-07-22] MEDS: traMADol HCL 50 MG TABLET PO SCH ×2 (09:13→21:23)
[2018-07-22] MEDS: FUROSEMIDE 40 MG/4 ML INJECTABLE VIAL IVPUSH SCH ×2 (09:13→12:50)
[2018-07-22] MEDS: HEPARIN NA (PORCINE) 5,000 UNITS/ML 1ML VIAL SQ SCH ×2 (09:13→21:25)
[2018-07-22] MEDS: PANTOPRAZOLE 20 MG TABLET (FP) PO SCH (09:14)
[2018-07-22] MEDS: ALLOPURINOL 100 MG TABLET (FP) PO SCH ×2 (09:14→21:23)
[2018-07-22] MEDS: ASPIRIN COATED 81 MG TABLET.EC PO SCH (09:14)
[2018-07-22] MEDS: GABAPENTIN 300 MG CAPSULE (FP) PO SCH ×2 (09:15→21:24)
[2018-07-22] MEDS: metoPROLOL SUCCINATE 25 MG TAB.SR.24H (FP) PO SCH ×2 (09:15→21:25)
[2018-07-22] MEDS: LORazepam 1 MG TABLET PO SCH ×2 (09:19→21:24)
--- NOTE | 2018-07-22 09:35 | PN ---
Progress Note, Physician Chief Complaint: sob History of Present Illness: sitting in chair at bedside. sob improved--but not at her baseline leg swelling stable no cp today no palp - Current Medication List Current Medications: Active Medications Allopurinol (Zyloprim -) 100 mg PO BID [facility] Last Admin: 07/22/18 09:14 Dose: 100 mg Aspirin (Ecotrin -) 81 mg PO Q2D [facility] Last Admin: 07/22/18 09:14 Dose: 81 mg Atorvastatin Calcium (Lipitor -) 10 mg PO HS [facility] Last Admin: 07/21/18 22:34 Dose: 10 mg Ergocalciferol (Drisdol -) 50,000 unit PO MONTHLY [facility] Furosemide (Lasix Injection -) 20 mg IVPUSH DAILY [facility] Last Admin: 07/22/18 09:13 Dose: 20 mg Gabapentin (Neurontin -) 300 mg PO BID [facility] Last Admin: 07/22/18 09:15 Dose: 300 mg Heparin Sodium (Porcine) (Heparin -) 5,000 unit SQ BID [facility] Last Admin: 07/22/18 09:13 Dose: 5,000 unit Insulin Aspart (Novolog Vial Sliding Scale -) 1 vial SQ [facility]; Protocol Last Admin: 07/22/18 06:48 Dose: Not Given Insulin Detemir (Levemir Vial) 38 units SQ AM [facility] Last Admin: 07/22/18 06:49 Dose: 38 units Lorazepam (Ativan -) 1 mg PO BID [facility] Last Admin: 07/22/18 09:19 Dose: 1 mg Metoprolol Succinate (Toprol Xl -) 25 mg PO BID [facility] Last Admin: 07/22/18 09:15 Dose: 25 mg Pantoprazole Sodium (Protonix -) 20 mg PO DAILY [facility] Last Admin: 07/22/18 09:14 Dose: 20 mg Ropinirole HCl (Requip -) 0.5 mg PO HS [facility] Last Admin: 07/21/18 22:37 Dose: 0.5 mg Tramadol HCl (Ultram -) 50 mg PO BID [facility] Last Admin: 07/22/18 09:13 Dose: 50 mg - Objective Vital Signs: Vital Signs Temperature 98.1 F 07/22/18 09:03 Pulse Rate 78 07/22/18 09:03 Respiratory Rate 18 07/22/18 09:03 Blood Pressure 137/74 07/22/18 09:03 O2 Sat by Pulse Oximetry (%) 97 02/17/19 09:26 Constitutional: Yes: No Distress, Calm, Obese Cardiovascular: Yes: Regular Rate and Rhythm, S1, S2. No: Gallop, Murmur Respiratory: Yes: Regular, CTA Bilaterally. No: Accessory Muscle Use, Wheezes Extremities: No: Cold Edema: No Neurological: Yes: Alert, Oriented Psychiatric: No: Agitated Labs: CBC, BMP 07/21/18 07:00 INR, PTT INR 1.02 (0.83-1.09) 07/21/18 07:00 Assessment/Plan EKG: NSR, LBBB (no change) CT chest: probable mild ATX > small infiltrate in RLL. mild R base bronchiectasis. extensive cor calcifications. no pulmonary vascular congestion, no effusions. Echo 2017: LV mod decreased systolic function. moderate global HK with severe apical HK, mild ar, Mild-mod MAC, mild-mod MR, mod tr, rvsp 30-40 MPI (mandy) 2017: LBBB on EKG. mild apical-anteroseptal ischemia. mildly reduced LVEF. no TID. MPI (mandy) 2014: LBBB on EKG. no ischemia. EF 40%. no TID noted. acute syst CHF, venous ins'y/chronic LE edema: -h/o NICM with moderately reduced LVEF, follows with dr arana as outpt (last seen 2017)--controlled on torsemide 20 qd -on metoprolol 25 bid, no TOMAS sec to advanced CKD -here with incr SOB (NYHA IV) the past few days -BNP 2K in pt with low GFR (baseline 2-4K) -CT chest no effusions or pulm edema/vasc congestion pattern. new wheezing sx's at home. -given no signs of pulm infection, acute cardiac ischemia (would not likely cause wheezing), or other etiology, the most likely etiology of acute on chronic PATINO WITH NEW WHEEZING is volume overload (? right > left sided) -received lasix 40 IV yest--renal fxn improved. still with sob today. physical habitus very TDS for volume assessment (short/thick neck). + urinary obstructive sx's described. -07/21: repeat lasix 40 IV x 1 today. observe sx's and creatinine--? golden, renal sono depending on clinical course (d/w'd dr coronado, hospitalist). reassess tomorrow re: lasix dose. -05/21: renal fxn stable. sob improved but not at baseline--lasix 80 IV today -repeat echo (r/o cor pulmonale in obese pt never treated for sleep apnea) ? CAD: -++cor calcifications on CT chest--images reviewed, with dense calcifications in distal LMCA, involving LAD/LCX bifurcation and mult calcifications along LAD (less so in RCA) - mild ischemia in small area of LAD distribution on 2017 stress test (apical anteroseptum) with corresponding regional variability of LV dysfunction worst in this region on echo. - medically managed by dr arana (hi risk of ANUSHKA from cath, ? perfusion appearance artifactual related to LBBB/soft tissue or breast attenuation) - has chronic mild chest heaviness accompanying her sob which is unchanged presently--CHF > angina sx - old LBBB on EKG. troponins neg here - continue home aspirin, statin, BB - will rpt pharm MPI here monday to r/o high risk or changed ischemia pattern. depending on clinical course, can consider outpatient FDG-PET perfusion for more accurate non-invasive rule out of balanced ischemia--per dr raana HTN: - bp controlled - cont home meds DM, on insulin: -per pmd HPL: -continue home statin (atorva 10) CKD: - bline creat 1.7-2.0. - renal fxn stable here
[2018-07-22 09:41] LABS: ANION GAP 8 MMOL/L (8-16); BLOOD UREA NITROGEN 47 mg/dL (7-18); CHLORIDE 102 mmol/L (98-107); CO2 30 mmol/L (21-32); CREATININE 1.9 mg/dL (0.55-1.3); GLUCOSE,RANDOM 130 mg/dL (74-106); PHOSPHOROUS 4.5 mg/dL (2.5-4.9); POTASSIUM 3.9 mmol/L (3.5-5.1); SODIUM 140 mmol/L (136-145)
--- NOTE | 2018-07-22 11:50 | PN ---
Physical Exam: SUBJECTIVE: Patient seen and examined, breathing improved, still dyspneic with minimal activity. OBJECTIVE: Vital Signs Period Temp Pulse Resp BP Sys/Lopez Pulse Ox Last 24 Hr 97.5 F-98.1 F 78-83 18-20 122-139/68-80 93-97 GENERAL: The patient is awake, alert, and fully oriented, in no acute distress. HEAD: Normal with no signs of trauma. EYES: PERRL, extraocular movements intact, sclera anicteric, conjunctiva clear. No ptosis. ENT: Ears normal, nares patent, oropharynx clear without exudates, moist mucous membranes. NECK: Trachea midline, full range of motion, supple. LUNGS: improved air entry, no rales or wheezing HEART: Regular rate and rhythm, S1, S2 ABDOMEN: Soft, nontender, nondistended, normoactive bowel sounds, no guarding, no rebound, EXTREMITIES: improved pedal edema PSYCH: Normal mood, normal affect. SKIN: Warm, dry, normal turgor, no rashes or lesions noted Laboratory Results - last 24 hr 07/21/18 07/21/18 07/21/18 12:25 18:05 21:00 Sodium Potassium Chloride Carbon Dioxide Anion Gap BUN Creatinine Creat Clearance w eGFR POC Glucometer 180 180 174 Random Glucose Calcium Phosphorus Magnesium 07/22/18 07/22/18 07/22/18 06:28 07:30 11:40 Sodium 140 Potassium 3.9 Chloride 102 Carbon Dioxide 30 Anion Gap 8 BUN 47 H Creatinine 1.9 H Creat Clearance w eGFR 25.18 POC Glucometer 136 155 Random Glucose 130 H Calcium 9.0 Phosphorus 4.5 Magnesium 2.0 Active Medications Generic Name Dose Route Start Last Admin Trade Name Freq PRN Reason Stop Dose Admin Allopurinol 100 mg 07/20/18 22:00 07/22/18 09:14 Zyloprim - PO 100 mg BID [facility] Administration Aspirin 81 mg 07/22/18 10:00 07/22/18 09:14 Ecotrin - PO 81 mg Q2D [facility] Administration Atorvastatin Calcium 10 mg 07/20/18 22:00 07/21/18 22:34 Lipitor - PO 10 mg HS [facility] Administration Ergocalciferol 50,000 unit 07/20/18 18:15 Drisdol - PO MONTHLY [facility] Furosemide 20 mg 07/22/18 10:00 07/22/18 09:13 Lasix Injection - IVPUSH 20 mg DAILY [facility] Administration Gabapentin 300 mg 07/20/18 22:00 07/22/18 09:15 Neurontin - PO 300 mg BID [facility] Administration Heparin Sodium (Porcine) 5,000 unit 07/20/18 22:00 07/22/18 09:13 Heparin - SQ 5,000 unit BID [facility] Administration Insulin Aspart 1 vial 07/20/18 22:00 07/22/18 06:48 Novolog Vial Sliding Scale - SQ Not Given ACHS [facility] Protocol Insulin Detemir 38 units 07/21/18 07:00 07/22/18 06:49 Levemir Vial SQ 38 units AM [facility] Administration Lorazepam 1 mg 07/20/18 22:00 07/22/18 09:19 Ativan - PO 1 mg BID [facility] Administration Metoprolol Succinate 25 mg 07/20/18 22:00 07/22/18 09:15 Toprol Xl - PO 25 mg BID [facility] Administration Pantoprazole Sodium 20 mg 07/21/18 10:00 07/22/18 09:14 Protonix - PO 20 mg DAILY [facility] Administration Ropinirole HCl 0.5 mg 07/20/18 22:00 07/21/18 22:37 Requip - PO 0.5 mg HS [facility] Administration Tramadol HCl 50 mg 07/20/18 22:00 07/22/18 09:13 Ultram - PO 50 mg BID [facility] Administration ASSESSMENT/PLAN: 82 yof with PMHx of chronic systolic heart failure, morbid obesity, VIDYA not on CPAP, IDDM, CKD stage III (baseline cr around 1.8-2), HTN, HLD, colon ca s/p resection 2006 admitted with worsening dyspnea on exertion -Dyspnea on exertion, ?acute on chronic systolic heart failure, ?anginal equivalent, VIDYA with suspected OHS with progression, low suspicion for infectious process -CKD stage III -IDDM -VIDYA not on cpap (unable to tolerate) -HTN -HLD -Colon cancer s/p resection in 2006 Plan: s/p lasix 40mg IV on and 07/21 continue lasix 20 mg IV daily Pedal edema and dyspnea improved. Renal function stable. cardiology input noted. For 2D echo and pharm MPI study. patient unable to tolerate CPAP at home. ASA/statin/metoprolol. Low suspicion for infectious process. Influenza screen neg. CT chest noted. Continue levemir, ISS. diabetic diet, hold amaryl Continue gabapentin/ativan/tramadol with monitoring of respiratory status DVTPPX heparin Code status: DNR/DNI PT eval noted, recommend SNF. Patient agreable. Discussed with CM. Plan for d/c to SNF in 24-48 hours pending cardiac w/u and disposition arrangements. Plan discussed with patient and nursing in detail, all questions answered Visit type - Emergency Visit Emergency Visit: Yes ED Registration Date: 07/21/18 Care time: The patient presented to the Emergency Department on the above date and was hospitalized for further evaluation of their emergent condition. - New Patient This patient is new to me today: No - Critical Care Critical Care patient: No - Discharge Referral Referred to [facility] Med P.C.: No
[2018-07-22] MEDS ORDERED: FUROSEMIDE 40 MG/4 ML INJECTABLE VIAL IVPUSH ONE (11:58)
[2018-07-22] MEDS ORDERED: FUROSEMIDE 40 MG/4 ML INJECTABLE VIAL ONE (12:10)
[2018-07-22] MEDS ORDERED: INSULIN (NOVOLOG) ASPART 100 UNITS/ML 10ML VIAL ONE (12:10)
[2018-07-22] MEDS ORDERED: ERGOCALCIFEROL (VITAMIN D2) 50,000 UNIT CAPSULE (FP) PO SCH (20:30)
[2018-07-22] MEDS: ATORVASTATIN CA 10 MG TABLET (FP) PO SCH (21:23)
[2018-07-22] MEDS: rOPINIRole HCL 0.5 MG TABLET PO SCH (21:25)
[2018-07-23] MEDS: INSULIN SLIDING SCALE (NOVOLOG) 1 VIAL SQ SCH ×4 (06:03→21:43)
[2018-07-23] MEDS: INSULIN (LEVEMIR) 100 UNITS/ML UNITS SQ SCH (06:30)
[2018-07-23 08:40] LABS: ANION GAP 7 MMOL/L (8-16); BLOOD UREA NITROGEN 52 mg/dL (7-18); CALCIUM 8.8 mg/dL (8.5-10.1); CHLORIDE 100 mmol/L (98-107); CO2 33 mmol/L (21-32); CREATININE 2.1 mg/dL (0.55-1.3); GLUCOSE,RANDOM 121 mg/dL (74-106); MAGNESIUM 2.2 mg/dL (1.8-2.4); PHOSPHOROUS 4.9 mg/dL (2.5-4.9); POTASSIUM 3.7 mmol/L (3.5-5.1); SODIUM 139 mmol/L (136-145)
[2018-07-23] MEDS: traMADol HCL 50 MG TABLET PO SCH ×3 (08:56→22:27)
[2018-07-23] MEDS: metoPROLOL SUCCINATE 25 MG TAB.SR.24H (FP) PO SCH ×3 (08:57→22:30)
[2018-07-23] MEDS ORDERED: REGADENOSON 0.4 MG/5 ML PRE-FILLED SYRINGE IVPUSH ONE ×2 (09:54→11:45)
--- NOTE | 2018-07-23 10:57 | PN ---
Progress Note, Physician Chief Complaint: sob History of Present Illness: breathing much better than at home hasn't noticed sob today, fixated on back pain with being moved to [facility] and to [facility] for stress test. dtr thought she heard wheezing over the phone this AM no leg swelling no cp no palpitations - Current Medication List Current Medications: Active Medications Allopurinol (Zyloprim -) 100 mg PO BID [facility] Last Admin: 07/22/18 21:23 Dose: 100 mg Aspirin (Ecotrin -) 81 mg PO Q2D [facility] Last Admin: 07/22/18 09:14 Dose: 81 mg Atorvastatin Calcium (Lipitor -) 10 mg PO HS [facility] Last Admin: 07/22/18 21:23 Dose: 10 mg Ergocalciferol (Drisdol -) 50,000 unit PO Q21D@1000 [facility] Last Admin: 07/22/18 21:24 Dose: 50,000 unit Gabapentin (Neurontin -) 300 mg PO BID [facility] Last Admin: 07/22/18 21:24 Dose: 300 mg Heparin Sodium (Porcine) (Heparin -) 5,000 unit SQ BID [facility] Last Admin: 07/22/18 21:25 Dose: 5,000 unit Insulin Aspart (Novolog Vial Sliding Scale -) 1 vial SQ [facility]; Protocol Last Admin: 07/23/18 06:03 Dose: Not Given Insulin Detemir (Levemir Vial) 38 units SQ AM [facility] Last Admin: 07/23/18 06:30 Dose: 38 units Lorazepam (Ativan -) 1 mg PO BID [facility] Last Admin: 07/22/18 21:24 Dose: 1 mg Metoprolol Succinate (Toprol Xl -) 25 mg PO BID [facility] Last Admin: 07/23/18 08:57 Dose: 25 mg Pantoprazole Sodium (Protonix -) 20 mg PO DAILY [facility] Last Admin: 07/22/18 09:14 Dose: 20 mg Ropinirole HCl (Requip -) 0.5 mg PO HS [facility] Last Admin: 07/22/18 21:25 Dose: 0.5 mg Tramadol HCl (Ultram -) 50 mg PO BID [facility] Last Admin: 07/23/18 08:56 Dose: 50 mg - Objective Vital Signs: Vital Signs Temperature 97.3 F L 07/23/18 10:00 Pulse Rate 72 07/23/18 10:00 Respiratory Rate 18 07/23/18 10:00 Blood Pressure 105/55 L 07/23/18 10:00 O2 Sat by Pulse Oximetry (%) 95 07/22/18 21:00 Constitutional: Yes: No Distress, Calm, Obese Cardiovascular: Yes: Regular Rate and Rhythm, S1, S2. No: JVD, Gallop, Murmur Respiratory: Yes: Regular, CTA Bilaterally. No: Accessory Muscle Use, Rales, Wheezes Extremities: No: Cold Edema: No Neurological: Yes: Alert, Oriented Psychiatric: No: Agitated Labs: CBC, BMP 07/21/18 07:00 07/23/18 07:28 INR, PTT INR 1.02 (0.83-1.09) 07/21/18 07:00 Assessment/Plan EKG: NSR, LBBB (no change) CT chest: probable mild ATX > small infiltrate in RLL. mild R base bronchiectasis. extensive cor calcifications. no pulmonary vascular congestion, no effusions. Echo 2017: LV mod decreased systolic function. moderate global HK with severe apical HK, mild ar, Mild-mod MAC, mild-mod MR, mod tr, rvsp 30-40 MPI (mandy) 2017: LBBB on EKG. mild apical-anteroseptal ischemia. mildly reduced LVEF. no TID. MPI (mandy) 2014: LBBB on EKG. no ischemia. EF 40%. no TID noted. acute syst CHF, venous ins'y/chronic LE edema: -h/o NICM with moderately reduced LVEF, follows with dr arana as outpt (last seen 2017)--controlled on torsemide 20 qd -on metoprolol 25 bid, no TOMAS sec to advanced CKD -here with incr SOB (NYHA IV) the past few days -BNP 2K in pt with low GFR (baseline 2-4K) -CT chest no effusions or pulm edema/vasc congestion pattern. new wheezing sx's at home. -given no signs of pulm infection, acute cardiac ischemia (would not likely cause wheezing), or other etiology, the most likely etiology of acute on chronic PATINO WITH NEW WHEEZING is volume overload (? right > left sided) -received lasix 40 IV yest--renal fxn improved. still with sob today. physical habitus very TDS for volume assessment (short/thick neck). + urinary obstructive sx's described. -2/16: repeat lasix 40 IV x 1 today. observe sx's and creatinine--? golden, renal sono depending on clinical course (d/w'd dr coronado, hospitalist). reassess tomorrow re: lasix dose. -05/21: renal fxn stable. sob improved but not at baseline--lasix 80 IV today -05/22: creat up slightly, but remains closet to baseline range. repeat lasix 80 IV today--? ok for hospital discharge tomorrow if remains without sob and noninvasive imaging studies are not significantly changed -repeat echo today (r/o cor pulmonale in obese pt never treated for sleep apnea) ? CAD: -++cor calcifications on CT chest--images reviewed, with dense calcifications in distal LMCA, involving LAD/LCX bifurcation and mult calcifications along LAD (less so in RCA) - mild ischemia in small area of LAD distribution on 2017 stress test (apical anteroseptum) with corresponding regional variability of LV dysfunction worst in this region on echo. - medically managed by dr arana (hi risk of ANUSHKA from cath, ? perfusion appearance artifactual related to LBBB/soft tissue or breast attenuation) - has chronic mild chest heaviness accompanying her sob which is unchanged presently--CHF > angina sx - old LBBB on EKG. troponins neg here - continue home aspirin, statin, BB - will rpt pharm MPI here monday to r/o high risk or changed ischemia pattern. depending on clinical course, can consider outpatient FDG-PET perfusion for more accurate non-invasive rule out of balanced ischemia--per dr arana HTN: - bp controlled - cont home meds DM, on insulin: -per pmd HPL: -continue home statin (atorva 10) CKD: - bline creat 1.7-2.0. - renal fxn stable here
--- NOTE | 2018-07-23 12:34 | PN ---
Physical Exam: SUBJECTIVE: Patient seen and examined feeling good no new complaints overnight no new isue pt will go for procedure today OBJECTIVE: Vital Signs Period Temp Pulse Resp BP Sys/Lopez Pulse Ox Last 24 Hr 97.3 F-98.8 F 71-83 18-22 105-132/48-72 95 GENERAL: The patient is awake, alert, and fully oriented, in no acute distress. HEAD: Normal with no signs of trauma. EYES: PERRL, extraocular movements intact, sclera anicteric, conjunctiva clear. No ptosis. ENT: Ears normal, nares patent, oropharynx clear without exudates, moist mucous membranes. NECK: Trachea midline, full range of motion, supple. LUNGS: Breath sounds equal, clear to auscultation bilaterally, no wheezes, no crackles, no accessory muscle use. HEART: Regular rate and rhythm, S1, S2 without murmur, rub or gallop. ABDOMEN: Soft, nontender, nondistended, normoactive bowel sounds, no guarding, no rebound, no hepatosplenomegaly, no masses. EXTREMITIES: 2+ pulses, warm, well-perfused, no edema. NEUROLOGICAL: Cranial nerves II through XII grossly intact. Normal speech, gait not observed. PSYCH: Normal mood, normal affect. SKIN: Warm, dry, normal turgor, no rashes or lesions noted Laboratory Results - last 24 hr 07/22/18 07/22/18 07/23/18 17:48 22:25 01:44 Sodium Potassium Chloride Carbon Dioxide Anion Gap BUN Creatinine Creat Clearance w eGFR POC Glucometer 214 157 135 Random Glucose Calcium Phosphorus Magnesium 07/23/18 07/23/18 05:50 07:28 Sodium 139 Potassium 3.7 Chloride 100 Carbon Dioxide 33 H Anion Gap 7 L BUN 52 H Creatinine 2.1 H Creat Clearance w eGFR 22.44 POC Glucometer 123 Random Glucose 121 H Calcium 8.8 Phosphorus 4.9 Magnesium 2.2 Active Medications Generic Name Dose Route Start Last Admin Trade Name Freq PRN Reason Stop Dose Admin Allopurinol 100 mg 07/20/18 22:00 07/22/18 21:23 Zyloprim - PO 100 mg BID [facility]EL Administration Aspirin 81 mg 07/22/18 10:00 07/22/18 09:14 Ecotrin - PO 81 mg Q2D [facility] Administration Atorvastatin Calcium 10 mg 07/20/18 22:00 07/22/18 21:23 Lipitor - PO 10 mg HS [facility] Administration Ergocalciferol 50,000 unit 07/22/18 20:30 07/22/18 21:24 Drisdol - PO 50,000 unit Q21D@1000 [facility] Administration Gabapentin 300 mg 07/20/18 22:00 07/22/18 21:24 Neurontin - PO 300 mg BID [facility] Administration Heparin Sodium (Porcine) 5,000 unit 07/20/18 22:00 07/22/18 21:25 Heparin - SQ 5,000 unit BID [facility] Administration Insulin Aspart 1 vial 07/20/18 22:00 07/23/18 06:03 Novolog Vial Sliding Scale - SQ Not Given [facility] Protocol Insulin Detemir 38 units 07/21/18 07:00 07/23/18 06:30 Levemir Vial SQ 38 units AM [facility] Administration Lorazepam 1 mg 07/20/18 22:00 07/22/18 21:24 Ativan - PO 1 mg BID [facility] Administration Metoprolol Succinate 25 mg 07/20/18 22:00 07/23/18 08:57 Toprol Xl - PO 25 mg BID [facility] Administration Pantoprazole Sodium 20 mg 07/21/18 10:00 07/22/18 09:14 Protonix - PO 20 mg DAILY [facility] Administration Ropinirole HCl 0.5 mg 07/20/18 22:00 07/22/18 21:25 Requip - PO 0.5 mg HS [facility] Administration Tramadol HCl 50 mg 07/20/18 22:00 07/23/18 08:56 Ultram - PO 50 mg BID [facility] Administration ASSESSMENT/PLAN:
--- NOTE | 2018-07-23 13:46 | ECHO ---
Name: QUINTEN ROWLEY Exam:Adult Echocardiogram Study Date: 07/23/2018 10:11 AM Age: 82 yrs Reason For Study: CHF? COR PULMONALE Height: 59 in Weight: 165 lb BSA: 1.7 m2 MMode/2D Measurements & Calculations IVSd: 0.90 cm Ao root diam: 3.0 cm LVIDd: 4.9 cm LA dimension: 3.2 cm LVIDs: 3.8 cm LVPWd: 0.83 cm EDV(Teich): 115.4 ml ESV(Teich): 62.7 ml Doppler Measurements & Calculations MV E max bo: 109.1 cm/sec Ao V2 max: 162.5 cm/sec MV A max bo: 134.4 cm/sec Ao max P.6 mmHg MV E/A: 0.81 Ao V2 mean: 116.4 cm/sec MV dec time: 0.24 sec Ao mean P.1 mmHg Ao V2 VTI: 29.9 cm LV V1 max P.3 mmHg MR max bo: 256.5 cm/sec LV V1 mean P.8 mmHg MR max P.5 mmHg LV V1 max: 90.8 cm/sec LV V1 mean: 62.9 cm/sec LV V1 VTI: 16.2 cm TR max bo: 235.1 cm/sec PI end-d bo: 99.1 cm/sec TR max P.3 mmHg Med Peak E' Bo: 5.0 cm/sec Med E/e': 21.9 Lat Peak E' Bo: 3.8 cm/sec Lat E/e': 28.6 Procedure A complete two-dimensional transthoracic echocardiogram was performed (2D, M-mode, Doppler and color flow Doppler). Technically limited study. Left Ventricle The left ventricle is normal in size. Left ventricular systolic function is mildly reduced. Ejection Fraction = 45-50%. There is mild anterior wall hypokinesis. There is basal anteroseptal wall moderate hypokine sis. There is mid anteroseptal wall moderate hypokinesis. There are regional wall motion abnormalities as specified. Right Ventricle The right ventricle is normal size. The right ventricular systolic function is normal. RV systolic TD I is 10 cm/s. Atria The left atrial size is normal. Right atrial size is normal. Mitral Valve There is moderate mitral annular calcification. There is mild mitral regurgitation. Tricuspid Valve The tricuspid valve is normal in structure and function. There is mild tricuspid regurgitation. Pulmo nary artery systolic pressure is at least 30 mmHg if RA pressure is assumend 3 mmHg. Aortic Valve There is mild aortic sclerosis.;. Trace to mild aortic regurgitation. Pulmonic Valve The pulmonic valve is not well visualized. Trace pulmonic valvular regurgitation. Great Vessels The aortic root is normal size. Pericardium/Pleura There is no pericardial effusion. Interpretation Summary Left ventricular systolic function is mildly reduced. There are regional wall motion abnormalities as specified. Ejection Fraction = 45-50%. The right ventricular systolic function is normal. The left atrial size is normal. Right atrial size is normal. There is moderate mitral annular calcification. There is mild mitral regurgitation. There is mild tricuspid regurgitation. Pulmonary artery systolic pressure is at least 30 mmHg if RA pressure is assumend 3 mmHg There is mild aortic sclerosis. Trace to mild aortic regurgitation. Trace pulmonic valvular regurgitation. There is no pericardial effusion. Previous study is not available for comparison Rajinder Terry MD 07/23/2018 01:45 PM
--- NOTE | 2018-07-23 13:56 | PN ---
Physical Exam: SUBJECTIVE: Patient seen and examined, on her way to stress test, shortness of breath improved, but still with some dyspnea with activity OBJECTIVE: Vital Signs Period Temp Pulse Resp BP Sys/Lopez Pulse Ox Last 24 Hr 97.3 F-98.8 F 71-83 18-22 105-132/48-72 95-95 GENERAL: The patient is awake, alert, and fully oriented, in no acute distress. HEAD: Normal with no signs of trauma. EYES: PERRL, extraocular movements intact, sclera anicteric, conjunctiva clear. No ptosis. ENT: Ears normal, nares patent, oropharynx clear without exudates, moist mucous membranes. NECK: soft, supple, no JVD, but limited by body habitus LUNGS: improved air entry, no rales or wheezing HEART: Regular rate and rhythm, S1, S2 ABDOMEN: Soft, nontender, nondistended, normoactive bowel sounds, no guarding, no rebound, EXTREMITIES: improved pedal edema PSYCH: Normal mood, normal affect. SKIN: Warm, dry, normal turgor, no rashes or lesions noted Laboratory Results - last 24 hr 07/22/18 07/22/18 07/23/18 17:48 22:25 01:44 Sodium Potassium Chloride Carbon Dioxide Anion Gap BUN Creatinine Creat Clearance w eGFR POC Glucometer 214 157 135 Random Glucose Calcium Phosphorus Magnesium 07/23/18 07/23/18 05:50 07:28 Sodium 139 Potassium 3.7 Chloride 100 Carbon Dioxide 33 H Anion Gap 7 L BUN 52 H Creatinine 2.1 H Creat Clearance w eGFR 22.44 POC Glucometer 123 Random Glucose 121 H Calcium 8.8 Phosphorus 4.9 Magnesium 2.2 Active Medications Generic Name Dose Route Start Last Admin Trade Name Freq PRN Reason Stop Dose Admin Allopurinol 100 mg 07/20/18 22:00 07/22/18 21:23 Zyloprim - PO 100 mg BID MANUEL Administration Aspirin 81 mg 07/22/18 10:00 07/22/18 09:14 Ecotrin - PO 81 mg Q2D MANUEL Administration Atorvastatin Calcium 10 mg 07/20/18 22:00 07/22/18 21:23 Lipitor - PO 10 mg HS MANUEL Administration Ergocalciferol 50,000 unit 07/22/18 20:30 07/22/18 21:24 Drisdol - PO 50,000 unit Q21D@1000 MANUEL Administration Furosemide 80 mg 07/23/18 14:00 Lasix Injection - IVPUSH 07/23/18 14:01 ONCE ONE Gabapentin 300 mg 07/20/18 22:00 07/22/18 21:24 Neurontin - PO 300 mg BID MANUEL Administration Heparin Sodium (Porcine) 5,000 unit 07/20/18 22:00 07/22/18 21:25 Heparin - SQ 5,000 unit BID MANUEL Administration Insulin Aspart 1 vial 07/20/18 22:00 07/23/18 06:03 Novolog Vial Sliding Scale - SQ Not Given ACHS [facility] Protocol Insulin Detemir 38 units 07/21/18 07:00 07/23/18 06:30 Levemir Vial SQ 38 units AM MANUEL Administration Lorazepam 1 mg 07/20/18 22:00 07/22/18 21:24 Ativan - PO 1 mg BID MANUEL Administration Metoprolol Succinate 25 mg 07/20/18 22:00 07/23/18 08:57 Toprol Xl - PO 25 mg BID MANUEL Administration Pantoprazole Sodium 20 mg 07/21/18 10:00 07/22/18 09:14 Protonix - PO 20 mg DAILY MANUEL Administration Ropinirole HCl 0.5 mg 07/20/18 22:00 07/22/18 21:25 Requip - PO 0.5 mg HS MANUEL Administration Tramadol HCl 50 mg 07/20/18 22:00 07/23/18 08:56 Ultram - PO 50 mg BID MANUEL Administration ASSESSMENT/PLAN: 82 yof with PMHx of chronic systolic heart failure, morbid obesity, VIDYA not on CPAP, IDDM, CKD stage III (baseline cr around 1.8-2), HTN, HLD, colon ca s/p resection 2006 admitted with worsening dyspnea on exertion -Dyspnea on exertion, ?acute on chronic systolic heart failure, ?anginal equivalent, VIDYA with suspected OHS with progression, low suspicion for infectious process -CKD stage III -IDDM -VIDYA not on cpap (unable to tolerate) -HTN -HLD -Colon cancer s/p resection in 2006 Plan: IV diuresis per cardiology. Cr rising still around baseline. Monitor renal function and volume stress 2D echo results reviewed Follow up stress test results. Patient unable to tolerate CPAP at home. ASA/statin/metoprolol. Low suspicion for infectious process. Influenza screen neg. CT chest noted. Continue levemir, ISS. diabetic diet, hold amaryl Continue gabapentin/ativan/tramadol with monitoring of respiratory status DVTPPX heparin Code status: DNR/DNI PT eval noted, recommend SNF. Patient agreable. Discussed with CM. Plan for d/c to SNF in 24 hours pending cardiac w/u and disposition arrangements. Plan discussed with patient, nursing and CM in detail, all questions answered Visit type - Emergency Visit Emergency Visit: Yes ED Registration Date: 07/21/18 Care time: The patient presented to the Emergency Department on the above date and was hospitalized for further evaluation of their emergent condition. - New Patient This patient is new to me today: No - Critical Care Critical Care patient: No - Discharge Referral Referred to [facility] Med P.C.: No
[2018-07-23] MEDS ORDERED: FUROSEMIDE 40 MG/4 ML INJECTABLE VIAL IVPUSH ONE (14:00)
[2018-07-23] MEDS ORDERED: PT OWN MED DRAWER 7, Y5N ONE ×2 (15:33→20:35)
[2018-07-23] MEDS: GABAPENTIN 300 MG CAPSULE (FP) PO SCH ×2 (15:36→22:28)
[2018-07-23] MEDS: ASPIRIN COATED 81 MG TABLET.EC PO SCH (15:36)
[2018-07-23] MEDS: HEPARIN NA (PORCINE) 5,000 UNITS/ML 1ML VIAL SQ SCH ×2 (15:36→22:29)
[2018-07-23] MEDS: LORazepam 1 MG TABLET PO SCH ×2 (15:36→22:28)
[2018-07-23] MEDS: PANTOPRAZOLE 20 MG TABLET (FP) PO SCH (15:36)
[2018-07-23] MEDS: ALLOPURINOL 100 MG TABLET (FP) PO SCH ×2 (15:37→22:29)
[2018-07-23] MEDS ORDERED: INSULIN (LEVEMIR) 100 UNITS/ML UNITS SQ ONE (15:50)
[2018-07-23] MEDS: ATORVASTATIN CA 10 MG TABLET (FP) PO SCH (22:28)
[2018-07-23] MEDS: rOPINIRole HCL 0.5 MG TABLET PO SCH (22:48)
[2018-07-24] MEDS: INSULIN SLIDING SCALE (NOVOLOG) 1 VIAL SQ SCH ×2 (06:06→11:32)
[2018-07-24] MEDS: INSULIN (LEVEMIR) 100 UNITS/ML UNITS SQ SCH (06:20)
[2018-07-24 07:32] LABS: ANION GAP 8 MMOL/L (8-16); BLOOD UREA NITROGEN 52 mg/dL (7-18); CALCIUM 8.7 mg/dL (8.5-10.1); CHLORIDE 100 mmol/L (98-107); CO2 30 mmol/L (21-32); CREATININE 2.1 mg/dL (0.55-1.3); GLUCOSE,RANDOM 132 mg/dL (74-106); POTASSIUM 3.9 mmol/L (3.5-5.1); SODIUM 138 mmol/L (136-145)
[2018-07-24] MEDS: ALLOPURINOL 100 MG TABLET (FP) PO SCH (10:27)
[2018-07-24] MEDS: ASPIRIN COATED 81 MG TABLET.EC PO SCH (10:27)
[2018-07-24] MEDS: PANTOPRAZOLE 20 MG TABLET (FP) PO SCH (10:28)
[2018-07-24] MEDS: traMADol HCL 50 MG TABLET PO SCH (10:28)
[2018-07-24] MEDS: GABAPENTIN 300 MG CAPSULE (FP) PO SCH (10:28)
[2018-07-24] MEDS: LORazepam 1 MG TABLET PO SCH (10:29)
[2018-07-24] MEDS: HEPARIN NA (PORCINE) 5,000 UNITS/ML 1ML VIAL SQ SCH (10:29)
[2018-07-24] MEDS: metoPROLOL SUCCINATE 25 MG TAB.SR.24H (FP) PO SCH (10:30)
[2018-07-24] MEDS ORDERED: NYSTATIN POWDER 100,000 UNITS/GM - 15 GM TOPICAL POWDER TP SCH (11:00)
--- NOTE | 2018-07-24 11:46 | PN ---
Progress Note (short form) - Note Progress Note: s: sob improved. no chest pain, palps, dizziness Current Medications Allopurinol (Zyloprim -) 100 mg PO BID [facility] Last Admin: 07/24/18 10:27 Dose: 100 mg Aspirin (Ecotrin -) 81 mg PO Q2D [facility] Last Admin: 07/24/18 10:27 Dose: 81 mg Atorvastatin Calcium (Lipitor -) 10 mg PO HS [facility] Last Admin: 07/23/18 22:28 Dose: 10 mg Ergocalciferol (Drisdol -) 50,000 unit PO Q21D@1000 [facility] Last Admin: 07/22/18 21:24 Dose: 50,000 unit Gabapentin (Neurontin -) 300 mg PO BID [facility] Last Admin: 07/24/18 10:28 Dose: 300 mg Heparin Sodium (Porcine) (Heparin -) 5,000 unit SQ BID [facility] Last Admin: 07/24/18 10:29 Dose: 5,000 unit Insulin Aspart (Novolog Vial Sliding Scale -) 1 vial SQ ACHS [facility]; Protocol Last Admin: 07/24/18 11:32 Dose: 4 units Insulin Detemir (Levemir Vial) 38 units SQ AM [facility] Last Admin: 07/24/18 06:20 Dose: 38 units Lorazepam (Ativan -) 1 mg PO BID [facility] Last Admin: 07/24/18 10:29 Dose: 1 mg Metoprolol Succinate (Toprol Xl -) 25 mg PO BID [facility] Last Admin: 07/24/18 10:30 Dose: 25 mg Nystatin (Nystop Powder -) 1 applic TP BID [facility] Pantoprazole Sodium (Protonix -) 20 mg PO DAILY [facility] Last Admin: 07/24/18 10:28 Dose: 20 mg Ropinirole HCl (Requip -) 0.5 mg PO [facility] Last Admin: 07/23/18 22:48 Dose: 0.5 mg Tramadol HCl (Ultram -) 50 mg PO BID [facility] Last Admin: 07/24/18 10:28 Dose: 50 mg Vital Signs Period Temp Pulse Resp BP Sys/Lopez Pulse Ox Last 24 Hr 97.9 F-98.9 F 76-81 18-20 130-146/62-76 95 Constitutional: Yes: No Distress, Calm, Obese Cardiovascular: Yes: Regular Rate and Rhythm, S1, S2. No: JVD, Gallop, Murmur Respiratory: Yes: Regular, CTA Bilaterally. No: Accessory Muscle Use, Rales, Wheezes Extremities: No: Cold Edema: No Neurological: Yes: Alert, Oriented Psychiatric: No: Agitated Assessment/Plan EKG: NSR, LBBB (no change) CT chest: probable mild ATX > small infiltrate in RLL. mild R base bronchiectasis. extensive cor calcifications. no pulmonary vascular congestion, no effusions. Echo 2017: LV mod decreased systolic function. moderate global HK with severe apical HK, mild ar, Mild-mod MAC, mild-mod MR, mod tr, rvsp 30-40 MPI (mandy) 2017: LBBB on EKG. mild apical-anteroseptal ischemia. mildly reduced LVEF. no TID. MPI (mandy) 2014: LBBB on EKG. no ischemia. EF 40%. no TID noted. echo 07/2018 mildly reduced LV function mild ant wall hypok, mod basal to mid anteroseptal wall hypok, nl Rv function, mod MAC, mild MR, mild TR, PASP >30 mmHg, mild AR mibi 07/2018 small zone of apical thinning, mild to mod reduced LV fn EF 42% acute syst CHF, venous ins'y/chronic LE edema: -h/o NICM with moderately reduced LVEF, follows with dr arana as outpt (last seen 2016)--controlled on torsemide 20 qd -on metoprolol 25 bid, no TOMAS sec to advanced CKD -here with incr SOB (NYHA IV) the past few days -BNP 2K in pt with low GFR (baseline 2-4K) -CT chest no effusions or pulm edema/vasc congestion pattern. new wheezing sx's at home. -given no signs of pulm infection, acute cardiac ischemia (would not likely cause wheezing), or other etiology, the most likely etiology of acute on chronic PATINO WITH NEW WHEEZING is volume overload (? right > left sided) -received lasix 40 IV yest--renal fxn improved. still with sob today. physical habitus very TDS for volume assessment (short/thick neck). + urinary obstructive sx's described. -07/21: repeat lasix 40 IV x 1 today. observe sx's and creatinine--? golden, renal sono depending on clinical course (d/w'd dr coronado, hospitalist). reassess tomorrow re: lasix dose. -07/22: renal fxn stable. sob improved but not at baseline--lasix 80 IV today -07/23: creat up slightly, but remains closet to baseline range. repeat lasix 80 IV today--? ok for hospital discharge tomorrow if remains without sob and noninvasive imaging studies are not significantly changed -07/24: Cr stable, repeat echo shows mildly reduced LV function similar to prior , nl RV. restart torsemide, inc dose to 40 mg daily, advised to follow up with Dr Arana 2-4 weeks - stable for dc from cardiac perspective ? CAD: -++cor calcifications on CT chest--images reviewed, with dense calcifications in distal LMCA, involving LAD/LCX bifurcation and mult calcifications along LAD (less so in RCA) - mild ischemia in small area of LAD distribution on 2017 stress test (apical anteroseptum) with corresponding regional variability of LV dysfunction worst in this region on echo. - medically managed by dr arana (hi risk of ANUSHKA from cath, ? perfusion appearance artifactual related to LBBB/soft tissue or breast attenuation) - has chronic mild chest heaviness accompanying her sob which is unchanged presently--CHF > angina sx - old LBBB on EKG. troponins neg here - continue home aspirin, statin, BB - repeat mibi no ischemia, mildly reduced EF HTN: - bp controlled - cont home meds DM, on insulin: -per pmd HPL: -continue home statin (atorva 10) CKD: - bline creat 1.7-2.0. - renal fxn stable here
--- NOTE | 2018-07-24 11:53 | DS ---
Physical Exam: SUBJECTIVE: Patient seen and examined OBJECTIVE: Vital Signs Period Temp Pulse Resp BP Sys/Lopez Pulse Ox Last 24 Hr 97.9 F-98.9 F 76-81 18-20 130-146/62-76 95 PHYSICAL EXAM GENERAL: The patient is awake, alert, and fully oriented, in no acute distress. HEAD: Normal with no signs of trauma. EYES: PERRL, extraocular movements intact, sclera anicteric, conjunctiva clear. ENT: Ears normal, nares patent, oropharynx clear without exudates, moist mucous membranes. NECK: Trachea midline, full range of motion, supple. LUNGS: Breath sounds equal, clear to auscultation bilaterally, no wheezes, no crackles, no accessory muscle use. HEART: Regular rate and rhythm, S1, S2 without murmur, rub or gallop. ABDOMEN: Soft, nontender, nondistended, normoactive bowel sounds, no guarding, no rebound, no hepatosplenomegaly, no masses. EXTREMITIES: 2+ pulses, warm, well-perfused, no edema. NEUROLOGICAL: Cranial nerves II through XII grossly intact. Normal speech, gait not observed. PSYCH: Normal mood, normal affect. SKIN: Warm, dry, normal turgor, no rashes or lesions noted. LABS Laboratory Results - last 24 hr 07/23/18 07/23/18 07/24/18 16:29 21:14 05:42 Sodium Potassium Chloride Carbon Dioxide Anion Gap BUN Creatinine Creat Clearance w eGFR POC Glucometer 112 195 134 Random Glucose Calcium 07/24/18 07/24/18 06:00 11:02 Sodium 138 Potassium 3.9 Chloride 100 Carbon Dioxide 30 Anion Gap 8 BUN 52 H Creatinine 2.1 H Creat Clearance w eGFR 22.44 POC Glucometer 208 Random Glucose 132 H Calcium 8.7 EKG: NSR, LBBB (no change) CT chest: probable mild ATX > small infiltrate in RLL. mild R base bronchiectasis. extensive cor calcifications. no pulmonary vascular congestion, no effusions. Echo 2017: LV mod decreased systolic function. moderate global HK with severe apical HK, mild ar, Mild-mod MAC, mild-mod MR, mod tr, rvsp 30-40 MPI (mandy) 2017: LBBB on EKG. mild apical-anteroseptal ischemia. mildly reduced LVEF. no TID. MPI (mandy) 2014: LBBB on EKG. no ischemia. EF 40%. no TID noted. echo 07/2018 mildly reduced LV function mild ant wall hypok, mod basal to mid anteroseptal wall hypok, nl Rv function, mod MAC, mild MR, mild TR, PASP >30 mmHg, mild AR mibi 07/2018 small zone of apical thinning, mild to mod reduced LV fn EF 42% HOSPITAL COURSE: [facility]; 82 yo F h/o IDDM, systolic CHF, HTN, HLD, and chronic kidney disease p/w worsening shortness of breath x 2 days. Patient endorses increasing exertional dyspnea since this Monday. She usually walks around her block with walker fine but now would become short of breath from living room to bathroom. She admits to missing 2 doses of torsemide. Denies chest pain, abd pain, urinary or bowel sx. In Hospital examination and investigations were done. cardiology Dr owen was consulted. Pt was treated with IV lasix. With Lasix pt pedal edema improved and her shortness of breath also improved. ECHO and MIBI scan was done in hospital and report mentioned above. Pt has a h/o dwain and is not on cpap as she was unable to telerate it in home. Pt influenza scree was negative in hospital. Pt creatnine was around baseline in hospital. Now pt is feeling better. SOB resolved. [facility]. Pt is advised to follow up with Dr owen and dr cunha. Date of Admission:07/21/18 Date of Discharge: 07/24/18 Minutes to complete discharge: 45 Discharge Summary Reason For Visit: SOB/CONGESTIVE HEART FAILURE Current Active Problems Shortness of breath (Acute) Condition: Stable - Instructions Diet, Activity, Other Instructions: Medications: Use Nystatin powder twice a day in skin folds. Continue torsemide 20 mg daily. Continue other medications as before. Follow up :- With your primary doctor with in one week With pocket grinder operator Dr Rosas in 2-[address] Guerline bryan sleep apnea with in one week please note that your kidney function and weights need to be closely monitored with your doctor. Blood work BMP (basic metabolic panel) in 1 week Weight yourself daily and notify doctor if weight gain > 3 lbs in 2 days. Diet: eat low salt and low cholesterol diet Fall risk precautions. If you age short of breath, chest pain, palpitations, lightheadedness or any new symptoms then call doctor or go to hospital Referrals: Singh Owen MD [Staff Physician] - 1 Week Ozzie Cunha MD [Staff Physician] - 1 Week Disposition: CUSTODIAL FACILITY - Home Medications Comprehensive Discharge Medication List: Ambulatory Orders Aspirin [Ecotrin] 81 mg PO Q2D 05/17/17 Atorvastatin Ca [Lipitor] 10 mg PO HS 05/17/17 Ergocalciferol [Vitamin D2] 50,000 unit PO MONTHLY 05/17/17 Gabapentin [Neurontin] 300 mg PO BID 05/17/17 Insulin (Levemir) [Levemir Vial] 38 unit SQ DAILY 05/17/17 Omeprazole Magnesium [Prilosec] 20 mg PO DAILY 05/17/17 Torsemide 20 mg PO DAILY 05/17/17 Tramadol HCl 50 mg PO BID 05/17/17 Allopurinol [Zyloprim -] 100 mg PO BID 07/20/18 Glimepiride [Amaryl -] 1 mg PO HS 07/20/18 LORazepam [Ativan] 1 mg PO BID 07/20/18 Metoprolol Succinate [Toprol Xl] 25 mg PO BID 07/20/18 Ropinirole HCl [Requip] 0.5 mg PO HS 07/20/18 Nystatin Powder [Nystop Powder -] 1 applic TP BID #2 applic 07/24/18 This patient is new to me today: Yes Date on this admission: 07/24/18 Emergency Visit: Yes ED Registration Date: 07/21/18 Care time: The patient presented to the Emergency Department on the above date and was hospitalized for further evaluation of their emergent condition. Critical Care patient: No - Discharge Referral Referred to [facility] Med P.C.: No
[2018-07-24] MEDS ORDERED: TORSEMIDE 20 MG TABLET (FP) PO SCH ×2 (12:15→13:00)
--- NOTE | 2018-07-24 12:42 | PN ---
Teaching Attending Note Name of Resident: Mark Sousa ATTENDING PHYSICIAN STATEMENT I saw and evaluated the patient. I reviewed the resident's note and discussed the case with the resident. I agree with the resident's findings and plan as documented with exceptions below SUBJECTIVE: Patient seen and examined. Breathing improved, still short of breath with activity. OBJECTIVE: Vital Signs Period Temp Pulse Resp BP Sys/Lopez Pulse Ox Last 24 Hr 97.9 F-98.9 F 76-81 18-20 130-146/62-76 95 Intake & Output 07/21/18 07/22/18 07/23/18 07/24/18 23:59 23:59 23:59 23:59 Intake Total 480 420 Balance 480 420 Weight 265 lb 14.4 oz 165 lb 6 oz 263 lb 3 oz General: sitting in bed in no acute distress Chest: distant breath sounds, no rales or wheezing Abdomen:Soft, obese, NT Extremities: improved edema, unchanged chronic skin changes Home Medications Medication Instructions Recorded Aspirin [Ecotrin] 81 mg PO Q2D 05/17/17 Atorvastatin Ca [Lipitor] 10 mg PO HS 05/17/17 Ergocalciferol [Vitamin D2] 50,000 unit PO MONTHLY 05/17/17 Gabapentin [Neurontin] 300 mg PO BID 05/17/17 Insulin (Levemir) [Levemir Vial] 38 unit SQ DAILY 05/17/17 Omeprazole Magnesium [Prilosec] 20 mg PO DAILY 05/17/17 Tramadol HCl 50 mg PO BID 05/17/17 Allopurinol [Zyloprim -] 100 mg PO BID 07/20/18 Glimepiride [Amaryl -] 1 mg PO HS 07/20/18 LORazepam [Ativan] 1 mg PO BID 07/20/18 Metoprolol Succinate [Toprol Xl] 25 mg PO BID 07/20/18 Ropinirole HCl [Requip] 0.5 mg PO HS 07/20/18 Allopurinol [Zyloprim -] 100 mg PO BID tablet 07/24/18 Nystatin Powder [Nystop Powder -] 1 applic TP BID #2 applic 07/24/18 Torsemide 20 mg PO DAILY 07/24/18 Active Medications Allopurinol (Zyloprim -) 100 mg PO BID [facility] Last Admin: 07/24/18 10:27 Dose: 100 mg Aspirin (Ecotrin -) 81 mg PO Q2D [facility] Last Admin: 07/24/18 10:27 Dose: 81 mg Atorvastatin Calcium (Lipitor -) 10 mg PO HS [facility] Last Admin: 07/23/18 22:28 Dose: 10 mg Ergocalciferol (Drisdol -) 50,000 unit PO Q21D@1000 [facility] Last Admin: 07/22/18 21:24 Dose: 50,000 unit Gabapentin (Neurontin -) 300 mg PO BID [facility] Last Admin: 07/24/18 10:28 Dose: 300 mg Heparin Sodium (Porcine) (Heparin -) 5,000 unit SQ BID [facility] Last Admin: 07/24/18 10:29 Dose: 5,000 unit Insulin Aspart (Novolog Vial Sliding Scale -) 1 vial SQ ACHS [facility]; Protocol Last Admin: 07/24/18 11:32 Dose: 4 units Insulin Detemir (Levemir Vial) 38 units SQ AM [facility] Last Admin: 07/24/18 06:20 Dose: 38 units Lorazepam (Ativan -) 1 mg PO BID [facility] Last Admin: 07/24/18 10:29 Dose: 1 mg Metoprolol Succinate (Toprol Xl -) 25 mg PO BID [facility] Last Admin: 07/24/18 10:30 Dose: 25 mg Nystatin (Nystop Powder -) 1 applic TP BID [facility] Pantoprazole Sodium (Protonix -) 20 mg PO DAILY [facility] Last Admin: 07/24/18 10:28 Dose: 20 mg Ropinirole HCl (Requip -) 0.5 mg PO HS [facility] Last Admin: 07/23/18 22:48 Dose: 0.5 mg Torsemide (Demadex -) 20 mg PO DAILY [facility] Tramadol HCl (Ultram -) 50 mg PO BID [facility] Last Admin: 07/24/18 10:28 Dose: 50 mg Laboratory Results - last 24 hr 07/23/18 07/23/18 07/24/18 16:29 21:14 05:42 Sodium Potassium Chloride Carbon Dioxide Anion Gap BUN Creatinine Creat Clearance w eGFR POC Glucometer 112 195 134 Random Glucose Calcium 07/24/18 07/24/18 06:00 11:02 Sodium 138 Potassium 3.9 Chloride 100 Carbon Dioxide 30 Anion Gap 8 BUN 52 H Creatinine 2.1 H Creat Clearance w eGFR 22.44 POC Glucometer 208 Random Glucose 132 H Calcium 8.7 ASSESSMENT AND PLAN: 82 yof with PMHx of chronic systolic heart failure, morbid obesity, VIDYA not on CPAP, IDDM, CKD stage III (baseline cr around 1.8-2), HTN, HLD, colon ca s/p resection 2006 admitted with worsening dyspnea on exertion -Dyspnea on exertion, ?acute on chronic systolic heart failure, ?anginal equivalent, VIDYA with suspected OHS with progression, low suspicion for infectious process -CKD stage III -IDDM -VIDYA not on cpap (unable to tolerate) -HTN -HLD -Colon cancer s/p resection in 2006 Plan: IV diuresis per cardiology. Cr rising still around baseline. Monitor renal function and volume stress 2D echo/stress test results noted. cardiology input noted, resume home dose of torsemide. Patient unable to tolerate CPAP at home. ASA/statin/metoprolol. Low suspicion for infectious process. Influenza screen neg. CT chest noted. Continue levemir, ISS. diabetic diet, hold amaryl Continue gabapentin/ativan/tramadol with monitoring of respiratory status DVTPPX heparin Code status: DNR/DNI PT eval noted, for SNF Discussed with CM. d/c to SNF when bed available. Discussed with patient and CM
[2018-07-24 13:09] VITALS: BMI 53.1
[2018-07-24 15:51] VITALS: BP 127/55; PULSE 83; TEMP 98.4
== END 2018-07-24 15:54 | DRG 291 ==
LOC: JER 15:08 → JERBED 17:04 → J5S 22:51 → OBSVTOIN 07-21 12:28
PROVIDERS: ADMIT Hospitalist; ATTEND Hospitalist
DX: I13.0 Hypertensive heart and chronic kidney disease with heart failure and stage 1 through stage 4 chronic kidney disease, or unspecified chronic kidney disease (principal); I50.23 Acute on chronic systolic (congestive) heart failure; Z68.43 Body mass index [BMI] 50.0-59.9, adult; I44.7 Left bundle-branch block, unspecified; E66.01 Morbid (severe) obesity due to excess calories; G47.33 Obstructive sleep apnea (adult) (pediatric); E11.22 Type 2 diabetes mellitus with diabetic chronic kidney disease; N18.3 Chronic kidney disease, stage 3 (moderate); Z85.038 Personal history of other malignant neoplasm of large intestine; Z79.4 Long term (current) use of insulin; I25.10 Atherosclerotic heart disease of native coronary artery without angina pectoris; E78.5 Hyperlipidemia, unspecified; J47.9 Bronchiectasis, uncomplicated
CPT/HCPCS: 36415; 71045-TC-FY; 71250-TC; 78452-TC; 80048; 80053; 81003; 81015; 82550; 82962; 83735; 83880; 84100; 84484; 85025; 85610; 85730; 87804; 93005; 93010; 93017; 93306-TC; 97116-GP; 99284-25; A9502; G0378; J1644; J2785

== ENCOUNTER 2019-02-09 12:24 | Inpatient (IN) | payer OTHER, MEDICARE ==
--- NOTE | 2019-02-09 12:41 | PDOC ---
History of Present Illness - History of Present Illness Initial Comments: 02/09/19 13:57 Pt presents to the ED complaining of L shoulder pain after slip and fall today. States that she was unable to ambulate around her house and was complaining of severe pain, so she presented to the ED. Patient is able to recall the entire incident and adamantly denies hitting her head. Also complaining of sharp, pleuritic chest wall pain with deep breath. 02/09/19 14:01 <Nery Rodriguez - Last Filed: 02/09/19 13:57> <Abdi Richards I - Last Filed: 02/09/19 19:48> - General Chief Complaint: Injury Stated Complaint: SLIPPED, FAST WALK[employer] Time Seen by Provider: 02/09/19 12:41 Past History - Past Medical History Anemia: Yes Asthma: No Cancer: Yes (COLON) Cardiac Disorders: No CVA: No COPD: No CHF: No Dementia: No Diabetes: Yes (x20 yrs) GI Disorders: Yes (chronic constipation) Disorders: Yes HTN: Yes Hypercholesterolemia: Yes Liver Disease: No Seizures: No Thyroid Disease: No - Surgical History Abdominal Surgery: Yes (HERNIA,COLON RESECTION) Appendectomy: Yes Cardiac Surgery: No Cholecystectomy: No Lung Surgery: No Neurologic Surgery: No Orthopedic Surgery: No - Immunization History Immunization Up to Date: Yes - Suicide/Smoking/Psychosocial Hx Smoking Status: No Smoking History: Unknown if ever smoked Have you smoked in the past 12 months: No Number of Cigarettes Smoked Daily: 0 Hx Alcohol Use: No Drug/Substance Use Hx: No Substance Use Type: None Hx Substance Use Treatment: No <Nery Rodriguez - Last Filed: 02/09/19 13:57> <Abdi Richards I - Last Filed: 02/09/19 19:48> - Past Medical History Allergies/Adverse Reactions: Allergies Allergy/AdvReac Type Severity Reaction Status Date / Time diltiazem HCl [From Cardizem] Allergy Rash Verified 02/09/19 12:27 Home Medications: Ambulatory Orders Aspirin [Ecotrin] 81 mg PO Q2D 05/17/17 Atorvastatin Ca [Lipitor] 10 mg PO HS 05/17/17 Ergocalciferol [Vitamin D2] 50,000 unit PO MONTHLY 05/17/17 Gabapentin [Neurontin] 300 mg PO BID 05/17/17 Insulin (Levemir) [Levemir Vial] 38 unit SQ DAILY 05/17/17 Omeprazole Magnesium [Prilosec] 20 mg PO DAILY 05/17/17 Tramadol HCl 50 mg PO BID 05/17/17 Allopurinol [Zyloprim -] 100 mg PO BID 07/20/18 Glimepiride [Amaryl -] 1 mg PO HS 07/20/18 LORazepam [Ativan] 1 mg PO BID 07/20/18 Metoprolol Succinate [Toprol Xl] 25 mg PO BID 07/20/18 Ropinirole HCl [Requip] 0.5 mg PO HS 07/20/18 Torsemide 20 mg PO DAILY 07/24/18 Review of Systems - Review of Systems Able to Perform ROS?: Yes Is the patient limited Jamaican proficient: No Constitutional: No: Symptoms Reported, See HPI, Chills, Diaphoresis, Fever, Loss of Appetite, Malaise, Night Sweats, Weakness, Weight Stable, Unintentional Wgt. Loss, Unexplained wgt Loss, Other HEENTM: No: Symptoms Reported, See HPI, Eye Pain, Blurred Vision, Tearing, Recent change in vision, Double Vision, Cataracts, Ear Pain, Ocular Prothesis, Ear Discharge, Nose Pain, Nose Congestion, Tinnitus, Nose Bleeding, Hearing Loss , Throat Pain, Throat Swelling, Mouth Pain, Dental Problems, Difficulty Swallowing, Mouth Swelling, Other Respiratory: Yes: Shortness of Breath. No: Symptoms reported, See HPI, Cough, Orthopnea, SOB with Exertion, SOB at Rest, Stridor, Wheezing, Productive cough, Hemoptysis, Other Cardiac (ROS): No: Symptoms Reported, See HPI, Chest Pain, Edema, Irregular Heart Rate, Lightheadedness, Palpitations, Syncope, Chest Tightness, Other ABD/GI: No: Symptoms Reported, See HPI, Abdominal Distended, Abd. Pain w/ defecation, Blood Streaked Bowels, Constipated, Diarrhea, Difficulty Swallowing , Nausea, Poor Appetite, Poor Fluid Intake, Rectal Bleeding, Vomiting, Indigestion, Abdominal cramping, Tarry Stools, Other : No: Symptoms Reported, See HPI, Burning, Dysuria, Discharge, Frequency, Flank Pain, Hematuria, Incontinence, Pain, Urgency, Testicular Mass, Testicular Swelling, Lesions, Testicular Pain, Other Musculoskeletal: Yes: Joint Pain. No: Symptoms Reported, See HPI, Back Pain, Gout, Joint Swelling, Muscle Pain, Muscle Weakness, Neck Pain, Joint Stiffness, Other Integumentary: No: Symptoms Reported, See HPI, Bruising, Change in Color, Change in Hair/Nails, Dryness, Erythema, Flushing, Lesions, Lumps, Pallor, Pruritus, Rash, Sweating, Other Neurological: No: Symptoms reported, See HPI, Headache, Numbness, Paresthesia, Pre-Existing Deficit, Seizure, Tingling, Tremors, Weakness, Unsteady Gait, Ataxia, Dizziness, Other <Nery Rodriguez - Last Filed: 02/09/19 13:57> *Physical Exam - Vital Signs Last Vital Signs Temp Pulse Resp BP Pulse Ox 98.0 F 87 21 H 142/72 91 L 02/09/19 17:20 02/09/19 17:20 02/09/19 12:26 02/09/19 17:20 02/09/19 17:20 <Abdi Richards I - Last Filed: 02/09/19 19:48> ED Treatment Course - LABORATORY CBC & Chemistry Diagram: 02/09/19 16:38 02/09/19 16:38 - ADDITIONAL ORDERS Additional order review: Laboratory Results 02/09/19 16:38 Sodium 138 Potassium 4.9 Chloride 103 Carbon Dioxide 25 Anion Gap 10 BUN 48.0 H Creatinine 1.7 H Est GFR (CKD-EPI)AfAm 31.32 Est GFR (CKD-EPI)NonAf 27.03 Random Glucose 137 H Calcium 9.7 Total Bilirubin 0.7 AST 32 ALT 16 Alkaline Phosphatase 68 Total Protein 7.2 Albumin 3.6 02/09/19 16:38 RBC 3.81 MCV 95.5 MCHC 31.7 L RDW 16.9 H D MPV 8.8 Neutrophils % 75.8 Lymphocytes % 14.9 Monocytes % 5.1 Eosinophils % 1.0 Basophils % 3.2 H - Medications Given in the ED: ED Medications Discontinued Medications Generic Name Dose Route Start Last Admin Trade Name Freq PRN Reason Stop Dose Admin Morphine Sulfate 2 mg 02/09/19 13:01 02/09/19 13:30 Morphine Injection - IVPUSH 02/09/19 13:02 2 mg ONCE ONE Administration Morphine Sulfate 2 mg 02/09/19 13:21 02/09/19 13:34 Morphine Injection - IM 02/09/19 13:22 Not Given ONCE ONE Morphine Sulfate 2 mg 02/09/19 18:20 02/09/19 18:30 Morphine Sulfate IVPUSH 02/09/19 18:21 2 mg ONCE ONE Administration <Abdi Richards I - Last Filed: 02/09/19 19:48> Medical Decision Making - Medical Decision Making 02/09/19 14:02 pt presents to the ED complaining of L shoulder pain and L rib pain after mechanical fall. Will check xrays of the L shoulder and chest and reassess. <Nery Rodriguez - Last Filed: 02/09/19 13:57> *DC/Admit/Observation/Transfer <Nery Rodriguez - Last Filed: 02/09/19 13:57> - Discharge Dispostion Decision to Admit order: Yes <Abdi Richards I - Last Filed: 02/09/19 19:48> Diagnosis at time of Disposition: Hypoxia Fall Qualifiers: Encounter type: initial encounter Qualified Code(s): W19.XXXA - Unspecified fall, initial encounter Multiple rib fractures Qualifiers: Encounter type: initial encounter Fracture type: closed Laterality: left Qualified Code(s): S22.42XA - Multiple fractures of ribs, left side, initial encounter for closed fracture
[2019-02-09] MEDS ORDERED: morphine CARPU-JECT 2 MG/1 ML DISP.SYRIN IVPUSH ONE (13:01)
[2019-02-09] MEDS ORDERED: morphine SULFATE 4 MG/ML VIAL ONE ×3 (13:21→22:55)
[2019-02-09] MEDS ORDERED: morphine CARPU-JECT 2 MG/1 ML DISP.SYRIN IM ONE (13:21)
[2019-02-09 16:56] LABS: BASO % 3.2 % (0-2.0); HEMATOCRIT 36.3 % (32.4-45.2); HEMOGLOBIN 11.5 GM/dl (10.7-15.3); LYMPH % 14.9 % (8-40); MCH 30.3 pg (25.7-33.7); MCHC 31.7 g/dl (32.0-36.0); MEAN CELL VOLUME 95.5 fl (80-96); MEAN PLT VOLUME 8.8 fl (7.5-11.1); MONO % 5.1 % (3.8-10.2); NEUT % 75.8 % (42.8-82.8); PLATELET COUNT 204 K/MM3 (134-434); RBC 3.81 M/mm3 (3.60-5.2); RDW 16.9 % (11.6-15.6); WHITE BLOOD COUNT 10.8 K/mm3 (4.0-10.8)
[2019-02-09 17:08] LABS: ALBUMIN 3.6 g/dl (3.4-5.0); BILIRUBIN,TOTAL 0.7 mg/dl (0.2-1); CALCIUM 9.7 mg/dl (8.5-10); CREATININE 1.7 mg/dl (0.55-1.3); POTASSIUM 4.9 mmol/L (3.5-5.1); TOT PROT 7.2 g/dl (6.4-8.2)
[2019-02-09] MEDS ORDERED: MORPHINE SULFATE 2 MG/ML VIAL IVPUSH ONE (18:20)
[2019-02-09] MEDS ORDERED: morphine CARPU-JECT 4 MG/1 ML DISP.SYRIN IVPUSH ONE (22:48)
--- NOTE | 2019-02-09 23:44 | HP ---
CHIEF COMPLAINT: post fall PCP: Dr. Damon HISTORY OF PRESENT ILLNESS: 83 yo F h/o IDDM, systolic CHF, HTN, HLD, and chronic kidney disease, arrived to ED for left shoulder pain post fall. Patient fell at 4 am yesterday unable to get back up called EMS who assisted but at the time refuse to go hospital. while resting noted with increase pain daughter called EMS and arrived for further Evaluation. Patient complain of pain 7/10 unable to ambulate, left back pain radiating to left chest under breast area with sob at time. Patient denies hitting her head or losing consciousness. Patient denies CP, dizziness, headache, no acute N/V. ER course was notable for: (1) left shoulder intact; Ct chest / XR: left 5 and 6 th rib fx (2) Morphine given for pain management, Cee inserted Recent Travel:no PAST MEDICAL HISTORY: CHF, HTN, Hyperlipdemia, GERD, (Colon CA operated 7 years ago), Anemia, Anxiety, depression, GOUT, DM, chronic low back pain PAST SURGICAL HISTORY: Appendectomy, Colectomy (partial), Hernia Repair Social History: Smoking:no Alcohol:no Drugs: no Family History: sister ( skin ca), Daughter: DM, Asthma Allergies: diltiazem HCl [From Cardizem] Allergy (Verified 02/09/19 12:27) Rash HOME MEDICATIONS: Home Medications Medication Instructions Recorded Aspirin [Ecotrin] 81 mg PO Q2D 05/17/17 Atorvastatin Ca [Lipitor] 10 mg PO HS 05/17/17 Ergocalciferol [Vitamin D2] 50,000 unit PO MONTHLY 05/17/17 Gabapentin [Neurontin] 300 mg PO BID 05/17/17 Insulin (Levemir) [Levemir Vial] 38 unit SQ DAILY 05/17/17 Omeprazole Magnesium [Prilosec] 20 mg PO DAILY 05/17/17 Tramadol HCl 50 mg PO BID 05/17/17 Allopurinol [Zyloprim -] 100 mg PO BID 07/20/18 Glimepiride [Amaryl -] 1 mg PO HS 07/20/18 LORazepam [Ativan] 1 mg PO BID 07/20/18 Metoprolol Succinate [Toprol Xl] 25 mg PO BID 07/20/18 Ropinirole HCl [Requip] 0.5 mg PO HS 07/20/18 Torsemide 20 mg PO DAILY 07/24/18 REVIEW OF SYSTEMS CONSTITUTIONAL: Absent: fever, chills, diaphoresis HEENT: Absent: rhinorrhea, nasal congestion, throat pain, throat swelling, difficulty swallowing, mouth swelling, ear pain, eye pain, visual changes CARDIOVASCULAR: Absent: chest pain, syncope, palpitations, irregular heart rate , lightheadedness, peripheral edema RESPIRATORY: dyspnea with exertion when moving , denies orthopnea, wheezing, stridor, hemoptysis GASTROINTESTINAL:Absent: abdominal pain, abdominal distension, nausea, vomiting , diarrhea, constipation, melena, hematochezia GENITOURINARY: Absent: dysuria, frequency, urgency, hesitancy, hematuria, flank pain, genital pain MUSCULOSKELETAL: left shoulder pain, back pain SKIN: bruising left upper back HEMATOLOGIC/IMMUNOLOGIC: Absent: easy bleeding, easy bruising, lymphadenopathy, frequent infections ENDOCRINE:Absent: unexplained weight gain, unexplained weight loss, heat intolerance, cold intolerance NEUROLOGIC: Absent: headache, focal weakness or paresthesias, dizziness, unsteady gait, seizure, mental status changes, bladder or bowel incontinence PSYCHIATRIC: Absent: anxiety, depression, suicidal or homicidal ideation, hallucinations. PHYSICAL EXAMINATION Vital Signs - 24 hr 02/09/19 02/09/19 02/09/19 12:26 15:05 17:20 Temperature 98.3 F 98.0 F Pulse Rate 90 Pulse Rate [ 87 87 Left] Respiratory 21 H Rate Blood Pressure 139/75 Blood Pressure 146/87 142/72 [Right Arm] O2 Sat by Pulse 95 91 L Oximetry (%) GENERAL: Awake, alert, and fully oriented, in no acute distress. HEENT: NC/AT, EOMI, PERRLA, No JVD LUNGS: Breath sounds equal, clear to auscultation bilaterally. No wheezes, and no crackles. noted with sob at times with movement HEART: Regular rate and rhythm, normal S1 and S2 without murmur, rub or gallop. ABDOMEN: Soft, nontender, not distended, normoactive bowel sounds, no guarding, no rebound, no masses. MUSCULOSKELETAL: left shoulder pain with adduction NEUROLOGICAL: Cranial nerves II-XII intact. Normal speech. Normal gait. PSYCHIATRIC: Cooperative. Good eye contact. Appropriate mood and affect. SKIN: Warm, dry, noted with bruising left upper back Laboratory Results - last 24 hr 02/09/19 02/09/19 02/09/19 16:38 16:38 21:20 WBC 10.8 RBC 3.81 Hgb 11.5 Hct 36.3 D MCV 95.5 MCH 30.3 MCHC 31.7 L RDW 16.9 H D Plt Count 204 MPV 8.8 Absolute Neuts (auto) 8.2 Neutrophils % 75.8 Lymphocytes % 14.9 Monocytes % 5.1 Eosinophils % 1.0 Basophils % 3.2 H Sodium 138 Potassium 4.9 Chloride 103 Carbon Dioxide 25 Anion Gap 10 BUN 48.0 H Creatinine 1.7 H Est GFR (CKD-EPI)AfAm 31.32 Est GFR (CKD-EPI)NonAf 27.03 POC Glucometer Random Glucose 137 H Calcium 9.7 Total Bilirubin 0.7 AST 32 ALT 16 Alkaline Phosphatase 68 Total Protein 7.2 Albumin 3.6 Urine Color Yellow Urine Appearance Clear Urine pH 5.0 Urine Protein Trace Urine Glucose (UA) Negative Urine Ketones Negative Urine Blood Negative Urine Nitrite Negative Urine Bilirubin Negative Urine Urobilinogen 0.2 Ur Leukocyte Esterase Negative 02/09/19 21:33 WBC RBC Hgb Hct MCV MCH MCHC RDW Plt Count MPV Absolute Neuts (auto) Neutrophils % Lymphocytes % Monocytes % Eosinophils % Basophils % Sodium Potassium Chloride Carbon Dioxide Anion Gap BUN Creatinine Est GFR (CKD-EPI)AfAm Est GFR (CKD-EPI)NonAf POC Glucometer 90 Random Glucose Calcium Total Bilirubin AST ALT Alkaline Phosphatase Total Protein Albumin Urine Color Urine Appearance Urine pH Urine Protein Urine Glucose (UA) Urine Ketones Urine Blood Urine Nitrite Urine Bilirubin Urine Urobilinogen Ur Leukocyte Esterase ASSESSMENT/PLAN: 83 yo F h/o IDDM, systolic CHF, HTN, HLD, and chronic kidney disease, arrived to ED for left shoulder pain, post fall. #Mechanical Fall # 5th and 6th Rib fracture - pain management tyleno 650 mg q 6 hours PRN ( mild pain) Tramadol HCl 50 mg PO BID ( field observer pain) - Ortho follow up - Safety/fall precaution # HTN/HLD/CHF - Continue with lipitor 10 mg at night - Metoprolol Succinate 25 mg PO BID - Torsemide 20 mg PO DAILY # DM - Monitor FSBS, coverage sliding scale - Insulin (Levemir) 38 unit SQ daily # GERD - Omeprazole Magnesium 20 mg PO DAILY # GOUT Allopurinol 100 mg PO BID # Anxiety - LORazepam 1 mg PO BID Problem List - Problem (1) Multiple rib fractures Code(s): S22.49XA - MULTIPLE FRACTURES OF RIBS, UNSP SIDE, INIT FOR CLOS FX Qualifiers: Encounter type: initial encounter Fracture type: closed Laterality: left Qualified Code(s): S22.42XA - Multiple fractures of ribs, left side, initial encounter for closed fracture (2) Fall Code(s): W19.XXXA - UNSPECIFIED FALL, INITIAL ENCOUNTER Qualifiers: Encounter type: initial encounter Qualified Code(s): W19.XXXA - Unspecified fall, initial encounter (3) Gout Code(s): M10.9 - GOUT, UNSPECIFIED (4) Anxiety Code(s): F41.9 - ANXIETY DISORDER, UNSPECIFIED (5) CAD (coronary artery disease) Code(s): I25.10 - ATHSCL HEART DISEASE OF [place] CORONARY ARTERY W/O ANG PCTRS (6) CHF (congestive heart failure) Code(s): I50.9 - HEART FAILURE, UNSPECIFIED Qualifiers: Heart failure type: systolic Heart failure chronicity: acute on chronic Qualified Code(s): I50.23 - Acute on chronic systolic (congestive) heart failure (7) CKD (chronic kidney disease) stage 4, GFR 15-29 ml/min Code(s): N18.4 - CHRONIC KIDNEY DISEASE, STAGE 4 (SEVERE) (8) GERD (gastroesophageal reflux disease) Code(s): K21.9 - GASTRO-ESOPHAGEAL REFLUX DISEASE WITHOUT ESOPHAGITIS (9) HTN (hypertension) with goal to be determined Code(s): I10 - ESSENTIAL (PRIMARY) HYPERTENSION (10) Hyperlipemia Code(s): E78.5 - HYPERLIPIDEMIA, UNSPECIFIED (11) T2DM (type 2 diabetes mellitus) Code(s): E11.9 - TYPE 2 DIABETES MELLITUS WITHOUT COMPLICATIONS Qualifiers: Diabetes mellitus nursing home insulin use: with intermodal customer service use Diabetes mellitus complication status: without complication Qualified Code(s): E11.9 - Type 2 diabetes mellitus without complications; Z79.4 - senior living (current) use of insulin Visit type - Emergency Visit Emergency Visit: Yes ED Registration Date: 02/09/19 Care time: The patient presented to the Emergency Department on the above date and was hospitalized for further evaluation of their emergent condition. - New Patient This patient is new to me today: Yes Date on this admission: 02/09/19 - Critical Care Critical Care patient: No
[2019-02-10] MEDS: INSULIN (LEVEMIR) 100 UNITS/ML UNITS SQ SCH (07:02)
[2019-02-10] MEDS: INSULIN SLIDING SCALE (NOVOLOG) 1 VIAL SQ SCH ×2 (07:02→17:18)
--- NOTE | 2019-02-10 08:34 | PN ---
Physical Exam: SUBJECTIVE: Patient seen and examined OBJECTIVE: Vital Signs Period Temp Pulse Resp BP Sys/Lopez Pulse Ox Last 24 Hr 97.5 F-98.3 F 86-110 18-21 123-146/66-87 81-96 GENERAL: The patient is awake, alert, and fully oriented, in no acute distress. HEAD: Normal with no signs of trauma. EYES: PERRL, extraocular movements intact, sclera anicteric, conjunctiva clear. No ptosis. ENT: Ears normal, nares patent, oropharynx clear without exudates, moist mucous membranes. NECK: Trachea midline, full range of motion, supple. LUNGS: Breath sounds equal, clear to auscultation bilaterally HEART: Regular rate and rhythm, S1, S2 without murmur, rub or gallop. ABDOMEN: Soft, nontender, nondistended, normoactive bowel sounds, no guarding, no rebound, no hepatosplenomegaly, no masses. EXTREMITIES: 2+ pulses, warm, well-perfused, no edema. NEUROLOGICAL: Cranial nerves II through XII grossly intact. Normal speech, gait not observed. PSYCH: Normal mood, normal affect. SKIN: Warm, dry, normal turgor, Yeast and rash under breast and pannus Laboratory Results - last 24 hr 02/09/19 02/09/19 02/09/19 16:38 16:38 21:20 WBC 10.8 RBC 3.81 Hgb 11.5 Hct 36.3 D MCV 95.5 MCH 30.3 MCHC 31.7 L RDW 16.9 H D Plt Count 204 MPV 8.8 Absolute Neuts (auto) 8.2 Neutrophils % 75.8 Lymphocytes % 14.9 Monocytes % 5.1 Eosinophils % 1.0 Basophils % 3.2 H Sodium 138 Potassium 4.9 Chloride 103 Carbon Dioxide 25 Anion Gap 10 BUN 48.0 H Creatinine 1.7 H Est GFR (CKD-EPI)AfAm 31.32 Est GFR (CKD-EPI)NonAf 27.03 POC Glucometer Random Glucose 137 H Calcium 9.7 Total Bilirubin 0.7 AST 32 ALT 16 Alkaline Phosphatase 68 Total Protein 7.2 Albumin 3.6 Urine Color Yellow Urine Appearance Clear Urine pH 5.0 Urine Protein Trace Urine Glucose (UA) Negative Urine Ketones Negative Urine Blood Negative Urine Nitrite Negative Urine Bilirubin Negative Urine Urobilinogen 0.2 Ur Leukocyte Esterase Negative 02/09/19 02/10/19 21:33 07:01 WBC RBC Hgb Hct MCV MCH MCHC RDW Plt Count MPV Absolute Neuts (auto) Neutrophils % Lymphocytes % Monocytes % Eosinophils % Basophils % Sodium Potassium Chloride Carbon Dioxide Anion Gap BUN Creatinine Est GFR (CKD-EPI)AfAm Est GFR (CKD-EPI)NonAf POC Glucometer 90 99 Random Glucose Calcium Total Bilirubin AST ALT Alkaline Phosphatase Total Protein Albumin Urine Color Urine Appearance Urine pH Urine Protein Urine Glucose (UA) Urine Ketones Urine Blood Urine Nitrite Urine Bilirubin Urine Urobilinogen Ur Leukocyte Esterase Active Medications Generic Name Dose Route Start Last Admin Trade Name Freq PRN Reason Stop Dose Admin Acetaminophen 650 mg 02/09/19 23:38 Tylenol - PO Q4H PRN MILD PAIN Allopurinol 100 mg 02/10/19 10:00 Zyloprim - PO BID [facility] Atorvastatin Calcium 10 mg 02/10/19 22:00 Lipitor - PO HS [facility] [place] Enoxaparin Sodium 30 mg 02/10/19 10:00 Lovenox - SQ DAILY [facility] Ergocalciferol 50,000 unit 02/20/19 10:00 Drisdol - PO Q21D [facility] [place] Gabapentin 300 mg 02/10/19 10:00 Neurontin - PO BID [facility] [place] Glimepiride 1 mg 02/10/19 22:00 Amaryl - PO HS [facility] [place] Insulin Aspart 1 vial 02/10/19 07:00 02/10/19 07:02 Novolog Vial Sliding Scale - SQ Not Given BIDAC [facility] Protocol Insulin Detemir 38 units 02/10/19 07:00 02/10/19 07:02 Levemir Vial SQ 38 units DAILY@0700 [facility] Administration Lorazepam 1 mg 02/10/19 10:00 Ativan - PO BID [facility] [place] Metoprolol Succinate 25 mg 02/10/19 10:00 Toprol Xl - PO BID [facility] [place] Pantoprazole Sodium 20 mg 02/10/19 10:00 Protonix - PO DAILY [facility] [place] Ropinirole HCl 0.5 mg 02/10/19 22:00 Requip - PO HS [facility] [place] Torsemide 20 mg 02/10/19 10:00 Demadex - PO DAILY [facility] Tramadol HCl 50 mg 02/10/19 10:00 Ultram - PO BID [facility] ASSESSMENT/PLAN: 83 yo F h/o IDDM, systolic CHF, HTN, HLD, and chronic kidney disease, arrived to ED for left shoulder pain, post fall. Mechanical Fall 5th and 6th Rib fracture - pain management -tyleno 650 mg q 6 hours PRN ( mild pain) -Tramadol HCl 50 mg PO BID ( severe pain) - Ortho follow up - Safety/fall precaution HTN/HLD/CHF - Continue with lipitor 10 mg at night - Metoprolol Succinate 25 mg PO BID - Torsemide 20 mg PO DAILY DM - Monitor FSBS, coverage sliding scale - Insulin (Levemir) 38 unit SQ daily GERD - Omeprazole Magnesium 20 mg PO DAILY GOUT -Allopurinol 100 mg PO BID Candidiasis -Under breast and Pannus -Nystatin BID Anxiety - LORazepam 1 mg PO BID FEN - PO intake adequate -Replace PRN -Diabetic Diet Prophlaxis -DVT lovenox 30mg daily Dispo -Inpatient -Full Code Visit type - Emergency Visit Emergency Visit: Yes ED Registration Date: 02/09/19 Care time: The patient presented to the Emergency Department on the above date and was hospitalized for further evaluation of their emergent condition. - New Patient This patient is new to me today: Yes Date on this admission: 02/10/19 - Critical Care Critical Care patient: No
--- NOTE | 2019-02-10 08:39 | CON.ORTH ---
Consult Consult Specialty:: Orthopedics Reason for Consultation:: Left rib fractures - History of Present Illness Chief Complaint: Pain to left upper back History of Present Illness: This is an obese 83 yo F with PMHx of IDDM, systolic CHF, HTN, HLD, and chronic kidney disease who presented to ED s/p mechanical fall yesterday. Patient states she has 7/10 pain to left upper back with radiation to left side of chest under her breast. Notes some pain with deep inhalation. She is not on oxygen at home. Ambulates with walker at home with daughter's assistance. Denies any other pain. - History Source History Provided By: Patient Limitations to Obtaining History: No Limitations - Past Medical History Cardio/Vascular: Yes: CHF, HTN, Hyperlipdemia Gastrointestinal: Yes: Cancer, GERD, Other (Colon CA operated 7 years ago) Renal/: Yes: Renal Inusuff (creat 2 at baseline for years, stable, non proteinuric) ...: No Psych: Yes: Anxiety, Depression Musculoskeletal: Yes: Chronic low back pain Rheumatology: Yes: Gout Endocrine: Yes: Diabetes Mellitus - Past Surgical History Past Surgical History: Yes: Appendectomy, Colectomy (partial), Hernia Repair - Alcohol/Substance Use Hx Alcohol Use: No History of Substance Use: reports: None - Smoking History Smoking history: Never smoked Have you smoked in the past 12 months: No Aproximately how many cigarettes per day: 0 - Social History ADL: Independent History of Recent Travel: No Home Medications - Allergies Allergies/Adverse Reactions: Allergies Allergy/AdvReac Type Severity Reaction Status Date / Time diltiazem HCl [From Cardizem] Allergy Rash Verified 02/09/19 12:27 - Home Medications Home Medications: Ambulatory Orders Aspirin [Ecotrin] 81 mg PO Q2D 05/17/17 Atorvastatin Ca [Lipitor] 10 mg PO HS 05/17/17 Ergocalciferol [Vitamin D2] 50,000 unit PO MONTHLY 05/17/17 Gabapentin [Neurontin] 300 mg PO BID 05/17/17 Insulin (Levemir) [Levemir Vial] 38 unit SQ DAILY 05/17/17 Omeprazole Magnesium [Prilosec] 20 mg PO DAILY 05/17/17 Tramadol HCl 50 mg PO BID 05/17/17 Allopurinol [Zyloprim -] 100 mg PO BID 07/20/18 Glimepiride [Amaryl -] 1 mg PO HS 07/20/18 LORazepam [Ativan] 1 mg PO BID 07/20/18 Metoprolol Succinate [Toprol Xl] 25 mg PO BID 07/20/18 Ropinirole HCl [Requip] 0.5 mg PO HS 07/20/18 Torsemide 20 mg PO DAILY 07/24/18 Family Disease History - Family Disease History Family Disease History: Diabetes: Mother, Heart Disease: Father, Other: Sister ( CVA) Review of Systems - Review of Systems Musculoskeletal: reports: Other (Left-sided upper back pain) Physical Exam for Ortho Vital Signs: Vital Signs Temperature 97.9 F 02/10/19 07:11 Pulse Rate 90 02/10/19 07:11 Respiratory Rate 18 02/10/19 07:11 Blood Pressure 123/66 02/10/19 07:11 O2 Sat by Pulse Oximetry (%) 96 02/10/19 07:11 Extremities: Yes: Other (Thoracic spine exam shows area of ecchymosis over left upper back. Tender to palpation over this area and to patient's left side. Mild pain with AROM of left shoulder. Nontender left shoulder. Full and equal strength to B/L UE. NVID. ) Labs: CBC, BMP 02/09/19 16:38 02/09/19 16:38 Imaging - Results X-ray: Report Reviewed (Chest XR shows evidence of 5th and 6th nondisplaced rib fractures. Shoulder XR shows degenerative changes without acute pathology.), Image Reviewed Cat Scan: Image Reviewed (Chest CT images reviewed which show probable nondisplaced 4th, 5th and 6th rib fractures. Final reading pending.) Problem List - Problems (1) Multiple rib fractures Code(s): S22.49XA - MULTIPLE FRACTURES OF RIBS, UNSP SIDE, INIT FOR CLOS FX Qualifiers: Encounter type: initial encounter Fracture type: closed Laterality: left Qualified Code(s): S22.42XA - Multiple fractures of ribs, left side, initial encounter for closed fracture Assessment/Plan This is an obese 83 yo F with PMHx of IDDM, systolic CHF, HTN, HLD, and chronic kidney disease who presented to ED s/p mechanical fall yesterday and found to have.... -I advised patient her fractures will likely heel well with conservative treatment -We discussed the importance of ambulation -PT ordered -Full WB with walker -Pain control -DVT prophylaxis -F/u outpatient
[2019-02-10 09:32] LABS: HEMATOCRIT 36.9 % (32.4-45.2); HEMOGLOBIN 11.6 GM/dl (10.7-15.3); MCH 30.2 pg (25.7-33.7); MCHC 31.4 g/dl (32.0-36.0); MEAN CELL VOLUME 96.1 fl (80-96); MEAN PLT VOLUME 8.9 fl (7.5-11.1); PLATELET COUNT 185 K/MM3 (134-434); RBC 3.84 M/mm3 (3.60-5.2); RDW 16.3 % (11.6-15.6); WHITE BLOOD COUNT 8.6 K/mm3 (4.0-10.8)
[2019-02-10 09:38] LABS: CALCIUM 9.4 mg/dl (8.5-10); POTASSIUM 4.5 mmol/L (3.5-5.1)
[2019-02-10] MEDS ORDERED: LORazepam 0.5 MG TABLET ONE ×2 (10:11→21:07)
[2019-02-10] MEDS: ALLOPURINOL 100 MG TABLET (FP) PO SCH ×2 (10:15→21:24)
[2019-02-10] MEDS: GABAPENTIN 300 MG CAPSULE (FP) PO SCH ×2 (10:15→21:24)
[2019-02-10] MEDS: LORazepam 1 MG TABLET PO SCH ×2 (10:15→21:25)
[2019-02-10] MEDS: PANTOPRAZOLE 20 MG TABLET (FP) PO SCH (10:15)
[2019-02-10] MEDS: TORSEMIDE 20 MG TABLET (FP) PO SCH (10:15)
[2019-02-10] MEDS: metoPROLOL SUCCINATE 25 MG TAB.SR.24H (FP) PO SCH ×2 (10:16→21:24)
[2019-02-10] MEDS: traMADol HCL 50 MG TABLET PO SCH ×2 (10:16→21:23)
[2019-02-10] MEDS: ENOXAPARIN NA (PORCINE) 30 MG/0.3 ML DISP.SYRIN SQ SCH (10:17)
--- NOTE | 2019-02-10 17:13 | EKG ---
Test Reason : Blood Pressure : / mmHG Vent. Rate : 088 BPM Atrial Rate : 088 BPM P-R Int : 222 ms QRS Dur : 136 ms QT Int : 420 ms P-R-T Axes : 101 -12 153 degrees QTc Int : 508 ms SINUS RHYTHM WITH 1ST DEGREE A-V BLOCK WITH FUSION COMPLEXES LEFT BUNDLE BRANCH BLOCK ABNORMAL ECG WHEN COMPARED WITH ECG OF 20-JUL-2018 15:56, FUSION COMPLEXES ARE NOW PRESENT Confirmed by DERRICK CLEMENTE, RAEGAN ([id number]) on 02/10/2019 5:13:37 PM Referred By: DR DAMON Confirmed By:RAEGAN MEZA MD
[2019-02-10] MEDS: MAGNESIUM HYDROX 2400MG/30ML ORAL SUSPENSION 30 ML CUP PO PRN (18:13)
[2019-02-10 18:50] LABS: BASO % 0.6 % (0-2.0); EOS % 3.3 % (0-4.5); HEMATOCRIT 36.2 % (32.4-45.2); HEMOGLOBIN 11.3 GM/dl (10.7-15.3); LYMPH % 15.3 % (8-40); MCH 30.1 pg (25.7-33.7); MCHC 31.2 g/dl (32.0-36.0); MEAN CELL VOLUME 96.4 fl (80-96); MEAN PLT VOLUME 7.8 fl (7.5-11.1); NEUT % 73.8 % (42.8-82.8); PLATELET COUNT 166 K/MM3 (134-434); RBC 3.75 M/mm3 (3.60-5.2); WHITE BLOOD COUNT 8.6 K/mm3 (4.0-10.8)
[2019-02-10] MEDS ORDERED: PT OWN MED DRAWER 7, Y5N ONE (21:08)
[2019-02-10] MEDS: ATORVASTATIN CA 10 MG TABLET (FP) PO SCH (21:24)
[2019-02-10] MEDS: NYSTATIN 100,000 UNIT/GM TOPICAL CREAM 15 GM TUBE TP SCH (21:24)
[2019-02-10] MEDS: rOPINIRole HCL 0.5 MG TABLET PO SCH (21:58)
[2019-02-10] MEDS ORDERED: GLIMEPIRIDE 1 MG TABLET (FP) PO SCH (22:00)
[2019-02-10] MEDS ORDERED: INSULIN (LEVEMIR) 100 UNITS/ML UNITS SQ SCH (22:00)
[2019-02-11] MEDS: INSULIN (LEVEMIR) 100 UNITS/ML UNITS SQ SCH (06:14)
[2019-02-11] MEDS: INSULIN SLIDING SCALE (NOVOLOG) 1 VIAL SQ SCH ×2 (06:14→18:36)
[2019-02-11] MEDS ORDERED: PT OWN MED DRAWER 7, Y5N ONE ×2 (06:46→21:18)
[2019-02-11 07:40] LABS: HEMATOCRIT 34.5 % (32.4-45.2); MCH 30.4 pg (25.7-33.7); MCHC 31.9 g/dl (32.0-36.0); MEAN CELL VOLUME 95.4 fl (80-96); MEAN PLT VOLUME 8.6 fl (7.5-11.1); PLATELET COUNT 167 K/MM3 (134-434); RBC 3.62 M/mm3 (3.60-5.2); RDW 15.8 % (11.6-15.6); WHITE BLOOD COUNT 9.5 K/mm3 (4.0-10.8)
[2019-02-11 07:49] LABS: ALBUMIN 3.1 g/dl (3.4-5.0); BILIRUBIN,TOTAL 0.6 mg/dl (0.2-1); CALCIUM 9.1 mg/dl (8.5-10); CREATININE 1.9 mg/dl (0.55-1.3); MAGNESIUM 2.4 mg/dL (1.8-2.4); POTASSIUM 3.7 mmol/L (3.5-5.1); TOT PROT 6.3 g/dl (6.4-8.2)
[2019-02-11] MEDS ORDERED: LORazepam 0.5 MG TABLET ONE ×2 (10:12→20:53)
[2019-02-11] MEDS: ENOXAPARIN NA (PORCINE) 30 MG/0.3 ML DISP.SYRIN SQ SCH (10:15)
[2019-02-11] MEDS: TORSEMIDE 20 MG TABLET (FP) PO SCH (10:15)
[2019-02-11] MEDS: metoPROLOL SUCCINATE 25 MG TAB.SR.24H (FP) PO SCH ×2 (10:16→21:15)
[2019-02-11] MEDS: traMADol HCL 50 MG TABLET PO SCH (10:16)
[2019-02-11] MEDS: ALLOPURINOL 100 MG TABLET (FP) PO SCH ×2 (10:16→21:15)
[2019-02-11] MEDS: PANTOPRAZOLE 20 MG TABLET (FP) PO SCH (10:16)
[2019-02-11] MEDS: GABAPENTIN 300 MG CAPSULE (FP) PO SCH ×2 (10:17→21:15)
[2019-02-11] MEDS: LORazepam 1 MG TABLET PO SCH ×2 (10:17→21:15)
[2019-02-11] MEDS: NYSTATIN 100,000 UNIT/GM TOPICAL CREAM 15 GM TUBE TP SCH ×2 (13:45→21:31)
--- NOTE | 2019-02-11 16:28 | PN ---
Physical Exam: SUBJECTIVE: Patient seen and examined oob to chair. Complaining of rib pain. Denies SOB, difficulty breathing. Denies history of asthma or COPD, denies smoking history. But does use nebulizer at home on occasion. Prescribed once when she was in the hospital. Does not follow with a flag maker. PCP Dr. Cano at [facility], Director Sports Dr. Rosas. OBJECTIVE: Vital Signs Period Temp Pulse Resp BP Sys/Lopez Pulse Ox Last 24 Hr 97.5 F-98.9 F 80-97 18-19 109-147/48-76 91-98 GENERAL: The patient is awake, alert, and fully oriented, in no acute distress. Morbidly obese. LUNGS: Bibasilar crackles HEART: Regular rate and rhythm, S1, S2 ABDOMEN: Soft, nontender, nondistended LOWER EXTREMITIES: 2+ pulses, warm, well-perfused, no edema. NEUROLOGICAL: Cranial nerves II through XII grossly intact. Normal speech, unsteady gait Laboratory Results - last 24 hr 02/10/19 02/10/19 02/10/19 17:09 18:30 21:20 WBC 8.6 RBC 3.75 Hgb 11.3 Hct 36.2 MCV 96.4 H MCH 30.1 MCHC 31.2 L RDW 16.0 H Plt Count 166 MPV 7.8 Absolute Neuts (auto) 6.3 Neutrophils % 73.8 Lymphocytes % 15.3 Monocytes % 7.0 Eosinophils % 3.3 Basophils % 0.6 Sodium Potassium Chloride Carbon Dioxide Anion Gap BUN Creatinine Est GFR (CKD-EPI)AfAm Est GFR (CKD-EPI)NonAf POC Glucometer 141 135 Random Glucose Calcium Magnesium Total Bilirubin AST ALT Alkaline Phosphatase Total Protein Albumin 02/11/19 02/11/19 02/11/19 06:13 06:53 06:53 WBC 9.5 RBC 3.62 Hgb 11.0 Hct 34.5 MCV 95.4 MCH 30.4 MCHC 31.9 L RDW 15.8 H Plt Count 167 MPV 8.6 Absolute Neuts (auto) Neutrophils % Lymphocytes % Monocytes % Eosinophils % Basophils % Sodium 140 Potassium 3.7 Chloride 101 Carbon Dioxide 30 Anion Gap 9 BUN 54.0 H Creatinine 1.9 H Est GFR (CKD-EPI)AfAm 27.38 Est GFR (CKD-EPI)NonAf 23.62 POC Glucometer 119 Random Glucose 120 H Calcium 9.1 Magnesium 2.4 Total Bilirubin 0.6 AST 25 ALT 16 Alkaline Phosphatase 67 Total Protein 6.3 L Albumin 3.1 L Active Medications Generic Name Dose Route Start Last Admin Trade Name Freq PRN Reason Stop Dose Admin Acetaminophen 650 mg 02/09/19 23:38 Tylenol - PO Q4H PRN MILD PAIN Allopurinol 100 mg 02/10/19 10:00 02/11/19 10:16 Zyloprim - PO 100 mg BID MANUEL Administration Atorvastatin Calcium 10 mg 02/10/19 22:00 02/10/19 21:24 Lipitor - PO 10 mg HS MANUEL Administration Enoxaparin Sodium 30 mg 02/10/19 10:00 02/11/19 10:15 Lovenox - SQ 30 mg DAILY MANUEL Administration Ergocalciferol 50,000 unit 02/20/19 10:00 Drisdol - PO Q21D MANUEL Gabapentin 300 mg 02/10/19 10:00 02/11/19 10:17 Neurontin - PO 300 mg BID MANUEL Administration Glimepiride 1 mg 02/10/19 22:00 02/10/19 21:58 Amaryl - PO 1 mg HS MANUEL Administration Insulin Aspart 1 vial 02/10/19 07:00 02/11/19 06:14 Novolog Vial Sliding Scale - SQ Not Given [facility] Protocol Insulin Detemir 38 units 02/10/19 07:00 02/11/19 06:14 Levemir Vial SQ 38 units DAILY@0700 MANUEL Administration Lorazepam 1 mg 02/10/19 10:00 02/11/19 10:17 Ativan - PO 1 mg BID MANUEL Administration Magnesium Hydroxide 30 ml 02/10/19 17:22 02/10/19 18:13 Milk Of Magnesia - PO 30 ml PRN PRN Administration CONSTIPATION Metoprolol Succinate 25 mg 02/10/19 10:00 02/11/19 10:16 Toprol Xl - PO 25 mg BID MANUEL Administration Nystatin 1 applic 02/10/19 13:15 02/11/19 13:45 Mycostatin Cream - TP 1 applic BID MANUEL Administration Pantoprazole Sodium 20 mg 02/10/19 10:00 02/11/19 10:16 Protonix - PO 20 mg DAILY MANUEL Administration Ropinirole HCl 0.5 mg 02/10/19 22:00 02/10/19 21:58 Requip - PO 0.5 mg HS MANUEL Administration Torsemide 20 mg 02/10/19 10:00 02/11/19 10:15 Demadex - PO 20 mg DAILY MANUEL Administration Tramadol HCl 50 mg 02/10/19 10:00 02/11/19 10:16 Ultram - PO 50 mg BID MANUEL Administration ASSESSMENT/PLAN 83 year-old female with a PMH significant for HTN, HLD, systolic heart failure, Type II IDDM, CKD, colon cancer s/p partial colectomy, gout, OA, anxiety/ depression, and morbid obesity. Admitted for multiple rib fractures s/p fall. Left multiple rib fractures --seen and evaluated by ortho, conservative management; ambulation, PT, full WB with walker --Tylenol PRN, no opioids due to respiratory compromise Systolic heart failure --continue torsemide 20mg daily --repeat cxr in am Hypoxic respiratory failure, acute v. chronic --no previous diagnosis of asthma/COPD, non-smoker --desats to 70s on room air at rest, but recovers to 92% on 2L NC; likely multifactorial: pain from rib fracture, body habitus --duonebs TID --seen previously by pulmonary group in 2017, suspected OSAS --titrate SpO2>94% --pre post in am with physical therapy --pulmonary consult Hypertension --BP stable --continue Toprol XL Hyperlipidemia --continue Lipitor Type II IDDM --Levemir 38U daily --Novolog sliding scale coverage CKD --Cr 1.9 ~ baseline Colon cancer s/p partial colectomy --stable Gout --continue allopurinol Osteoarthritis --continue gabapentin Depression/anxiety --continue lorazepam, DVT prophylaxis: subq heparin TID, oob, ambulation Visit type - Emergency Visit Emergency Visit: Yes ED Registration Date: 02/09/19 Care time: The patient presented to the Emergency Department on the above date and was hospitalized for further evaluation of their emergent condition. - New Patient This patient is new to me today: Yes Date on this admission: 02/11/19 - Critical Care Critical Care patient: No
[2019-02-11] MEDS: HEPARIN NA (PORCINE) 5,000 UNITS/ML 1ML VIAL SQ SCH ×2 (18:37→21:16)
[2019-02-11] MEDS: MAGNESIUM HYDROX 2400MG/30ML ORAL SUSPENSION 30 ML CUP PO PRN (19:08)
[2019-02-11] MEDS ORDERED: ALBUTEROL SO4 2.5/IPRATROPIUM 0.5 INH SOL 3 ML VIAL.NEB. NEB ONE (20:03)
[2019-02-11] MEDS: ATORVASTATIN CA 10 MG TABLET (FP) PO SCH (21:15)
[2019-02-11] MEDS: rOPINIRole HCL 0.5 MG TABLET PO SCH (21:18)
[2019-02-12] MEDS: HEPARIN NA (PORCINE) 5,000 UNITS/ML 1ML VIAL SQ SCH ×3 (06:31→21:26)
[2019-02-12] MEDS: INSULIN (LEVEMIR) 100 UNITS/ML UNITS SQ SCH (06:31)
[2019-02-12] MEDS: INSULIN SLIDING SCALE (NOVOLOG) 1 VIAL SQ SCH ×2 (06:32→16:33)
[2019-02-12] MEDS: NYSTATIN 100,000 UNIT/GM TOPICAL CREAM 15 GM TUBE TP SCH ×3 (07:15→21:27)
--- NOTE | 2019-02-12 07:34 | PN ---
Physical Exam: SUBJECTIVE: Patient seen and examined at bedside. Patient weak, deconditioned, 3 -person transfer. Discussed copious fluid intake, need to fluid restrict. OBJECTIVE: Vital Signs Period Temp Pulse Resp BP Sys/Lopez Pulse Ox Last 24 Hr 97.9 F-98.9 F 81-88 19-20 105-146/53-76 89-98 GENERAL: The patient is awake, alert, and fully oriented, in no acute distress. Morbidly obese. LUNGS: Bibasilar crackles HEART: Regular rate and rhythm, S1, S2 ABDOMEN: Soft, nontender, nondistended LOWER EXTREMITIES: 2+ pulses, warm, well-perfused, no edema. NEUROLOGICAL: Cranial nerves II through XII grossly intact. Normal speech Laboratory Results - last 24 hr 02/11/19 02/11/19 02/11/19 06:53 06:53 18:16 WBC 9.5 RBC 3.62 Hgb 11.0 Hct 34.5 MCV 95.4 MCH 30.4 MCHC 31.9 L RDW 15.8 H Plt Count 167 MPV 8.6 Sodium 140 Potassium 3.7 Chloride 101 Carbon Dioxide 30 Anion Gap 9 BUN 54.0 H Creatinine 1.9 H Est GFR (CKD-EPI)AfAm 27.38 Est GFR (CKD-EPI)NonAf 23.62 POC Glucometer 128 Random Glucose 120 H Calcium 9.1 Magnesium 2.4 Total Bilirubin 0.6 AST 25 ALT 16 Alkaline Phosphatase 67 Total Protein 6.3 L Albumin 3.1 L 02/12/19 06:25 WBC RBC Hgb Hct MCV MCH MCHC RDW Plt Count MPV Sodium Potassium Chloride Carbon Dioxide Anion Gap BUN Creatinine Est GFR (CKD-EPI)AfAm Est GFR (CKD-EPI)NonAf POC Glucometer 119 Random Glucose Calcium Magnesium Total Bilirubin AST ALT Alkaline Phosphatase Total Protein Albumin Active Medications Generic Name Dose Route Start Last Admin Trade Name Freq PRN Reason Stop Dose Admin Acetaminophen 650 mg 02/09/19 23:38 Tylenol - PO Q4H PRN MILD PAIN Albuterol/Ipratropium 1 amp 02/12/19 08:00 Duoneb - NEB RTID MANUEL Allopurinol 100 mg 02/10/19 10:00 02/11/19 21:15 Zyloprim - PO 100 mg BID MANUEL Administration Atorvastatin Calcium 10 mg 02/10/19 22:00 02/11/19 21:15 Lipitor - PO 10 mg HS MANUEL Administration Gabapentin 300 mg 02/10/19 10:00 02/11/19 21:15 Neurontin - PO 300 mg BID MANUEL Administration Heparin Sodium (Porcine) 5,000 unit 02/11/19 18:30 02/12/19 06:31 Heparin - SQ 5,000 unit TID MANUEL Administration Insulin Aspart 1 vial 02/10/19 07:00 02/12/19 06:32 Novolog Vial Sliding Scale - SQ Not Given BIDAC [facility] Protocol Insulin Detemir 38 units 02/10/19 07:00 02/12/19 06:31 Levemir Vial SQ 38 units DAILY@0700 MANUEL Administration Lorazepam 1 mg 02/10/19 10:00 02/11/19 21:15 Ativan - PO 1 mg BID MANUEL Administration Metoprolol Succinate 25 mg 02/10/19 10:00 02/11/19 21:15 Toprol Xl - PO 25 mg BID MANUEL Administration Nystatin 1 applic 02/10/19 13:15 02/12/19 07:15 Mycostatin Cream - TP Not Given BID MANUEL Pantoprazole Sodium 20 mg 02/10/19 10:00 02/11/19 10:16 Protonix - PO 20 mg DAILY MANUEL Administration Ropinirole HCl 0.5 mg 02/10/19 22:00 02/11/19 21:18 Requip - PO 0.5 mg HS MANUEL Administration Torsemide 20 mg 02/10/19 10:00 02/11/19 10:15 Demadex - PO 20 mg DAILY MANUEL Administration ASSESSMENT/PLAN 83 year-old female with a PMH significant for HTN, HLD, systolic heart failure, Type II IDDM, CKD, colon cancer s/p partial colectomy, gout, OA, anxiety/ depression, and morbid obesity. Admitted for multiple rib fractures s/p fall. Left multiple rib fractures --seen and evaluated by ortho, conservative management; ambulation, PT, full WB with walker --Tylenol PRN, no opioids due to respiratory compromise Acute on chronic systolic heart failure --CXR today with congestive changes --BNP 2459 --start Lasix IV 40mg BID --fluid restrict 1L Hypoxic respiratory failure, acute --no previous diagnosis of asthma/COPD, non-smoker --desats to 70s on room air at rest, but recovers to 92% on 2L NC; likely multifactorial: pain from rib fracture +/- hypoventilation syndrome +/- CHF +/- suspected OSAS --titrate SpO2>94% --pulmonary consult Hypertension --BP stable --continue Toprol XL Hyperlipidemia --continue Lipitor Type II IDDM --Levemir 38U daily --Novolog sliding scale coverage CKD --Cr bump 2.1 (1.9 baseline) Colon cancer s/p partial colectomy --stable Gout --continue allopurinol Osteoarthritis --continue gabapentin Depression/anxiety --continue lorazepam, DVT prophylaxis: subq heparin TID, oob, ambulation Visit type - Emergency Visit Emergency Visit: Yes ED Registration Date: 02/09/19 Care time: The patient presented to the Emergency Department on the above date and was hospitalized for further evaluation of their emergent condition. - New Patient This patient is new to me today: No - Critical Care Critical Care patient: No
[2019-02-12] MEDS ORDERED: ALBUTEROL SO4 2.5/IPRATROPIUM 0.5 INH SOL 3 ML VIAL.NEB. NEB SCH (08:00)
[2019-02-12] MEDS ORDERED: FUROSEMIDE 40 MG/4 ML INJECTABLE VIAL IVPUSH ONE (08:18)
[2019-02-12 08:26] LABS: BASO % 0.6 % (0-2.0); EOS % 2.8 % (0-4.5); HEMATOCRIT 35.8 % (32.4-45.2); HEMOGLOBIN 11.4 GM/dl (10.7-15.3); LYMPH % 18.1 % (8-40); MCH 30.6 pg (25.7-33.7); MCHC 31.9 g/dl (32.0-36.0); MEAN CELL VOLUME 95.9 fl (80-96); MEAN PLT VOLUME 8.7 fl (7.5-11.1); MONO % 7.9 % (3.8-10.2); NEUT % 70.6 % (42.8-82.8); PLATELET COUNT 193 K/MM3 (134-434); RBC 3.73 M/mm3 (3.60-5.2); RDW 16.2 % (11.6-15.6); WHITE BLOOD COUNT 10.3 K/mm3 (4.0-10.8)
[2019-02-12 08:59] LABS: ALBUMIN 3.2 g/dl (3.4-5.0); BILIRUBIN,TOTAL 0.7 mg/dl (0.2-1); CALCIUM 9.3 mg/dl (8.5-10); CREATININE 2.1 mg/dl (0.55-1.3); MAGNESIUM 2.6 mg/dL (1.8-2.4); POTASSIUM 3.8 mmol/L (3.5-5.1); TOT PROT 6.5 g/dl (6.4-8.2)
[2019-02-12] MEDS: ALLOPURINOL 100 MG TABLET (FP) PO SCH ×2 (10:33→21:25)
[2019-02-12] MEDS: PANTOPRAZOLE 20 MG TABLET (FP) PO SCH (10:33)
[2019-02-12] MEDS: metoPROLOL SUCCINATE 25 MG TAB.SR.24H (FP) PO SCH ×2 (10:33→21:25)
[2019-02-12] MEDS: GABAPENTIN 300 MG CAPSULE (FP) PO SCH ×2 (10:33→21:25)
[2019-02-12] MEDS: LORazepam 0.5 MG TABLET PO SCH ×2 (10:34→21:25)
--- NOTE | 2019-02-12 11:04 | PN ---
Progress Note (short form) - Note Progress Note: PULMONARY CONSULTATION DICTATED 02/12/19 IMP ACUTE HYPOXIC RESPIRATORY FAILURE LIKELY SECONDARY TO ATELECTASIS SECONDARY TO PAIN DUE TO MULTIPLE RIB FX MULTIPLE NON-DISPLACED LEFT SIDED RIB FX S/P MECHANICAL FALL CHF VIDYA NOT ON CPAP PULMONARY HTN MORBID OBESITY ? OBESITY HYPOVENTILATION SYNDROME CKD DM PLAN INCENTIVE SPIROMETER LASIX INHALED BRONCHODILATORS ANALGESICS O2 ABG BIPAP AT NIGHT IF PT COMPLIES DAILY WT DR MOSLEY Problem List - Problems (1) Acute hypoxemic respiratory failure Code(s): J96.01 - ACUTE RESPIRATORY FAILURE WITH HYPOXIA (2) Fall Code(s): W19.XXXA - UNSPECIFIED FALL, INITIAL ENCOUNTER Qualifiers: Encounter type: initial encounter Qualified Code(s): W19.XXXA - Unspecified fall, initial encounter (3) Multiple rib fractures Code(s): S22.49XA - MULTIPLE FRACTURES OF RIBS, UNSP SIDE, INIT FOR CLOS FX Qualifiers: Encounter type: initial encounter Fracture type: closed Laterality: left Qualified Code(s): S22.42XA - Multiple fractures of ribs, left side, initial encounter for closed fracture (4) CAD (coronary artery disease) Code(s): I25.10 - ATHSCL HEART DISEASE OF [place] CORONARY ARTERY W/O ANG PCTRS (5) CHF (congestive heart failure) Code(s): I50.9 - HEART FAILURE, UNSPECIFIED Qualifiers: Heart failure type: systolic Heart failure chronicity: acute on chronic Qualified Code(s): I50.23 - Acute on chronic systolic (congestive) heart failure (6) CKD (chronic kidney disease) stage 4, GFR 15-29 ml/min Code(s): N18.4 - CHRONIC KIDNEY DISEASE, STAGE 4 (SEVERE) (7) HTN (hypertension) with goal to be determined Code(s): I10 - ESSENTIAL (PRIMARY) HYPERTENSION (8) Hyperlipemia Code(s): E78.5 - HYPERLIPIDEMIA, UNSPECIFIED (9) Hypertension Code(s): I10 - ESSENTIAL (PRIMARY) HYPERTENSION Qualifiers: Hypertension type: essential hypertension Qualified Code(s): I10 - Essential (primary) hypertension (10) Morbid obesity Code(s): E66.01 - MORBID (SEVERE) OBESITY DUE TO EXCESS CALORIES (11) Neuropathy Code(s): G62.9 - POLYNEUROPATHY, UNSPECIFIED (12) Shortness of breath Code(s): R06.02 - SHORTNESS OF BREATH
[2019-02-12] MEDS ORDERED: ALBUTEROL SO4 0.083% IH SOL 2.5 MG/3 ML VIAL.NEB. NEB PRN (11:15)
--- NOTE | 2019-02-12 13:24 | CONS ---
DATE OF CONSULTATION: 02/12/2019 PULMONARY CONSULTATION REFERRING PHYSICIAN: Latricia Adair NP HISTORY: Patient is an 83-year-old white female with past medical history of diabetes mellitus, congestive heart failure, pulmonary hypertension, hypertension, hyperlipidemia, obstructive sleep apnea not on CPAP, chronic kidney disease, nonsmoker. Admitted to [facility] status post fall sustaining multiple rib fractures. Patient states she fell approximately 4 AM at her home. At the time, EMS was called. Initially, the patient refused to go to the hospital but then started complaining of increasing pain. EMS was called again, and the patient came to the ER. In the ER, she underwent a CAT scan of the chest, which revealed multiple, nondisplaced rib fractures on the left ribs 4- 8. Patient was admitted with the above. On admission, she was evaluated by Orthopaedic Surgery. Patient was noted to be hypoxemic with ambulation. She was placed on supplemental O2. Patient is a nonsmoker. There is no history of occupational exposure to chemicals or fumes. She does have a history of exposure to 2nd-hand smoke. She denies any history of COPD or asthma, although she states that she was given an inhaler when she was at the [facility]. She has chronic shortness of breath with exertion, and echocardiogram revealed in the past decreased LV systolic function and mild pulmonary hypertension. As stated before, she has a history of sleep apnea and had a sleep study and had CPAP but has not been compliant with it. She denies any hemoptysis. She states that she is unable to take a deep breath secondary to chest pain. PAST MEDICAL HISTORY: Again includes chronic kidney disease, morbid obesity, obstructive sleep apnea on CPAP, systolic congestive heart failure, pulmonary hypertension. REVIEW OF SYSTEMS: Positive dyspnea on exertion, positive chest pain. No cough , no hemoptysis, no abdominal pain. Mild lower extremity edema. CURRENT MEDICATIONS: Include Tylenol, heparin, Neurontin, Zyloprim, Ativan, DuoNeb, Toprol, Requip, Lipitor, NovoLog, Levemir, Lasix, Mycostatin, Protonix. PHYSICAL EXAMINATION: General: Patient is a morbidly obese female well developed, awake, alert, in no acute distress. Vital Signs: She is currently afebrile. Blood pressure is 127/55, respiratory rate is 18. She is 263 pounds. O2 saturation is 95% on 2 L nasal cannula. HEENT: Normocephalic, atraumatic. Neck: Supple. Heart: Regular S1, S2. Chest: Diminished breath sounds bilaterally with poor inspiratory effort. Abdomen: Soft. Bowel sounds are present. Extremities: No cyanosis or edema. LABORATORIES: BUN 60, creatinine 2.1. BNP is 2459. WBC is 10.3, hemoglobin 11.4, hematocrit 35.8 with a platelet count of 193,000. Chest CT noted earlier. Chest x-ray: Cardiomegaly, rib fractures, atelectasis at the left base. No pneumothorax. IMPRESSION: 1. Acute hypoxemia with respiratory failure likely secondary to atelectasis due to pain. 2. Atelectasis. 3. Multiple, nondisplaced left-sided rib fractures status post mechanical fall. 4. Acute in Chronic Congestive heart failure. 5. Obstructive sleep apnea not on continuous positive airway pressure. 6. Pulmonary hypertension. 7. Morbid obesity, question of obesity hyperventilation syndrome. 8. Chronic kidney disease. 9. Diabetes. PLAN: Incentive spirometer. Lasix. Analgesics. Supplemental O2. Check arterial blood gas. BiPAP at night if the patient complies. Daily weight. Milly RIOS/[id number] MTDD
--- NOTE | 2019-02-12 14:16 | CON.CARD ---
Consult Consult Specialty:: Cardiology Referred by:: Sim Adair Reason for Consultation:: CHF - History of Present Illness Chief Complaint: Fall History of Present Illness: 83F with morbid obesity, chronic systolic CHF, venous insuff, CKD, HTN, HLD, DM , LBBB admitted here after mechanical fall at home resulting in rib fractures. While here, increased O2 requirements and CXR with increased PVC. She denies palps, LOC, chest pain. Was hospitalized at [facility] in October w/ "water in lungs" and then went to rehab. BNP is elevated. - History Source History Provided By: Patient, Medical Record - Past Medical History Cardio/Vascular: Yes: CHF, HTN, Hyperlipdemia Gastrointestinal: Yes: Cancer, GERD, Other (Colon CA operated 7 years ago) Renal/: Yes: Renal Inusuff (creat 2 at baseline for years, stable, non proteinuric) ...: No Psych: Yes: Anxiety, Depression Musculoskeletal: Yes: Chronic low back pain Rheumatology: Yes: Gout Endocrine: Yes: Diabetes Mellitus - Past Surgical History Past Surgical History: Yes: Appendectomy, Colectomy (partial), Hernia Repair - Alcohol/Substance Use Hx Alcohol Use: No History of Substance Use: reports: None - Smoking History Smoking history: Never smoked Have you smoked in the past 12 months: No Aproximately how many cigarettes per day: 0 - Social History ADL: Independent History of Recent Travel: No Home Medications - Allergies Allergies/Adverse Reactions: Allergies Allergy/AdvReac Type Severity Reaction Status Date / Time diltiazem HCl [From Cardizem] Allergy Rash Verified 02/09/19 12:27 - Home Medications Home Medications: Ambulatory Orders Aspirin [Ecotrin] 81 mg PO Q2D 05/17/17 Atorvastatin Ca [Lipitor] 10 mg PO HS 05/17/17 Ergocalciferol [Vitamin D2] 50,000 unit PO MONTHLY 05/17/17 Gabapentin [Neurontin] 300 mg PO BID 05/17/17 Insulin (Levemir) [Levemir Vial] 38 unit SQ DAILY 05/17/17 Omeprazole Magnesium [Prilosec] 20 mg PO DAILY 05/17/17 Tramadol HCl 50 mg PO BID 05/17/17 Allopurinol [Zyloprim -] 100 mg PO BID 07/20/18 Glimepiride [Amaryl -] 1 mg PO HS 07/20/18 LORazepam [Ativan] 1 mg PO BID 07/20/18 Metoprolol Succinate [Toprol Xl] 25 mg PO BID 07/20/18 Ropinirole HCl [Requip] 0.5 mg PO HS 07/20/18 Torsemide 20 mg PO DAILY 07/24/18 Home Medications (free text): Torsemide 20mg daily Family Disease History - Family Disease History Family Disease History: Diabetes: Mother, Heart Disease: Father, Other: Sister ( CVA) Review of Systems - Review of Systems Constitutional: reports: No Symptoms Eyes: reports: No Symptoms HENT: reports: No Symptoms Neck: reports: No Symptoms Cardiovascular: reports: Shortness of Breath (chronic) Respiratory: reports: Exercise Intolerance Gastrointestinal: denies: No Symptoms, Abdominal Pain, Bloating, Constipation, Diarrhea, Dysphagia, Indigestion, Melena, Nausea, Rectal Bleeding, Vomiting, Vomiting Blood, Other Genitourinary: denies: No Symptoms, Burning, Discharge, Dysuria, Flank Pain, Frequency, Hematuria, Incontinence, Lesions, Menses, Pain, Testicular Mass, Testicular Pain, Testicular Swelling, Urgency, Vaginal Bleeding, Other Breasts: denies: No Symptoms Reported, See HPI, Breast Implants, Discharge from Nipple, Lumps, Pain, Skin Changes, Other Musculoskeletal: reports: Muscle Pain, Other (rib cage pain) Integumentary: denies: No Symptoms, Blister, Bruising, Change in Color, Eczema, Erythema, Incision, Lesions, Lump, Pallor, Pruritis, Rash, Wound, Other Neurological: denies: No Symptoms, Change in LOC, Change in Speech, Confusion, Dizziness, Headache, Incoordination, Numbness, Parasthesia, Pre-Existing Deficit , Seizure, Syncope, Tremors, Unsteady Gait, Weakness, Other Endocrine: denies: No Symptoms, Excessive Sweating, Flushing, Increased Hunger, Increased Thirst, Intolerance to Cold, Intolerance to Heat, Unexplained Weight Gain, Unexplained Weight Loss, Other Hematology/Lymphatic: denies: No Symptoms, Easily Bruised, Excessive Bleeding, Swollen Glands, Other - Risk Factors Known Risk Factors: Yes: Diabetes Mellitus, Hypercholesterolemia, Hypertension Vital Signs: Vital Signs Temperature 97.9 F 02/12/19 10:22 Pulse Rate 86 02/12/19 10:22 Respiratory Rate 20 02/12/19 10:22 Blood Pressure 127/64 02/12/19 10:22 O2 Sat by Pulse Oximetry (%) 92 L 02/12/19 10:22 Constitutional: Yes: No Distress, Calm Eyes: Yes: Conjunctiva Clear, EOM Intact HENT: Yes: Normocephalic Respiratory: Yes: Other (rales at right base. No active wheezing. Decreased breath sounds left.) Gastrointestinal: Yes: Soft, Abdomen, Obese JVD: No Carotid Bruit: No Heart Sounds: Yes: S1, S2 (rrr) Edema: Yes Edema: LLE: 1+, RLE: 1+ Peripheral Pulses WNL: Yes Neurological: Yes: Alert, Oriented ...Motor Strength: WNL - Other Data Labs, Other Data: CBC, BMP 02/12/19 07:06 02/12/19 07:06 Troponin, BNP 02/12/19 07:06 B-Natriuretic Peptide 2459.9 H Troponin, BNP 02/12/19 07:06 B-Natriuretic Peptide 2459.9 H nsr 1st degree av blk, chronic lbbb Echo: Other Imaging - Results Chest X-ray: Image Reviewed EKG: Image Reviewed Assessment/Plan DATA: echo 07/2018: Mildly reduced LVEF w/ mild ant. HK, nl RV, mod MAC, Mild MR, Mild TR, RVSP > 30mmHg, mild AR mibi 07/2018: apical thinning, no ischemia, EF 42% IMP: 1. Acute on chronic systolic CHF 2. Morbid obesity 3. VIDYA 4. Possible CAD 5. Chronic LBBB and 1st degree AV block 6. DM w/ CKD 7. HTN REC: 1. Agree w/ IV lasix with daily BMP to monitor renal fx. Daily weight if possible. 2. Supp. O2 and CPAP as per pulmonary. 3. Possible CAD based on chronic LBBB, wall motion abn on echo but previous stress tests without ischemia. Cont ASA 81mg daily, beta hannah, statin ( Atorva 10) 4. LBBB is chronic; caution with up-titration Toprol, would cont current home dose (1st degree AV block). Monitor on tele. 5. As above, daily labs to monitor K+ and GFR while receiving IV Lasix (CKD w/ baseline creat around 1.7) 6. BP currently well controlled, not on TOMAS/ARB due to chronic kidney disease. Will follow. Thank you.
--- NOTE | 2019-02-12 15:07 | ECHO ---
Name: QUINTEN ROWLEY Exam:Adult Echocardiogram Study Date: 02/12/2019 02:23 PM Age: 83 yrs Reason For Study: CHF Height: 60 in Weight: 236 lb BSA: 2.0 m2 MMode/2D Measurements & Calculations IVSd: 1.2 cm Ao root diam: 3.0 cm LVIDd: 3.7 cm LA dimension: 2.1 cm LVIDs: 2.7 cm LVPWd: 0.68 cm EDV(Teich): 56.9 ml LVOT diam: 2.0 cm ESV(Teich): 27.4 ml Doppler Measurements & Calculations MV V2 max: 180.0 cm/sec MV E max allen: 104.1 cm/sec MV max P.0 mmHg MV A max allen: 197.9 cm/sec MV V2 mean: 95.3 cm/sec MV E/A: 0.53 MV mean P.3 mmHg MV V2 VTI: 50.6 cm Ao V2 max: 150.2 cm/sec MV dec slope: 1337 cm/sec2 Ao max P.0 mmHg SCOTTY(V,D): 1.3 cm2 LV V1 max P.7 mmHg TR max allen: 263.1 cm/sec LV V1 max: 65.4 cm/sec TR max P.7 mmHg PA V2 max: 132.2 cm/sec PI end-d allen: 98.1 cm/sec PA max P.0 mmHg Procedure A complete two-dimensional transthoracic echocardiogram was performed (2D, M-mode, Doppler and color flow Doppler). The study was technically limited with all images being suboptimal in quality. Left Ventricle The left ventricle is normal in size. Left ventricular systolic function is mildly reduced. Ejection Fraction = 45%. There is septal wall mild hypokinesis. There is mild anterior wall hypokinesis. There is mild apical wall hypokinesis. Right Ventricle The right ventricle is normal in size and function. Atria Normal left and right atrial size and function. Mitral Valve There is moderate mitral valve thickening. There is mild mitral regurgitation. Tricuspid Valve The tricuspid valve is normal in structure and function. There is Trace to mild tricuspid regurgitati on. Right ventricular systolic pressure is 32 mmhg. Aortic Valve There is mild to moderate aortic valve thickening. Trace aortic regurgitation. Pulmonic Valve The pulmonic valve is not well visualized. Great Vessels The aortic root is normal size. Pericardium/Pleura There is no pericardial effusion. There is no pleural effusion. Interpretation Summary The left ventricle is normal in size. There is septal wall mild hypokinesis. There is mild anterior wall hypokinesis. There is mild apical wall hypokinesis. Left ventricular systolic function is mildly reduced. Ejection Fraction = 45%. The right ventricle is normal in size and function. There is moderate mitral valve thickening. There is mild mitral regurgitation. There is Trace to mild tricuspid regurgitation. Right ventricular systolic pressure is 32 mmhg. There is mild to moderate aortic valve thickening. Trace aortic regurgitation. MD Thien Palacios 02/12/2019 03:06 PM
[2019-02-12] MEDS ORDERED: PT OWN MED DRAWER 7, Y5N ONE ×3 (15:13→22:55)
[2019-02-12] MEDS: FUROSEMIDE 40 MG/4 ML INJECTABLE VIAL IVPUSH SCH (15:17)
[2019-02-12] MEDS: LEVALBUTEROL HCL 0.31 MG/3 ML VIAL.NEB IH SCH ×2 (15:17→21:26)
[2019-02-12] MEDS: ATORVASTATIN CA 10 MG TABLET (FP) PO SCH (21:25)
[2019-02-12] MEDS: rOPINIRole HCL 0.5 MG TABLET PO SCH (21:27)
[2019-02-13] MEDS: HEPARIN NA (PORCINE) 5,000 UNITS/ML 1ML VIAL SQ SCH ×3 (06:25→21:21)
[2019-02-13] MEDS: FUROSEMIDE 40 MG/4 ML INJECTABLE VIAL IVPUSH SCH ×2 (06:25→14:54)
[2019-02-13] MEDS: INSULIN SLIDING SCALE (NOVOLOG) 1 VIAL SQ SCH ×2 (06:27→16:24)
[2019-02-13] MEDS: INSULIN (LEVEMIR) 100 UNITS/ML UNITS SQ SCH (06:27)
[2019-02-13 07:44] LABS: BILIRUBIN,TOTAL 0.6 mg/dl (0.2-1); CALCIUM 9.1 mg/dl (8.5-10); CREATININE 2.2 mg/dl (0.55-1.3); MAGNESIUM 2.7 mg/dL (1.8-2.4); POTASSIUM 3.8 mmol/L (3.5-5.1); TOT PROT 6.4 g/dl (6.4-8.2)
[2019-02-13 07:58] LABS: BASO % 0.5 % (0-2.0); EOS % 3.7 % (0-4.5); HEMATOCRIT 34.5 % (32.4-45.2); LYMPH % 16.8 % (8-40); MCH 30.6 pg (25.7-33.7); MEAN CELL VOLUME 95.7 fl (80-96); MEAN PLT VOLUME 9.1 fl (7.5-11.1); MONO % 8.7 % (3.8-10.2); NEUT % 70.3 % (42.8-82.8); PLATELET COUNT 188 K/MM3 (134-434); RBC 3.61 M/mm3 (3.60-5.2); RDW 15.7 % (11.6-15.6)
[2019-02-13] MEDS ORDERED: PT OWN MED DRAWER 7, Y5N ONE ×3 (08:05→20:58)
[2019-02-13] MEDS: LEVALBUTEROL HCL 0.31 MG/3 ML VIAL.NEB IH SCH ×3 (08:21→21:21)
[2019-02-13] MEDS: ALLOPURINOL 100 MG TABLET (FP) PO SCH ×2 (10:38→21:20)
[2019-02-13] MEDS: ACETAMINOPHEN 325 MG TABLET (FP) PO PRN (10:39)
[2019-02-13] MEDS: GABAPENTIN 300 MG CAPSULE (FP) PO SCH ×2 (10:39→21:20)
[2019-02-13] MEDS: NYSTATIN 100,000 UNIT/GM TOPICAL CREAM 15 GM TUBE TP SCH ×2 (10:39→21:21)
[2019-02-13] MEDS: PANTOPRAZOLE 20 MG TABLET (FP) PO SCH (10:39)
[2019-02-13] MEDS: LORazepam 0.5 MG TABLET PO SCH ×2 (10:39→21:20)
[2019-02-13] MEDS: metoPROLOL SUCCINATE 25 MG TAB.SR.24H (FP) PO SCH ×2 (10:39→21:20)
--- NOTE | 2019-02-13 15:01 | PN ---
Progress Note (short form) - Note Progress Note: PULMONARY AWAKE/ALERT/OOB TO CHAIR SPO2 92% ON NASAL O2 VSS/AFEBRILE ANICTERIC DIMINISHED BIBASILAR BREATH SOUNDS W POOR INSP EFFORT S1S2 BS+ OBESE +LOWER EXT LABS/MEDS/NOTES IMAGES REVIEWED IMP ACUTE HYPOXIC RESPIRATORY FAILURE LIKELY SECONDARY TO ATELECTASIS SECONDARY TO PAIN DUE TO MULTIPLE RIB FX MULTIPLE NON-DISPLACED LEFT SIDED RIB FX S/P MECHANICAL FALL CHF VIDYA NOT ON CPAP PULMONARY HTN MORBID OBESITY ? OBESITY HYPOVENTILATION SYNDROME CKD DM PLAN INCENTIVE SPIROMETER LASIX INHALED BRONCHODILATORS ANALGESICS O2 ABG BIPAP AT NIGHT IF PT COMPLIES DAILY WT Petra ASHFORD MD
--- NOTE | 2019-02-13 16:21 | PN ---
Physical Exam: SUBJECTIVE: Patient seen and examined oob to chair. OBJECTIVE: Vital Signs Period Temp Pulse Resp BP Sys/Lopez Pulse Ox Last 24 Hr 97.4 F-99.0 F 80-86 19-20 105-149/52-63 90-93 GENERAL: The patient is awake, alert, and fully oriented, in no acute distress. Morbidly obese. LUNGS: Bibasilar crackles HEART: Regular rate and rhythm, S1, S2 ABDOMEN: Soft, nontender, nondistended LOWER EXTREMITIES: 2+ pulses, warm, well-perfused, no edema. NEUROLOGICAL: Cranial nerves II through XII grossly intact. Normal speech Laboratory Results - last 24 hr 02/12/19 02/13/19 02/13/19 16:31 06:27 07:20 WBC 9.0 RBC 3.61 Hgb 11.0 Hct 34.5 MCV 95.7 MCH 30.6 MCHC 32.0 RDW 15.7 H Plt Count 188 MPV 9.1 Absolute Neuts (auto) 6.4 Neutrophils % 70.3 Lymphocytes % 16.8 Monocytes % 8.7 Eosinophils % 3.7 Basophils % 0.5 Sodium Potassium Chloride Carbon Dioxide Anion Gap BUN Creatinine Est GFR (CKD-EPI)AfAm Est GFR (CKD-EPI)NonAf POC Glucometer 140 103 Random Glucose Calcium Magnesium Total Bilirubin AST ALT Alkaline Phosphatase Total Protein Albumin 02/13/19 02/13/19 07:20 16:08 WBC RBC Hgb Hct MCV MCH MCHC RDW Plt Count MPV Absolute Neuts (auto) Neutrophils % Lymphocytes % Monocytes % Eosinophils % Basophils % Sodium 138 Potassium 3.8 Chloride 98 Carbon Dioxide 29 Anion Gap 11 BUN 70.0 H Creatinine 2.2 H Est GFR (CKD-EPI)AfAm 22.93 Est GFR (CKD-EPI)NonAf 19.79 POC Glucometer 150 Random Glucose 111 H Calcium 9.1 Magnesium 2.7 H Total Bilirubin 0.6 AST 25 ALT 17 Alkaline Phosphatase 62 Total Protein 6.4 Albumin 3.0 L Active Medications Generic Name Dose Route Start Last Admin Trade Name Freq PRN Reason Stop Dose Admin Acetaminophen 650 mg 02/09/19 23:38 02/13/19 10:39 Tylenol - PO 650 mg Q4H PRN Administration MILD PAIN Albuterol Sulfate 1 amp 02/12/19 11:15 Ventolin 0.083% Nebulizer Soln - NEB Q4H PRN SHORT OF BREATH/WHEEZING Allopurinol 100 mg 02/10/19 10:00 02/13/19 10:38 Zyloprim - PO 100 mg BID MANUEL Administration Atorvastatin Calcium 10 mg 02/10/19 22:00 02/12/19 21:25 Lipitor - PO 10 mg HS MANUEL Administration Furosemide 40 mg 02/12/19 14:00 02/13/19 14:54 Lasix Injection - IVPUSH 40 mg BID@0600,1400 MANUEL Administration Gabapentin 300 mg 02/10/19 10:00 02/13/19 10:39 Neurontin - PO 300 mg BID MANUEL Administration Heparin Sodium (Porcine) 5,000 unit 02/11/19 18:30 02/13/19 14:54 Heparin - SQ 5,000 unit TID MANUEL Administration Insulin Aspart 1 vial 02/10/19 07:00 02/13/19 06:27 Novolog Vial Sliding Scale - SQ Not Given BIDAC [facility] Protocol Insulin Detemir 38 units 02/10/19 07:00 02/13/19 06:27 Levemir Vial SQ 38 units DAILY@0700 MANUEL Administration Levalbuterol HCl 0.31 mg 02/12/19 14:00 02/13/19 14:54 Xopenex IH 0.31 mg RTID MANUEL Administration Lorazepam 1 mg 02/12/19 10:00 02/13/19 10:39 Ativan - PO 1 mg BID MANUEL Administration Metoprolol Succinate 25 mg 02/10/19 10:00 02/13/19 10:39 Toprol Xl - PO 25 mg BID MANUEL Administration Nystatin 1 applic 02/10/19 13:15 02/13/19 10:39 Mycostatin Cream - TP 1 applic BID MANUEL Administration Pantoprazole Sodium 20 mg 02/10/19 10:00 02/13/19 10:39 Protonix - PO 20 mg DAILY MANUEL Administration Ropinirole HCl 0.5 mg 02/10/19 22:00 02/12/19 21:27 Requip - PO 0.5 mg HS MANUEL Administration ASSESSMENT/PLAN 83 year-old female with a PMH significant for HTN, HLD, systolic heart failure, Type II IDDM, CKD, colon cancer s/p partial colectomy, gout, OA, anxiety/ depression, and morbid obesity. Admitted for multiple rib fractures s/p fall. Left multiple rib fractures --seen and evaluated by ortho, conservative management; ambulation, PT, full WB with walker --Tylenol PRN, no opioids due to respiratory compromise Acute on chronic systolic heart failure --CXR today with congestive changes --BNP 2459 --start Lasix IV 40mg BID --fluid restrict 1L Hypoxic respiratory failure, acute --no previous diagnosis of asthma/COPD, non-smoker --desats to 70s on room air at rest, but recovers to 92% on 2L NC; likely multifactorial: pain from rib fracture +/- hypoventilation syndrome +/- CHF +/- suspected OSAS --nebs --titrate SpO2>94% --pulmonary following Hypertension --BP stable --continue Toprol XL Hyperlipidemia --continue Lipitor Type II IDDM --Levemir 38U daily --Novolog sliding scale coverage CKD --Cr trending up 2.2 (1.9 baseline) Colon cancer s/p partial colectomy --stable Gout --continue allopurinol Osteoarthritis --continue gabapentin Depression/anxiety --continue lorazepam DVT prophylaxis: subq heparin, oob, ambulation Dispo: continues to require inpatient care. Full code. Visit type - Emergency Visit Emergency Visit: Yes ED Registration Date: 02/09/19 Care time: The patient presented to the Emergency Department on the above date and was hospitalized for further evaluation of their emergent condition. - New Patient This patient is new to me today: No - Critical Care Critical Care patient: No
--- NOTE | 2019-02-13 17:33 | PN ---
Progress Note (short form) - Note Progress Note: s: no cp dizzy palps; sob still present, le edema better Current Medications Generic Name Dose Route Start Last Admin Trade Name Freq PRN Reason Stop Dose Admin Acetaminophen 650 mg 02/09/19 23:38 02/13/19 10:39 Tylenol - PO 650 mg Q4H PRN Administration MILD PAIN Albuterol Sulfate 1 amp 02/12/19 11:15 Ventolin 0.083% Nebulizer Soln - NEB Q4H PRN SHORT OF BREATH/WHEEZING Allopurinol 100 mg 02/10/19 10:00 02/13/19 10:38 Zyloprim - PO 100 mg BID MANUEL Administration Atorvastatin Calcium 10 mg 02/10/19 22:00 02/12/19 21:25 Lipitor - PO 10 mg HS MANUEL Administration Furosemide 40 mg 02/12/19 14:00 02/13/19 14:54 Lasix Injection - IVPUSH 40 mg BID@0600,1400 MANUEL Administration Gabapentin 300 mg 02/10/19 10:00 02/13/19 10:39 Neurontin - PO 300 mg BID MANUEL Administration Heparin Sodium (Porcine) 5,000 unit 02/11/19 18:30 02/13/19 14:54 Heparin - SQ 5,000 unit TID MANUEL Administration Insulin Aspart 1 vial 02/10/19 07:00 02/13/19 16:24 Novolog Vial Sliding Scale - SQ Not Given BIDAC [facility] Protocol Insulin Detemir 38 units 02/10/19 07:00 02/13/19 06:27 Levemir Vial SQ 38 units DAILY@0700 MANUEL Administration Levalbuterol HCl 0.31 mg 02/12/19 14:00 02/13/19 14:54 Xopenex IH 0.31 mg RTID MANUEL Administration Lorazepam 1 mg 02/12/19 10:00 02/13/19 10:39 Ativan - PO 1 mg BID MANUEL Administration Metoprolol Succinate 25 mg 02/10/19 10:00 02/13/19 10:39 Toprol Xl - PO 25 mg BID MANUEL Administration Nystatin 1 applic 02/10/19 13:15 02/13/19 10:39 Mycostatin Cream - TP 1 applic BID MANUEL Administration Pantoprazole Sodium 20 mg 02/10/19 10:00 02/13/19 10:39 Protonix - PO 20 mg DAILY MANUEL Administration Ropinirole HCl 0.5 mg 02/10/19 22:00 02/12/19 21:27 Requip - PO 0.5 mg HS MANUEL Administration Vital Signs Period Temp Pulse Resp BP Sys/Lopez Pulse Ox Last 24 Hr 97.4 F-99.0 F 80-86 19-20 105-149/52-63 90-93 Constitutional: Yes: No Distress, Calm Eyes: Yes: Conjunctiva Clear Respiratory: Yes: Other (rales at right base. No active wheezing. Decreased breath sounds left.) Gastrointestinal: Yes: Soft, Abdomen, Obese JVD: No Carotid Bruit: No Heart Sounds: Yes: S1, S2 (rrr) Edema: Yes Edema: LLE: 1+, RLE: 1+ Peripheral Pulses WNL: Yes Neurological: Yes: Alert, Oriented no jaundice diaphoresis Laboratory Last Values WBC 9.0 K/mm3 (4.0-10.8) 02/13/19 07:20 RBC 3.61 M/mm3 (3.60-5.2) 02/13/19 07:20 Hgb 11.0 GM/dl (10.7-15.3) 02/13/19 07:20 Hct 34.5 % (32.4-45.2) 02/13/19 07:20 MCV 95.7 fl (80-96) 02/13/19 07:20 MCH 30.6 pg (25.7-33.7) 02/13/19 07:20 MCHC 32.0 g/dl (32.0-36.0) 02/13/19 07:20 RDW 15.7 % (11.6-15.6) H 02/13/19 07:20 Plt Count 188 K/MM3 (134-434) 02/13/19 07:20 MPV 9.1 fl (7.5-11.1) 02/13/19 07:20 Absolute Neuts (auto) 6.4 K/mm3 02/13/19 07:20 Neutrophils % 70.3 % (42.8-82.8) 02/13/19 07:20 Lymphocytes % 16.8 % (8-40) 02/13/19 07:20 Monocytes % 8.7 % (3.8-10.2) 02/13/19 07:20 Eosinophils % 3.7 % (0-4.5) 02/13/19 07:20 Basophils % 0.5 % (0-2.0) 02/13/19 07:20 Sodium 138 mmol/L (136-145) 02/13/19 07:20 Potassium 3.8 mmol/L (3.5-5.1) 02/13/19 07:20 Chloride 98 mmol/L (98-107) 02/13/19 07:20 Carbon Dioxide 29 mmol/L (21-32) 02/13/19 07:20 Anion Gap 11 MMOL/L (8-16) 02/13/19 07:20 BUN 70.0 mg/dl (7-18) H 02/13/19 07:20 Creatinine 2.2 mg/dl (0.55-1.3) H 02/13/19 07:20 Est GFR (CKD-EPI)AfAm 22.93 02/13/19 07:20 Est GFR (CKD-EPI)NonAf 19.79 02/13/19 07:20 POC Glucometer 150 UNITS (80-120) 02/13/19 16:08 Random Glucose 111 mg/dl (74-106) H 02/13/19 07:20 Calcium 9.1 mg/dl (8.5-10) 02/13/19 07:20 Magnesium 2.7 mg/dL (1.8-2.4) H 02/13/19 07:20 Total Bilirubin 0.6 mg/dl (0.2-1) 02/13/19 07:20 AST 25 U/L (15-37) 02/13/19 07:20 ALT 17 U/L (13-61) 02/13/19 07:20 Alkaline Phosphatase 62 U/L (45-117) 02/13/19 07:20 B-Natriuretic Peptide 2459.9 pg/ml (5-450) H 02/12/19 07:06 Total Protein 6.4 g/dl (6.4-8.2) 02/13/19 07:20 Albumin 3.0 g/dl (3.4-5.0) L 02/13/19 07:20 Urine Color Yellow 02/09/19 21:20 Urine Appearance Clear 02/09/19 21:20 Urine pH 5.0 (4.5-8) 02/09/19 21:20 Urine Protein Trace (NEGATIVE) 02/09/19 21:20 Urine Glucose (UA) Negative (NEGATIVE) 02/09/19 21:20 Urine Ketones Negative (NEGATIVE) 02/09/19 21:20 Urine Blood Negative (NEGATIVE) 02/09/19 21:20 Urine Nitrite Negative (NEGATIVE) 02/09/19 21:20 Urine Bilirubin Negative (NEGATIVE) 02/09/19 21:20 Urine Urobilinogen 0.2 (0.2-1.0) 02/09/19 21:20 Ur Leukocyte Esterase Negative (NEGATIVE) 02/09/19 21:20 nsr 1st degree av blk, chronic lbbb Imaging - Results Chest X-ray: Image Reviewed EKG: Image Reviewed Assessment/Plan DATA: echo 07/2018: Mildly reduced LVEF w/ mild ant. HK, nl RV, mod MAC, Mild MR, Mild TR, RVSP > 30mmHg, mild AR mibi 07/2018: apical thinning, no ischemia, EF 42% IMP: 1. Acute on chronic systolic CHF 2. Morbid obesity 3. IVDYA 4. Possible CAD 5. Chronic LBBB and 1st degree AV block 6. DM w/ CKD 7. HTN REC: 1. Agree w/ IV lasix with daily BMP to monitor renal fx. Daily weight if possible. LE edema improving. 2. Supp. O2 as per pulmonary. 3. Possible CAD based on chronic LBBB, wall motion abn on echo but previous stress tests without ischemia. Cont ASA 81mg daily, beta hannah, statin ( Atorva 10) 4. LBBB is chronic 5. As above, daily labs to monitor K+ and GFR while receiving IV Lasix (CKD w/ baseline creat around 1.7) 6. BP currently well controlled, not on TOMAS/ARB due to chronic kidney disease. 7.repeat echo here stable from prior
[2019-02-13] MEDS: ATORVASTATIN CA 10 MG TABLET (FP) PO SCH (21:20)
[2019-02-13] MEDS: rOPINIRole HCL 0.5 MG TABLET PO SCH (21:21)
[2019-02-14] MEDS ORDERED: REFRIGERATED ANITBIOTICS ONE (06:20)
[2019-02-14] MEDS: HEPARIN NA (PORCINE) 5,000 UNITS/ML 1ML VIAL SQ SCH ×3 (06:40→22:36)
[2019-02-14] MEDS: FUROSEMIDE 40 MG/4 ML INJECTABLE VIAL IVPUSH SCH ×2 (06:40→14:00)
[2019-02-14] MEDS: INSULIN (LEVEMIR) 100 UNITS/ML UNITS SQ SCH (06:40)
[2019-02-14] MEDS: INSULIN SLIDING SCALE (NOVOLOG) 1 VIAL SQ SCH ×2 (06:41→17:17)
[2019-02-14] MEDS: LEVALBUTEROL HCL 0.31 MG/3 ML VIAL.NEB IH SCH ×3 (08:00→21:35)
[2019-02-14] MEDS ORDERED: PT OWN MED DRAWER 7, Y5N ONE ×2 (08:15→14:04)
[2019-02-14 08:25] LABS: BASO % 0.7 % (0-2.0); EOS % 4.1 % (0-4.5); HEMATOCRIT 32.7 % (32.4-45.2); HEMOGLOBIN 10.6 GM/dl (10.7-15.3); LYMPH % 17.3 % (8-40); MCH 30.8 pg (25.7-33.7); MCHC 32.4 g/dl (32.0-36.0); MEAN PLT VOLUME 9.3 fl (7.5-11.1); MONO % 9.6 % (3.8-10.2); NEUT % 68.3 % (42.8-82.8); PLATELET COUNT 179 K/MM3 (134-434); RBC 3.44 M/mm3 (3.60-5.2); RDW 15.3 % (11.6-15.6); WHITE BLOOD COUNT 8.5 K/mm3 (4.0-10.8)
[2019-02-14 08:58] LABS: BILIRUBIN,TOTAL 0.8 mg/dl (0.2-1); CALCIUM 9.2 mg/dl (8.5-10); CREATININE 2.4 mg/dl (0.55-1.3); MAGNESIUM 2.6 mg/dL (1.8-2.4); POTASSIUM 3.5 mmol/L (3.5-5.1); TOT PROT 6.4 g/dl (6.4-8.2)
[2019-02-14] MEDS: NYSTATIN 100,000 UNIT/GM TOPICAL CREAM 15 GM TUBE TP SCH ×2 (10:00→22:42)
[2019-02-14] MEDS: PANTOPRAZOLE 20 MG TABLET (FP) PO SCH (10:01)
[2019-02-14] MEDS: metoPROLOL SUCCINATE 25 MG TAB.SR.24H (FP) PO SCH ×2 (10:01→22:38)
[2019-02-14] MEDS: GABAPENTIN 300 MG CAPSULE (FP) PO SCH ×2 (10:01→22:38)
[2019-02-14] MEDS: ALLOPURINOL 100 MG TABLET (FP) PO SCH ×2 (10:01→22:38)
[2019-02-14] MEDS: LORazepam 0.5 MG TABLET PO SCH ×2 (10:02→22:37)
--- NOTE | 2019-02-14 10:35 | PN ---
Progress Note, Physician History of Present Illness: pulmonary alert,still c/o sob at rest ,no taking deep breaths or using incentive spirometer as directed - Current Medication List Current Medications: Active Medications Acetaminophen (Tylenol -) 650 mg PO Q4H PRN PRN Reason: MILD PAIN Last Admin: 02/13/19 10:39 Dose: 650 mg Albuterol Sulfate (Ventolin 0.083% Nebulizer Soln -) 1 amp NEB Q4H PRN PRN Reason: SHORT OF BREATH/WHEEZING Allopurinol (Zyloprim -) 100 mg PO BID [facility] Last Admin: 02/14/19 10:01 Dose: 100 mg Atorvastatin Calcium (Lipitor -) 10 mg PO HS [facility] Last Admin: 02/13/19 21:20 Dose: 10 mg Furosemide (Lasix Injection -) 40 mg IVPUSH BID@0600,1400 [facility] Last Admin: 02/14/19 06:40 Dose: 40 mg Gabapentin (Neurontin -) 300 mg PO BID [facility] Last Admin: 02/14/19 10:01 Dose: 300 mg Heparin Sodium (Porcine) (Heparin -) 5,000 unit SQ TID [facility] Last Admin: 02/14/19 06:40 Dose: 5,000 unit Insulin Aspart (Novolog Vial Sliding Scale -) 1 vial SQ BIDAC [facility]; Protocol Last Admin: 02/14/19 06:41 Dose: Not Given Insulin Detemir (Levemir Vial) 38 units SQ DAILY@0700 [facility] Last Admin: 02/14/19 06:40 Dose: 38 units Levalbuterol HCl (Xopenex) 0.31 mg IH RTID [facility] Last Admin: 02/14/19 08:00 Dose: 0.31 mg Lorazepam (Ativan -) 1 mg PO BID [facility] Last Admin: 02/14/19 10:02 Dose: 1 mg Metoprolol Succinate (Toprol Xl -) 25 mg PO BID [facility] Last Admin: 02/14/19 10:01 Dose: 25 mg Nystatin (Mycostatin Cream -) 1 applic TP BID [facility] Last Admin: 02/14/19 10:00 Dose: 1 applic Pantoprazole Sodium (Protonix -) 20 mg PO DAILY [facility] Last Admin: 02/14/19 10:01 Dose: 20 mg Ropinirole HCl (Requip -) 0.5 mg PO HS [facility] Last Admin: 09/11/19 21:21 Dose: 0.5 mg - Objective Vital Signs: Vital Signs Temperature 98.0 F 02/14/19 10:00 Pulse Rate 78 02/14/19 10:00 Respiratory Rate 20 02/14/19 10:00 Blood Pressure 120/60 02/14/19 10:00 O2 Sat by Pulse Oximetry (%) 98 02/14/19 09:00 Constitutional: Yes: Calm, Obese Eyes: Yes: WNL HENT: Yes: WNL Neck: Yes: WNL Cardiovascular: Yes: Regular Rate and Rhythm, S1, S2 Respiratory: Yes: Diminished, Other (poor inspiratory effort) Gastrointestinal: Yes: Normal Bowel Sounds, Soft Extremities: Yes: WNL Edema: Yes Edema: LLE: Trace, RLE: Trace Labs: CBC, BMP 02/14/19 07:09 02/14/19 07:09 Problem List - Problems (1) Acute hypoxemic respiratory failure Code(s): J96.01 - ACUTE RESPIRATORY FAILURE WITH HYPOXIA (2) Fall Code(s): W19.XXXA - UNSPECIFIED FALL, INITIAL ENCOUNTER Qualifiers: Encounter type: initial encounter Qualified Code(s): W19.XXXA - Unspecified fall, initial encounter (3) Multiple rib fractures Code(s): S22.49XA - MULTIPLE FRACTURES OF RIBS, UNSP SIDE, INIT FOR CLOS FX Qualifiers: Encounter type: initial encounter Fracture type: closed Laterality: left Qualified Code(s): S22.42XA - Multiple fractures of ribs, left side, initial encounter for closed fracture (4) CAD (coronary artery disease) Code(s): I25.10 - ATHSCL HEART DISEASE OF [place] CORONARY ARTERY W/O ANG PCTRS (5) CHF (congestive heart failure) Code(s): I50.9 - HEART FAILURE, UNSPECIFIED Qualifiers: Heart failure type: systolic Heart failure chronicity: acute on chronic Qualified Code(s): I50.23 - Acute on chronic systolic (congestive) heart failure (6) CKD (chronic kidney disease) stage 4, GFR 15-29 ml/min Code(s): N18.4 - CHRONIC KIDNEY DISEASE, STAGE 4 (SEVERE) (7) HTN (hypertension) with goal to be determined Code(s): I10 - ESSENTIAL (PRIMARY) HYPERTENSION (8) Hyperlipemia Code(s): E78.5 - HYPERLIPIDEMIA, UNSPECIFIED (9) Hypertension Code(s): I10 - ESSENTIAL (PRIMARY) HYPERTENSION Qualifiers: Hypertension type: essential hypertension Qualified Code(s): I10 - Essential (primary) hypertension (10) Morbid obesity Code(s): E66.01 - MORBID (SEVERE) OBESITY DUE TO EXCESS CALORIES (11) Neuropathy Code(s): G62.9 - POLYNEUROPATHY, UNSPECIFIED (12) Shortness of breath Code(s): R06.02 - SHORTNESS OF BREATH Assessment/Plan IMP ACUTE HYPOXIC RESPIRATORY FAILURE LIKELY SECONDARY TO ATELECTASIS SECONDARY TO PAIN DUE TO MULTIPLE RIB FX MULTIPLE NON-DISPLACED LEFT SIDED RIB FX S/P MECHANICAL FALL ACUTE ON CHRONIC CHF VIDYA NOT ON CPAP PULMONARY HTN MORBID OBESITY ? OBESITY HYPOVENTILATION SYNDROME CKD DM PLAN INCENTIVE SPIROMETER IV LASIX INHALED BRONCHODILATORS ANALGESICS O2 ABG PENDING BIPAP AT NIGHT IF PT COMPLIES DAILY WT DR MOSLEY Problem List - Problems (1) Acute hypoxemic respiratory failure Code(s): J96.01 - ACUTE RESPIRATORY FAILURE WITH HYPOXIA (2) Fall Code(s): W19.XXXA - UNSPECIFIED FALL, INITIAL ENCOUNTER Qualifiers: Encounter type: initial encounter Qualified Code(s): W19.XXXA - Unspecified fall, initial encounter (3) Multiple rib fractures Code(s): S22.49XA - MULTIPLE FRACTURES OF RIBS, UNSP SIDE, INIT FOR CLOS FX Qualifiers: Encounter type: initial encounter Fracture type: closed Laterality: left Qualified Code(s): S22.42XA - Multiple fractures of ribs, left side, initial encounter for closed fracture (4) CAD (coronary artery disease) Code(s): I25.10 - ATHSCL HEART DISEASE OF [place] CORONARY ARTERY W/O ANG PCTRS (5) CHF (congestive heart failure) Code(s): I50.9 - HEART FAILURE, UNSPECIFIED Qualifiers: Heart failure type: systolic Heart failure chronicity: acute on chronic Qualified Code(s): I50.23 - Acute on chronic systolic (congestive) heart failure (6) CKD (chronic kidney disease) stage 4, GFR 15-29 ml/min Code(s): N18.4 - CHRONIC KIDNEY DISEASE, STAGE 4 (SEVERE) (7) HTN (hypertension) with goal to be determined Code(s): I10 - ESSENTIAL (PRIMARY) HYPERTENSION (8) Hyperlipemia Code(s): E78.5 - HYPERLIPIDEMIA, UNSPECIFIED (9) Hypertension Code(s): I10 - ESSENTIAL (PRIMARY) HYPERTENSION Qualifiers: Hypertension type: essential hypertension Qualified Code(s): I10 - Essential (primary) hypertension (10) Morbid obesity Code(s): E66.01 - MORBID (SEVERE) OBESITY DUE TO EXCESS CALORIES (11) Neuropathy Code(s): G62.9 - POLYNEUROPATHY, UNSPECIFIED (12) Shortness of breath Code(s): R06.02 - SHORTNESS OF BREATH
--- NOTE | 2019-02-14 14:06 | PN ---
Physical Exam: SUBJECTIVE: Patient seen and examined at bedside. Pre-post testing repeated today: * SpO2 85% on room air at rest; requires 2L NC to recover to 94% * SpO2 80% on room air with flat surface ambulation; requires 4L to recover to 93% OBJECTIVE: Vital Signs Period Temp Pulse Resp BP Sys/Lopez Pulse Ox Last 24 Hr 97.6 F-98.5 F 78-85 18-20 111-130/49-60 92-98 GENERAL: The patient is awake, alert, and fully oriented, in no acute distress. Morbidly obese. LUNGS: Bibasilar crackles HEART: Regular rate and rhythm, S1, S2 ABDOMEN: Soft, nontender, nondistended LOWER EXTREMITIES: 2+ pulses, warm, well-perfused, no edema. NEUROLOGICAL: Cranial nerves II through XII grossly intact. Normal speech Laboratory Results - last 24 hr 02/13/19 02/14/19 02/14/19 16:08 06:14 07:09 WBC 8.5 RBC 3.44 L Hgb 10.6 L Hct 32.7 MCV 95.0 MCH 30.8 MCHC 32.4 RDW 15.3 Plt Count 179 MPV 9.3 Absolute Neuts (auto) 5.8 Neutrophils % 68.3 Lymphocytes % 17.3 Monocytes % 9.6 Eosinophils % 4.1 Basophils % 0.7 Sodium Potassium Chloride Carbon Dioxide Anion Gap BUN Creatinine Est GFR (CKD-EPI)AfAm Est GFR (CKD-EPI)NonAf POC Glucometer 150 132 Random Glucose Calcium Magnesium Total Bilirubin AST ALT Alkaline Phosphatase Total Protein Albumin 02/14/19 02/14/19 07:09 11:44 WBC RBC Hgb Hct MCV MCH MCHC RDW Plt Count MPV Absolute Neuts (auto) Neutrophils % Lymphocytes % Monocytes % Eosinophils % Basophils % Sodium 137 Potassium 3.5 Chloride 97 L Carbon Dioxide 29 Anion Gap 11 BUN 77.0 H Creatinine 2.4 H Est GFR (CKD-EPI)AfAm 20.64 Est GFR (CKD-EPI)NonAf 17.81 POC Glucometer 176 Random Glucose 126 H Calcium 9.2 Magnesium 2.6 H Total Bilirubin 0.8 AST 23 ALT 18 Alkaline Phosphatase 65 Total Protein 6.4 Albumin 3.0 L Active Medications Generic Name Dose Route Start Last Admin Trade Name Freq PRN Reason Stop Dose Admin Acetaminophen 650 mg 02/09/19 23:38 02/13/19 10:39 Tylenol - PO 650 mg Q4H PRN Administration MILD PAIN Albuterol Sulfate 1 amp 02/12/19 11:15 Ventolin 0.083% Nebulizer Soln - NEB Q4H PRN SHORT OF BREATH/WHEEZING Allopurinol 100 mg 02/10/19 10:00 02/14/19 10:01 Zyloprim - PO 100 mg BID [facility] Administration Atorvastatin Calcium 10 mg 02/10/19 22:00 02/13/19 21:20 Lipitor - PO 10 mg HS [facility] Administration Furosemide 40 mg 02/12/19 14:00 02/14/19 06:40 Lasix Injection - IVPUSH 40 mg BID@0600,1400 [facility] Administration Gabapentin 300 mg 02/10/19 10:00 02/14/19 10:01 Neurontin - PO 300 mg BID [facility] Administration Heparin Sodium (Porcine) 5,000 unit 02/11/19 18:30 02/14/19 06:40 Heparin - SQ 5,000 unit TID [facility] Administration Insulin Aspart 1 vial 02/10/19 07:00 02/14/19 06:41 Novolog Vial Sliding Scale - SQ Not Given BIDAC [facility] Protocol Insulin Detemir 38 units 02/10/19 07:00 02/14/19 06:40 Levemir Vial SQ 38 units DAILY@0700 [facility] Administration Levalbuterol HCl 0.31 mg 02/12/19 14:00 02/14/19 08:00 Xopenex IH 0.31 mg RTID [facility] Administration Lorazepam 1 mg 02/12/19 10:00 02/14/19 10:02 Ativan - PO 1 mg BID [facility] Administration Metoprolol Succinate 25 mg 02/10/19 10:00 02/14/19 10:01 Toprol Xl - PO 25 mg BID [facility] Administration Nystatin 1 applic 02/10/19 13:15 02/14/19 10:00 Mycostatin Cream - TP 1 applic BID [facility] Administration Pantoprazole Sodium 20 mg 02/10/19 10:00 02/14/19 10:01 Protonix - PO 20 mg DAILY [facility] Administration Ropinirole HCl 0.5 mg 02/10/19 22:00 02/13/19 21:21 Requip - PO 0.5 mg HS [facility] Administration ASSESSMENT/PLAN 83 year-old female with a PMH significant for HTN, HLD, systolic heart failure, Type II IDDM, CKD, colon cancer s/p partial colectomy, gout, OA, anxiety/ depression, and morbid obesity. Admitted for multiple rib fractures s/p fall. Left multiple rib fractures --seen and evaluated by ortho, conservative management; ambulation, PT, full WB with walker --Tylenol PRN, no opioids due to respiratory compromise Acute on chronic systolic heart failure --aggressive diuresis has not improved respiratory status, lower extremity edema mildly improved, and Cr rising --Dr. Holman will see this evening, considering milrinone inotropy --continue to fluid restrict (drinks copious fluids if allowed to) Hypoxic respiratory failure, acute --no previous diagnosis of asthma/COPD, non-smoker --likely multifactorial: pain from rib fracture +/- hypoventilation syndrome +/- CHF +/-suspected OSAS --titrate SpO2>94% --pulmonary following Hypertension --BP stable --continue Toprol XL Hyperlipidemia --continue Lipitor Type II IDDM --Levemir 38U daily --Novolog sliding scale coverage CKD --Cr continues to trend up 2.4 (1.9 baseline) Colon cancer s/p partial colectomy --stable Gout --continue allopurinol Osteoarthritis --continue gabapentin Depression/anxiety --continue lorazepam Physical therapy DVT prophylaxis: subq heparin , oob, ambulation Dispo: continues to require inpatient care. Full code. Transferring to [facility]. Visit type - Emergency Visit Emergency Visit: Yes ED Registration Date: 02/09/19 Care time: The patient presented to the Emergency Department on the above date and was hospitalized for further evaluation of their emergent condition. - New Patient This patient is new to me today: No - Critical Care Critical Care patient: No
[2019-02-14 17:47] LABS: ARTERIAL BLD GAS O2 SATURATION 93.1 % (95-98); ARTERIAL BLOOD GAS BASE EXCESS 2.8 meq/l (-2-2); ARTERIAL BLOOD GAS PCO2 46.3 mmHg (35-45); ARTERIAL BLOOD GAS PO2 67.8 mmHg (80-100); ARTERIAL BLOOD GAS pH 7.39 (7.35-7.45)
[2019-02-14 17:52] LABS: ALLENS TEST POSITIVE
[2019-02-14] MEDS: ACETAMINOPHEN 325 MG TABLET (FP) PO PRN (20:39)
[2019-02-14] MEDS: ATORVASTATIN CA 10 MG TABLET (FP) PO SCH (22:38)
[2019-02-14] MEDS: rOPINIRole HCL 0.5 MG TABLET PO SCH (22:42)
[2019-02-15] MEDS: HEPARIN NA (PORCINE) 5,000 UNITS/ML 1ML VIAL SQ SCH ×3 (06:01→22:07)
[2019-02-15] MEDS: FUROSEMIDE 40 MG/4 ML INJECTABLE VIAL IVPUSH SCH ×3 (06:02→15:24)
[2019-02-15] MEDS: INSULIN (LEVEMIR) 100 UNITS/ML UNITS SQ SCH (06:34)
[2019-02-15] MEDS: INSULIN SLIDING SCALE (NOVOLOG) 1 VIAL SQ SCH ×2 (06:56→18:08)
[2019-02-15] MEDS: LEVALBUTEROL HCL 0.31 MG/3 ML VIAL.NEB IH SCH ×3 (07:40→20:35)
--- NOTE | 2019-02-15 07:55 | PN ---
Progress Note, Physician History of Present Illness: 83 yo F h/o IDDM, systolic CHF, HTN, HLD, and chronic kidney disease, arrived to ED for left shoulder pain post fall. Patient fell at 4 am yesterday unable to get back up called EMS who assisted but at the time refuse to go hospital. while resting noted with increase pain daughter called EMS and arrived for further Evaluation. Patient complain of pain 7/10 unable to ambulate, left back pain radiating to left chest under breast area with sob at time. Patient denies hitting her head or losing consciousness. Patient denies CP, dizziness, headache, no acute N/V. Pt transferred from [place] for further management - Current Medication List Current Medications: Active Medications Acetaminophen (Tylenol -) 650 mg PO Q4H PRN PRN Reason: MILD PAIN Last Admin: 02/14/19 20:39 Dose: 650 mg Albuterol Sulfate (Ventolin 0.083% Nebulizer Soln -) 1 amp NEB Q4H PRN PRN Reason: SHORT OF BREATH/WHEEZING Allopurinol (Zyloprim -) 100 mg PO BID [facility] Last Admin: 02/14/19 22:38 Dose: 100 mg Atorvastatin Calcium (Lipitor -) 10 mg PO HS [facility] Last Admin: 02/14/19 22:38 Dose: 10 mg Furosemide (Lasix Injection -) 40 mg IVPUSH BID@0600,1400 [facility] Last Admin: 02/14/19 14:00 Dose: 40 mg Gabapentin (Neurontin -) 300 mg PO BID [facility] Last Admin: 02/14/19 22:38 Dose: 300 mg Heparin Sodium (Porcine) (Heparin -) 5,000 unit SQ TID [facility] Last Admin: 02/15/19 06:01 Dose: 5,000 unit Insulin Aspart (Novolog Vial Sliding Scale -) 1 vial SQ BIDAC [facility]; Protocol Last Admin: 02/15/19 06:56 Dose: Not Given Insulin Detemir (Levemir Vial) 38 units SQ DAILY@0700 [facility] Last Admin: 02/15/19 06:34 Dose: 38 units Levalbuterol HCl (Xopenex) 0.31 mg IH RTID [facility] Last Admin: 02/14/19 21:35 Dose: 0.31 mg Lorazepam (Ativan -) 1 mg PO BID [facility] Last Admin: 02/14/19 22:37 Dose: 1 mg Metoprolol Succinate (Toprol Xl -) 25 mg PO BID [facility] Last Admin: 02/14/19 22:38 Dose: 25 mg Nystatin (Mycostatin Cream -) 1 applic TP BID [facility] Last Admin: 02/14/19 22:42 Dose: 1 applic Pantoprazole Sodium (Protonix -) 20 mg PO DAILY [facility] Last Admin: 02/14/19 10:01 Dose: 20 mg Ropinirole HCl (Requip -) 0.5 mg PO HS [facility] Last Admin: 02/14/19 22:42 Dose: 0.5 mg - Objective Vital Signs: Vital Signs Temperature 97.7 F 02/15/19 06:00 Pulse Rate 75 02/15/19 06:00 Respiratory Rate 22 H 02/15/19 06:00 Blood Pressure 138/88 02/15/19 06:00 O2 Sat by Pulse Oximetry (%) 91 L 02/14/19 21:00 Constitutional: Yes: Anxious, Obese Eyes: Yes: WNL, Conjunctiva Clear, EOM Intact HENT: Yes: WNL, Atraumatic, Normocephalic Neck: Yes: WNL, Supple, Trachea Midline Cardiovascular: Yes: WNL, Regular Rate and Rhythm Respiratory: Yes: WNL, On Nasal O2, Rales Gastrointestinal: Yes: WNL, Normal Bowel Sounds, Abdomen, Obese ...Rectal Exam: Yes: Deferred Genitourinary: Yes: WNL Breast(s): Yes: WNL Musculoskeletal: Yes: WNL Extremities: Yes: WNL Edema: Yes Edema: LUE: 2+, RUE: 2+, LLE: 2+, RLE: 2+ Peripheral Pulses WNL: Yes Peripheral Pulses: Left Radial: 2+, Right Radial: 2+, Left Doralis Pedis: 2+, Right Dorsalis Pedis: 2+, Left Femoral: 2+, Right Femoral: 2+ Integumentary: Yes: Bruising (to UE BL) Neurological: Yes: WNL, Alert, Oriented ...Motor Strength: WNL Psychiatric: Yes: WNL, Alert, Oriented Labs: CBC, BMP 02/14/19 07:09 02/14/19 07:09 - ....Imaging Chest X-ray: Report Reviewed (retrocardiac atelectasis vs infiltrate with fluid and weak inspiration), Image Reviewed Problem List - Problems (1) [id number] kidney injury Assessment/Plan: monitor daily renal fx avoid nephrotoxic agents hold TOMAS/ARB daily weights renal consultation requested-seen by Dr Burks in the past Code(s): N17.9 - ACUTE KIDNEY FAILURE, UNSPECIFIED; N18.9 - CHRONIC KIDNEY DISEASE, UNSPECIFIED (2) Acute hypoxemic respiratory failure Assessment/Plan: supplemental O2 maintain PO2 >92% c/w duo nebs c/w lasix BiPap prn if patient agreeable (resistant in past) appreciate pulmonary consultation Code(s): J96.01 - ACUTE RESPIRATORY FAILURE WITH HYPOXIA (3) CAD (coronary artery disease) Assessment/Plan: Possible CAD based on chronic LBBB, wall motion abn on echo but previous stress tests without ischemia. c/w ASA 81mg daily, beta hannah, statin appreciate cardiology consultation Code(s): I25.10 - ATHSCL HEART DISEASE OF [place] CORONARY ARTERY W/O ANG PCTRS (4) CHF (congestive heart failure) Assessment/Plan: c/w IV lasix BID daily weights monitor Cr possible addition of milrinone if does not improve (Echo was reviewed by Dr. Holman and EF closer to 35%) Code(s): I50.9 - HEART FAILURE, UNSPECIFIED Qualifiers: Heart failure type: systolic Heart failure chronicity: acute on chronic Qualified Code(s): I50.23 - Acute on chronic systolic (congestive) heart failure (5) Diabetes Assessment/Plan: [facility] AC/HS novolog ss diabetic diet Code(s): E11.9 - TYPE 2 DIABETES MELLITUS WITHOUT COMPLICATIONS Qualifiers: Diabetes mellitus type: type 2 Diabetes mellitus [facility] insulin use: with [facility] use Diabetes mellitus complication status: with kidney complications Diabetes mellitus complication detail: with chronic kidney disease Chronic kidney disease stage: stage 4 (severe) Qualified Code(s): E11.22 - Type 2 diabetes mellitus with diabetic chronic kidney disease; N18.4 - Chronic kidney disease, stage 4 (severe); Z79.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 (6) Hyperlipemia Assessment/Plan: c/w statin Code(s): E78.5 - HYPERLIPIDEMIA, UNSPECIFIED (7) Hypertension Assessment/Plan: normotensive avoid TOMAS/ARB with elevated Cr Code(s): I10 - ESSENTIAL (PRIMARY) HYPERTENSION Qualifiers: Hypertension type: essential hypertension Qualified Code(s): I10 - Essential (primary) hypertension (8) Morbid obesity with BMI of 50.0-59.9, adult Assessment/Plan: cardiac diet counseled on weight loss PT following Code(s): E66.01 - MORBID (SEVERE) OBESITY DUE TO EXCESS CALORIES; Z68.43 - BODY MASS INDEX (BMI) 50-59.9, ADULT (9) Prophylactic measure Assessment/Plan: FEN cardiac diet monitor electrolytes/Cr no IVF DVT sq heparin Dispo maintain on tele full code discharge planning Code(s): Z29.9 - ENCOUNTER FOR PROPHYLACTIC MEASURES, UNSPECIFIED (10) Fall Assessment/Plan: seen and evaluated by ortho, conservative management PT, full WB with walker Tylenol PRN, no opioids due to respiratory compromise fall precautions Code(s): W19.XXXA - UNSPECIFIED FALL, INITIAL ENCOUNTER Qualifiers: Encounter type: initial encounter Qualified Code(s): W19.XXXA - Unspecified fall, initial encounter Visit type - Emergency Visit Emergency Visit: Yes ED Registration Date: 02/09/19 Care time: The patient presented to the Emergency Department on the above date and was hospitalized for further evaluation of their emergent condition. - New Patient This patient is new to me today: Yes Date on this admission: 02/15/19 - Critical Care Critical Care patient: No - Discharge Referral Referred to [facility] No
[2019-02-15 09:30] LABS: BILIRUBIN,TOTAL 0.7 mg/dL (0.2-1); BLOOD UREA NITROGEN 79.3 mg/dL (7-18); CALCIUM 9.2 mg/dL (8.5-10.1); CREATININE 2.2 mg/dL (0.55-1.3); MAGNESIUM 2.9 mg/dL (1.8-2.4); POTASSIUM 3.4 mmol/L (3.5-5.1); TOT PROT 6.6 g/dl (6.4-8.2)
[2019-02-15 09:41] LABS: BASO % 0.8 % (0-2.0); HEMATOCRIT 32.7 % (32.4-45.2); HEMOGLOBIN 10.7 GM/dL (10.7-15.3); LYMPH % 16.3 % (8-40); MCHC 32.8 g/dl (32.0-36.0); MEAN CELL VOLUME 94.7 fl (80-96); MEAN PLT VOLUME 9.3 fl (7.5-11.1); MONO % 10.1 % (3.8-10.2); NEUT % 68.8 % (42.8-82.8); PLATELET COUNT 188 K/MM3 (134-434); RBC 3.45 M/mm3 (3.60-5.2); RDW 16.3 % (11.6-15.6); WHITE BLOOD COUNT 7.9 K/mm3 (4.0-10.0)
--- NOTE | 2019-02-15 09:56 | PN ---
Progress Note, Physician Chief Complaint: no distress Denies SOB TELE: AF, VPCs, couplets - Current Medication List Current Medications: Active Medications Acetaminophen (Tylenol -) 650 mg PO Q4H PRN PRN Reason: MILD PAIN Last Admin: 02/14/19 20:39 Dose: 650 mg Albuterol Sulfate (Ventolin 0.083% Nebulizer Soln -) 1 amp NEB Q4H PRN PRN Reason: SHORT OF BREATH/WHEEZING Allopurinol (Zyloprim -) 100 mg PO BID [facility] Last Admin: 02/14/19 22:38 Dose: 100 mg Atorvastatin Calcium (Lipitor -) 10 mg PO HS [facility] Last Admin: 02/14/19 22:38 Dose: 10 mg Furosemide (Lasix Injection -) 40 mg IVPUSH BID@0600,1400 [facility] Last Admin: 02/14/19 14:00 Dose: 40 mg Gabapentin (Neurontin -) 300 mg PO BID [facility] Last Admin: 02/14/19 22:38 Dose: 300 mg Heparin Sodium (Porcine) (Heparin -) 5,000 unit SQ TID [facility] Last Admin: 02/15/19 06:01 Dose: 5,000 unit Insulin Aspart (Novolog Vial Sliding Scale -) 1 vial SQ BIDAC [facility]; Protocol Last Admin: 02/15/19 06:56 Dose: Not Given Insulin Detemir (Levemir Vial) 38 units SQ DAILY@0700 [facility] Last Admin: 02/15/19 06:34 Dose: 38 units Levalbuterol HCl (Xopenex) 0.31 mg IH RTID [facility] Last Admin: 02/15/19 07:40 Dose: 0.31 mg Lorazepam (Ativan -) 1 mg PO BID [facility] Last Admin: 02/14/19 22:37 Dose: 1 mg Metoprolol Succinate (Toprol Xl -) 25 mg PO BID [facility] Last Admin: 02/14/19 22:38 Dose: 25 mg Nystatin (Mycostatin Cream -) 1 applic TP BID [facility] Last Admin: 02/14/19 22:42 Dose: 1 applic Pantoprazole Sodium (Protonix -) 20 mg PO DAILY [facility] Last Admin: 02/14/19 10:01 Dose: 20 mg Ropinirole HCl (Requip -) 0.5 mg PO HS [facility] Last Admin: 02/14/19 22:42 Dose: 0.5 mg - Objective Vital Signs: Vital Signs Temperature 97.7 F 02/15/19 06:00 Pulse Rate 75 02/15/19 06:00 Respiratory Rate 22 H 02/15/19 06:00 Blood Pressure 138/88 02/15/19 06:00 O2 Sat by Pulse Oximetry (%) 91 L 02/14/19 21:00 Constitutional: Yes: No Distress Cardiovascular: Yes: Pulse Irregular Respiratory: Yes: Other (decreased breath sounds and rales at bases) Gastrointestinal: Yes: Soft, Abdomen, Obese Edema: Yes Edema: LLE: 1+, RLE: 1+ Neurological: Yes: Alert, Oriented Labs: CBC, BMP 02/15/19 08:40 02/15/19 08:40 Laboratory Tests 02/15/19 02/15/19 08:40 08:40 WBC 7.9 Hgb 10.7 Plt Count 188 Sodium 137 Potassium 3.4 L Creatinine 2.2 H Magnesium 2.9 H Total Bilirubin 0.7 AST 24 Alkaline Phosphatase 78 - ....Imaging EKG: Image Reviewed Assessment/Plan DATA: echo 07/2018: Mildly reduced LVEF w/ mild ant. HK, nl RV, mod MAC, Mild MR, Mild TR, RVSP > 30mmHg, mild AR mibi 07/2018: apical thinning, no ischemia, EF 42% IMP: 1. Acute on chronic systolic CHF 2. Morbid obesity 3. VIDYA 4. Possible CAD 5. Chronic LBBB and 1st degree AV block 6. DM w/ CKD 7. HTN REC: 1. Agree w/ IV lasix BID with daily BMP to monitor renal fx. Daily weight if possible. LE edema improving. If condition worsens or no sig progress over weekend, will consider addding ionotrope. (Echo was reviewed by Dr. Holman and EF closer to 35%) 2. Supp. O2 as per pulmonary. 3. Possible CAD based on chronic LBBB, wall motion abn on echo but previous stress tests without ischemia. Cont ASA 81mg daily, beta hannah, statin ( Atorva 10) 4. LBBB is chronic 5. As above, daily labs to monitor K+ and GFR while receiving IV Lasix (CKD w/ baseline creat around 1.7) 6. BP currently well controlled, not on TOMAS/ARB due to chronic kidney disease.
[2019-02-15] MEDS: ALLOPURINOL 100 MG TABLET (FP) PO SCH ×2 (11:11→22:09)
[2019-02-15] MEDS: LORazepam 0.5 MG TABLET PO SCH ×2 (11:11→22:07)
[2019-02-15] MEDS: GABAPENTIN 300 MG CAPSULE (FP) PO SCH ×2 (11:11→22:08)
[2019-02-15] MEDS: NYSTATIN 100,000 UNIT/GM TOPICAL CREAM 15 GM TUBE TP SCH ×2 (11:11→22:08)
[2019-02-15] MEDS: metoPROLOL SUCCINATE 25 MG TAB.SR.24H (FP) PO SCH ×2 (11:11→22:09)
[2019-02-15] MEDS: PANTOPRAZOLE 20 MG TABLET (FP) PO SCH (11:12)
[2019-02-15 11:31] LABS: N-TERMINAL BNP 1663.6 pg/ml (5-450)
--- NOTE | 2019-02-15 11:31 | PN ---
Progress Note, Physician History of Present Illness: PULMONARY ALERT,COMFORTABLE,-RESP DISTRESS,ON O2. - Current Medication List Current Medications: Active Medications Acetaminophen (Tylenol -) 650 mg PO Q4H PRN PRN Reason: MILD PAIN Last Admin: 02/14/19 20:39 Dose: 650 mg Albuterol Sulfate (Ventolin 0.083% Nebulizer Soln -) 1 amp NEB Q4H PRN PRN Reason: SHORT OF BREATH/WHEEZING Allopurinol (Zyloprim -) 100 mg PO BID [facility] Last Admin: 02/15/19 11:11 Dose: 100 mg Atorvastatin Calcium (Lipitor -) 10 mg PO HS [facility] Last Admin: 02/14/19 22:38 Dose: 10 mg Furosemide (Lasix Injection -) 60 mg IVPUSH BID@0600,1400 [facility] Gabapentin (Neurontin -) 300 mg PO BID [facility] Last Admin: 02/15/19 11:11 Dose: 300 mg Heparin Sodium (Porcine) (Heparin -) 5,000 unit SQ TID [facility] Last Admin: 02/15/19 06:01 Dose: 5,000 unit Insulin Aspart (Novolog Vial Sliding Scale -) 1 vial SQ BIDAC [facility]; Protocol Last Admin: 02/15/19 06:56 Dose: Not Given Insulin Detemir (Levemir Vial) 38 units SQ DAILY@0700 [facility] Last Admin: 02/15/19 06:34 Dose: 38 units Levalbuterol HCl (Xopenex) 0.31 mg IH RTID [facility] Last Admin: 02/15/19 07:40 Dose: 0.31 mg Lorazepam (Ativan -) 1 mg PO BID [facility] Last Admin: 02/15/19 11:11 Dose: 1 mg Metoprolol Succinate (Toprol Xl -) 25 mg PO BID [facility] Last Admin: 02/15/19 11:11 Dose: 25 mg Nystatin (Mycostatin Cream -) 1 applic TP BID [facility] Last Admin: 02/15/19 11:11 Dose: 1 applic Pantoprazole Sodium (Protonix -) 20 mg PO DAILY [facility] Last Admin: 02/15/19 11:12 Dose: 20 mg Ropinirole HCl (Requip -) 0.5 mg PO HS [facility] Last Admin: 02/14/19 22:42 Dose: 0.5 mg - Objective Vital Signs: Vital Signs Temperature 97.7 F 02/15/19 06:00 Pulse Rate 75 02/15/19 06:00 Respiratory Rate 22 H 02/15/19 06:00 Blood Pressure 138/88 02/15/19 06:00 O2 Sat by Pulse Oximetry (%) 91 L 02/14/19 21:00 Constitutional: Yes: Calm, Obese Eyes: Yes: WNL HENT: Yes: WNL Neck: Yes: WNL Cardiovascular: Yes: Regular Rate and Rhythm, S1, S2 Respiratory: Yes: Diminished Gastrointestinal: Yes: Normal Bowel Sounds, Soft, Abdomen, Obese Extremities: Yes: WNL Edema: No Labs: CBC, BMP 02/15/19 08:40 02/15/19 08:40 Laboratory Tests 02/14/19 16:24 ABG pH 7.39 ABG pCO2 at Pt Temp 46.3 H ABG pO2 at Pt Temp 67.8 L ABG HCO3 27.7 H ABG O2 Sat (Measured) 93.1 L O2 Delivery Device N/c Oxygen Flow Rate 4l Problem List - Problems (1) Acute hypoxemic respiratory failure Code(s): J96.01 - ACUTE RESPIRATORY FAILURE WITH HYPOXIA (2) Fall Code(s): W19.XXXA - UNSPECIFIED FALL, INITIAL ENCOUNTER Qualifiers: Encounter type: initial encounter Qualified Code(s): W19.XXXA - Unspecified fall, initial encounter (3) Multiple rib fractures Code(s): S22.49XA - MULTIPLE FRACTURES OF RIBS, UNSP SIDE, INIT FOR CLOS FX Qualifiers: Encounter type: initial encounter Fracture type: closed Laterality: left Qualified Code(s): S22.42XA - Multiple fractures of ribs, left side, initial encounter for closed fracture (4) CAD (coronary artery disease) Code(s): I25.10 - ATHSCL HEART DISEASE OF [place] CORONARY ARTERY W/O ANG PCTRS (5) CHF (congestive heart failure) Code(s): I50.9 - HEART FAILURE, UNSPECIFIED Qualifiers: Heart failure type: systolic Heart failure chronicity: acute on chronic Qualified Code(s): I50.23 - Acute on chronic systolic (congestive) heart failure (6) CKD (chronic kidney disease) stage 4, GFR 15-29 ml/min Code(s): N18.4 - CHRONIC KIDNEY DISEASE, STAGE 4 (SEVERE) (7) HTN (hypertension) with goal to be determined Code(s): I10 - ESSENTIAL (PRIMARY) HYPERTENSION (8) Hyperlipemia Code(s): E78.5 - HYPERLIPIDEMIA, UNSPECIFIED (9) Hypertension Code(s): I10 - ESSENTIAL (PRIMARY) HYPERTENSION Qualifiers: Hypertension type: essential hypertension Qualified Code(s): I10 - Essential (primary) hypertension (10) Morbid obesity Code(s): E66.01 - MORBID (SEVERE) OBESITY DUE TO EXCESS CALORIES (11) Neuropathy Code(s): G62.9 - POLYNEUROPATHY, UNSPECIFIED (12) Shortness of breath Code(s): R06.02 - SHORTNESS OF BREATH Assessment/Plan IMP ACUTE HYPOXIC RESPIRATORY FAILURE LIKELY SECONDARY TO ATELECTASIS SECONDARY TO PAIN DUE TO MULTIPLE RIB FX MULTIPLE NON-DISPLACED LEFT SIDED RIB FX S/P MECHANICAL FALL ACUTE ON CHRONIC CHF VIDYA NOT ON CPAP PULMONARY HTN MORBID OBESITY ? OBESITY HYPOVENTILATION SYNDROME CKD DM PLAN ENCOURAGE INCENTIVE SPIROMETER LASIX INHALED BRONCHODILATORS ANALGESICS O2 BIPAP AT NIGHT IF PT COMPLIES DAILY WT AGREE WITH CHEST CT MONITOR LYTES,RENAL FUNCTION DVT PROPHYLAXIS DR MOSLEY Problem List - Problems (1) Acute hypoxemic respiratory failure Code(s): J96.01 - ACUTE RESPIRATORY FAILURE WITH HYPOXIA (2) Fall Code(s): W19.XXXA - UNSPECIFIED FALL, INITIAL ENCOUNTER Qualifiers: Encounter type: initial encounter Qualified Code(s): W19.XXXA - Unspecified fall, initial encounter (3) Multiple rib fractures Code(s): S22.49XA - MULTIPLE FRACTURES OF RIBS, UNSP SIDE, INIT FOR CLOS FX Qualifiers: Encounter type: initial encounter Fracture type: closed Laterality: left Qualified Code(s): S22.42XA - Multiple fractures of ribs, left side, initial encounter for closed fracture (4) CAD (coronary artery disease) Code(s): I25.10 - ATHSCL HEART DISEASE OF [place] CORONARY ARTERY W/O ANG PCTRS (5) CHF (congestive heart failure) Code(s): I50.9 - HEART FAILURE, UNSPECIFIED Qualifiers: Heart failure type: systolic Heart failure chronicity: acute on chronic Qualified Code(s): I50.23 - Acute on chronic systolic (congestive) heart failure (6) CKD (chronic kidney disease) stage 4, GFR 15-29 ml/min Code(s): N18.4 - CHRONIC KIDNEY DISEASE, STAGE 4 (SEVERE) (7) HTN (hypertension) with goal to be determined Code(s): I10 - ESSENTIAL (PRIMARY) HYPERTENSION (8) Hyperlipemia Code(s): E78.5 - HYPERLIPIDEMIA, UNSPECIFIED (9) Hypertension Code(s): I10 - ESSENTIAL (PRIMARY) HYPERTENSION Qualifiers: Hypertension type: essential hypertension Qualified Code(s): I10 - Essential (primary) hypertension (10) Morbid obesity Code(s): E66.01 - MORBID (SEVERE) OBESITY DUE TO EXCESS CALORIES (11) Neuropathy Code(s): G62.9 - POLYNEUROPATHY, UNSPECIFIED (12) Shortness of breath Code(s): R06.02 - SHORTNESS OF BREATH
[2019-02-15] MEDS ORDERED: POTASSIUM CHLORIDE TABS 20 MEQ TABLET.ER (FP) PO ONE (13:44)
--- NOTE | 2019-02-15 16:20 | CONSULT ---
Consult - text type - Consultation Consultation Note: Renal consult for OTF on CKD This is a 83 year old woman with history of CKD, systolic HF, hypertension, hyperlipidemia, DM, obesity who presented from home s/p fall with rib fractures and developed acute CHF with rising BUN/Cr during the admission. Pt continues to report chest wall pain and sob. Denies any leg swelling. No confusion, lethargy, weakness, N/V/D or chest pain. On IV lasix. PMhx: as above Allergies: Diltiazem Family Hx: NC Social Hx: No T/A/D ROS: as per HPI, all other pertinent ros negative Home Medications Medication Instructions Recorded Aspirin [Ecotrin] 81 mg PO Q2D 05/17/17 Atorvastatin Ca [Lipitor] 10 mg PO HS 05/17/17 Ergocalciferol [Vitamin D2] 50,000 unit PO MONTHLY 05/17/17 Gabapentin [Neurontin] 300 mg PO BID 05/17/17 Insulin (Levemir) [Levemir Vial] 38 unit SQ DAILY 05/17/17 Omeprazole Magnesium [Prilosec] 20 mg PO DAILY 05/17/17 Tramadol HCl 50 mg PO BID 05/17/17 Allopurinol [Zyloprim -] 100 mg PO BID 07/20/18 Glimepiride [Amaryl -] 1 mg PO HS 07/20/18 LORazepam [Ativan] 1 mg PO BID 07/20/18 Metoprolol Succinate [Toprol Xl] 25 mg PO BID 07/20/18 Ropinirole HCl [Requip] 0.5 mg PO HS 07/20/18 Torsemide 20 mg PO DAILY 07/24/18 Vital Signs Temperature 98.4 F 02/15/19 14:00 Pulse Rate 84 02/15/19 14:00 Respiratory Rate 20 02/15/19 14:00 Blood Pressure 127/59 L 02/15/19 14:00 O2 Sat by Pulse Oximetry (%) 91 L 02/15/19 09:00 Intake & Output 02/12/19 02/13/19 02/14/19 02/15/19 23:59 23:59 23:59 23:59 Intake Total 1300 600 885 240 Balance 1300 600 885 240 Weight 106.617 kg 106.594 kg 117.027 kg NAD neck supple, no JVD RRR, no M/R Dec BS obese, NT/ND + LE edema, no clubbing or cyanosis no bladder distension CBC, BMP 02/15/19 08:40 02/15/19 08:40 Current Medications Acetaminophen (Tylenol -) 650 mg PO Q4H PRN PRN Reason: MILD PAIN Last Admin: 02/14/19 20:39 Dose: 650 mg Albuterol Sulfate (Ventolin 0.083% Nebulizer Soln -) 1 amp NEB Q4H PRN PRN Reason: SHORT OF BREATH/WHEEZING Allopurinol (Zyloprim -) 100 mg PO BID [facility]S [facility] Last Admin: 02/15/19 11:11 Dose: 100 mg Atorvastatin Calcium (Lipitor -) 10 mg PO HS [facility] 234 B[facility]S AT [facility] Last Admin: 02/14/19 22:38 Dose: 10 mg Furosemide (Lasix Injection -) 60 mg IVPUSH BID@0600,1400 [facility] 234 [facility]S AT [facility] Last Admin: 02/15/19 15:24 Dose: 60 mg Gabapentin (Neurontin -) 300 mg PO BID [facility] 234 [facility]S [facility] Last Admin: 02/15/19 11:11 Dose: 300 mg Heparin Sodium (Porcine) (Heparin -) 5,000 unit SQ TID [facility]S [facility] Last Admin: 02/15/19 14:24 Dose: 5,000 unit Insulin Aspart (Novolog Vial Sliding Scale -) 1 vial SQ BIDAC [facility] 234 B[facility]S AT [facility]; Protocol Last Admin: 02/15/19 06:56 Dose: Not Given Insulin Detemir (Levemir Vial) 38 units SQ DAILY@0700 [facility] 234 B[facility]S AT [facility] Last Admin: 02/15/19 06:34 Dose: 38 units Levalbuterol HCl (Xopenex) 0.31 mg IH RTID [facility] 234 [facility]S AT [facility] Last Admin: 02/15/19 15:30 Dose: 0.31 mg Lorazepam (Ativan -) 1 mg PO BID [facility] 234 B[facility]S AT [facility] Last Admin: 02/15/19 11:11 Dose: 1 mg Metoprolol Succinate (Toprol Xl -) 25 mg PO BID [facility] 234 B[facility]S AT [facility] Last Admin: 02/15/19 11:11 Dose: 25 mg Nystatin (Mycostatin Cream -) 1 applic TP BID [facility] 234 B[facility]S AT [facility] Last Admin: 02/15/19 11:11 Dose: 1 applic Pantoprazole Sodium (Protonix -) 20 mg PO DAILY [facility] 234 BEDS AT [facility] Last Admin: 02/15/19 11:12 Dose: 20 mg Ropinirole HCl (Requip -) 0.5 mg PO HS [facility] 234 B[facility]S AT [facility] Last Admin: 02/14/19 22:42 Dose: 0.5 mg 83 year old woman with history of CKD, systolic HF, hypertension, hyperlipidemia , DM, obesity who presented from home s/p fall with rib factures and developed acute CHF with rising BUN/Cr during the admission. 1. CKD stage 4 (baseline Cr 1.8) with elevated BUN/Cr in setting of HF 2. Systolic heart failure 3. Fall 4. Rib fractures 5. 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
[2019-02-15] MEDS ORDERED: ALBUTEROL SO4 0.083% IH SOL 2.5 MG/3 ML VIAL.NEB. NEB PRN (20:41)
[2019-02-15] MEDS ORDERED: PT OWN MED DRAWER 7, Y5N ONE (21:16)
[2019-02-15] MEDS: ATORVASTATIN CA 10 MG TABLET (FP) PO SCH (22:08)
[2019-02-15] MEDS: rOPINIRole HCL 0.5 MG TABLET PO SCH (22:08)
[2019-02-16] MEDS: INSULIN (LEVEMIR) 100 UNITS/ML UNITS SQ SCH (06:56)
[2019-02-16] MEDS: INSULIN SLIDING SCALE (NOVOLOG) 1 VIAL SQ SCH ×2 (06:56→17:30)
[2019-02-16] MEDS: HEPARIN NA (PORCINE) 5,000 UNITS/ML 1ML VIAL SQ SCH ×3 (06:56→21:39)
[2019-02-16] MEDS: FUROSEMIDE 40 MG/4 ML INJECTABLE VIAL IVPUSH SCH ×2 (06:56→13:28)
[2019-02-16 07:06] LABS: EOS % 3.8 % (0-4.5); HEMATOCRIT 34.2 % (32.4-45.2); HEMOGLOBIN 11.2 GM/dL (10.7-15.3); LYMPH % 19.2 % (8-40); MCH 31.2 pg (25.7-33.7); MCHC 32.8 g/dl (32.0-36.0); MEAN CELL VOLUME 95.1 fl (80-96); MEAN PLT VOLUME 9.2 fl (7.5-11.1); MONO % 8.9 % (3.8-10.2); NEUT % 67.1 % (42.8-82.8); PLATELET COUNT 209 K/MM3 (134-434); WHITE BLOOD COUNT 8.6 K/mm3 (4.0-10.0)
[2019-02-16 07:40] LABS: ALBUMIN 3.2 g/dl (3.4-5.0); BILIRUBIN,TOTAL 0.7 mg/dL (0.2-1); BLOOD UREA NITROGEN 81.1 mg/dL (7-18); CALCIUM 9.4 mg/dL (8.5-10.1); CREATININE 2.2 mg/dL (0.55-1.3); MAGNESIUM 2.8 mg/dL (1.8-2.4); PHOSPHOROUS 3.8 mg/dL (2.5-4.9); POTASSIUM 3.4 mmol/L (3.5-5.1)
[2019-02-16] MEDS: LEVALBUTEROL HCL 0.31 MG/3 ML VIAL.NEB IH SCH ×3 (07:40→20:32)
--- NOTE | 2019-02-16 08:38 | PN ---
Physical Exam: SUBJECTIVE: Patient seen and examined. Patient drowsy upon assessment. Denies CP , SHOB, Fever, Chills, N/V/D OBJECTIVE: Vital Signs Period Temp Pulse Resp BP Sys/Lopez Pulse Ox Last 24 Hr 97.0 F-98.4 F 75-91 20-22 121-145/59-79 91-94 Constitutional: Anxious, Obese Eyes: WNL, Conjunctiva Clear, EOM Intact HENT: WNL, Atraumatic, Normocephalic Neck: WNL, Supple, Trachea Midline Cardiovascular: Regular Rate and Rhythm Respiratory: Dimnished ANGEL, LLL On Nasal O2, Rales Gastrointestinal: : WNL, Normal Bowel Sounds, Abdomen, Obese ...Rectal Exam: Deferred Genitourinary: WNL Breast(s): Yes: WNL Musculoskeletal: Yes: WNL Extremities: Yes: WNL Edema: Yes Edema: LUE: 2+, RUE: 2+, LLE: 2+, RLE: 2+ Peripheral Pulses WNL: Yes Peripheral Pulses: Left Radial: 2+, Right Radial: 2+, Left Doralis Pedis: 2+, Right Dorsalis Pedis: 2+, Left Femoral: 2+, Right Femoral: 2+ Integumentary: Bruising (to UE BL) Neurological: WNL, Alert, Oriented ...Motor Strength: WNL Psychiatric: WNL, Alert, Oriented Laboratory Results - last 24 hr 02/15/19 02/15/19 02/15/19 08:40 08:40 16:55 WBC 7.9 RBC 3.45 L Hgb 10.7 Hct 32.7 MCV 94.7 MCH 31.0 MCHC 32.8 RDW 16.3 H Plt Count 188 MPV 9.3 Absolute Neuts (auto) 5.5 Neutrophils % 68.8 Lymphocytes % 16.3 D Monocytes % 10.1 Eosinophils % 4.0 Basophils % 0.8 Nucleated RBC % 0 Sodium 137 Potassium 3.4 L Chloride 97 L Carbon Dioxide 31 Anion Gap 9 BUN 79.3 H Creatinine 2.2 H Est GFR (CKD-EPI)AfAm 22.93 Est GFR (CKD-EPI)NonAf 19.79 POC Glucometer 152 Random Glucose 131 H Calcium 9.2 Phosphorus Magnesium 2.9 H Total Bilirubin 0.7 AST 24 ALT 21 Alkaline Phosphatase 78 B-Natriuretic Peptide 1663.6 H Total Protein 6.6 Albumin 3.0 L 02/16/19 02/16/19 02/16/19 05:30 05:30 06:54 WBC 8.6 RBC 3.60 Hgb 11.2 Hct 34.2 MCV 95.1 MCH 31.2 MCHC 32.8 RDW 16.0 H Plt Count 209 MPV 9.2 Absolute Neuts (auto) 5.8 Neutrophils % 67.1 Lymphocytes % 19.2 Monocytes % 8.9 Eosinophils % 3.8 Basophils % 1.0 Nucleated RBC % 0 Sodium 138 Potassium 3.4 L Chloride 99 Carbon Dioxide 31 Anion Gap 9 BUN 81.1 H Creatinine 2.2 H Est GFR (CKD-EPI)AfAm 22.93 Est GFR (CKD-EPI)NonAf 19.79 POC Glucometer 111 Random Glucose 106 Calcium 9.4 Phosphorus 3.8 Magnesium 2.8 H Total Bilirubin 0.7 AST 26 ALT 23 Alkaline Phosphatase 83 B-Natriuretic Peptide Total Protein 7.0 Albumin 3.2 L Active Medications Generic Name Dose Route Start Last Admin Trade Name Freq PRN Reason Stop Dose Admin Acetaminophen 650 mg 02/15/19 20:41 Tylenol - PO Q4H PRN MILD PAIN Albuterol Sulfate 1 amp 02/15/19 20:41 Ventolin 0.083% Nebulizer Soln - NEB Q4H PRN SHORT OF BREATH/WHEEZING Allopurinol 100 mg 02/15/19 22:00 02/15/19 22:09 Zyloprim - PO 100 mg BID [facility] Administration Atorvastatin Calcium 10 mg 02/15/19 22:00 02/15/19 22:08 Lipitor - PO 10 mg HS [facility] Administration Furosemide 60 mg 02/15/19 11:00 02/16/19 06:56 Lasix Injection - IVPUSH 60 mg BID@0600,1400 [facility] Administration Gabapentin 300 mg 02/15/19 22:00 02/15/19 22:08 Neurontin - PO 300 mg BID [facility] Administration Heparin Sodium (Porcine) 5,000 unit 02/15/19 22:00 02/16/19 06:56 Heparin - SQ 5,000 unit TID [facility] Administration Insulin Aspart 1 vial 02/16/19 07:00 02/16/19 06:56 Novolog Vial Sliding Scale - SQ Not Given BIDAC [facility] Protocol Insulin Detemir 38 units 02/16/19 07:00 02/16/19 06:56 Levemir Vial SQ 38 units DAILY@0700 [facility] Administration Levalbuterol HCl 0.31 mg 02/16/19 08:00 Xopenex IH RTID [facility] Lorazepam 1 mg 02/15/19 22:00 02/15/19 22:07 Ativan - PO 1 mg BID [facility] Administration Metoprolol Succinate 25 mg 02/15/19 22:00 02/15/19 22:09 Toprol Xl - PO 25 mg BID [facility] Administration Nystatin 1 applic 02/15/19 22:00 02/15/19 22:08 Mycostatin Cream - TP 1 applic BID [facility] Administration Pantoprazole Sodium 20 mg 02/16/19 10:00 Protonix - PO DAILY [facility] Ropinirole HCl 0.5 mg 02/15/19 22:00 02/15/19 22:08 Requip - PO 0.5 mg HS [facility] Administration ASSESSMENT/PLAN: (1) [id number] kidney injury Assessment/Plan: monitor daily renal fx avoid nephrotoxic agents hold TOMAS/ARB daily weights renal consultation requested-seen by Dr Burks in the past Code(s): N17.9 - ACUTE KIDNEY FAILURE, UNSPECIFIED; N18.9 - CHRONIC KIDNEY DISEASE, UNSPECIFIED (2) Acute hypoxemic respiratory failure Assessment/Plan: supplemental O2 maintain PO2 >92% c/w duo nebs c/w lasix BiPap prn if patient agreeable (resistant in past) appreciate pulmonary consultation Code(s): J96.01 - ACUTE RESPIRATORY FAILURE WITH HYPOXIA (3) CAD (coronary artery disease) Assessment/Plan: Possible CAD based on chronic LBBB, wall motion abn on echo but previous stress tests without ischemia. c/w ASA 81mg daily, beta hannah, statin appreciate cardiology consultation Code(s): I25.10 - ATHSCL HEART DISEASE OF [place] CORONARY ARTERY W/O ANG PCTRS (4) CHF (congestive heart failure) Assessment/Plan: c/w IV lasix BID daily weights monitor Cr possible addition of milrinone if does not improve (Echo was reviewed by Dr. Homlan and EF closer to 35%) Code(s): I50.9 - HEART FAILURE, UNSPECIFIED Qualifiers: Heart failure type: systolic Heart failure chronicity: acute on chronic Qualified Code(s): I50.23 - Acute on chronic systolic (congestive) heart failure (5) Diabetes Assessment/Plan: BGM AC/HS novolog ss diabetic diet Code(s): E11.9 - TYPE 2 DIABETES MELLITUS WITHOUT COMPLICATIONS Qualifiers: Diabetes mellitus type: type 2 Diabetes mellitus terminal make up operator insulin use: with chcf use Diabetes mellitus complication status: with kidney complications Diabetes mellitus complication detail: with chronic kidney disease Chronic kidney disease stage: stage 4 (severe) Qualified Code(s): E11.22 - Type 2 diabetes mellitus with diabetic chronic kidney disease; N18.4 - Chronic kidney disease, stage 4 (severe); Z79.4 - skilled nursing (current) use of insulin (6) Hyperlipemia Assessment/Plan: c/w statin Code(s): E78.5 - HYPERLIPIDEMIA, UNSPECIFIED (7) Hypertension Assessment/Plan: normotensive avoid TOMAS/ARB with elevated Cr Code(s): I10 - ESSENTIAL (PRIMARY) HYPERTENSION Qualifiers: Hypertension type: essential hypertension Qualified Code(s): I10 - Essential (primary) hypertension (8) Morbid obesity with BMI of 50.0-59.9, adult Assessment/Plan: cardiac diet counseled on weight loss PT following Code(s): E66.01 - MORBID (SEVERE) OBESITY DUE TO EXCESS CALORIES; Z68.43 - BODY MASS INDEX (BMI) 50-59.9, ADULT (9) Prophylactic measure Assessment/Plan: FEN cardiac diet monitor electrolytes/Cr no IVF DVT sq heparin Dispo maintain on tele full code discharge planning Code(s): Z29.9 - ENCOUNTER FOR PROPHYLACTIC MEASURES, UNSPECIFIED (10) Fall Assessment/Plan: seen and evaluated by ortho, conservative management PT, full WB with walker Tylenol PRN, no opioids due to respiratory compromise fall precautions Code(s): W19.XXXA - UNSPECIFIED FALL, INITIAL ENCOUNTER Qualifiers: Encounter type: initial encounter Qualified Code(s): W19.XXXA - Unspecified fall, initial encounter Visit type - Emergency Visit Emergency Visit: Yes ED Registration Date: 02/09/19 Care time: The patient presented to the Emergency Department on the above date and was hospitalized for further evaluation of their emergent condition. - New Patient This patient is new to me today: No - Critical Care Critical Care patient: No
--- NOTE | 2019-02-16 08:49 | PN ---
Progress Note, Physician Chief Complaint: Weights unreliable. Had CT chest: not yet officially read. Small right effusion. Effusion on Left w / some atelectasis (my read). No sig increase in PVC - Current Medication List Current Medications: Active Medications Acetaminophen (Tylenol -) 650 mg PO Q4H PRN PRN Reason: MILD PAIN Albuterol Sulfate (Ventolin 0.083% Nebulizer Soln -) 1 amp NEB Q4H PRN PRN Reason: SHORT OF BREATH/WHEEZING Allopurinol (Zyloprim -) 100 mg PO BID [facility] Last Admin: 02/15/19 22:09 Dose: 100 mg Atorvastatin Calcium (Lipitor -) 10 mg PO HS [facility] Last Admin: 02/15/19 22:08 Dose: 10 mg Furosemide (Lasix Injection -) 60 mg IVPUSH BID@0600,1400 [facility] Last Admin: 02/16/19 06:56 Dose: 60 mg Gabapentin (Neurontin -) 300 mg PO BID [facility] Last Admin: 02/15/19 22:08 Dose: 300 mg Heparin Sodium (Porcine) (Heparin -) 5,000 unit SQ TID [facility] Last Admin: 02/16/19 06:56 Dose: 5,000 unit Insulin Aspart (Novolog Vial Sliding Scale -) 1 vial SQ BIDAC [facility]CLUD[facility]; Protocol Last Admin: 02/16/19 06:56 Dose: Not Given Insulin Detemir (Levemir Vial) 38 units SQ DAILY@0700 [facility] Last Admin: 02/16/19 06:56 Dose: 38 units Levalbuterol HCl (Xopenex) 0.31 mg IH RTID [facility] Lorazepam (Ativan -) 1 mg PO BID [facility] Last Admin: 02/15/19 22:07 Dose: 1 mg Metoprolol Succinate (Toprol Xl -) 25 mg PO BID [facility] Last Admin: 02/15/19 22:09 Dose: 25 mg Nystatin (Mycostatin Cream -) 1 applic TP BID [facility] Last Admin: 02/15/19 22:08 Dose: 1 applic Pantoprazole Sodium (Protonix -) 20 mg PO DAILY COUNT [facility]CLUDES [facility] Ropinirole HCl (Requip -) 0.5 mg PO HS COUNT [facility]CLUDES [facility] Last Admin: 02/15/19 22:08 Dose: 0.5 mg - Objective Vital Signs: Vital Signs Temperature 97.0 F L 02/16/19 05:00 Pulse Rate 75 02/16/19 05:00 Respiratory Rate 20 02/16/19 05:00 Blood Pressure 135/75 02/16/19 05:00 O2 Sat by Pulse Oximetry (%) 94 L 02/15/19 21:00 Constitutional: Yes: No Distress Neck: Yes: Other (CANNOT ASSESS JVD) Cardiovascular: Yes: Regular Rate and Rhythm Respiratory: Yes: Other (difficult lung exam. Patient unable to take full deep breaths. Decreased at bases) Gastrointestinal: Yes: Soft, Abdomen, Obese Edema: No Neurological: Yes: Alert, Oriented Labs: CBC, BMP 02/16/19 05:30 02/16/19 05:30 Laboratory Tests 02/15/19 02/16/19 02/16/19 08:40 05:30 05:30 WBC 8.6 Hgb 11.2 Plt Count 209 Sodium 138 Potassium 3.4 L BUN 81.1 H Creatinine 2.2 H Phosphorus 3.8 AST 26 ALT 23 Alkaline Phosphatase 83 B-Natriuretic Peptide 1663.6 H - ....Imaging Cat Scan: Pending, Image Reviewed EKG: Image Reviewed Assessment/Plan MP: 1. Acute on chronic systolic CHF, difficult exam due to body habitus (EF upon our review closer to 35%) 2. Morbid obesity 3. VIDYA 4. Possible CAD 5. Chronic LBBB and 1st degree AV block 6. DM w/ CKD 7. HTN REC: 1. Difficult physical exam due to body habitus. Unable to assess JVP and lung exam is limited by her inability to fully expand chest. There is minimal LE edema. CT chest was obtained yesterday to assess degree of volume overload and reviewed today w/ Dr. Cunha. + L effusion > R with changes of increased PVC. Thus, will increase IV Lasix today with Cee catheter to calculate Is/Os and if no improvement in next 24 hours then will initiate low dose Milrinone tomorrow. 2. Supp. O2 as per pulmonary. 3. Possible CAD based on chronic LBBB, wall motion abn on echo but previous stress tests without ischemia. Cont ASA 81mg daily, beta hannah, statin ( Atorva 10) 4. LBBB is chronic 5. As above, daily labs to monitor K+ and GFR while receiving IV Lasix (CKD w/ baseline creat around 1.7) 6. BP currently well controlled, not on TOMAS/ARB due to chronic kidney disease.
[2019-02-16] MEDS ORDERED: POTASSIUM CHLORIDE TABS 20 MEQ TABLET.ER (FP) PO ONE ×3 (09:00→20:00)
[2019-02-16 09:01] LABS: ANISOCYTOSIS 0; MACROCYTOSIS 0; PLATELET ESTIMATE NORMAL
--- NOTE | 2019-02-16 10:04 | PN ---
Progress Note (short form) - Note Progress Note: Renal follow up for CKD and fluid overload Seen and examined at the bedside awake and alert feels uncomfortable sob is the same no chest pain, fever or chill s/p CT chest yesterday Vital Signs Temperature 97.0 F L 02/16/19 05:00 Pulse Rate 75 02/16/19 05:00 Respiratory Rate 20 02/16/19 05:00 Blood Pressure 135/75 02/16/19 05:00 O2 Sat by Pulse Oximetry (%) 94 L 02/15/19 21:00 Intake & Output 02/13/19 02/14/19 02/15/19 02/16/19 23:59 23:59 23:59 23:59 Intake Total 600 885 270 200 Balance 600 885 270 200 Weight 106.594 kg 117.027 kg 162.93 kg NAD neck supple, no JVD RRR, no M/R Dec BS obese, NT/ND + LE edema, no clubbing or cyanosis no bladder distension CBC, BMP 02/16/19 05:30 02/16/19 05:30 Current Medications Acetaminophen (Tylenol -) 650 mg PO Q4H PRN PRN Reason: MILD PAIN Albuterol Sulfate (Ventolin 0.083% Nebulizer Soln -) 1 amp NEB Q4H PRN PRN Reason: SHORT OF BREATH/WHEEZING Allopurinol (Zyloprim -) 100 mg PO BID [facility] Last Admin: 02/15/19 22:09 Dose: 100 mg Atorvastatin Calcium (Lipitor -) 10 mg PO HS [facility] Last Admin: 02/15/19 22:08 Dose: 10 mg Furosemide (Lasix Injection -) 80 mg IVPUSH BID@0600,1400 [facility] Gabapentin (Neurontin -) 300 mg PO BID [facility] Last Admin: 02/15/19 22:08 Dose: 300 mg Heparin Sodium (Porcine) (Heparin -) 5,000 unit SQ TID [facility] Last Admin: 02/16/19 06:56 Dose: 5,000 unit Insulin Aspart (Novolog Vial Sliding Scale -) 1 vial SQ BIDAC [facility]; Protocol Last Admin: 02/16/19 06:56 Dose: Not Given Insulin Detemir (Levemir Vial) 38 units SQ DAILY@0700 [facility] Last Admin: 02/16/19 06:56 Dose: 38 units Levalbuterol HCl (Xopenex) 0.31 mg IH RTID [facility] Last Admin: 02/16/19 07:40 Dose: Not Given Lorazepam (Ativan -) 1 mg PO BID [facility] Last Admin: 02/15/19 22:07 Dose: 1 mg Metoprolol Succinate (Toprol Xl -) 25 mg PO BID [facility] Last Admin: 02/15/19 22:09 Dose: 25 mg Nystatin (Mycostatin Cream -) 1 applic TP BID [facility] Last Admin: 02/15/19 22:08 Dose: 1 applic Pantoprazole Sodium (Protonix -) 20 mg PO DAILY [facility] Potassium Chloride (K-Dur -) 20 meq PO ONCE ONE Stop: 02/16/19 14:01 Potassium Chloride (K-Dur -) 20 meq PO ONCE ONE Stop: 02/16/19 20:01 Ropinirole HCl (Requip -) 0.5 mg PO HS [facility] Last Admin: 02/15/19 22:08 Dose: 0.5 mg 83 year old woman with history of CKD, systolic HF, hypertension, hyperlipidemia , DM, obesity who presented from home s/p fall with rib factures and developed acute CHF with rising BUN/Cr during the admission. 1. CKD stage 4 (baseline Cr 1.8) with elevated BUN/Cr in setting of HF 2. Systolic heart failure 3. Fall 4. Rib fractures 5. Hypokalemia Continue IV Lasix as per cardiology monitor urine output and weights CT chest showed persistent small effusions Trend real function and electrolytes daily not currently on TOMAS/ARB avoid nephrotoxins and IV contrast no acute need for [employer] avoid NSAIDs for pain control supplement K while on IV diuresis Thank you Pablo Burks DO
[2019-02-16] MEDS: LORazepam 0.5 MG TABLET PO SCH ×2 (10:26→21:40)
[2019-02-16] MEDS: GABAPENTIN 300 MG CAPSULE (FP) PO SCH ×2 (10:27→21:39)
[2019-02-16] MEDS: PANTOPRAZOLE 20 MG TABLET (FP) PO SCH (10:27)
[2019-02-16] MEDS: metoPROLOL SUCCINATE 25 MG TAB.SR.24H (FP) PO SCH ×2 (10:27→21:39)
[2019-02-16] MEDS: ALLOPURINOL 100 MG TABLET (FP) PO SCH ×2 (10:28→21:40)
[2019-02-16] MEDS: NYSTATIN 100,000 UNIT/GM TOPICAL CREAM 15 GM TUBE TP SCH ×2 (10:33→21:41)
--- NOTE | 2019-02-16 14:15 | PN ---
Progress Note (short form) - Note Progress Note: Resting in NAD. Breathing feels overall better. No acute events overnight. CT: bilateral pleural effusions Left > right, pulmonary vascular congestion Intake & Output 02/13/19 02/14/19 02/15/19 02/16/19 23:59 23:59 23:59 23:59 Intake Total 600 885 270 200 Balance 600 885 270 200 Weight 235 lb 258 lb 359 lb 3.2 oz Last Vital Signs Temp Pulse Resp BP Pulse Ox 97.9 F 78 18 103/84 97 02/16/19 09:00 02/16/19 09:00 02/16/19 09:00 02/16/19 09:00 02/16/19 09:00 Active Medications Acetaminophen (Tylenol -) 650 mg PO Q4H PRN PRN Reason: MILD PAIN Albuterol Sulfate (Ventolin 0.083% Nebulizer Soln -) 1 amp NEB Q4H PRN PRN Reason: SHORT OF BREATH/WHEEZING Last Admin: 02/16/19 11:40 Dose: 1 amp Allopurinol (Zyloprim -) 100 mg PO BID [facility] Last Admin: 02/16/19 10:28 Dose: 100 mg Atorvastatin Calcium (Lipitor -) 10 mg PO HS [facility] Last Admin: 02/15/19 22:08 Dose: 10 mg Furosemide (Lasix Injection -) 80 mg IVPUSH BID@0600,1400 [facility] Last Admin: 02/16/19 13:28 Dose: 80 mg Gabapentin (Neurontin -) 300 mg PO BID [facility] Last Admin: 02/16/19 10:27 Dose: 300 mg Heparin Sodium (Porcine) (Heparin -) 5,000 unit SQ TID [facility] Last Admin: 02/16/19 13:27 Dose: 5,000 unit Insulin Aspart (Novolog Vial Sliding Scale -) 1 vial SQ BIDAC [facility]; Protocol Last Admin: 02/16/19 06:56 Dose: Not Given Insulin Detemir (Levemir Vial) 38 units SQ DAILY@0700 [facility] Last Admin: 02/16/19 06:56 Dose: 38 units Levalbuterol HCl (Xopenex) 0.31 mg IH RTID [facility] Last Admin: 02/16/19 07:40 Dose: Not Given Lorazepam (Ativan -) 1 mg PO BID [facility] Last Admin: 02/16/19 10:26 Dose: 1 mg Metoprolol Succinate (Toprol Xl -) 25 mg PO BID [facility] Last Admin: 02/16/19 10:27 Dose: 25 mg Nystatin (Mycostatin Cream -) 1 applic TP BID [facility] Last Admin: 02/16/19 10:33 Dose: 1 applic Pantoprazole Sodium (Protonix -) 20 mg PO DAILY [facility] Last Admin: 02/16/19 10:27 Dose: 20 mg Potassium Chloride (K-Dur -) 20 meq PO ONCE ONE Stop: 02/16/19 20:01 Ropinirole HCl (Requip -) 0.5 mg PO HS [facility] Last Admin: 02/15/19 22:08 Dose: 0.5 mg Constitutional: Yes: NAD, Obese Eyes: Yes: WNL HENT: Yes: WNL Neck: Yes: WNL Cardiovascular: Yes: Regular Rate and Rhythm, S1, S2 Respiratory: Yes: Diminished Gastrointestinal: Yes: Normal Bowel Sounds, Soft, Abdomen, Obese Extremities: Yes: WNL Edema: No Labs: Laboratory Results - last 24 hr 02/15/19 02/16/19 02/16/19 16:55 05:30 05:30 WBC 8.6 RBC 3.60 Hgb 11.2 Hct 34.2 MCV 95.1 MCH 31.2 MCHC 32.8 RDW 16.0 H Plt Count 209 MPV 9.2 Absolute Neuts (auto) 5.8 Neutrophils % 67.1 Neutrophils % (Manual) 65.3 Band Neutrophils % 0.0 Lymphocytes % 19.2 Lymphocytes % (Manual) 18.8 Monocytes % 8.9 Monocytes % (Manual) 11 H Eosinophils % 3.8 Eosinophils % (Manual) 5.0 H Basophils % 1.0 Basophils % (Manual) 0.0 Myelocytes % (Man) 0 Promyelocytes % (Man) 0 Blast Cells % (Manual) 0 Nucleated RBC % 0 Metamyelocytes 0 Hypochromia 0 Platelet Estimate Normal Polychromasia 0 Poikilocytosis 0 Anisocytosis 0 Microcytosis 0 Macrocytosis 0 Sodium 138 Potassium 3.4 L Chloride 99 Carbon Dioxide 31 Anion Gap 9 BUN 81.1 H Creatinine 2.2 H Est GFR (CKD-EPI)AfAm 22.93 Est GFR (CKD-EPI)NonAf 19.79 POC Glucometer 152 Random Glucose 106 Calcium 9.4 Phosphorus 3.8 Magnesium 2.8 H Total Bilirubin 0.7 AST 26 ALT 23 Alkaline Phosphatase 83 Total Protein 7.0 Albumin 3.2 L 02/16/19 06:54 WBC RBC Hgb Hct MCV MCH MCHC RDW Plt Count MPV Absolute Neuts (auto) Neutrophils % Neutrophils % (Manual) Band Neutrophils % Lymphocytes % Lymphocytes % (Manual) Monocytes % Monocytes % (Manual) Eosinophils % Eosinophils % (Manual) Basophils % Basophils % (Manual) Myelocytes % (Man) Promyelocytes % (Man) Blast Cells % (Manual) Nucleated RBC % Metamyelocytes Hypochromia Platelet Estimate Polychromasia Poikilocytosis Anisocytosis Microcytosis Macrocytosis Sodium Potassium Chloride Carbon Dioxide Anion Gap BUN Creatinine Est GFR (CKD-EPI)AfAm Est GFR (CKD-EPI)NonAf POC Glucometer 111 Random Glucose Calcium Phosphorus Magnesium Total Bilirubin AST ALT Alkaline Phosphatase Total Protein Albumin Problem List - Problems (1) Acute hypoxemic respiratory failure Code(s): J96.01 - ACUTE RESPIRATORY FAILURE WITH HYPOXIA (2) Fall Code(s): W19.XXXA - UNSPECIFIED FALL, INITIAL ENCOUNTER Qualifiers: Encounter type: initial encounter Qualified Code(s): W19.XXXA - Unspecified fall, initial encounter (3) Multiple rib fractures Code(s): S22.49XA - MULTIPLE FRACTURES OF RIBS, UNSP SIDE, INIT FOR CLOS FX Qualifiers: Encounter type: initial encounter Fracture type: closed Laterality: left Qualified Code(s): S22.42XA - Multiple fractures of ribs, left side, initial encounter for closed fracture (4) CAD (coronary artery disease) Code(s): I25.10 - ATHSCL HEART DISEASE OF [place] CORONARY ARTERY W/O ANG PCTRS (5) CHF (congestive heart failure) Code(s): I50.9 - HEART FAILURE, UNSPECIFIED Qualifiers: Heart failure type: systolic Heart failure chronicity: acute on chronic Qualified Code(s): I50.23 - Acute on chronic systolic (congestive) heart failure (6) CKD (chronic kidney disease) stage 4, GFR 15-29 ml/min Code(s): N18.4 - CHRONIC KIDNEY DISEASE, STAGE 4 (SEVERE) (7) HTN (hypertension) with goal to be determined Code(s): I10 - ESSENTIAL (PRIMARY) HYPERTENSION (8) Hyperlipemia Code(s): E78.5 - HYPERLIPIDEMIA, UNSPECIFIED (9) Hypertension Code(s): I10 - ESSENTIAL (PRIMARY) HYPERTENSION Qualifiers: Hypertension type: essential hypertension Qualified Code(s): I10 - Essential (primary) hypertension (10) Morbid obesity Code(s): E66.01 - MORBID (SEVERE) OBESITY DUE TO EXCESS CALORIES (11) Neuropathy Code(s): G62.9 - POLYNEUROPATHY, UNSPECIFIED (12) Shortness of breath Code(s): R06.02 - SHORTNESS OF BREATH Assessment/Plan IMP ACUTE HYPOXIC RESPIRATORY FAILURE LIKELY SECONDARY TO ATELECTASIS SECONDARY TO PAIN DUE TO MULTIPLE RIB FX MULTIPLE NON-DISPLACED LEFT SIDED RIB FX S/P MECHANICAL FALL ACUTE ON CHRONIC CHF VIDYA NOT ON CPAP PULMONARY HTN MORBID OBESITY ? OBESITY HYPOVENTILATION SYNDROME CKD DM PLAN ENCOURAGE INCENTIVE SPIROMETERY INCREASE LASIX: MAY NEED INOTROPES TO IMPROVE DIURESIS INHALED BRONCHODILATORS ANALGESICS O2 NIPPV AT NIGHT IF PT COMPLIES DAILY WT MONITOR LYTES,RENAL FUNCTION DVT PROPHYLAXIS DR DENNIS
[2019-02-16] MEDS ORDERED: PT OWN MED DRAWER 7, Y5N ONE (20:32)
[2019-02-16] MEDS: ATORVASTATIN CA 10 MG TABLET (FP) PO SCH (21:39)
[2019-02-16] MEDS: rOPINIRole HCL 0.5 MG TABLET PO SCH (21:41)
[2019-02-16] MEDS: ACETAMINOPHEN 325 MG TABLET (FP) PO PRN (23:31)
[2019-02-17] MEDS ORDERED: traMADol HCL 50 MG TABLET PO ONE (05:02)
[2019-02-17] MEDS: FUROSEMIDE 40 MG/4 ML INJECTABLE VIAL IVPUSH SCH ×2 (06:33→15:23)
[2019-02-17] MEDS: HEPARIN NA (PORCINE) 5,000 UNITS/ML 1ML VIAL SQ SCH ×3 (06:33→21:13)
[2019-02-17] MEDS: INSULIN (LEVEMIR) 100 UNITS/ML UNITS SQ SCH (06:34)
[2019-02-17] MEDS: INSULIN SLIDING SCALE (NOVOLOG) 1 VIAL SQ SCH ×2 (06:34→17:39)
[2019-02-17 06:49] LABS: EOS % 4.1 % (0-4.5); HEMATOCRIT 33.1 % (32.4-45.2); HEMOGLOBIN 10.9 GM/dL (10.7-15.3); LYMPH % 20.2 % (8-40); MCH 31.1 pg (25.7-33.7); MCHC 32.8 g/dl (32.0-36.0); MEAN CELL VOLUME 94.9 fl (80-96); MEAN PLT VOLUME 9.3 fl (7.5-11.1); MONO % 8.7 % (3.8-10.2); PLATELET COUNT 209 K/MM3 (134-434); RBC 3.49 M/mm3 (3.60-5.2); RDW 16.1 % (11.6-15.6); WHITE BLOOD COUNT 8.4 K/mm3 (4.0-10.0)
[2019-02-17 07:15] LABS: ALBUMIN 3.1 g/dl (3.4-5.0); BILIRUBIN,TOTAL 0.7 mg/dL (0.2-1); BLOOD UREA NITROGEN 75.3 mg/dL (7-18); CALCIUM 9.5 mg/dL (8.5-10.1); CREATININE 2.2 mg/dL (0.55-1.3); MAGNESIUM 2.6 mg/dL (1.8-2.4); PHOSPHOROUS 3.6 mg/dL (2.5-4.9); POTASSIUM 3.7 mmol/L (3.5-5.1); TOT PROT 6.5 g/dl (6.4-8.2)
--- NOTE | 2019-02-17 08:45 | PN ---
Progress Note, Physician Chief Complaint: restless night, did not sleep much but breathing is better History of Present Illness: 83 yo F h/o IDDM, systolic CHF, HTN, HLD, and chronic kidney disease, arrived to ED for left shoulder pain post fall. Patient fell at 4 am yesterday unable to get back up called EMS who assisted but at the time refuse to go hospital. while resting noted with increase pain daughter called EMS and arrived for further Evaluation. Patient complain of pain 7/10 unable to ambulate, left back pain radiating to left chest under breast area with sob at time. Patient denies hitting her head or losing consciousness. Patient denies CP, dizziness, headache, no acute N/V. Pt transferred from [place] for further management - Current Medication List Current Medications: Active Medications Acetaminophen (Tylenol -) 650 mg PO Q4H PRN PRN Reason: MILD PAIN Last Admin: 02/16/19 23:31 Dose: 650 mg Albuterol Sulfate (Ventolin 0.083% Nebulizer Soln -) 1 amp NEB Q4H PRN PRN Reason: SHORT OF BREATH/WHEEZING Last Admin: 02/16/19 11:40 Dose: 1 amp Allopurinol (Zyloprim -) 100 mg PO BID [facility] Last Admin: 02/16/19 21:40 Dose: 100 mg Atorvastatin Calcium (Lipitor -) 10 mg PO HS [facility] Last Admin: 02/16/19 21:39 Dose: 10 mg Furosemide (Lasix Injection -) 80 mg IVPUSH BID@0600,1400 [facility] Last Admin: 02/17/19 06:33 Dose: 80 mg Gabapentin (Neurontin -) 300 mg PO BID [facility] Last Admin: 02/16/19 21:39 Dose: 300 mg Heparin Sodium (Porcine) (Heparin -) 5,000 unit SQ TID [facility] Last Admin: 02/17/19 06:33 Dose: 5,000 unit Insulin Aspart (Novolog Vial Sliding Scale -) 1 vial SQ BIDAC [facility]; Protocol Last Admin: 02/17/19 06:34 Dose: Not Given Insulin Detemir (Levemir Vial) 38 units SQ DAILY@0700 [facility] Last Admin: 02/17/19 06:34 Dose: 38 units Levalbuterol HCl (Xopenex) 0.31 mg IH RTID [facility] Last Admin: 09/14/19 20:32 Dose: 0.31 mg Lorazepam (Ativan -) 1 mg PO BID [facility] Last Admin: 02/16/19 21:40 Dose: 1 mg Metoprolol Succinate (Toprol Xl -) 25 mg PO BID [facility] Last Admin: 02/16/19 21:39 Dose: 25 mg Nystatin (Mycostatin Cream -) 1 applic TP BID [facility] Last Admin: 02/16/19 21:41 Dose: 1 applic Pantoprazole Sodium (Protonix -) 20 mg PO DAILY [facility] Last Admin: 02/16/19 10:27 Dose: 20 mg Ropinirole HCl (Requip -) 0.5 mg PO HS [facility] Last Admin: 02/16/19 21:41 Dose: 0.5 mg - Objective Vital Signs: Vital Signs Temperature 97.9 F 02/17/19 05:00 Pulse Rate 77 02/17/19 05:00 Respiratory Rate 20 02/17/19 05:00 Blood Pressure 116/59 L 02/17/19 05:00 O2 Sat by Pulse Oximetry (%) 97 02/17/19 03:26 Additional Findings/Remarks: Constitutional: Yes: Anxious, Obese Eyes: Yes: WNL, Conjunctiva Clear, EOM Intact HENT: Yes: WNL, Atraumatic, Normocephalic Neck: Yes: WNL, Supple, Trachea Midline Cardiovascular: Yes: WNL, Regular Rate and Rhythm Respiratory: Yes: WNL, On Nasal O2, Rales Gastrointestinal: Yes: WNL, Normal Bowel Sounds, Abdomen, Obese ...Rectal Exam: Yes: Deferred Genitourinary: Cee present with clear yellow urine Breast(s): Yes: WNL Musculoskeletal: Yes: WNL Extremities: Yes: WNL Edema: Yes Edema: LUE: 2+, RUE: 2+, LLE: 2+, RLE: 2+ Peripheral Pulses WNL: Yes Peripheral Pulses: Left Radial: 2+, Right Radial: 2+, Left Doralis Pedis: 2+, Right Dorsalis Pedis: 2+, Left Femoral: 2+, Right Femoral: 2+ Integumentary: Yes: Bruising (to UE BL) Neurological: Yes: WNL, Alert, Oriented ...Motor Strength: WNL Psychiatric: Yes: WNL, Alert, Oriented Labs: CBC, BMP 02/17/19 06:02/17/19 06:01 - ....Imaging Cat Scan: Report Reviewed (CT: bilateral pleural effusions Left > right, pulmonary vascular congestion) Problem List - Problems (1) [id number] kidney injury Assessment/Plan: monitor daily renal fx avoid nephrotoxic agents hold TOMAS/ARB daily weights strict I&Os renal consultation appreciated by Dr Burks Code(s): N17.9 - ACUTE KIDNEY FAILURE, UNSPECIFIED; N18.9 - CHRONIC KIDNEY DISEASE, UNSPECIFIED (2) Acute hypoxemic respiratory failure Assessment/Plan: supplemental O2 maintain PO2 >92% c/w duo nebs c/w lasix BiPap prn if patient agreeable (resistant in past) appreciate pulmonary consultation Code(s): J96.01 - ACUTE RESPIRATORY FAILURE WITH HYPOXIA (3) CAD (coronary artery disease) Assessment/Plan: Possible CAD based on chronic LBBB, wall motion abn on echo but previous stress tests without ischemia. c/w ASA 81mg daily, beta hannah, statin appreciate cardiology consultation Code(s): I25.10 - ATHSCL HEART DISEASE OF [place] CORONARY ARTERY W/O ANG PCTRS (4) CHF (congestive heart failure) Assessment/Plan: c/w IV lasix 80mg BID daily weights strict I&Os monitor Cr no need for [id number] this time Code(s): I50.9 - HEART FAILURE, UNSPECIFIED Qualifiers: Heart failure type: systolic Heart failure chronicity: acute on chronic Qualified Code(s): I50.23 - Acute on chronic systolic (congestive) heart failure (5) Diabetes Assessment/Plan: [facility]/ novolog diabetic diet Code(s): E11.9 - TYPE 2 DIABETES MELLITUS WITHOUT COMPLICATIONS Qualifiers: Diabetes mellitus type: type 2 Diabetes mellitus rodent exterminator insulin use: with long-term use Diabetes mellitus complication status: with kidney complications Diabetes mellitus complication detail: with chronic kidney disease Chronic kidney disease stage: stage 4 (severe) Qualified Code(s): E11.22 - Type 2 diabetes mellitus with diabetic chronic kidney disease; N18.4 - Chronic kidney disease, stage 4 (severe); Z79.4 - middle or intermediate school principal (current) use of insulin (6) Hyperlipemia Assessment/Plan: c/w statin Code(s): E78.5 - HYPERLIPIDEMIA, UNSPECIFIED (7) Hypertension Assessment/Plan: normotensive avoid TOMAS/ARB with elevated Cr Code(s): I10 - ESSENTIAL (PRIMARY) HYPERTENSION Qualifiers: Hypertension type: essential hypertension Qualified Code(s): I10 - Essential (primary) hypertension (8) Morbid obesity with BMI of 50.0-59.9, adult Assessment/Plan: cardiac diet counseled on weight loss PT following Code(s): E66.01 - MORBID (SEVERE) OBESITY DUE TO EXCESS CALORIES; Z68.43 - BODY MASS INDEX (BMI) 50-59.9, ADULT (9) Prophylactic measure Assessment/Plan: FEN cardiac diet monitor electrolytes/Cr no IVF DVT sq heparin Dispo maintain on tele full code discharge planning Code(s): Z29.9 - ENCOUNTER FOR PROPHYLACTIC MEASURES, UNSPECIFIED (10) Fall Assessment/Plan: seen and evaluated by ortho, conservative management PT, full WB with walker Tylenol PRN, no opioids due to respiratory compromise fall precautions Code(s): W19.XXXA - UNSPECIFIED FALL, INITIAL ENCOUNTER Qualifiers: Encounter type: initial encounter Qualified Code(s): W19.XXXA - Unspecified fall, initial encounter Visit type - Emergency Visit Emergency Visit: Yes ED Registration Date: 02/09/19 Care time: The patient presented to the Emergency Department on the above date and was hospitalized for further evaluation of their emergent condition. - New Patient This patient is new to me today: No - Critical Care Critical Care patient: No - Discharge Referral Referred to [facility] Med P.C.: No
[2019-02-17] MEDS: LEVALBUTEROL HCL 0.31 MG/3 ML VIAL.NEB IH SCH ×3 (09:00→20:56)
--- NOTE | 2019-02-17 10:02 | PN ---
Progress Note, Physician Chief Complaint: Appears less tachypneic IS/OS: negative 1 Liter. Tele: NSR, rare PVCs History of Present Illness: WEIGHTS UNRELIABLE - Current Medication List Current Medications: Active Medications Acetaminophen (Tylenol -) 650 mg PO Q4H PRN PRN Reason: MILD PAIN Last Admin: 02/16/19 23:31 Dose: 650 mg Albuterol Sulfate (Ventolin 0.083% Nebulizer Soln -) 1 amp NEB Q4H PRN PRN Reason: SHORT OF BREATH/WHEEZING Last Admin: 02/16/19 11:40 Dose: 1 amp Allopurinol (Zyloprim -) 100 mg PO BID [facility] Last Admin: 02/16/19 21:40 Dose: 100 mg Atorvastatin Calcium (Lipitor -) 10 mg PO HS [facility] Last Admin: 02/16/19 21:39 Dose: 10 mg Furosemide (Lasix Injection -) 80 mg IVPUSH BID@0600,1400 [facility] Last Admin: 02/17/19 06:33 Dose: 80 mg Gabapentin (Neurontin -) 300 mg PO BID [facility] Last Admin: 02/16/19 21:39 Dose: 300 mg Heparin Sodium (Porcine) (Heparin -) 5,000 unit SQ TID [facility] Last Admin: 02/17/19 06:33 Dose: 5,000 unit Insulin Aspart (Novolog Vial Sliding Scale -) 1 vial SQ BIDAC [facility]; Protocol Last Admin: 02/17/19 06:34 Dose: Not Given Insulin Detemir (Levemir Vial) 38 units SQ DAILY@0700 [facility] Last Admin: 02/17/19 06:34 Dose: 38 units Levalbuterol HCl (Xopenex) 0.31 mg IH RTID [facility] Last Admin: 02/17/19 09:00 Dose: 0.31 mg Lorazepam (Ativan -) 1 mg PO BID [facility] Last Admin: 02/16/19 21:40 Dose: 1 mg Metoprolol Succinate (Toprol Xl -) 25 mg PO BID [facility] Last Admin: 02/16/19 21:39 Dose: 25 mg Nystatin (Mycostatin Cream -) 1 applic TP BID [facility] Last Admin: 02/16/19 21:41 Dose: 1 applic Pantoprazole Sodium (Protonix -) 20 mg PO DAILY [facility] Last Admin: 02/16/19 10:27 Dose: 20 mg Ropinirole HCl (Requip -) 0.5 mg PO HS [facility] Last Admin: 02/16/19 21:41 Dose: 0.5 mg - Objective Vital Signs: Vital Signs Temperature 97.9 F 02/17/19 09:00 Pulse Rate 78 02/17/19 09:00 Respiratory Rate 20 02/17/19 09:00 Blood Pressure 100/66 02/17/19 09:00 O2 Sat by Pulse Oximetry (%) 97 02/17/19 03:26 Constitutional: Yes: No Distress Cardiovascular: Yes: Regular Rate and Rhythm, Other (cannot assess JVD) Respiratory: Yes: Other (decreased basilar breath sounds) Gastrointestinal: Yes: Soft, Abdomen, Obese Edema: No (warm) Neurological: Yes: Alert, Oriented ...Motor Strength: WNL Psychiatric: Yes: WNL Labs: CBC, BMP 02/17/19 06:01 02/17/19 06:01 - ....Imaging EKG: Image Reviewed Assessment/Plan IMP: 1. Acute on chronic systolic CHF, difficult exam due to body habitus (EF upon our review closer to 35%) 2. Morbid obesity 3. VIDYA 4. Possible CAD 5. Chronic LBBB and 1st degree AV block 6. DM w/ CKD 7. HTN REC: 1. Difficult physical exam due to body habitus. Unable to assess JVP and lung exam is limited by her inability to fully expand chest. There is minimal LE edema. CT chest was obtained to assess degree of volume overload and reviewed w/ Dr. Cunha. + L effusion > R with changes of increased PVC. Cee was inserted 02/16 and Lasix increased to 80mg IV BID with net negative fluid balance over last 24 hours and clinical improvement. In light of good clinical response, Milrinone was deferred. -Cont current dose IV Lasix as BP allows -Strict Is/Os -Daily BMP to monitor renal fx, lytes 2. Supp. O2 as per pulmonary. 3. Possible CAD based on chronic LBBB, wall motion abn on echo but previous stress tests without ischemia. Cont ASA 81mg daily, beta hannah, statin ( Atorva 10) 4. LBBB is chronic 5. As above, daily labs to monitor K+ and GFR while receiving IV Lasix (CKD w/ baseline creat around 1.7) 6. BP has been well controlled not on TOMAS/ARB due to chronic kidney disease. Low normal this AM, will follow trend.
[2019-02-17 11:17] LABS: ANISOCYTOSIS 1+; MACROCYTOSIS 0; OVALOCYTE 1+; PLATELET ESTIMATE NORMAL; TARGET CELLS 1+
[2019-02-17] MEDS: LORazepam 0.5 MG TABLET PO SCH ×2 (11:20→21:15)
[2019-02-17] MEDS: NYSTATIN 100,000 UNIT/GM TOPICAL CREAM 15 GM TUBE TP SCH ×2 (11:21→21:16)
[2019-02-17] MEDS: PANTOPRAZOLE 20 MG TABLET (FP) PO SCH (11:21)
[2019-02-17] MEDS: metoPROLOL SUCCINATE 25 MG TAB.SR.24H (FP) PO SCH ×2 (11:21→21:13)
[2019-02-17] MEDS: GABAPENTIN 300 MG CAPSULE (FP) PO SCH ×2 (11:21→21:13)
[2019-02-17] MEDS: ALLOPURINOL 100 MG TABLET (FP) PO SCH ×2 (11:22→21:13)
--- NOTE | 2019-02-17 14:56 | PN ---
Progress Note (short form) - Note Progress Note: Breathing feels better. (-) 1 liter No acute events overnight. Intake & Output 02/14/19 02/15/19 02/16/19 02/17/19 23:59 23:59 23:59 23:59 Intake Total 155 453 4512 850 Output Total 2300 200 Balance 885 270 -1210 650 Weight 258 lb 359 lb 3.2 oz Last Vital Signs Temp Pulse Resp BP Pulse Ox 97.9 F 78 20 100/66 96 02/17/19 09:00 02/17/19 09:00 02/17/19 09:00 02/17/19 09:00 02/17/19 09:00 Active Medications Acetaminophen (Tylenol -) 650 mg PO Q4H PRN PRN Reason: MILD PAIN Last Admin: 02/16/19 23:31 Dose: 650 mg Albuterol Sulfate (Ventolin 0.083% Nebulizer Soln -) 1 amp NEB Q4H PRN PRN Reason: SHORT OF BREATH/WHEEZING Last Admin: 02/16/19 11:40 Dose: 1 amp Allopurinol (Zyloprim -) 100 mg PO BID [facility] Last Admin: 02/17/19 11:22 Dose: 100 mg Atorvastatin Calcium (Lipitor -) 10 mg PO HS [facility] Last Admin: 02/16/19 21:39 Dose: 10 mg Furosemide (Lasix Injection -) 80 mg IVPUSH BID@0600,1400 [facility] Last Admin: 02/17/19 06:33 Dose: 80 mg Gabapentin (Neurontin -) 300 mg PO BID [facility] Last Admin: 02/17/19 11:21 Dose: 300 mg Heparin Sodium (Porcine) (Heparin -) 5,000 unit SQ TID [facility] Last Admin: 02/17/19 06:33 Dose: 5,000 unit Insulin Aspart (Novolog Vial Sliding Scale -) 1 vial SQ BIDAC [facility]; Protocol Last Admin: 02/17/19 06:34 Dose: Not Given Insulin Detemir (Levemir Vial) 38 units SQ DAILY@0700 [facility] Last Admin: 02/17/19 06:34 Dose: 38 units Levalbuterol HCl (Xopenex) 0.31 mg IH RTID [facility] Last Admin: 02/17/19 09:00 Dose: 0.31 mg Lorazepam (Ativan -) 1 mg PO BID [facility] Last Admin: 02/17/19 11:20 Dose: 1 mg Metoprolol Succinate (Toprol Xl -) 25 mg PO BID [facility] Last Admin: 02/17/19 11:21 Dose: 25 mg Nystatin (Mycostatin Cream -) 1 applic TP BID [facility] Last Admin: 02/17/19 11:21 Dose: 1 applic Pantoprazole Sodium (Protonix -) 20 mg PO DAILY [facility] Last Admin: 02/17/19 11:21 Dose: 20 mg Ropinirole HCl (Requip -) 0.5 mg PO HS [facility] Last Admin: 02/16/19 21:41 Dose: 0.5 mg Constitutional: Yes: NAD, Obese Eyes: Yes: WNL HENT: Yes: WNL Neck: Yes: WNL Cardiovascular: Yes: Regular Rate and Rhythm, S1, S2 Respiratory: Yes: Diminished Gastrointestinal: Yes: Normal Bowel Sounds, Soft, Abdomen, Obese Extremities: Yes: WNL Edema: No Labs: Laboratory Results - last 24 hr 02/16/19 02/16/19 02/17/19 17:29 21:38 06:01 WBC 8.4 RBC 3.49 L Hgb 10.9 Hct 33.1 MCV 94.9 MCH 31.1 MCHC 32.8 RDW 16.1 H Plt Count 209 MPV 9.3 Absolute Neuts (auto) 5.5 Neutrophils % 66.0 Neutrophils % (Manual) 66.0 Band Neutrophils % 1.0 Lymphocytes % 20.2 Lymphocytes % (Manual) 21.0 Monocytes % 8.7 Monocytes % (Manual) 7 Eosinophils % 4.1 Eosinophils % (Manual) 4.0 Basophils % 1.0 Basophils % (Manual) 1.0 D Myelocytes % (Man) 0 Promyelocytes % (Man) 0 Blast Cells % (Manual) 0 Nucleated RBC % 0 Metamyelocytes 0 Hypochromia 0 Platelet Estimate Normal Polychromasia 1+ Poikilocytosis 1+ Basophilic Stippling 1+ Anisocytosis 1+ Microcytosis 1+ Macrocytosis 0 Target Cells 1+ Ovalocytes 1+ Acanthocytes (Spur) 1+ Schistocytes 1+ Sodium Potassium Chloride Carbon Dioxide Anion Gap BUN Creatinine Est GFR (CKD-EPI)AfAm Est GFR (CKD-EPI)NonAf POC Glucometer 138 173 Random Glucose Calcium Phosphorus Magnesium Total Bilirubin AST ALT Alkaline Phosphatase Total Protein Albumin 02/17/19 02/17/19 06:01 06:32 WBC RBC Hgb Hct MCV MCH MCHC RDW Plt Count MPV Absolute Neuts (auto) Neutrophils % Neutrophils % (Manual) Band Neutrophils % Lymphocytes % Lymphocytes % (Manual) Monocytes % Monocytes % (Manual) Eosinophils % Eosinophils % (Manual) Basophils % Basophils % (Manual) Myelocytes % (Man) Promyelocytes % (Man) Blast Cells % (Manual) Nucleated RBC % Metamyelocytes Hypochromia Platelet Estimate Polychromasia Poikilocytosis Basophilic Stippling Anisocytosis Microcytosis Macrocytosis Target Cells Ovalocytes Acanthocytes (Spur) Schistocytes Sodium 138 Potassium 3.7 Chloride 100 Carbon Dioxide 31 Anion Gap 7 L BUN 75.3 H Creatinine 2.2 H Est GFR (CKD-EPI)AfAm 22.93 Est GFR (CKD-EPI)NonAf 19.79 POC Glucometer 133 Random Glucose 138 H Calcium 9.5 Phosphorus 3.6 Magnesium 2.6 H Total Bilirubin 0.7 AST 26 ALT 25 Alkaline Phosphatase 81 Total Protein 6.5 Albumin 3.1 L Problem List - Problems (1) Acute hypoxemic respiratory failure Code(s): J96.01 - ACUTE RESPIRATORY FAILURE WITH HYPOXIA (2) Fall Code(s): W19.XXXA - UNSPECIFIED FALL, INITIAL ENCOUNTER Qualifiers: Encounter type: initial encounter Qualified Code(s): W19.XXXA - Unspecified fall, initial encounter (3) Multiple rib fractures Code(s): S22.49XA - MULTIPLE FRACTURES OF RIBS, UNSP SIDE, INIT FOR CLOS FX Qualifiers: Encounter type: initial encounter Fracture type: closed Laterality: left Qualified Code(s): S22.42XA - Multiple fractures of ribs, left side, initial encounter for closed fracture (4) CAD (coronary artery disease) Code(s): I25.10 - ATHSCL HEART DISEASE OF [place] CORONARY ARTERY W/O ANG PCTRS (5) CHF (congestive heart failure) Code(s): I50.9 - HEART FAILURE, UNSPECIFIED Qualifiers: Heart failure type: systolic Heart failure chronicity: acute on chronic Qualified Code(s): I50.23 - Acute on chronic systolic (congestive) heart failure (6) CKD (chronic kidney disease) stage 4, GFR 15-29 ml/min Code(s): N18.4 - CHRONIC KIDNEY DISEASE, STAGE 4 (SEVERE) (7) HTN (hypertension) with goal to be determined Code(s): I10 - ESSENTIAL (PRIMARY) HYPERTENSION (8) Hyperlipemia Code(s): E78.5 - HYPERLIPIDEMIA, UNSPECIFIED (9) Hypertension Code(s): I10 - ESSENTIAL (PRIMARY) HYPERTENSION Qualifiers: Hypertension type: essential hypertension Qualified Code(s): I10 - Essential (primary) hypertension (10) Morbid obesity Code(s): E66.01 - MORBID (SEVERE) OBESITY DUE TO EXCESS CALORIES (11) Neuropathy Code(s): G62.9 - POLYNEUROPATHY, UNSPECIFIED (12) Shortness of breath Code(s): R06.02 - SHORTNESS OF BREATH Assessment/Plan IMP ACUTE HYPOXIC RESPIRATORY FAILURE LIKELY SECONDARY TO ATELECTASIS SECONDARY TO PAIN DUE TO MULTIPLE RIB FX MULTIPLE NON-DISPLACED LEFT SIDED RIB FX S/P MECHANICAL FALL ACUTE ON CHRONIC CHF VIDYA NOT ON CPAP PULMONARY HTN MORBID OBESITY ? OBESITY HYPOVENTILATION SYNDROME CKD DM PLAN ENCOURAGE INCENTIVE SPIROMETERY LASIX INHALED BRONCHODILATORS ANALGESICS O2 NIPPV AT NIGHT IF PT COMPLIES DAILY WT MONITOR LYTES,RENAL FUNCTION DVT PROPHYLAXIS DR DENNIS
[2019-02-17] MEDS ORDERED: PT OWN MED DRAWER 7, Y5N ONE (21:03)
[2019-02-17] MEDS: ATORVASTATIN CA 10 MG TABLET (FP) PO SCH (21:13)
[2019-02-17] MEDS: rOPINIRole HCL 0.5 MG TABLET PO SCH (21:14)
[2019-02-18] MEDS: FUROSEMIDE 40 MG/4 ML INJECTABLE VIAL IVPUSH SCH ×2 (06:01→15:16)
[2019-02-18] MEDS: HEPARIN NA (PORCINE) 5,000 UNITS/ML 1ML VIAL SQ SCH ×3 (06:01→23:43)
[2019-02-18] MEDS: INSULIN (LEVEMIR) 100 UNITS/ML UNITS SQ SCH (06:02)
[2019-02-18] MEDS: INSULIN SLIDING SCALE (NOVOLOG) 1 VIAL SQ SCH ×2 (06:03→17:29)
[2019-02-18 06:58] LABS: BASO % 0.9 % (0-2.0); EOS % 3.4 % (0-4.5); HEMATOCRIT 34.7 % (32.4-45.2); HEMOGLOBIN 11.4 GM/dL (10.7-15.3); LYMPH % 19.8 % (8-40); MCH 31.1 pg (25.7-33.7); MCHC 32.8 g/dl (32.0-36.0); MEAN PLT VOLUME 9.4 fl (7.5-11.1); MONO % 9.5 % (3.8-10.2); NEUT % 66.4 % (42.8-82.8); PLATELET COUNT 195 K/MM3 (134-434); RBC 3.65 M/mm3 (3.60-5.2); RDW 16.5 % (11.6-15.6); WHITE BLOOD COUNT 7.7 K/mm3 (4.0-10.0)
[2019-02-18 07:21] LABS: ALBUMIN 3.1 g/dl (3.4-5.0); BILIRUBIN,TOTAL 0.7 mg/dL (0.2-1); BLOOD UREA NITROGEN 77.5 mg/dL (7-18); CALCIUM 9.3 mg/dL (8.5-10.1); CREATININE 2.1 mg/dL (0.55-1.3); MAGNESIUM 2.6 mg/dL (1.8-2.4); POTASSIUM 3.9 mmol/L (3.5-5.1); TOT PROT 6.7 g/dl (6.4-8.2)
--- NOTE | 2019-02-18 07:40 | PN ---
Progress Note, Physician Chief Complaint: breathing is better History of Present Illness: 83 yo F h/o IDDM, systolic CHF, HTN, HLD, and chronic kidney disease, arrived to ED for left shoulder pain post fall. Patient fell at 4 am yesterday unable to get back up called EMS who assisted but at the time refuse to go hospital. while resting noted with increase pain daughter called EMS and arrived for further Evaluation. Patient complain of pain 7/10 unable to ambulate, left back pain radiating to left chest under breast area with sob at time. Patient denies hitting her head or losing consciousness. Patient denies CP, dizziness, headache, no acute N/V. Pt transferred from [place] for further management - Current Medication List Current Medications: Active Medications Acetaminophen (Tylenol -) 650 mg PO Q4H PRN PRN Reason: MILD PAIN Last Admin: 02/16/19 23:31 Dose: 650 mg Albuterol Sulfate (Ventolin 0.083% Nebulizer Soln -) 1 amp NEB Q4H PRN PRN Reason: SHORT OF BREATH/WHEEZING Last Admin: 02/16/19 11:40 Dose: 1 amp Allopurinol (Zyloprim -) 100 mg PO BID [facility] Last Admin: 02/17/19 21:13 Dose: 100 mg Atorvastatin Calcium (Lipitor -) 10 mg PO HS [facility] Last Admin: 02/17/19 21:13 Dose: 10 mg Furosemide (Lasix Injection -) 80 mg IVPUSH BID@0600,1400 [facility] Last Admin: 02/18/19 06:01 Dose: 80 mg Gabapentin (Neurontin -) 300 mg PO BID [facility] Last Admin: 02/17/19 21:13 Dose: 300 mg Heparin Sodium (Porcine) (Heparin -) 5,000 unit SQ TID [facility] Last Admin: 02/18/19 06:01 Dose: 5,000 unit Insulin Aspart (Novolog Vial Sliding Scale -) 1 vial SQ BIDAC [facility]; Protocol Last Admin: 02/18/19 06:03 Dose: Not Given Insulin Detemir (Levemir Vial) 38 units SQ DAILY@0700 [facility] Last Admin: 02/18/19 06:02 Dose: 38 units Levalbuterol HCl (Xopenex) 0.31 mg IH RTID [facility] Last Admin: 02/17/19 20:56 Dose: 0.31 mg Lorazepam (Ativan -) 1 mg PO BID [facility] Last Admin: 02/17/19 21:15 Dose: 1 mg Metoprolol Succinate (Toprol Xl -) 25 mg PO BID [facility] Last Admin: 02/17/19 21:13 Dose: 25 mg Nystatin (Mycostatin Cream -) 1 applic TP BID [facility] Last Admin: 02/17/19 21:16 Dose: 1 applic Pantoprazole Sodium (Protonix -) 20 mg PO DAILY [facility] Last Admin: 02/17/19 11:21 Dose: 20 mg Ropinirole HCl (Requip -) 0.5 mg PO HS [facility] Last Admin: 02/17/19 21:14 Dose: 0.5 mg - Objective Vital Signs: Vital Signs Temperature 8.5 F L 02/18/19 05:35 Pulse Rate 82 02/18/19 05:35 Respiratory Rate 22 H 02/18/19 05:35 Blood Pressure 114/69 02/18/19 05:35 O2 Sat by Pulse Oximetry (%) 94 L 02/17/19 23:28 Constitutional: Yes: No Distress, Calm, Obese Eyes: Yes: WNL, Conjunctiva Clear HENT: Yes: WNL, Atraumatic, Normocephalic Neck: Yes: WNL, Supple, Trachea Midline Cardiovascular: Yes: WNL, Regular Rate and Rhythm Respiratory: Yes: Regular, On Nasal O2, Poor Air Entry, Rales (scattered), SOB on Exertion Gastrointestinal: Yes: Normal Bowel Sounds, Soft, Abdomen, Obese ...Rectal Exam: Yes: Deferred Genitourinary: Yes: Cee Present Breast(s): Yes: WNL Musculoskeletal: Yes: Muscle Weakness Extremities: Yes: WNL Edema: Yes Edema: LUE: Trace, RUE: Trace, LLE: 2+, RLE: 2+ Peripheral Pulses WNL: Yes Peripheral Pulses: Left Radial: 2+, Right Radial: 2+, Left Doralis Pedis: 2+, Right Dorsalis Pedis: 2+, Left Femoral: 2+, Right Femoral: 2+ Integumentary: Yes: Bruising, Skin Tear, Other (to BL UE) Neurological: Yes: WNL, Alert, Oriented ...Motor Strength: LUE, LLE, RUE, RLE (generalized weakness) Psychiatric: Yes: WNL Labs: CBC, BMP 02/18/19 06:10 02/18/19 06:10 Problem List - Problems (1) [id number] kidney injury Assessment/Plan: monitor daily renal fx avoid nephrotoxic agents hold TOMAS/ARB daily weights strict I&Os renal consultation appreciated by Dr Burks Code(s): N17.9 - ACUTE KIDNEY FAILURE, UNSPECIFIED; N18.9 - CHRONIC KIDNEY DISEASE, UNSPECIFIED (2) Acute hypoxemic respiratory failure Assessment/Plan: supplemental O2 maintain PO2 >92% c/w duo nebs c/w lasix pt refusing BiPap appreciate pulmonary consultation Code(s): J96.01 - ACUTE RESPIRATORY FAILURE WITH HYPOXIA (3) CAD (coronary artery disease) Assessment/Plan: Possible CAD based on chronic LBBB, wall motion abn on echo but previous stress tests without ischemia. c/w ASA 81mg daily, beta hannah, statin appreciate cardiology consultation Code(s): I25.10 - ATHSCL HEART DISEASE OF [place] CORONARY ARTERY W/O ANG PCTRS (4) CHF (congestive heart failure) Assessment/Plan: c/w IV lasix 80mg BID daily weights strict I&Os monitor Cr no need for [id number] this time As per Dr Heard: rec outpatient echo with Definity for LVEF, ICD consideration as appropriate depending on that result Code(s): I50.9 - HEART FAILURE, UNSPECIFIED Qualifiers: Heart failure type: systolic Heart failure chronicity: acute on chronic Qualified Code(s): I50.23 - Acute on chronic systolic (congestive) heart failure (5) Diabetes Assessment/Plan: BGM AC/HS novolog ss diabetic diet Code(s): E11.9 - TYPE 2 DIABETES MELLITUS WITHOUT COMPLICATIONS Qualifiers: Diabetes mellitus type: type 2 Diabetes mellitus mcfp insulin use: with termite renewal inspector use Diabetes mellitus complication status: with kidney complications Diabetes mellitus complication detail: with chronic kidney disease Chronic kidney disease stage: stage 4 (severe) Qualified Code(s): E11.22 - Type 2 diabetes mellitus with diabetic chronic kidney disease; N18.4 - Chronic kidney disease, stage 4 (severe); Z79.4 - care home (current) use of insulin (6) Hyperlipemia Assessment/Plan: c/w statin Code(s): E78.5 - HYPERLIPIDEMIA, UNSPECIFIED (7) Hypertension Assessment/Plan: normotensive avoid TOMAS/ARB with elevated Cr Code(s): I10 - ESSENTIAL (PRIMARY) HYPERTENSION Qualifiers: Hypertension type: essential hypertension Qualified Code(s): I10 - Essential (primary) hypertension (8) Morbid obesity with BMI of 50.0-59.9, adult Assessment/Plan: cardiac diet counseled on weight loss PT following Code(s): E66.01 - MORBID (SEVERE) OBESITY DUE TO EXCESS CALORIES; Z68.43 - BODY MASS INDEX (BMI) 50-59.9, ADULT (9) Prophylactic measure Assessment/Plan: FEN cardiac diet monitor electrolytes/Cr no IVF DVT sq heparin Dispo maintain on tele full code discharge planning Code(s): Z29.9 - ENCOUNTER FOR PROPHYLACTIC MEASURES, UNSPECIFIED (10) Fall Assessment/Plan: seen and evaluated by ortho, conservative management PT, full WB with walker Tylenol PRN, no opioids due to respiratory compromise fall precautions Code(s): W19.XXXA - UNSPECIFIED FALL, INITIAL ENCOUNTER Qualifiers: Encounter type: initial encounter Qualified Code(s): W19.XXXA - Unspecified fall, initial encounter Visit type - Emergency Visit Emergency Visit: Yes ED Registration Date: 02/09/19 Care time: The patient presented to the Emergency Department on the above date and was hospitalized for further evaluation of their emergent condition. - New Patient This patient is new to me today: No - Critical Care Critical Care patient: No - Discharge Referral Referred to [facility] Med P.C.: No
[2019-02-18] MEDS: LEVALBUTEROL HCL 0.31 MG/3 ML VIAL.NEB IH SCH ×3 (08:08→20:30)
--- NOTE | 2019-02-18 09:00 | PN ---
Progress Note, Physician Chief Complaint: sob History of Present Illness: very sleepy--"a little sob" no cp denies palpit, syncope no cigs - Current Medication List Current Medications: Active Medications Acetaminophen (Tylenol -) 650 mg PO Q4H PRN PRN Reason: MILD PAIN Last Admin: 02/16/19 23:31 Dose: 650 mg Albuterol Sulfate (Ventolin 0.083% Nebulizer Soln -) 1 amp NEB Q4H PRN PRN Reason: SHORT OF BREATH/WHEEZING Last Admin: 02/16/19 11:40 Dose: 1 amp Allopurinol (Zyloprim -) 100 mg PO BID [facility] Last Admin: 02/17/19 21:13 Dose: 100 mg Atorvastatin Calcium (Lipitor -) 10 mg PO [facility] Last Admin: 02/17/19 21:13 Dose: 10 mg Furosemide (Lasix Injection -) 80 mg IVPUSH BID@0600,1400 [facility] Last Admin: 02/18/19 06:01 Dose: 80 mg Gabapentin (Neurontin -) 300 mg PO BID [facility] Last Admin: 02/17/19 21:13 Dose: 300 mg Heparin Sodium (Porcine) (Heparin -) 5,000 unit SQ TID [facility] Last Admin: 02/18/19 06:01 Dose: 5,000 unit Insulin Aspart (Novolog Vial Sliding Scale -) [facility] Protocol Last Admin: 02/18/19 06:03 Dose: Not Given Insulin Detemir (Levemir Vial) 38 units SQ DAILY@0700 [facility] Last Admin: 02/18/19 06:02 Dose: 38 units Levalbuterol HCl (Xopenex) 0.31 mg IH RTID [facility] Last Admin: 02/18/19 08:08 Dose: 0.31 mg Lorazepam (Ativan -) 1 mg PO BID [facility] Last Admin: 02/17/19 21:15 Dose: 1 mg Metoprolol Succinate (Toprol Xl -) 25 mg PO BID [facility] Last Admin: 02/17/19 21:13 Dose: 25 mg Nystatin (Mycostatin Cream -) 1 applic TP BID [facility] Last Admin: 02/17/19 21:16 Dose: 1 applic Pantoprazole Sodium (Protonix -) 20 mg PO DAILY [facility] Last Admin: 02/17/19 11:21 Dose: 20 mg Ropinirole HCl (Requip -) 0.5 mg PO [facility] Last Admin: 02/17/19 21:14 Dose: 0.5 mg - Objective Vital Signs: Vital Signs Temperature 8.5 F L 02/18/19 05:35 Pulse Rate 82 02/18/19 05:35 Respiratory Rate 22 H 02/18/19 05:35 Blood Pressure 114/69 02/18/19 05:35 O2 Sat by Pulse Oximetry (%) 94 L 02/17/19 23:28 Constitutional: Yes: No Distress, Calm, Obese Eyes: No: Sclera Icterus HENT: No: Nasal Congestion Cardiovascular: Yes: Regular Rate and Rhythm, S1, S2, Other (PMI non diplaced). No: JVD (++tds exam), Gallop, Murmur Respiratory: Yes: CTA Bilaterally (not taking deep breaths). No: Accessory Muscle Use, Rales, Wheezes Gastrointestinal: Yes: Normal Bowel Sounds, Soft. No: Tenderness Musculoskeletal: Yes: Other (No kyphosis) Extremities: No: Cold, Cyanosis Edema: No Integumentary: No: Jaundice Neurological: Yes: Lethargy. No: Seizure Psychiatric: No: Agitated Labs: CBC, BMP 02/18/19 06:10 02/18/19 06:10 Assessment/Plan Echo 02/21: mild decr EF 45%, apical, septal, AW hypokinesis. nl RV. valves WNL IMAGES REVIEWED: very TDS, suspect LV hypo is global and closer to 35% Echo 07/2018: Mildly reduced LVEF w/ mild ant. HK, nl RV, mod MAC, Mild MR, Mild TR, RVSP > 30mmHg, mild AR MPI 07/24: no ischemia/scar. mild-mod reduced EF 42%. no TID tele: NSR, PVCs. NSVT x 3b IMP: - Acute on chronic systolic CHF, difficult exam due to body habitus (EF upon our review closer to 35%) - OTF on CKD sec to cardiorenal syndrome (baseline creat 1.7-2.0) - Morbid obesity - VIDYA - Possible CAD (? [place] hypocontractility on echo, equivocal given TDS image quality) - DM - HTN REC: -Difficult physical exam to assess volume status due to body habitus, CT chest confirmed findings of congestion--responded well to increase lasix 40 IV bid to 80 BID. no wts. renal fxn improving progressively, close to baseline. cont same lasix (given absence of signif edema and TDS phys exam, would use CXR and hypoxia/O2 req't as main parameter to guide diuretic decisions) -Suppl. O2 as per pulmonary. -Possible CAD based on chronic LBBB, wall motion abn on echo but previous stress tests without ischemia. Cont ASA 81mg daily, beta hannah, statin ( Atorva 10). outpt f/u--consider PET perfusion vs cath depending on clinical course, renal fxn recovery -syst HF GDMT: low dose metopr as doing (soft bp's), deferring TOMAS/ARB, spirono given soft bp's and low GFR - aggresively replete K/Mag (>4/2), for VT risk - rec outpatient echo with Definity for LVEF, ICD consideration as appropriate depending on that result
--- NOTE | 2019-02-18 10:37 | PN ---
Progress Note, Physician History of Present Illness: pulmonary alert,feeling better comfortable,less dyspneic - Current Medication List Current Medications: Active Medications Acetaminophen (Tylenol -) 650 mg PO Q4H PRN PRN Reason: MILD PAIN Last Admin: 02/16/19 23:31 Dose: 650 mg Albuterol Sulfate (Ventolin 0.083% Nebulizer Soln -) 1 amp NEB Q4H PRN PRN Reason: SHORT OF BREATH/WHEEZING Last Admin: 02/16/19 11:40 Dose: 1 amp Allopurinol (Zyloprim -) 100 mg PO BID [facility] Last Admin: 02/17/19 21:13 Dose: 100 mg Atorvastatin Calcium (Lipitor -) 10 mg PO HS [facility] Last Admin: 02/17/19 21:13 Dose: 10 mg Furosemide (Lasix Injection -) 80 mg IVPUSH BID@0600,1400 [facility] Last Admin: 02/18/19 06:01 Dose: 80 mg Gabapentin (Neurontin -) 300 mg PO BID [facility] Last Admin: 02/17/19 21:13 Dose: 300 mg Heparin Sodium (Porcine) (Heparin -) 5,000 unit SQ TID [facility] Last Admin: 02/18/19 06:01 Dose: 5,000 unit Insulin Aspart (Novolog Vial Sliding Scale -) 1 vial SQ BIDAC [facility]; Protocol Last Admin: 02/18/19 06:03 Dose: Not Given Insulin Detemir (Levemir Vial) 38 units SQ DAILY@0700 [facility] Last Admin: 02/18/19 06:02 Dose: 38 units Levalbuterol HCl (Xopenex) 0.31 mg IH RTID [facility] Last Admin: 02/18/19 08:08 Dose: 0.31 mg Lorazepam (Ativan -) 1 mg PO BID [facility] Last Admin: 02/17/19 21:15 Dose: 1 mg Metoprolol Succinate (Toprol Xl -) 25 mg PO BID [facility] Last Admin: 02/17/19 21:13 Dose: 25 mg Nystatin (Mycostatin Cream -) 1 applic TP BID [facility] Last Admin: 02/17/19 21:16 Dose: 1 applic Pantoprazole Sodium (Protonix -) 20 mg PO DAILY [facility] Last Admin: 02/17/19 11:21 Dose: 20 mg Ropinirole HCl (Requip -) 0.5 mg PO HS [facility] Last Admin: 02/17/19 21:14 Dose: 0.5 mg - Objective Vital Signs: Vital Signs Temperature 8.5 F L 02/18/19 05:35 Pulse Rate 82 02/18/19 05:35 Respiratory Rate 22 H 02/18/19 05:35 Blood Pressure 114/69 02/18/19 05:35 O2 Sat by Pulse Oximetry (%) 94 L 02/17/19 23:28 Constitutional: Yes: Well Nourished, Calm, Obese Eyes: Yes: WNL HENT: Yes: WNL Neck: Yes: WNL Cardiovascular: Yes: Regular Rate and Rhythm, S1, S2 Respiratory: Yes: Diminished Gastrointestinal: Yes: Normal Bowel Sounds, Soft Extremities: Yes: WNL Edema: Yes Edema: LLE: Trace, RLE: Trace Labs: CBC, BMP 02/18/19 06:10 02/18/19 06:10 Problem List - Problems (1) Acute hypoxemic respiratory failure Code(s): J96.01 - ACUTE RESPIRATORY FAILURE WITH HYPOXIA (2) Fall Code(s): W19.XXXA - UNSPECIFIED FALL, INITIAL ENCOUNTER Qualifiers: Encounter type: initial encounter Qualified Code(s): W19.XXXA - Unspecified fall, initial encounter (3) Multiple rib fractures Code(s): S22.49XA - MULTIPLE FRACTURES OF RIBS, UNSP SIDE, INIT FOR CLOS FX Qualifiers: Encounter type: initial encounter Fracture type: closed Laterality: left Qualified Code(s): S22.42XA - Multiple fractures of ribs, left side, initial encounter for closed fracture (4) CAD (coronary artery disease) Code(s): I25.10 - ATHSCL HEART DISEASE OF [place] CORONARY ARTERY W/O ANG PCTRS (5) CHF (congestive heart failure) Code(s): I50.9 - HEART FAILURE, UNSPECIFIED Qualifiers: Heart failure type: systolic Heart failure chronicity: acute on chronic Qualified Code(s): I50.23 - Acute on chronic systolic (congestive) heart failure (6) CKD (chronic kidney disease) stage 4, GFR 15-29 ml/min Code(s): N18.4 - CHRONIC KIDNEY DISEASE, STAGE 4 (SEVERE) (7) HTN (hypertension) with goal to be determined Code(s): I10 - ESSENTIAL (PRIMARY) HYPERTENSION (8) Hyperlipemia Code(s): E78.5 - HYPERLIPIDEMIA, UNSPECIFIED (9) Hypertension Code(s): I10 - ESSENTIAL (PRIMARY) HYPERTENSION Qualifiers: Hypertension type: essential hypertension Qualified Code(s): I10 - Essential (primary) hypertension (10) Morbid obesity Code(s): E66.01 - MORBID (SEVERE) OBESITY DUE TO EXCESS CALORIES (11) Neuropathy Code(s): G62.9 - POLYNEUROPATHY, UNSPECIFIED (12) Shortness of breath Code(s): R06.02 - SHORTNESS OF BREATH Assessment/Plan IMP ACUTE HYPOXIC RESPIRATORY FAILURE LIKELY SECONDARY TO ATELECTASIS SECONDARY TO PAIN DUE TO MULTIPLE RIB FX MULTIPLE NON-DISPLACED LEFT SIDED RIB FX S/P MECHANICAL FALL ACUTE ON CHRONIC CHF VIDYA NOT ON CPAP PULMONARY HTN MORBID OBESITY ? OBESITY HYPOVENTILATION SYNDROME CKD DM PLAN ENCOURAGE INCENTIVE SPIROMETER LASIX INHALED BRONCHODILATORS ANALGESICS O2 BIPAP AT NIGHT IF PT COMPLIES DAILY WT MONITOR LYTES,RENAL FUNCTION DVT PROPHYLAXIS DR MOSLEY Problem List - Problems (1) Acute hypoxemic respiratory failure Code(s): J96.01 - ACUTE RESPIRATORY FAILURE WITH HYPOXIA (2) Fall Code(s): W19.XXXA - UNSPECIFIED FALL, INITIAL ENCOUNTER Qualifiers: Encounter type: initial encounter Qualified Code(s): W19.XXXA - Unspecified fall, initial encounter (3) Multiple rib fractures Code(s): S22.49XA - MULTIPLE FRACTURES OF RIBS, UNSP SIDE, INIT FOR CLOS FX Qualifiers: Encounter type: initial encounter Fracture type: closed Laterality: left Qualified Code(s): S22.42XA - Multiple fractures of ribs, left side, initial encounter for closed fracture (4) CAD (coronary artery disease) Code(s): I25.10 - ATHSCL HEART DISEASE OF [place] CORONARY ARTERY W/O ANG PCTRS (5) CHF (congestive heart failure) Code(s): I50.9 - HEART FAILURE, UNSPECIFIED Qualifiers: Heart failure type: systolic Heart failure chronicity: acute on chronic Qualified Code(s): I50.23 - Acute on chronic systolic (congestive) heart failure (6) CKD (chronic kidney disease) stage 4, GFR 15-29 ml/min Code(s): N18.4 - CHRONIC KIDNEY DISEASE, STAGE 4 (SEVERE) (7) HTN (hypertension) with goal to be determined Code(s): I10 - ESSENTIAL (PRIMARY) HYPERTENSION (8) Hyperlipemia Code(s): E78.5 - HYPERLIPIDEMIA, UNSPECIFIED (9) Hypertension Code(s): I10 - ESSENTIAL (PRIMARY) HYPERTENSION Qualifiers: Hypertension type: essential hypertension Qualified Code(s): I10 - Essential (primary) hypertension (10) Morbid obesity Code(s): E66.01 - MORBID (SEVERE) OBESITY DUE TO EXCESS CALORIES (11) Neuropathy Code(s): G62.9 - POLYNEUROPATHY, UNSPECIFIED (12) Shortness of breath Code(s): R06.02 - SHORTNESS OF BREATH
[2019-02-18] MEDS: NYSTATIN 100,000 UNIT/GM TOPICAL CREAM 15 GM TUBE TP SCH ×2 (11:01→23:44)
[2019-02-18] MEDS: LORazepam 0.5 MG TABLET PO SCH ×2 (11:01→23:43)
[2019-02-18] MEDS: metoPROLOL SUCCINATE 25 MG TAB.SR.24H (FP) PO SCH ×2 (11:02→23:43)
[2019-02-18] MEDS: GABAPENTIN 300 MG CAPSULE (FP) PO SCH ×2 (11:02→23:43)
[2019-02-18] MEDS: PANTOPRAZOLE 20 MG TABLET (FP) PO SCH (11:02)
[2019-02-18] MEDS: ALLOPURINOL 100 MG TABLET (FP) PO SCH ×2 (11:02→23:43)
[2019-02-18 11:44] LABS: ANISOCYTOSIS 1+; MACROCYTOSIS 1+; PLATELET ESTIMATE ADEQUATE
[2019-02-18] MEDS: POTASSIUM CHLORIDE ORAL LIQUID 20 MEQ/15 ML PO SCH (12:10)
[2019-02-18] MEDS ORDERED: PT OWN MED DRAWER 7, Y5N ONE ×3 (12:58→22:35)
--- NOTE | 2019-02-18 13:08 | PN ---
Progress Note (short form) - Note Progress Note: Renal follow up for CKD and fluid overload Seen and examined at the bedside offers no acute complaints breathing is better overall no chest pain, fever, chills making urine tolerating oral diet Vital Signs Temperature 97.6 F 02/18/19 10:00 Pulse Rate 81 02/18/19 10:00 Respiratory Rate 20 02/18/19 10:00 Blood Pressure 110/60 02/18/19 10:00 O2 Sat by Pulse Oximetry (%) 94 L 02/17/19 23:28 Intake & Output 02/15/19 02/16/19 02/17/19 02/18/19 23:59 23:59 23:59 23:59 Intake Total 270 1090 1040 490 Output Total 2300 1000 250 Balance 270 -1210 40 240 Weight 117.027 kg 162.93 kg 166.786 kg NAD neck supple, no JVD RRR, no M/R Dec BS obese, NT/ND + LE edema, no clubbing or cyanosis no bladder distension CBC, BMP 02/18/19 06:10 02/18/19 06:10 Current Medications Acetaminophen (Tylenol -) 650 mg PO Q4H PRN PRN Reason: MILD PAIN Last Admin: 02/16/19 23:31 Dose: 650 mg Albuterol Sulfate (Ventolin 0.083% Nebulizer Soln -) 1 amp NEB Q4H PRN PRN Reason: SHORT OF BREATH/WHEEZING Last Admin: 02/16/19 11:40 Dose: 1 amp Allopurinol (Zyloprim -) 100 mg PO BID [facility] Last Admin: 02/18/19 11:02 Dose: 100 mg Atorvastatin Calcium (Lipitor -) 10 mg PO HS [facility] Last Admin: 02/17/19 21:13 Dose: 10 mg Furosemide (Lasix Injection -) 80 mg IVPUSH BID@0600,1400 [facility] Last Admin: 02/18/19 06:01 Dose: 80 mg Gabapentin (Neurontin -) 300 mg PO BID [facility] Last Admin: 02/18/19 11:02 Dose: 300 mg Heparin Sodium (Porcine) (Heparin -) 5,000 unit SQ TID [facility] Last Admin: 02/18/19 06:01 Dose: 5,000 unit Insulin Aspart (Novolog Vial Sliding Scale -) 1 vial SQ BIDAC [facility]; Protocol Last Admin: 02/18/19 06:03 Dose: Not Given Insulin Detemir (Levemir Vial) 38 units SQ DAILY@0700 [facility] Last Admin: 02/18/19 06:02 Dose: 38 units Levalbuterol HCl (Xopenex) 0.31 mg IH RTID [facility] Last Admin: 02/18/19 08:08 Dose: 0.31 mg Lorazepam (Ativan -) 1 mg PO BID [facility] Last Admin: 02/18/19 11:01 Dose: 1 mg Metoprolol Succinate (Toprol Xl -) 25 mg PO BID [facility] Last Admin: 02/18/19 11:02 Dose: 25 mg Nystatin (Mycostatin Cream -) 1 applic TP BID [facility] Last Admin: 02/18/19 11:01 Dose: 1 applic Pantoprazole Sodium (Protonix -) 20 mg PO DAILY [facility] Last Admin: 02/18/19 11:02 Dose: 20 mg Potassium Chloride (Potassium Chloride Oral Liquid) 20 meq PO DAILY [facility] Last Admin: 02/18/19 12:10 Dose: 20 meq Ropinirole HCl (Requip -) 0.5 mg PO HS [facility] Last Admin: 02/17/19 21:14 Dose: 0.5 mg 83 year old woman with history of CKD, systolic HF, hypertension, hyperlipidemia , DM, obesity who presented from home s/p fall with rib factures and developed acute CHF with rising BUN/Cr during the admission. 1. CKD stage 4 (baseline Cr 1.8) with elevated BUN/Cr in setting of HF 2. Systolic heart failure 3. Fall 4. Rib fractures 5. Hypokalemia Renal function remains stable Continue IV Lasix as per cardiology Trend real function and electrolytes daily not currently on TOMAS/ARB, would hold off until off IV diuretics avoid NSAIDs for pain control supplement K while on IV diuresis Thank you Pablo Burks DO
[2019-02-18] MEDS: rOPINIRole HCL 0.5 MG TABLET PO SCH (23:43)
[2019-02-18] MEDS: ATORVASTATIN CA 10 MG TABLET (FP) PO SCH (23:43)
[2019-02-19] MEDS: ACETAMINOPHEN 325 MG TABLET (FP) PO PRN ×2 (00:12→05:32)
[2019-02-19] MEDS: FUROSEMIDE 40 MG/4 ML INJECTABLE VIAL IVPUSH SCH ×2 (05:32→17:04)
[2019-02-19] MEDS: HEPARIN NA (PORCINE) 5,000 UNITS/ML 1ML VIAL SQ SCH ×3 (05:32→23:41)
[2019-02-19] MEDS: INSULIN (LEVEMIR) 100 UNITS/ML UNITS SQ SCH (06:23)
[2019-02-19] MEDS: INSULIN SLIDING SCALE (NOVOLOG) 1 VIAL SQ SCH ×2 (06:24→19:12)
[2019-02-19] MEDS ORDERED: PT OWN MED DRAWER 7, Y5N ONE ×2 (07:26→21:59)
[2019-02-19 07:33] LABS: BLOOD UREA NITROGEN 84.1 mg/dL (7-18); CALCIUM 9.5 mg/dL (8.5-10.1); CREATININE 2.2 mg/dL (0.55-1.3); MAGNESIUM 2.6 mg/dL (1.8-2.4); PHOSPHOROUS 4.2 mg/dL (2.5-4.9); POTASSIUM 3.8 mmol/L (3.5-5.1)
[2019-02-19] MEDS: LEVALBUTEROL HCL 0.31 MG/3 ML VIAL.NEB IH SCH ×3 (10:45→21:25)
--- NOTE | 2019-02-19 10:50 | PN ---
Progress Note, Physician History of Present Illness: PULMONARY ALERT,COMFORTABLE,-RESP DISTRESS - Current Medication List Current Medications: Active Medications Acetaminophen (Tylenol -) 650 mg PO Q4H PRN PRN Reason: MILD PAIN Last Admin: 02/19/19 05:32 Dose: 650 mg Albuterol Sulfate (Ventolin 0.083% Nebulizer Soln -) 1 amp NEB Q4H PRN PRN Reason: SHORT OF BREATH/WHEEZING Last Admin: 02/16/19 11:40 Dose: 1 amp Allopurinol (Zyloprim -) 100 mg PO BID [facility] Last Admin: 02/18/19 23:43 Dose: 100 mg Atorvastatin Calcium (Lipitor -) 10 mg PO HS [facility] Last Admin: 02/18/19 23:43 Dose: 10 mg Furosemide (Lasix Injection -) 80 mg IVPUSH BID@0600,1400 [facility] Last Admin: 02/19/19 05:32 Dose: 80 mg Gabapentin (Neurontin -) 300 mg PO BID [facility] Last Admin: 02/18/19 23:43 Dose: 300 mg Heparin Sodium (Porcine) (Heparin -) 5,000 unit SQ TID [facility] Last Admin: 02/19/19 05:32 Dose: 5,000 unit Insulin Aspart (Novolog Vial Sliding Scale -) 1 vial SQ BIDAC [facility]; Protocol Last Admin: 02/19/19 06:24 Dose: Not Given Insulin Detemir (Levemir Vial) 38 units SQ DAILY@0700 [facility] Last Admin: 02/19/19 06:23 Dose: 38 units Levalbuterol HCl (Xopenex) 0.31 mg IH RTID [facility] Last Admin: 02/18/19 20:30 Dose: 0.31 mg Lorazepam (Ativan -) 1 mg PO BID [facility] Last Admin: 02/18/19 23:43 Dose: 1 mg Metoprolol Succinate (Toprol Xl -) 25 mg PO BID [facility] Last Admin: 02/18/19 23:43 Dose: 25 mg Nystatin (Mycostatin Cream -) 1 applic TP BID [facility] Last Admin: 02/18/19 23:44 Dose: 1 applic Pantoprazole Sodium (Protonix -) 20 mg PO DAILY [facility] Last Admin: 02/18/19 11:02 Dose: 20 mg Potassium Chloride (Potassium Chloride Oral Liquid) 20 meq PO DAILY [facility] Last Admin: 02/18/19 12:10 Dose: 20 meq Ropinirole HCl (Requip -) 0.5 mg PO HS [facility] Last Admin: 02/18/19 23:43 Dose: 0.5 mg - Objective Vital Signs: Vital Signs Temperature 97.5 F L 02/19/19 06:00 Pulse Rate 78 02/19/19 06:00 Respiratory Rate 20 02/19/19 06:00 Blood Pressure 125/65 02/19/19 06:00 O2 Sat by Pulse Oximetry (%) 98 02/18/19 22:00 Constitutional: Yes: Calm, Obese Eyes: Yes: WNL HENT: Yes: WNL Neck: Yes: WNL Cardiovascular: Yes: Regular Rate and Rhythm, S1, S2 Respiratory: Yes: Diminished Gastrointestinal: Yes: Normal Bowel Sounds, Soft Extremities: Yes: WNL Edema: No Labs: CBC, BMP 02/18/19 06:10 02/19/19 06:50 Problem List - Problems (1) Acute hypoxemic respiratory failure Code(s): J96.01 - ACUTE RESPIRATORY FAILURE WITH HYPOXIA (2) Fall Code(s): W19.XXXA - UNSPECIFIED FALL, INITIAL ENCOUNTER Qualifiers: Encounter type: initial encounter Qualified Code(s): W19.XXXA - Unspecified fall, initial encounter (3) Multiple rib fractures Code(s): S22.49XA - MULTIPLE FRACTURES OF RIBS, UNSP SIDE, INIT FOR CLOS FX Qualifiers: Encounter type: initial encounter Fracture type: closed Laterality: left Qualified Code(s): S22.42XA - Multiple fractures of ribs, left side, initial encounter for closed fracture (4) CAD (coronary artery disease) Code(s): I25.10 - ATHSCL HEART DISEASE OF [place] CORONARY ARTERY W/O ANG PCTRS (5) CHF (congestive heart failure) Code(s): I50.9 - HEART FAILURE, UNSPECIFIED Qualifiers: Heart failure type: systolic Heart failure chronicity: acute on chronic Qualified Code(s): I50.23 - Acute on chronic systolic (congestive) heart failure (6) CKD (chronic kidney disease) stage 4, GFR 15-29 ml/min Code(s): N18.4 - CHRONIC KIDNEY DISEASE, STAGE 4 (SEVERE) (7) HTN (hypertension) with goal to be determined Code(s): I10 - ESSENTIAL (PRIMARY) HYPERTENSION (8) Hyperlipemia Code(s): E78.5 - HYPERLIPIDEMIA, UNSPECIFIED (9) Hypertension Code(s): I10 - ESSENTIAL (PRIMARY) HYPERTENSION Qualifiers: Hypertension type: essential hypertension Qualified Code(s): I10 - Essential (primary) hypertension (10) Morbid obesity Code(s): E66.01 - MORBID (SEVERE) OBESITY DUE TO EXCESS CALORIES (11) Neuropathy Code(s): G62.9 - POLYNEUROPATHY, UNSPECIFIED (12) Shortness of breath Code(s): R06.02 - SHORTNESS OF BREATH Assessment/Plan IMP ACUTE HYPOXIC RESPIRATORY FAILURE LIKELY SECONDARY TO ATELECTASIS SECONDARY TO PAIN DUE TO MULTIPLE RIB FX MULTIPLE NON-DISPLACED LEFT SIDED RIB FX S/P MECHANICAL FALL ACUTE ON CHRONIC CHF VIDYA NOT ON CPAP PULMONARY HTN MORBID OBESITY ? OBESITY HYPOVENTILATION SYNDROME CKD DM PLAN ENCOURAGE INCENTIVE SPIROMETER LASIX PER CARDIOLOGY INHALED BRONCHODILATORS ANALGESICS O2 BIPAP AT NIGHT IF PT COMPLIES DAILY WTS MONITOR LYTES,RENAL FUNCTION DVT PROPHYLAXIS BEDSIDE PT DR MOSLEY Problem List - Problems (1) Acute hypoxemic respiratory failure Code(s): J96.01 - ACUTE RESPIRATORY FAILURE WITH HYPOXIA (2) Fall Code(s): W19.XXXA - UNSPECIFIED FALL, INITIAL ENCOUNTER Qualifiers: Encounter type: initial encounter Qualified Code(s): W19.XXXA - Unspecified fall, initial encounter (3) Multiple rib fractures Code(s): S22.49XA - MULTIPLE FRACTURES OF RIBS, UNSP SIDE, INIT FOR CLOS FX Qualifiers: Encounter type: initial encounter Fracture type: closed Laterality: left Qualified Code(s): S22.42XA - Multiple fractures of ribs, left side, initial encounter for closed fracture (4) CAD (coronary artery disease) Code(s): I25.10 - ATHSCL HEART DISEASE OF [place] CORONARY ARTERY W/O ANG PCTRS (5) CHF (congestive heart failure) Code(s): I50.9 - HEART FAILURE, UNSPECIFIED Qualifiers: Heart failure type: systolic Heart failure chronicity: acute on chronic Qualified Code(s): I50.23 - Acute on chronic systolic (congestive) heart failure (6) CKD (chronic kidney disease) stage 4, GFR 15-29 ml/min Code(s): N18.4 - CHRONIC KIDNEY DISEASE, STAGE 4 (SEVERE) (7) HTN (hypertension) with goal to be determined Code(s): I10 - ESSENTIAL (PRIMARY) HYPERTENSION (8) Hyperlipemia Code(s): E78.5 - HYPERLIPIDEMIA, UNSPECIFIED (9) Hypertension Code(s): I10 - ESSENTIAL (PRIMARY) HYPERTENSION Qualifiers: Hypertension type: essential hypertension Qualified Code(s): I10 - Essential (primary) hypertension (10) Morbid obesity Code(s): E66.01 - MORBID (SEVERE) OBESITY DUE TO EXCESS CALORIES (11) Neuropathy Code(s): G62.9 - POLYNEUROPATHY, UNSPECIFIED (12) Shortness of breath Code(s): R06.02 - SHORTNESS OF BREATH
[2019-02-19] MEDS: metoPROLOL SUCCINATE 25 MG TAB.SR.24H (FP) PO SCH ×2 (11:29→23:42)
[2019-02-19] MEDS: PANTOPRAZOLE 20 MG TABLET (FP) PO SCH (11:29)
[2019-02-19] MEDS: LORazepam 0.5 MG TABLET PO SCH ×2 (11:29→23:42)
[2019-02-19] MEDS: ALLOPURINOL 100 MG TABLET (FP) PO SCH ×2 (11:29→23:42)
[2019-02-19] MEDS: GABAPENTIN 300 MG CAPSULE (FP) PO SCH ×2 (11:29→23:42)
[2019-02-19] MEDS: POTASSIUM CHLORIDE ORAL LIQUID 20 MEQ/15 ML PO SCH (11:29)
[2019-02-19] MEDS: NYSTATIN 100,000 UNIT/GM TOPICAL CREAM 15 GM TUBE TP SCH ×2 (12:00→23:45)
--- NOTE | 2019-02-19 12:05 | PN ---
Progress Note (short form) - Note Progress Note: sob improving, no cp, palps, dizziness Current Medications Acetaminophen (Tylenol -) 650 mg PO Q4H PRN PRN Reason: MILD PAIN Last Admin: 02/19/19 05:32 Dose: 650 mg Albuterol Sulfate (Ventolin 0.083% Nebulizer Soln -) 1 amp NEB Q4H PRN PRN Reason: SHORT OF BREATH/WHEEZING Last Admin: 02/16/19 11:40 Dose: 1 amp Allopurinol (Zyloprim -) 100 mg PO BID [facility] Last Admin: 02/19/19 11:29 Dose: 100 mg Atorvastatin Calcium (Lipitor -) 10 mg PO HS [facility] Last Admin: 02/18/19 23:43 Dose: 10 mg Furosemide (Lasix Injection -) 80 mg IVPUSH BID@0600,1400 [facility] Last Admin: 02/19/19 05:32 Dose: 80 mg Gabapentin (Neurontin -) 300 mg PO BID [facility] Last Admin: 02/19/19 11:29 Dose: 300 mg Heparin Sodium (Porcine) (Heparin -) 5,000 unit SQ TID [facility] Last Admin: 02/19/19 05:32 Dose: 5,000 unit Insulin Aspart (Novolog Vial Sliding Scale -) 1 vial SQ BIDAC [facility]; Protocol Last Admin: 02/19/19 06:24 Dose: Not Given Insulin Detemir (Levemir Vial) 38 units SQ DAILY@0700 [facility] Last Admin: 02/19/19 06:23 Dose: 38 units Levalbuterol HCl (Xopenex) 0.31 mg IH RTID [facility] Last Admin: 02/18/19 20:30 Dose: 0.31 mg Lorazepam (Ativan -) 1 mg PO BID [facility] Last Admin: 02/19/19 11:29 Dose: 1 mg Metoprolol Succinate (Toprol Xl -) 25 mg PO BID [facility] Last Admin: 02/19/19 11:29 Dose: 25 mg Nystatin (Mycostatin Cream -) 1 applic TP BID [facility] Last Admin: 02/18/19 23:44 Dose: 1 applic Pantoprazole Sodium (Protonix -) 20 mg PO DAILY [facility] Last Admin: 02/19/19 11:29 Dose: 20 mg Potassium Chloride (Potassium Chloride Oral Liquid) 20 meq PO DAILY [facility] Last Admin: 02/19/19 11:29 Dose: 20 meq Ropinirole HCl (Requip -) 0.5 mg PO HS [facility] Last Admin: 02/18/19 23:43 Dose: 0.5 mg Vital Signs Period Temp Pulse Resp BP Sys/Lopez Pulse Ox Last 24 Hr 97.4 F-98.8 F 78-84 20-20 98-139/53-82 98 Constitutional: Yes: No Distress, Calm, Obese Eyes: No: Sclera Icterus HENT: No: Nasal Congestion Cardiovascular: Yes: Regular Rate and Rhythm, S1, S2, Other (PMI non diplaced). No: JVD (++tds exam), Gallop, Murmur Respiratory: Yes: CTA Bilaterally (not taking deep breaths). No: Accessory Muscle Use, Rales, Wheezes Gastrointestinal: Yes: Normal Bowel Sounds, Soft. No: Tenderness Musculoskeletal: Yes: Other (No kyphosis) Extremities: No: Cold, Cyanosis Edema: No Integumentary: No: Jaundice Neurological: Yes: Lethargy. No: Seizure Psychiatric: No: Agitated Assessment/Plan Echo 02/21: mild decr EF 45%, apical, septal, AW hypokinesis. nl RV. valves WNL IMAGES REVIEWED: very TDS, suspect LV hypo is global and closer to 35% Echo 07/2018: Mildly reduced LVEF w/ mild ant. HK, nl RV, mod MAC, Mild MR, Mild TR, RVSP > 30mmHg, mild AR MPI 07/24: no ischemia/scar. mild-mod reduced EF 42%. no TID tele: NSR, PVCs IMP: - Acute on chronic systolic CHF, difficult exam due to body habitus (EF upon our review closer to 35%) - OTF on CKD sec to cardiorenal syndrome (baseline creat 1.7-2.0) - Morbid obesity - VIDYA - Possible CAD (? LAD territory hypocontractility on echo, equivocal given TDS image quality) - DM - HTN REC: -Difficult physical exam to assess volume status due to body habitus, CT chest confirmed findings of congestion - breathing improving, cont lasix 80 mg IV BID - Cr stable, bed weight trend appears unreliable (given absence of signif edema and TDS phys exam, would use CXR and hypoxia/O2 req't as main parameter to guide diuretic decisions) -Suppl. O2 as per pulmonary. -Possible CAD based on chronic LBBB, wall motion abn on echo but previous stress tests without ischemia. Cont ASA 81mg daily, beta hannah, statin ( Atorva 10). outpt f/u--consider PET perfusion vs cath depending on clinical course, renal fxn recovery -syst HF GDMT: low dose metopr as doing (soft bp's), deferring TOMAS/ARB, spirono given soft bp's and low GFR - aggresively replete K/Mag (>4/2), for VT risk - rec outpatient echo with Definity for LVEF, ICD consideration as appropriate depending on that result
--- NOTE | 2019-02-19 13:38 | PN ---
Progress Note, Physician Chief Complaint: feels better, some pain on left anterior rib area History of Present Illness: Patient is an 83 year old female with a past medical history of diabetes, systolic CHF, HTN, HLD, and chronic kidney disease, arrived to ED for left shoulder pain post fall. On admission, patient complained of pain 7/10 unable to ambulate, left back pain radiating to left chest under breast area with sob at time. Patient denies hitting her head or losing consciousness. Hospitalization complicated when patient experienced respiratory failure and is now being managed with supplemental oxygen. - Current Medication List Current Medications: Active Medications Acetaminophen (Tylenol -) 650 mg PO Q4H PRN PRN Reason: MILD PAIN Last Admin: 02/19/19 05:32 Dose: 650 mg Albuterol Sulfate (Ventolin 0.083% Nebulizer Soln -) 1 amp NEB Q4H PRN PRN Reason: SHORT OF BREATH/WHEEZING Last Admin: 02/16/19 11:40 Dose: 1 amp Allopurinol (Zyloprim -) 100 mg PO BID [facility] Last Admin: 02/19/19 11:29 Dose: 100 mg Atorvastatin Calcium (Lipitor -) 10 mg PO HS [facility] Last Admin: 02/18/19 23:43 Dose: 10 mg Furosemide (Lasix Injection -) 80 mg IVPUSH BID@0600,1400 [facility] Last Admin: 02/19/19 05:32 Dose: 80 mg Gabapentin (Neurontin -) 300 mg PO BID [facility] Last Admin: 02/19/19 11:29 Dose: 300 mg Heparin Sodium (Porcine) (Heparin -) 5,000 unit SQ TID [facility] Last Admin: 02/19/19 05:32 Dose: 5,000 unit Insulin Aspart (Novolog Vial Sliding Scale -) 1 vial SQ BIDAC [facility]; Protocol Last Admin: 02/19/19 06:24 Dose: Not Given Insulin Detemir (Levemir Vial) 38 units SQ DAILY@0700 [facility] Last Admin: 02/19/19 06:23 Dose: 38 units Levalbuterol HCl (Xopenex) 0.31 mg IH RTID [facility] Last Admin: 02/19/19 10:45 Dose: 0.31 mg Lorazepam (Ativan -) 1 mg PO BID [facility] Last Admin: 02/19/19 11:29 Dose: 1 mg Metoprolol Succinate (Toprol Xl -) 25 mg PO BID [facility] Last Admin: 02/19/19 11:29 Dose: 25 mg Nystatin (Mycostatin Cream -) 1 applic TP BID [facility] Last Admin: 02/18/19 23:44 Dose: 1 applic Pantoprazole Sodium (Protonix -) 20 mg PO DAILY [facility] Last Admin: 02/19/19 11:29 Dose: 20 mg Potassium Chloride (Potassium Chloride Oral Liquid) 20 meq PO DAILY [facility] Last Admin: 02/19/19 11:29 Dose: 20 meq Ropinirole HCl (Requip -) 0.5 mg PO HS [facility] Last Admin: 02/18/19 23:43 Dose: 0.5 mg - Objective Vital Signs: Vital Signs Temperature 97.5 F L 02/19/19 06:00 Pulse Rate 78 02/19/19 06:00 Respiratory Rate 20 02/19/19 06:00 Blood Pressure 125/65 02/19/19 06:00 O2 Sat by Pulse Oximetry (%) 98 02/18/19 22:00 Constitutional: Yes: Calm Eyes: Yes: WNL HENT: Yes: Atraumatic Neck: Yes: WNL Cardiovascular: Yes: Regular Rate and Rhythm Respiratory: Yes: Diminished, On Nasal O2, SOB on Exertion Gastrointestinal: Yes: Abdomen, Obese ...Rectal Exam: Yes: Deferred Musculoskeletal: Yes: Muscle Pain Extremities: Yes: WNL Edema: Yes Edema: LLE: 1+, RLE: 1+ Integumentary: Yes: WNL Labs: CBC, BMP 02/18/19 06:10 02/19/19 06:50 Problem List - Problems (1) Acute hypoxemic respiratory failure Assessment/Plan: on supplemental oxygen. not home oxygen dependent, will wean off as tolerated. on lasix 80 mg iv bid monitor weights, maintain oxygen above 92% pulmonary following, recommendations appreciated. Code(s): J96.01 - ACUTE RESPIRATORY FAILURE WITH HYPOXIA (2) Hozzi-gf-lorhpbi kidney injury Assessment/Plan: monitor daily renal fx avoid nephrotoxic agents hold TOMAS/ARB daily weights strict I&Os renal following Code(s): N17.9 - ACUTE KIDNEY FAILURE, UNSPECIFIED; N18.9 - CHRONIC KIDNEY DISEASE, UNSPECIFIED (3) Fall Assessment/Plan: physical therapy as tolerated may need SNF Code(s): W19.XXXA - UNSPECIFIED FALL, INITIAL ENCOUNTER Qualifiers: Encounter type: initial encounter Qualified Code(s): W19.XXXA - Unspecified fall, initial encounter (4) Hypoxia Assessment/Plan: on supplemental oxygen, wean off as tolerated Code(s): R09.02 - HYPOXEMIA (5) Multiple rib fractures Assessment/Plan: supportive care with lidocaine patches and tylenol prn Code(s): S22.49XA - MULTIPLE FRACTURES OF RIBS, UNSP SIDE, INIT FOR CLOS FX Qualifiers: Encounter type: initial encounter Fracture type: closed Laterality: left Qualified Code(s): S22.42XA - Multiple fractures of ribs, left side, initial encounter for closed fracture (6) Ambulatory dysfunction Code(s): R26.2 - DIFFICULTY IN WALKING, NOT ELSEWHERE CLASSIFIED (7) CHF (congestive heart failure) Assessment/Plan: daily weights, on lasix, supplemental oxygen. Code(s): I50.9 - HEART FAILURE, UNSPECIFIED Qualifiers: Heart failure type: systolic Heart failure chronicity: acute on chronic Qualified Code(s): I50.23 - Acute on chronic systolic (congestive) heart failure (8) CKD (chronic kidney disease) stage 4, GFR 15-29 ml/min Assessment/Plan: Possible CAD based on chronic LBBB, wall motion abn on echo but previous stress tests without ischemia. c/w ASA 81mg daily, beta hannah, statin appreciate cardiology consultation Code(s): N18.4 - CHRONIC KIDNEY DISEASE, STAGE 4 (SEVERE) (9) Diabetes Assessment/Plan: controlled on novolog ss Code(s): E11.9 - TYPE 2 DIABETES MELLITUS WITHOUT COMPLICATIONS Qualifiers: Diabetes mellitus type: type 2 Diabetes mellitus exterminator helper insulin use: with exterminator helper use Diabetes mellitus complication status: with kidney complications Diabetes mellitus complication detail: with chronic kidney disease Chronic kidney disease stage: stage 4 (severe) Qualified Code(s): E11.22 - Type 2 diabetes mellitus with diabetic chronic kidney disease; N18.4 - Chronic kidney disease, stage 4 (severe); Z79.4 - snf (current) use of insulin (10) DVT prophylaxis Assessment/Plan: SCDs bilaterally, on heparin Code(s): [id number] - (11) Prophylactic measure Assessment/Plan: FEN cardiac diet monitor electrolytes/Cr no IVF Dispo maintain on tele full code discharge planning Code(s): Z29.9 - ENCOUNTER FOR PROPHYLACTIC MEASURES, UNSPECIFIED Visit type - Emergency Visit Emergency Visit: Yes ED Registration Date: 02/09/19 Care time: The patient presented to the Emergency Department on the above date and was hospitalized for further evaluation of their emergent condition. - New Patient This patient is new to me today: Yes Date on this admission: 02/19/19 - Critical Care Critical Care patient: No - Discharge Referral Referred to [facility] Med P.C.: No
[2019-02-19] MEDS ORDERED: LIDOCAINE 5% TOPICAL PATCH TP ONE (14:06)
--- NOTE | 2019-02-19 15:33 | PN ---
Progress Note (short form) - Note Progress Note: Renal follow up for CKD and fluid overload Seen and examined at the bedside awake and alert feels better sob is improving denies any cp, fever, chills, N/V/D Vital Signs Temperature 97.5 F L 02/19/19 06:00 Pulse Rate 77 02/19/19 10:00 Respiratory Rate 21 H 02/19/19 10:00 Blood Pressure 106/55 L 02/19/19 10:00 O2 Sat by Pulse Oximetry (%) 99 02/19/19 09:00 Intake & Output 02/16/19 02/17/19 02/18/19 02/19/19 23:59 23:59 23:59 23:59 Intake Total 1090 1040 820 360 Output Total 2300 1000 1150 350 Balance -1210 40 -330 10 Weight 162.93 kg 166.786 kg 134.292 kg NAD neck supple, no JVD RRR, no M/R Dec BS obese, NT/ND + LE edema, no clubbing or cyanosis no bladder distension CBC, BMP 02/18/19 06:10 02/19/19 06:50 Current Medications Acetaminophen (Tylenol -) 650 mg PO Q4H PRN PRN Reason: MILD PAIN Last Admin: 02/19/19 05:32 Dose: 650 mg Albuterol Sulfate (Ventolin 0.083% Nebulizer Soln -) 1 amp NEB Q4H PRN PRN Reason: SHORT OF BREATH/WHEEZING Last Admin: 02/16/19 11:40 Dose: 1 amp Allopurinol (Zyloprim -) 100 mg PO BID [facility] Last Admin: 02/19/19 11:29 Dose: 100 mg Atorvastatin Calcium (Lipitor -) 10 mg PO HS [facility] Last Admin: 02/18/19 23:43 Dose: 10 mg Furosemide (Lasix Injection -) 80 mg IVPUSH BID@0600,1400 [facility] Last Admin: 02/19/19 05:32 Dose: 80 mg Gabapentin (Neurontin -) 300 mg PO BID [facility] Last Admin: 02/19/19 11:29 Dose: 300 mg Heparin Sodium (Porcine) (Heparin -) 5,000 unit SQ TID [facility] Last Admin: 02/19/19 05:32 Dose: 5,000 unit Insulin Aspart (Novolog Vial Sliding Scale -) 1 vial SQ BIDAC [facility]; Protocol Last Admin: 02/19/19 06:24 Dose: Not Given Insulin Detemir (Levemir Vial) 38 units SQ DAILY@0700 [facility] Last Admin: 02/19/19 06:23 Dose: 38 units Levalbuterol HCl (Xopenex) 0.31 mg IH RTID [facility] Last Admin: 02/19/19 10:45 Dose: 0.31 mg Lorazepam (Ativan -) 1 mg PO BID [facility] Last Admin: 02/19/19 11:29 Dose: 1 mg Metoprolol Succinate (Toprol Xl -) 25 mg PO BID [facility] Last Admin: 02/19/19 11:29 Dose: 25 mg Miscellaneous (Lidoderm Patch Removal) 1 each MC DAILY@2200 [facility] Nystatin (Mycostatin Cream -) 1 applic TP BID [facility] Last Admin: 02/18/19 23:44 Dose: 1 applic Pantoprazole Sodium (Protonix -) 20 mg PO DAILY [facility] Last Admin: 02/19/19 11:29 Dose: 20 mg Potassium Chloride (Potassium Chloride Oral Liquid) 20 meq PO DAILY [facility] Last Admin: 02/19/19 11:29 Dose: 20 meq Ropinirole HCl (Requip -) 0.5 mg PO HS [facility] Last Admin: 02/18/19 23:43 Dose: 0.5 mg 83 year old woman with history of CKD, systolic HF, hypertension, hyperlipidemia , DM, obesity who presented from home s/p fall with rib factures and developed acute CHF with rising BUN/Cr during the admission. 1. CKD stage 4 (baseline Cr 1.8) with elevated BUN/Cr in setting of HF 2. Systolic heart failure 3. Fall 4. Rib fractures 5. Hypokalemia Renal function remains stable Continue IV Lasix as per cardiology Trend real function and electrolytes daily not currently on TOMAS/ARB, would hold off until off IV diuretics avoid NSAIDs for pain control supplement K while on IV diuresis can d/c chantel in AM Thank you Pablo Burks DO
[2019-02-19] MEDS: ATORVASTATIN CA 10 MG TABLET (FP) PO SCH (23:42)
[2019-02-19] MEDS: rOPINIRole HCL 0.5 MG TABLET PO SCH (23:42)
[2019-02-19] MEDS: LIDOCAINE PATCH REMOVAL MC SCH (23:51)
[2019-02-20] MEDS: INSULIN (LEVEMIR) 100 UNITS/ML UNITS SQ SCH (06:53)
[2019-02-20] MEDS: FUROSEMIDE 40 MG/4 ML INJECTABLE VIAL IVPUSH SCH ×2 (06:53→14:10)
[2019-02-20] MEDS: HEPARIN NA (PORCINE) 5,000 UNITS/ML 1ML VIAL SQ SCH ×3 (06:53→21:59)
[2019-02-20] MEDS: INSULIN SLIDING SCALE (NOVOLOG) 1 VIAL SQ SCH ×2 (06:54→18:20)
[2019-02-20 08:02] LABS: BASO % 0.9 % (0-2.0); EOS % 3.4 % (0-4.5); HEMATOCRIT 32.3 % (32.4-45.2); HEMOGLOBIN 10.8 GM/dL (10.7-15.3); LYMPH % 20.1 % (8-40); MCH 31.6 pg (25.7-33.7); MCHC 33.3 g/dl (32.0-36.0); MEAN CELL VOLUME 94.8 fl (80-96); MEAN PLT VOLUME 9.3 fl (7.5-11.1); MONO % 9.3 % (3.8-10.2); NEUT % 66.3 % (42.8-82.8); PLATELET COUNT 204 K/MM3 (134-434); RBC 3.41 M/mm3 (3.60-5.2); RDW 15.9 % (11.6-15.6); WHITE BLOOD COUNT 8.2 K/mm3 (4.0-10.0)
[2019-02-20 08:42] LABS: ALBUMIN 3.1 g/dl (3.4-5.0); BILIRUBIN,TOTAL 0.8 mg/dL (0.2-1); BLOOD UREA NITROGEN 79.5 mg/dL (7-18); CALCIUM 9.5 mg/dL (8.5-10.1); CREATININE 2.2 mg/dL (0.55-1.3); MAGNESIUM 2.6 mg/dL (1.8-2.4); POTASSIUM 3.6 mmol/L (3.5-5.1); TOT PROT 6.6 g/dl (6.4-8.2)
[2019-02-20] MEDS: LEVALBUTEROL HCL 0.31 MG/3 ML VIAL.NEB IH SCH ×3 (09:08→20:54)
[2019-02-20] MEDS ORDERED: ERGOCALCIFEROL (VIT D2) 50,000 UNIT (1.25 MG) CAPSULE PO SCH (10:00)
[2019-02-20 10:12] LABS: ANISOCYTOSIS 1+; MACROCYTOSIS 1+; OVALOCYTE 1+; PLATELET ESTIMATE NORMAL
[2019-02-20] MEDS: GABAPENTIN 300 MG CAPSULE (FP) PO SCH ×2 (10:22→21:58)
[2019-02-20] MEDS: ALLOPURINOL 100 MG TABLET (FP) PO SCH ×2 (10:22→21:58)
[2019-02-20] MEDS: metoPROLOL SUCCINATE 25 MG TAB.SR.24H (FP) PO SCH ×2 (10:22→21:58)
[2019-02-20] MEDS: PANTOPRAZOLE 20 MG TABLET (FP) PO SCH (10:22)
[2019-02-20] MEDS: POTASSIUM CHLORIDE ORAL LIQUID 20 MEQ/15 ML PO SCH (10:23)
[2019-02-20] MEDS: NYSTATIN 100,000 UNIT/GM TOPICAL CREAM 15 GM TUBE TP SCH ×2 (10:31→21:59)
--- NOTE | 2019-02-20 10:44 | PN ---
Progress Note, Physician History of Present Illness: PULMONARY ALERT,COMFORTABLE AT REST + DYSPNEA WITH MIN EXERTION. PT NOT USING INCENTIVE SPIROMETER - Current Medication List Current Medications: Active Medications Acetaminophen (Tylenol -) 650 mg PO Q4H PRN PRN Reason: MILD PAIN Last Admin: 02/19/19 05:32 Dose: 650 mg Albuterol Sulfate (Ventolin 0.083% Nebulizer Soln -) 1 amp NEB Q4H PRN PRN Reason: SHORT OF BREATH/WHEEZING Last Admin: 02/16/19 11:40 Dose: 1 amp Allopurinol (Zyloprim -) 100 mg PO BID [facility] Last Admin: 02/20/19 10:22 Dose: 100 mg Atorvastatin Calcium (Lipitor -) 10 mg PO HS [facility] Last Admin: 02/19/19 23:42 Dose: 10 mg Furosemide (Lasix Injection -) 80 mg IVPUSH BID@0600,1400 [facility] Last Admin: 02/20/19 06:53 Dose: 80 mg Gabapentin (Neurontin -) 300 mg PO BID [facility] Last Admin: 02/20/19 10:22 Dose: 300 mg Heparin Sodium (Porcine) (Heparin -) 5,000 unit SQ TID [facility] Last Admin: 02/20/19 06:53 Dose: 5,000 unit Insulin Aspart ([facility]olog Vial Sliding Scale -) [facility] Protocol Last Admin: 02/20/19 06:54 Dose: Not Given Insulin Detemir (Levemir Vial) 38 units SQ DAILY@0700 [facility] Last Admin: 02/20/19 06:53 Dose: 38 units Levalbuterol HCl (Xopenex) 0.31 mg IH RTID [facility] Last Admin: 02/20/19 09:08 Dose: 0.31 mg Lorazepam (Ativan -) 1 mg PO BID [facility] Last Admin: 02/19/19 23:42 Dose: 1 mg Metoprolol Succinate (Toprol Xl -) 25 mg PO BID [facility] Last Admin: 02/20/19 10:22 Dose: 25 mg Miscellaneous (Lidoderm Patch Removal) 1 each MC DAILY@2200 [facility] Last Admin: 02/19/19 23:51 Dose: 1 each Nystatin (Mycostatin Cream -) 1 applic TP BID [facility] Last Admin: 02/20/19 10:31 Dose: 1 applic Pantoprazole Sodium (Protonix -) 20 mg PO DAILY [facility] Last Admin: 02/20/19 10:22 Dose: 20 mg Potassium Chloride (Potassium Chloride Oral Liquid) 20 meq PO DAILY [facility] Last Admin: 02/20/19 10:23 Dose: 20 meq Ropinirole HCl (Requip -) 0.5 mg PO HS [facility] Last Admin: 02/19/19 23:42 Dose: 0.5 mg - Objective Vital Signs: Vital Signs Temperature 97.4 F L 02/20/19 05:00 Pulse Rate 81 02/20/19 05:00 Respiratory Rate 20 02/20/19 05:00 Blood Pressure 107/56 L 02/20/19 05:00 O2 Sat by Pulse Oximetry (%) 100 02/19/19 21:00 Constitutional: Yes: Calm, Obese Eyes: Yes: WNL HENT: Yes: WNL Neck: Yes: WNL Cardiovascular: Yes: Regular Rate and Rhythm, S1, S2 Respiratory: Yes: Diminished Gastrointestinal: Yes: Normal Bowel Sounds, Soft Extremities: Yes: WNL Edema: Yes Labs: CBC, BMP 02/20/19 07:00 02/20/19 07:00 Problem List - Problems (1) Acute hypoxemic respiratory failure Code(s): J96.01 - ACUTE RESPIRATORY FAILURE WITH HYPOXIA (2) Fall Code(s): W19.XXXA - UNSPECIFIED FALL, INITIAL ENCOUNTER Qualifiers: Encounter type: initial encounter Qualified Code(s): W19.XXXA - Unspecified fall, initial encounter (3) Multiple rib fractures Code(s): S22.49XA - MULTIPLE FRACTURES OF RIBS, UNSP SIDE, INIT FOR CLOS FX Qualifiers: Encounter type: initial encounter Fracture type: closed Laterality: left Qualified Code(s): S22.42XA - Multiple fractures of ribs, left side, initial encounter for closed fracture (4) CAD (coronary artery disease) Code(s): I25.10 - ATHSCL HEART DISEASE OF [place] CORONARY ARTERY W/O ANG PCTRS (5) CHF (congestive heart failure) Code(s): I50.9 - HEART FAILURE, UNSPECIFIED Qualifiers: Heart failure type: systolic Heart failure chronicity: acute on chronic Qualified Code(s): I50.23 - Acute on chronic systolic (congestive) heart failure (6) CKD (chronic kidney disease) stage 4, GFR 15-29 ml/min Code(s): N18.4 - CHRONIC KIDNEY DISEASE, STAGE 4 (SEVERE) (7) HTN (hypertension) with goal to be determined Code(s): I10 - ESSENTIAL (PRIMARY) HYPERTENSION (8) Hyperlipemia Code(s): E78.5 - HYPERLIPIDEMIA, UNSPECIFIED (9) Hypertension Code(s): I10 - ESSENTIAL (PRIMARY) HYPERTENSION Qualifiers: Hypertension type: essential hypertension Qualified Code(s): I10 - Essential (primary) hypertension (10) Morbid obesity Code(s): E66.01 - MORBID (SEVERE) OBESITY DUE TO EXCESS CALORIES (11) Neuropathy Code(s): G62.9 - POLYNEUROPATHY, UNSPECIFIED (12) Shortness of breath Code(s): R06.02 - SHORTNESS OF BREATH Assessment/Plan IMP ACUTE HYPOXIC RESPIRATORY FAILURE LIKELY SECONDARY TO ATELECTASIS SECONDARY TO PAIN DUE TO MULTIPLE RIB FX MULTIPLE NON-DISPLACED LEFT SIDED RIB FX S/P MECHANICAL FALL ACUTE ON CHRONIC CHF VIDYA NOT ON CPAP PULMONARY HTN MORBID OBESITY ? OBESITY HYPOVENTILATION SYNDROME CKD DM PLAN ENCOURAGE INCENTIVE SPIROMETER LASIX PER CARDIOLOGY INHALED BRONCHODILATORS ANALGESICS O2 BIPAP AT NIGHT IF PT COMPLIES DAILY WTS MONITOR LYTES,RENAL FUNCTION DVT PROPHYLAXIS BEDSIDE PT DR MOSLEY Problem List - Problems (1) Acute hypoxemic respiratory failure Code(s): J96.01 - ACUTE RESPIRATORY FAILURE WITH HYPOXIA (2) Fall Code(s): W19.XXXA - UNSPECIFIED FALL, INITIAL ENCOUNTER Qualifiers: Encounter type: initial encounter Qualified Code(s): W19.XXXA - Unspecified fall, initial encounter (3) Multiple rib fractures Code(s): S22.49XA - MULTIPLE FRACTURES OF RIBS, UNSP SIDE, INIT FOR CLOS FX Qualifiers: Encounter type: initial encounter Fracture type: closed Laterality: left Qualified Code(s): S22.42XA - Multiple fractures of ribs, left side, initial encounter for closed fracture (4) CAD (coronary artery disease) Code(s): I25.10 - ATHSCL HEART DISEASE OF [place] CORONARY ARTERY W/O ANG PCTRS (5) CHF (congestive heart failure) Code(s): I50.9 - HEART FAILURE, UNSPECIFIED Qualifiers: Heart failure type: systolic Heart failure chronicity: acute on chronic Qualified Code(s): I50.23 - Acute on chronic systolic (congestive) heart failure (6) CKD (chronic kidney disease) stage 4, GFR 15-29 ml/min Code(s): N18.4 - CHRONIC KIDNEY DISEASE, STAGE 4 (SEVERE) (7) HTN (hypertension) with goal to be determined Code(s): I10 - ESSENTIAL (PRIMARY) HYPERTENSION (8) Hyperlipemia Code(s): E78.5 - HYPERLIPIDEMIA, UNSPECIFIED (9) Hypertension Code(s): I10 - ESSENTIAL (PRIMARY) HYPERTENSION Qualifiers: Hypertension type: essential hypertension Qualified Code(s): I10 - Essential (primary) hypertension (10) Morbid obesity Code(s): E66.01 - MORBID (SEVERE) OBESITY DUE TO EXCESS CALORIES (11) Neuropathy Code(s): G62.9 - POLYNEUROPATHY, UNSPECIFIED (12) Shortness of breath Code(s): R06.02 - SHORTNESS OF BREATH
--- NOTE | 2019-02-20 14:46 | PN ---
Progress Note (short form) - Note Progress Note: Renal follow up for CKD and fluid overload Seen and examined at the bedside awake and alert sob is improved, no chest pain, fever, or chills making urine walked 3 steps with PT today Vital Signs Temperature 97.4 F L 02/20/19 05:00 Pulse Rate 81 02/20/19 05:00 Respiratory Rate 21 H 02/20/19 09:00 Blood Pressure 106/55 L 02/20/19 09:00 O2 Sat by Pulse Oximetry (%) 100 02/19/19 21:00 NAD neck supple, no JVD RRR, no M/R Dec BS obese, NT/ND + LE edema, no clubbing or cyanosis no bladder distension CBC, BMP 02/20/19 07:00 02/20/19 07:00 Current Medications Acetaminophen (Tylenol -) 650 mg PO Q4H PRN PRN Reason: MILD PAIN Last Admin: 02/19/19 05:32 Dose: 650 mg Albuterol Sulfate (Ventolin 0.083% Nebulizer Soln -) 1 amp NEB Q4H PRN PRN Reason: SHORT OF BREATH/WHEEZING Last Admin: 02/16/19 11:40 Dose: 1 amp Allopurinol (Zyloprim -) 100 mg PO BID [facility] Last Admin: 02/20/19 10:22 Dose: 100 mg Atorvastatin Calcium (Lipitor -) 10 mg PO HS [facility] Last Admin: 02/19/19 23:42 Dose: 10 mg Furosemide (Lasix Injection -) 80 mg IVPUSH BID@0600,1400 [facility] Last Admin: 02/20/19 14:10 Dose: 80 mg Gabapentin (Neurontin -) 300 mg PO BID [facility] Last Admin: 02/20/19 10:22 Dose: 300 mg Heparin Sodium (Porcine) (Heparin -) 5,000 unit SQ TID [facility] Last Admin: 02/20/19 14:10 Dose: 5,000 unit Insulin Aspart (Novolog Vial Sliding Scale -) 1 vial SQ BIDAC [facility]; Protocol Last Admin: 02/20/19 06:54 Dose: Not Given Insulin Detemir (Levemir Vial) 38 units SQ DAILY@0700 [facility] Last Admin: 02/20/19 06:53 Dose: 38 units Levalbuterol HCl (Xopenex) 0.31 mg IH RTID [facility] Last Admin: 02/20/19 09:08 Dose: 0.31 mg Lorazepam (Ativan -) 1 mg PO BID [facility] Last Admin: 02/19/19 23:42 Dose: 1 mg Metoprolol Succinate (Toprol Xl -) 25 mg PO BID [facility] Last Admin: 02/20/19 10:22 Dose: 25 mg Miscellaneous (Lidoderm Patch Removal) 1 each MC DAILY@2200 [facility] Last Admin: 02/19/19 23:51 Dose: 1 each Nystatin (Mycostatin Cream -) 1 applic TP BID [facility] Last Admin: 02/20/19 10:31 Dose: 1 applic Pantoprazole Sodium (Protonix -) 20 mg PO DAILY [facility] Last Admin: 02/20/19 10:22 Dose: 20 mg Potassium Chloride (Potassium Chloride Oral Liquid) 20 meq PO DAILY [facility] Last Admin: 02/20/19 10:23 Dose: 20 meq Ropinirole HCl (Requip -) 0.5 mg PO HS [facility] Last Admin: 02/19/19 23:42 Dose: 0.5 mg 83 year old woman with history of CKD, systolic HF, hypertension, hyperlipidemia , DM, obesity who presented from home s/p fall with rib factures and developed acute CHF with rising BUN/Cr during the admission. 1. CKD stage 4 (baseline Cr 1.8) with elevated BUN/Cr in setting of HF 2. Systolic heart failure 3. Fall 4. Rib fractures 5. Hypokalemia Renal function remains stable Continue IV Lasix as per cardiology Trend real function and electrolytes daily Check PA and lateral CXR to determine if pt has residual congestion not currently on TOMAS/ARB, would hold off until off IV diuretics avoid NSAIDs for pain control supplement K while on IV diuresis Thank you Pablo Burks DO
--- NOTE | 2019-02-20 14:58 | CONSULT ---
Admitting History and Physical - Primary Care Physician PCP: Dru Garzon - Admission History of Present Illness: 83 year old woman with history of CKD, systolic HF, hypertension, hyperlipidemia , DM, obesity who presented from home s/p fall with rib fractures and developed acute CHF with rising BUN/Cr during the admission. Pt was hospitalized in Jul for CHF. Selected Entries 02/19/19 02/19/19 02/19/19 02:00 06:00 11:15 Breakfast 100% Lunch Supper Temperature 97.5 F L 97.5 F L 02/19/19 02/19/19 02/19/19 14:00 17:00 21:00 Breakfast Lunch 75% Supper 100% Temperature 97.5 F L 97.6 F 97.5 F L 02/20/19 02/20/19 02/20/19 01:00 05:00 12:05 Breakfast 100% Lunch Supper Temperature 98.1 F 97.4 F L Laboratory Tests 02/18/19 02/20/19 06:10 07:00 WBC 7.7 8.2 Pt has been tolerating Reg diet/thin liquids. She had difficulty taking 5 pills at once, with water with responsive cough. She had difficulty clearing, with suppressed cough sec to broken ribs. This is my first consult with this pt. History Source: Patient, Medical Record Limitations to Obtaining History: Clinical Condition - Past Medical History Cardiovascular: Yes: CHF, HTN, Hyperlipdemia Gastrointestinal: Yes: Cancer, GERD, Other (Colon CA operated 7 years ago) Renal/: Yes: Renal Inusuff (creat 2 at baseline for years, stable, non proteinuric) ...: No Heme/Onc: Yes: Anemia Psych: Yes: Anxiety, Depression Musculoskeletal: Yes: Chronic low back pain Rheumatology: Yes: Gout Endocrine: Yes: Diabetes Mellitus - Past Surgical History Past Surgical History: Yes: Appendectomy, Colectomy (partial), Hernia Repair - Advance Directives Advance Directives: Yes: Living Will - Smoking History Smoking history: Never smoked Have you smoked in the past 12 months: No Aproximately how many cigarettes per day: 0 - Alcohol/Substance Use Hx Alcohol Use: No History of Substance Use: reports: None - Social History ADL: Independent History of Recent Travel: No History - Admission Reason For Visit: SLIPPED, FAST WALKER - Diagnostics X-ray: Report Reviewed CT Scan: Report Reviewed - General Mental Status: Alert and Oriented, Awake and Alert, Able to Follow Commands, Vague Attention: Intact Ability to Follow Directions: Good Head/Neck Control: WFL - Hearing Hearing: Impaired Hearing Aide: No With Patient: No Speech Evaluation - Communication Primary Language: GEORGIAN Communication: Yes: Within Normal Limits - Speech Production Able to Make Needs Known: Yes: WNL Intelligibility: Yes: WNL, Mildly Impaired - Speech Characteristics Voice Loudness: Mildly Soft/Quiet Voice Pitch: Yes: Normal Voice Phonatory-based Quality: Yes: Hoarse (mild) Speech Pattern: Normal Speech Clarity: < 100% Nasal Resonance: Normal Articulation: Yes: Precise Rate of Speech: Intact - Language/Auditory Comprehension Follows: Yes: 2 Stage Simple Commands Observation: Able to respond to yes/no queries: Yes, Yes/No Confusion: No, Comprehends Conversational Speech: Yes, Benefits from Increased Volume of Speech : Yes - Swallow Evaluation/Bedside Assessment Current Nutritional Intake: Regular, Thin Liquids Oral Secretions: Yes: WFL Dentition: Yes: Adequate Facial Symmetry at Rest: Symmetrical Facial Symmetry on Retraction: Symmetrical Facial Movement: Controlled Against Resistance Opening: Normal Against Resistance Closing: Normal Pucker Lips: Normal Smile: Normal Lingual Movement: Normal, Symmetric Lingual Speed of Movement: Normal Lingual Movement Strgth Against Opposition: Normal Lingual Movement Characteristics: Normal Velopharyngeal Movement: Normal Laryngeal Elevation: WFL Laryngeal Movement: Able to Palpate Rate of Intake: WFL Bolus Size: WFL Labial Seal: WFL Chewing: WFL Oral Prep Time: WFL A-P Transit: WFL Pocketing: None Timing of Swallow: WFL Coughing/Throat Clear: No (3 oz water) Change in Voice: No Recommendations - Speech Evaluation, Impression/Plan Impression: One coughing incident on pills with water today. Otherwise, pt has been tolerating regular diet/thin liquids. (-) 3 oz water test. - Dysphagia Impressions/Plan Dysphagia Impressions: Minimal Impairment, Ongoing Evaluation *Silent aspiration: cannot be R/O at bedside Dysphagia Treatment Plan: Other (Monitor po tolerance. Pt can not fit in mbs equipment.) Recommendations: Other (careful intake of meds) - Recommendations Diet Consistency: Regular Liquids: Thin Liquids
[2019-02-20] MEDS: LORazepam 0.5 MG TABLET PO SCH ×2 (15:07→21:58)
--- NOTE | 2019-02-20 15:30 | PN ---
Progress Note (short form) - Note Progress Note: s:sob improving, no cp, palps, dizziness Current Medications Generic Name Dose Route Start Last Admin Trade Name Freq PRN Reason Stop Dose Admin Acetaminophen 650 mg 02/15/19 20:41 02/19/19 05:32 Tylenol - PO 650 mg Q4H PRN Administration MILD PAIN Albuterol Sulfate 1 amp 02/15/19 20:41 02/16/19 11:40 Ventolin 0.083% Nebulizer Soln - NEB 1 amp Q4H PRN Administration SHORT OF BREATH/WHEEZING Allopurinol 100 mg 02/15/19 22:00 02/20/19 10:22 Zyloprim - PO 100 mg BID MANUEL Administration Atorvastatin Calcium 10 mg 02/15/19 22:00 02/19/19 23:42 Lipitor - PO 10 mg HS MANUEL Administration Furosemide 80 mg 02/16/19 14:00 02/20/19 14:10 Lasix Injection - IVPUSH 80 mg BID@0600,1400 MANUEL Administration Gabapentin 300 mg 02/15/19 22:00 02/20/19 10:22 Neurontin - PO 300 mg BID MANUEL Administration Heparin Sodium (Porcine) 5,000 unit 02/15/19 22:00 02/20/19 14:10 Heparin - SQ 5,000 unit TID MANUEL Administration Insulin Aspart 1 vial 02/16/19 07:00 02/20/19 06:54 Novolog Vial Sliding Scale - SQ Not Given BIDAC [facility] Protocol Insulin Detemir 38 units 02/16/19 07:00 02/20/19 06:53 Levemir Vial SQ 38 units DAILY@0700 MANUEL Administration Levalbuterol HCl 0.31 mg 02/16/19 08:00 02/20/19 09:08 Xopenex IH 0.31 mg RTID MANUEL Administration Lorazepam 1 mg 02/15/19 22:00 02/20/19 15:07 Ativan - PO 1 mg BID MANUEL Administration Metoprolol Succinate 25 mg 02/15/19 22:00 02/20/19 10:22 Toprol Xl - PO 25 mg BID MANUEL Administration Miscellaneous 1 each 02/19/19 22:00 02/19/19 23:51 Lidoderm Patch Removal MC 1 each DAILY@2200 MANUEL Administration Nystatin 1 applic 02/15/19 22:00 02/20/19 10:31 Mycostatin Cream - TP 1 applic BID MANUEL Administration Pantoprazole Sodium 20 mg 02/16/19 10:00 02/20/19 10:22 Protonix - PO 20 mg DAILY [facility] Administration Potassium Chloride 20 meq 02/18/19 12:00 02/20/19 10:23 Potassium Chloride Oral Liquid PO 20 meq DAILY [facility] Administration Ropinirole HCl 0.5 mg 02/15/19 22:00 02/19/19 23:42 Requip - PO 0.5 mg HS MANUEL Administration Vital Signs Period Temp Pulse Resp BP Sys/Lopez Pulse Ox Last 24 Hr 97.4 F-98.1 F 75-81 20-21 106-128/55-76 100 Constitutional: Yes: No Distress, Calm, Obese Eyes: No: Sclera Icterus HENT: No: Nasal Congestion Cardiovascular: Yes: Regular Rate and Rhythm, S1, S2, Other (PMI non diplaced). No: JVD (++tds exam), Gallop, Murmur Respiratory: Yes: CTA Bilaterally (not taking deep breaths). No: Accessory Muscle Use, Rales, Wheezes Gastrointestinal: Yes: Normal Bowel Sounds, Soft. No: Tenderness Extremities: No: Cold, Cyanosis Edema: No Integumentary: No: Jaundice Neurological: Yes: Lethargy. No: Seizure Psychiatric: No: Agitated CBC, BMP 02/20/19 07:00 02/20/19 07:00 Assessment/Plan Echo 02/21: mild decr EF 45%, apical, septal, AW hypokinesis. nl RV. valves WNL IMAGES REVIEWED: very TDS, suspect LV hypo is global and closer to 35% Echo 07/2018: Mildly reduced LVEF w/ mild ant. HK, nl RV, mod MAC, Mild MR, Mild TR, RVSP > 30mmHg, mild AR MPI 07/24: no ischemia/scar. mild-mod reduced EF 42%. no TID tele: SR, occ PVCs IMP: - Acute on chronic systolic CHF, difficult exam due to body habitus (EF upon our review closer to 35%) - OTF on CKD sec to cardiorenal syndrome (baseline creat 1.7-2.0) - Morbid obesity - VIDYA - Possible CAD (? LAD territory hypocontractility on echo, equivocal given TDS image quality) - DM - HTN REC: -Difficult physical exam to assess volume status due to body habitus, CT chest confirmed findings of congestion - breathing improving, cont lasix 80 mg IV BID - Cr stable, bed weight trend appears unreliable (given absence of signif edema and TDS phys exam, would use CXR and hypoxia/O2 req't as main parameter to guide diuretic decisions). Cont iv lasix for now. -Suppl. O2 as per pulmonary. -Possible CAD based on chronic LBBB, wall motion abn on echo but previous stress tests without ischemia. Cont ASA 81mg daily, beta hannah, statin ( Atorva 10). outpt f/u--consider PET perfusion vs cath depending on clinical course, renal fxn recovery -syst HF GDMT: low dose metopr as doing (soft bp's), deferring TOMAS/ARB, spirono given soft bp's and low GFR - aggresively replete K/Mag (>4/2), for VT risk - rec outpatient echo with Definity for LVEF, ICD consideration as appropriate depending on that result
--- NOTE | 2019-02-20 17:15 | PN ---
Progress Note, Physician Chief Complaint: feels better, some pain on left anterior rib area but overall improved. encouraged to use incentive spirometer History of Present Illness: Patient is an 83 year old female with a past medical history of diabetes, systolic CHF, HTN, HLD, and chronic kidney disease, arrived to ED for left shoulder pain post fall. On admission, patient complained of pain 7/10 unable to ambulate, left back pain radiating to left chest under breast area with sob at time. Patient denies hitting her head or losing consciousness. Hospitalization complicated when patient experienced respiratory failure and is now being managed with supplemental oxygen. She can ambulate with a RW at baseline. Not home oxygen dependent. - Current Medication List Current Medications: Active Medications Acetaminophen (Tylenol -) 650 mg PO Q4H PRN PRN Reason: MILD PAIN Last Admin: 02/19/19 05:32 Dose: 650 mg Albuterol Sulfate (Ventolin 0.083% Nebulizer Soln -) 1 amp NEB Q4H PRN PRN Reason: SHORT OF BREATH/WHEEZING Last Admin: 02/16/19 11:40 Dose: 1 amp Allopurinol (Zyloprim -) 100 mg PO BID [facility] Last Admin: 02/20/19 10:22 Dose: 100 mg Atorvastatin Calcium (Lipitor -) 10 mg PO HS [facility] Last Admin: 02/19/19 23:42 Dose: 10 mg Furosemide (Lasix Injection -) 80 mg IVPUSH BID@0600,1400 [facility] Last Admin: 02/20/19 14:10 Dose: 80 mg Gabapentin (Neurontin -) 300 mg PO BID [facility] Last Admin: 02/20/19 10:22 Dose: 300 mg Heparin Sodium (Porcine) (Heparin -) 5,000 unit SQ TID [facility] Last Admin: 02/20/19 14:10 Dose: 5,000 unit Insulin Aspart (Novolog Vial Sliding Scale -) 1 vial SQ BIDAC [facility]; Protocol Last Admin: 02/20/19 06:54 Dose: Not Given Insulin Detemir (Levemir Vial) 38 units SQ DAILY@0700 [facility] Last Admin: 02/20/19 06:53 Dose: 38 units Levalbuterol HCl (Xopenex) 0.31 mg IH RTID [facility] Last Admin: 02/20/19 15:00 Dose: 0.31 mg Lorazepam (Ativan -) 1 mg PO BID [facility] Last Admin: 02/20/19 15:07 Dose: 1 mg Metoprolol Succinate (Toprol Xl -) 25 mg PO BID [facility] Last Admin: 02/20/19 10:22 Dose: 25 mg Miscellaneous (Lidoderm Patch Removal) 1 each MC DAILY@2200 [facility] Last Admin: 02/19/19 23:51 Dose: 1 each Nystatin (Mycostatin Cream -) 1 applic TP BID [facility] Last Admin: 02/20/19 10:31 Dose: 1 applic Pantoprazole Sodium (Protonix -) 20 mg PO DAILY [facility] Last Admin: 02/20/19 10:22 Dose: 20 mg Potassium Chloride (Potassium Chloride Oral Liquid) 20 meq PO DAILY [facility] Last Admin: 02/20/19 10:23 Dose: 20 meq Ropinirole HCl (Requip -) 0.5 mg PO HS [facility] Last Admin: 02/19/19 23:42 Dose: 0.5 mg - Objective Vital Signs: Vital Signs Temperature 98.3 F 02/20/19 14:00 Pulse Rate 82 02/20/19 14:00 Respiratory Rate 21 H 02/20/19 14:00 Blood Pressure 145/77 02/20/19 14:00 O2 Sat by Pulse Oximetry (%) 100 02/19/19 21:00 Constitutional: Yes: Calm Eyes: Yes: WNL HENT: Yes: Atraumatic Neck: Yes: Supple Cardiovascular: Yes: Regular Rate and Rhythm Respiratory: Yes: Diminished Gastrointestinal: Yes: Abdomen, Obese ...Rectal Exam: Yes: Deferred Musculoskeletal: Yes: Muscle Weakness Labs: CBC, BMP 02/20/19 07:00 02/20/19 07:00 Problem List - Problems (1) Acute hypoxemic respiratory failure Assessment/Plan: on supplemental oxygen. not home oxygen dependent, will wean off as tolerated. on lasix 80 mg iv bid monitor weights, maintain oxygen above 92% pulmonary following, recommendations appreciated. Code(s): J96.01 - ACUTE RESPIRATORY FAILURE WITH HYPOXIA (2) [id number] kidney injury Assessment/Plan: monitor daily renal fx avoid nephrotoxic agents hold TOMAS/ARB daily weights strict I&Os renal following Code(s): N17.9 - ACUTE KIDNEY FAILURE, UNSPECIFIED; N18.9 - CHRONIC KIDNEY DISEASE, UNSPECIFIED (3) Fall Assessment/Plan: physical therapy as tolerated may need SNF Code(s): W19.XXXA - UNSPECIFIED FALL, INITIAL ENCOUNTER Qualifiers: Encounter type: initial encounter Qualified Code(s): W19.XXXA - Unspecified fall, initial encounter (4) Hypoxia Assessment/Plan: on supplemental oxygen, wean off as tolerated Code(s): R09.02 - HYPOXEMIA (5) Multiple rib fractures Assessment/Plan: supportive care with lidocaine patches and tylenol prn Code(s): S22.49XA - MULTIPLE FRACTURES OF RIBS, UNSP SIDE, INIT FOR CLOS FX Qualifiers: Encounter type: initial encounter Fracture type: closed Laterality: left Qualified Code(s): S22.42XA - Multiple fractures of ribs, left side, initial encounter for closed fracture (6) Ambulatory dysfunction Code(s): R26.2 - DIFFICULTY IN WALKING, NOT ELSEWHERE CLASSIFIED (7) CHF (congestive heart failure) Assessment/Plan: daily weights, on lasix, supplemental oxygen. Code(s): I50.9 - HEART FAILURE, UNSPECIFIED Qualifiers: Heart failure type: systolic Heart failure chronicity: acute on chronic Qualified Code(s): I50.23 - Acute on chronic systolic (congestive) heart failure (8) CKD (chronic kidney disease) stage 4, GFR 15-29 ml/min Assessment/Plan: Possible CAD based on chronic LBBB, wall motion abn on echo but previous stress tests without ischemia. c/w ASA 81mg daily, beta hannah, statin appreciate cardiology consultation Code(s): N18.4 - CHRONIC KIDNEY DISEASE, STAGE 4 (SEVERE) (9) Diabetes Assessment/Plan: controlled on novolog ss Code(s): E11.9 - TYPE 2 DIABETES MELLITUS WITHOUT COMPLICATIONS Qualifiers: Diabetes mellitus type: type 2 Diabetes mellitus fci insulin use: with senior software manager use Diabetes mellitus complication status: with kidney complications Diabetes mellitus complication detail: with chronic kidney disease Chronic kidney disease stage: stage 4 (severe) Qualified Code(s): E11.22 - Type 2 diabetes mellitus with diabetic chronic kidney disease; N18.4 - Chronic kidney disease, stage 4 (severe); Z79.4 - wire drawer (current) use of insulin (10) DVT prophylaxis Assessment/Plan: SCDs bilaterally, on heparin Code(s): SRV1838 - (11) Prophylactic measure Assessment/Plan: FEN cardiac diet monitor electrolytes/Cr no IVF Dispo maintain on tele full code discharge planning Code(s): Z29.9 - ENCOUNTER FOR PROPHYLACTIC MEASURES, UNSPECIFIED Visit type - Emergency Visit Emergency Visit: Yes ED Registration Date: 02/09/19 Care time: The patient presented to the Emergency Department on the above date and was hospitalized for further evaluation of their emergent condition. - New Patient This patient is new to me today: No - Critical Care Critical Care patient: No - Discharge Referral Referred to [facility] Med P.C.: No
[2019-02-20] MEDS: rOPINIRole HCL 0.5 MG TABLET PO SCH (21:58)
[2019-02-20] MEDS: ATORVASTATIN CA 10 MG TABLET (FP) PO SCH (21:58)
[2019-02-20] MEDS: LIDOCAINE PATCH REMOVAL MC SCH (21:59)
[2019-02-21] MEDS: FUROSEMIDE 40 MG/4 ML INJECTABLE VIAL IVPUSH SCH ×2 (07:50→14:22)
[2019-02-21] MEDS: HEPARIN NA (PORCINE) 5,000 UNITS/ML 1ML VIAL SQ SCH ×3 (07:51→22:26)
[2019-02-21] MEDS: INSULIN SLIDING SCALE (NOVOLOG) 1 VIAL SQ SCH ×2 (07:51→17:45)
[2019-02-21] MEDS: INSULIN (LEVEMIR) 100 UNITS/ML UNITS SQ SCH (07:51)
[2019-02-21 08:02] LABS: CALCIUM 9.6 mg/dL (8.5-10.1); CREATININE 2.1 mg/dL (0.55-1.3); MAGNESIUM 2.5 mg/dL (1.8-2.4); PHOSPHOROUS 3.5 mg/dL (2.5-4.9); POTASSIUM 3.5 mmol/L (3.5-5.1)
[2019-02-21] MEDS: LEVALBUTEROL HCL 0.31 MG/3 ML VIAL.NEB IH SCH ×3 (08:45→23:16)
[2019-02-21] MEDS: GABAPENTIN 300 MG CAPSULE (FP) PO SCH ×2 (10:20→22:27)
[2019-02-21] MEDS: NYSTATIN 100,000 UNIT/GM TOPICAL CREAM 15 GM TUBE TP SCH ×2 (10:21→22:27)
[2019-02-21] MEDS: LORazepam 0.5 MG TABLET PO SCH ×2 (10:21→22:22)
[2019-02-21] MEDS: PANTOPRAZOLE 20 MG TABLET (FP) PO SCH (10:22)
[2019-02-21] MEDS: ALLOPURINOL 100 MG TABLET (FP) PO SCH ×2 (10:22→22:28)
[2019-02-21] MEDS: metoPROLOL SUCCINATE 25 MG TAB.SR.24H (FP) PO SCH ×2 (10:22→22:28)
[2019-02-21] MEDS: POTASSIUM CHLORIDE ORAL LIQUID 20 MEQ/15 ML PO SCH (10:22)
--- NOTE | 2019-02-21 10:47 | PN ---
Progress Note, Physician History of Present Illness: PULMONARY ALERT,COMFORTABLE AT REST,+ DYSPNEA WITH EXERTION - Current Medication List Current Medications: Active Medications Acetaminophen (Tylenol -) 650 mg PO Q4H PRN PRN Reason: MILD PAIN Last Admin: 02/19/19 05:32 Dose: 650 mg Albuterol Sulfate (Ventolin 0.083% Nebulizer Soln -) 1 amp NEB Q4H PRN PRN Reason: SHORT OF BREATH/WHEEZING Last Admin: 02/16/19 11:40 Dose: 1 amp Allopurinol (Zyloprim -) 100 mg PO BID [facility] Last Admin: 02/21/19 10:22 Dose: 100 mg Atorvastatin Calcium (Lipitor -) 10 mg PO HS [facility] Last Admin: 02/20/19 21:58 Dose: 10 mg Furosemide (Lasix Injection -) 80 mg IVPUSH BID@0600,1400 [facility] Last Admin: 02/21/19 07:50 Dose: 80 mg Gabapentin (Neurontin -) 300 mg PO BID [facility] Last Admin: 02/21/19 10:20 Dose: 300 mg Heparin Sodium (Porcine) (Heparin -) 5,000 unit SQ TID [facility] Last Admin: 02/21/19 07:51 Dose: 5,000 unit Insulin Aspart (Novolog Vial Sliding Scale -) 1 vial SQ BIDAC [facility]; Protocol Last Admin: 02/21/19 07:51 Dose: Not Given Insulin Detemir (Levemir Vial) 38 units SQ DAILY@0700 [facility] Last Admin: 02/21/19 07:51 Dose: 38 units Levalbuterol HCl (Xopenex) 0.31 mg IH RTID [facility] Last Admin: 02/21/19 08:45 Dose: 0.31 mg Lorazepam (Ativan -) 1 mg PO BID [facility] Last Admin: 02/21/19 10:21 Dose: 1 mg Metoprolol Succinate (Toprol Xl -) 25 mg PO BID [facility] Last Admin: 02/21/19 10:22 Dose: 25 mg Miscellaneous (Lidoderm Patch Removal) 1 each MC DAILY@2200 [facility] Last Admin: 02/20/19 21:59 Dose: 1 each Nystatin (Mycostatin Cream -) 1 applic TP BID [facility] Last Admin: 02/21/19 10:21 Dose: 1 applic Pantoprazole Sodium (Protonix -) 20 mg PO DAILY [facility] Last Admin: 02/21/19 10:22 Dose: 20 mg Potassium Chloride (Potassium Chloride Oral Liquid) 20 meq PO DAILY [facility] Last Admin: 02/21/19 10:22 Dose: 20 meq Ropinirole HCl (Requip -) 0.5 mg PO HS [facility] Last Admin: 02/20/19 21:58 Dose: 0.5 mg - Objective Vital Signs: Vital Signs Temperature 97.8 F 02/21/19 02:00 Pulse Rate 71 02/21/19 06:00 Respiratory Rate 20 02/21/19 06:00 Blood Pressure 118/66 02/21/19 06:00 O2 Sat by Pulse Oximetry (%) 96 02/20/19 21:00 Constitutional: Yes: Well Nourished, Calm, Obese Eyes: Yes: WNL HENT: Yes: WNL Neck: Yes: WNL Cardiovascular: Yes: Regular Rate and Rhythm, S1, S2 Respiratory: Yes: Diminished Gastrointestinal: Yes: Normal Bowel Sounds, Soft Extremities: Yes: WNL Edema: Yes Labs: CBC, BMP 02/21/19 07:05 Problem List - Problems (1) Acute hypoxemic respiratory failure Code(s): J96.01 - ACUTE RESPIRATORY FAILURE WITH HYPOXIA (2) Fall Code(s): W19.XXXA - UNSPECIFIED FALL, INITIAL ENCOUNTER Qualifiers: Encounter type: initial encounter Qualified Code(s): W19.XXXA - Unspecified fall, initial encounter (3) Multiple rib fractures Code(s): S22.49XA - MULTIPLE FRACTURES OF RIBS, UNSP SIDE, INIT FOR CLOS FX Qualifiers: Encounter type: initial encounter Fracture type: closed Laterality: left Qualified Code(s): S22.42XA - Multiple fractures of ribs, left side, initial encounter for closed fracture (4) CAD (coronary artery disease) Code(s): I25.10 - ATHSCL HEART DISEASE OF [place] CORONARY ARTERY W/O ANG PCTRS (5) CHF (congestive heart failure) Code(s): I50.9 - HEART FAILURE, UNSPECIFIED Qualifiers: Heart failure type: systolic Heart failure chronicity: acute on chronic Qualified Code(s): I50.23 - Acute on chronic systolic (congestive) heart failure (6) CKD (chronic kidney disease) stage 4, GFR 15-29 ml/min Code(s): N18.4 - CHRONIC KIDNEY DISEASE, STAGE 4 (SEVERE) (7) HTN (hypertension) with goal to be determined Code(s): I10 - ESSENTIAL (PRIMARY) HYPERTENSION (8) Hyperlipemia Code(s): E78.5 - HYPERLIPIDEMIA, UNSPECIFIED (9) Hypertension Code(s): I10 - ESSENTIAL (PRIMARY) HYPERTENSION Qualifiers: Hypertension type: essential hypertension Qualified Code(s): I10 - Essential (primary) hypertension (10) Morbid obesity Code(s): E66.01 - MORBID (SEVERE) OBESITY DUE TO EXCESS CALORIES (11) Neuropathy Code(s): G62.9 - POLYNEUROPATHY, UNSPECIFIED (12) Shortness of breath Code(s): R06.02 - SHORTNESS OF BREATH Assessment/Plan IMP ACUTE HYPOXIC RESPIRATORY FAILURE LIKELY SECONDARY TO ATELECTASIS SECONDARY TO PAIN DUE TO MULTIPLE RIB FX MULTIPLE NON-DISPLACED LEFT SIDED RIB FX S/P MECHANICAL FALL ACUTE ON CHRONIC CHF VIDYA NOT ON CPAP PULMONARY HTN MORBID OBESITY ? OBESITY HYPOVENTILATION SYNDROME CKD DM PLAN ENCOURAGE INCENTIVE SPIROMETER LASIX PER CARDIOLOGY INHALED BRONCHODILATORS ANALGESICS O2 BIPAP AT NIGHT IF PT COMPLIES DAILY WTS MONITOR LYTES,RENAL FUNCTION DVT PROPHYLAXIS BEDSIDE PT DR MOSLEY Problem List - Problems (1) Acute hypoxemic respiratory failure Code(s): J96.01 - ACUTE RESPIRATORY FAILURE WITH HYPOXIA (2) Fall Code(s): W19.XXXA - UNSPECIFIED FALL, INITIAL ENCOUNTER Qualifiers: Encounter type: initial encounter Qualified Code(s): W19.XXXA - Unspecified fall, initial encounter (3) Multiple rib fractures Code(s): S22.49XA - MULTIPLE FRACTURES OF RIBS, UNSP SIDE, INIT FOR CLOS FX Qualifiers: Encounter type: initial encounter Fracture type: closed Laterality: left Qualified Code(s): S22.42XA - Multiple fractures of ribs, left side, initial encounter for closed fracture (4) CAD (coronary artery disease) Code(s): I25.10 - ATHSCL HEART DISEASE OF [place] CORONARY ARTERY W/O ANG PCTRS (5) CHF (congestive heart failure) Code(s): I50.9 - HEART FAILURE, UNSPECIFIED Qualifiers: Heart failure type: systolic Heart failure chronicity: acute on chronic Qualified Code(s): I50.23 - Acute on chronic systolic (congestive) heart failure (6) CKD (chronic kidney disease) stage 4, GFR 15-29 ml/min Code(s): N18.4 - CHRONIC KIDNEY DISEASE, STAGE 4 (SEVERE) (7) HTN (hypertension) with goal to be determined Code(s): I10 - ESSENTIAL (PRIMARY) HYPERTENSION (8) Hyperlipemia Code(s): E78.5 - HYPERLIPIDEMIA, UNSPECIFIED (9) Hypertension Code(s): I10 - ESSENTIAL (PRIMARY) HYPERTENSION Qualifiers: Hypertension type: essential hypertension Qualified Code(s): I10 - Essential (primary) hypertension (10) Morbid obesity Code(s): E66.01 - MORBID (SEVERE) OBESITY DUE TO EXCESS CALORIES (11) Neuropathy Code(s): G62.9 - POLYNEUROPATHY, UNSPECIFIED (12) Shortness of breath Code(s): R06.02 - SHORTNESS OF BREATH
--- NOTE | 2019-02-21 11:15 | PN ---
Progress Note (short form) - Note Progress Note: s:sob improving, no cp, palps, dizziness Current Medications Generic Name Dose Route Start Last Admin Trade Name Freq PRN Reason Stop Dose Admin Acetaminophen 650 mg 02/15/19 20:41 02/19/19 05:32 Tylenol - PO 650 mg Q4H PRN Administration MILD PAIN Albuterol Sulfate 1 amp 02/15/19 20:41 02/16/19 11:40 Ventolin 0.083% Nebulizer Soln - NEB 1 amp Q4H PRN Administration SHORT OF BREATH/WHEEZING Allopurinol 100 mg 02/15/19 22:00 02/21/19 10:22 Zyloprim - PO 100 mg BID [facility] Administration Atorvastatin Calcium 10 mg 02/15/19 22:00 02/20/19 21:58 Lipitor - PO 10 mg HS [facility]EL Administration Furosemide 80 mg 02/16/19 14:00 02/21/19 07:50 Lasix Injection - IVPUSH 80 mg BID@0600,1400 [facility] Administration Gabapentin 300 mg 02/15/19 22:00 02/21/19 10:20 Neurontin - PO 300 mg BID [facility] Administration Heparin Sodium (Porcine) 5,000 unit 02/15/19 22:00 02/21/19 07:51 Heparin - SQ 5,000 unit TID [facility] Administration Insulin Aspart 1 vial 02/16/19 07:00 02/21/19 07:51 Novolog Vial Sliding Scale - SQ Not Given BIDAC [facility] Protocol Insulin Detemir 38 units 02/16/19 07:00 02/21/19 07:51 Levemir Vial SQ 38 units DAILY@0700 [facility] Administration Levalbuterol HCl 0.31 mg 02/16/19 08:00 02/21/19 08:45 Xopenex IH 0.31 mg RTID [facility] Administration Lorazepam 1 mg 02/15/19 22:00 02/21/19 10:21 Ativan - PO 1 mg BID [facility]UEL Administration Metoprolol Succinate 25 mg 02/15/19 22:00 02/21/19 10:22 Toprol Xl - PO 25 mg BID [facility] Administration Miscellaneous 1 each 02/19/19 22:00 02/20/19 21:59 Lidoderm Patch Removal MC 1 each DAILY@2200 [facility] Administration Nystatin 1 applic 02/15/19 22:00 02/21/19 10:21 Mycostatin Cream - TP 1 applic BID [facility] Administration Pantoprazole Sodium 20 mg 02/16/19 10:00 02/21/19 10:22 Protonix - PO 20 mg DAILY [facility] Administration Potassium Chloride 20 meq 02/18/19 12:00 02/21/19 10:22 Potassium Chloride Oral Liquid PO 20 meq DAILY [facility] Administration Ropinirole HCl 0.5 mg 02/15/19 22:00 02/20/19 21:58 Requip - PO 0.5 mg HS [facility]UEL Administration Vital Signs Period Temp Pulse Resp BP Sys/Lopez Pulse Ox Last 24 Hr 97.8 F-98.3 F 71-86 18-21 118-145/66-77 96-96 Constitutional: Yes: No Distress, Calm, Obese Eyes: No: Sclera Icterus HENT: No: Nasal Congestion Cardiovascular: Yes: Regular Rate and Rhythm, S1, S2, Other (PMI non diplaced). No: JVD (++tds exam), Gallop, Murmur Respiratory: Yes: CTA Bilaterally (not taking deep breaths). No: Accessory Muscle Use, Rales, Wheezes Gastrointestinal: Yes: Normal Bowel Sounds, Soft. No: Tenderness Extremities: No: Cold, Cyanosis Edema: No Integumentary: No: Jaundice Neurological: Yes: Lethargy. No: Seizure Psychiatric: No: Agitated CBC, BMP 02/20/19 07:00 02/21/19 07:05 Assessment/Plan Echo 02/21: mild decr EF 45%, apical, septal, AW hypokinesis. nl RV. valves WNL IMAGES REVIEWED: very TDS, suspect LV hypo is global and closer to 35% Echo 07/2018: Mildly reduced LVEF w/ mild ant. HK, nl RV, mod MAC, Mild MR, Mild TR, RVSP > 30mmHg, mild AR MPI 07/24: no ischemia/scar. mild-mod reduced EF 42%. no TID tele: SR, occ PVCs IMP: - Acute on chronic systolic CHF, difficult exam due to body habitus (EF upon our review closer to 35%) - OTF on CKD sec to cardiorenal syndrome (baseline creat 1.7-2.0) - Morbid obesity - VIDYA - Possible CAD (? LAD territory hypocontractility on echo, equivocal given TDS image quality) - DM - HTN REC: -Difficult physical exam to assess volume status due to body habitus, CT chest confirmed findings of congestion - breathing improving, cont lasix 80 mg IV BID - Cr stable, bed weight trend appears unreliable (given absence of signif edema and TDS phys exam, would use CXR and hypoxia/O2 req't as main parameter to guide diuretic decisions). Today 02/21, pt reports sob almost gone, feels close to baseline, also o2 sat97%. Can likely change to po lasix tomorrow. -Possible CAD based on chronic LBBB, wall motion abn on echo but previous stress tests without ischemia. Cont ASA 81mg daily, beta hannah, statin ( Atorva 10). outpt f/u--consider PET perfusion vs cath depending on clinical course, renal fxn recovery -syst HF GDMT: low dose metopr as doing (soft bp's), deferring TOMAS/ARB, spirono given soft bp's and low GFR - aggresively replete K/Mag (>4/2), for VT risk - rec outpatient echo with Definity for LVEF, ICD consideration as appropriate depending on that result
--- NOTE | 2019-02-21 11:15 | PN ---
Progress Note, [employer] - Note Progress Note: Selected Entries 02/20/19 02/20/19 02/21/19 12:05 18:00 02:00 Breakfast 100% Supper 100% Temperature 97.8 F Laboratory Tests 02/20/19 07:00 WBC 8.2 No reported signs/symptoms of dysphagia since incident with pills yesterday. Tolerating pills in appplesauce, followed by water. Counseled pt regarding pill taking upon d/c.
[2019-02-21 11:45] LABS: BASO % 0.3 % (0-2.0); EOS % 2.7 % (0-4.5); HEMATOCRIT 33.7 % (32.4-45.2); LYMPH % 17.3 % (8-40); MCH 31.2 pg (25.7-33.7); MCHC 32.6 g/dl (32.0-36.0); MEAN CELL VOLUME 95.5 fl (80-96); MEAN PLT VOLUME 10.1 fl (7.5-11.1); MONO % 7.5 % (3.8-10.2); NEUT % 72.2 % (42.8-82.8); PLATELET COUNT 221 K/MM3 (134-434); RBC 3.53 M/mm3 (3.60-5.2); RDW 16.3 % (11.6-15.6); WHITE BLOOD COUNT 10.6 K/mm3 (4.0-10.0)
--- NOTE | 2019-02-21 14:03 | PN ---
Progress Note, Physician Chief Complaint: feels better, some pain on left anterior rib area but overall improved. encouraged to use incentive spirometer eating lunch, in no acute distress. History of Present Illness: Patient is an 83 year old female with a past medical history of diabetes, systolic CHF, HTN, HLD, and chronic kidney disease, arrived to ED for left shoulder pain post fall. On admission, patient complained of pain 7/10 unable to ambulate, left back pain radiating to left chest under breast area with sob at time. Patient denies hitting her head or losing consciousness. Hospitalization complicated when patient experienced respiratory failure and is now being managed with supplemental oxygen. She can ambulate with a RW at baseline but ambulation compromised with shortness of breath with physical exertion. Not home oxygen dependent. - Current Medication List Current Medications: Active Medications Acetaminophen (Tylenol -) 650 mg PO Q4H PRN PRN Reason: MILD PAIN Last Admin: 02/19/19 05:32 Dose: 650 mg Albuterol Sulfate (Ventolin 0.083% Nebulizer Soln -) 1 amp NEB Q4H PRN PRN Reason: SHORT OF BREATH/WHEEZING Last Admin: 02/16/19 11:40 Dose: 1 amp Allopurinol (Zyloprim -) 100 mg PO BID [facility] Last Admin: 02/21/19 10:22 Dose: 100 mg Atorvastatin Calcium (Lipitor -) 10 mg PO HS [facility] Last Admin: 02/20/19 21:58 Dose: 10 mg Furosemide (Lasix Injection -) 80 mg IVPUSH BID@0600,1400 [facility] Last Admin: 02/21/19 07:50 Dose: 80 mg Gabapentin (Neurontin -) 300 mg PO BID [facility] Last Admin: 02/21/19 10:20 Dose: 300 mg Heparin Sodium (Porcine) (Heparin -) 5,000 unit SQ TID [facility] Last Admin: 02/21/19 07:51 Dose: 5,000 unit Insulin Aspart (Novolog Vial Sliding Scale -) 1 vial SQ BIDAC [facility]; Protocol Last Admin: 02/21/19 07:51 Dose: Not Given Insulin Detemir (Levemir Vial) 38 units SQ DAILY@0700 [facility] Last Admin: 02/21/19 07:51 Dose: 38 units Levalbuterol HCl (Xopenex) 0.31 mg IH RTID [facility] Last Admin: 02/21/19 08:45 Dose: 0.31 mg Lorazepam (Ativan -) 1 mg PO BID [facility] Last Admin: 02/21/19 10:21 Dose: 1 mg Metoprolol Succinate (Toprol Xl -) 25 mg PO BID [facility] Last Admin: 02/21/19 10:22 Dose: 25 mg Miscellaneous (Lidoderm Patch Removal) 1 each MC DAILY@2200 [facility] Last Admin: 02/20/19 21:59 Dose: 1 each Nystatin (Mycostatin Cream -) 1 applic TP BID [facility] Last Admin: 02/21/19 10:21 Dose: 1 applic Pantoprazole Sodium (Protonix -) 20 mg PO DAILY [facility] Last Admin: 02/21/19 10:22 Dose: 20 mg Potassium Chloride (Potassium Chloride Oral Liquid) 20 meq PO DAILY [facility] Last Admin: 02/21/19 10:22 Dose: 20 meq Ropinirole HCl (Requip -) 0.5 mg PO HS [facility] Last Admin: 02/20/19 21:58 Dose: 0.5 mg - Objective Vital Signs: Vital Signs Temperature 98.1 F 02/21/19 10:00 Pulse Rate 81 02/21/19 10:00 Respiratory Rate 18 02/21/19 10:00 Blood Pressure 109/79 02/21/19 10:00 O2 Sat by Pulse Oximetry (%) 96 02/21/19 09:00 Constitutional: Yes: No Distress, Calm Eyes: Yes: WNL HENT: Yes: Atraumatic Neck: Yes: Supple Cardiovascular: Yes: Regular Rate and Rhythm Respiratory: Yes: Diminished Gastrointestinal: Yes: Abdomen, Obese ...Rectal Exam: Yes: Deferred Genitourinary: Yes: WNL Musculoskeletal: Yes: WNL Extremities: Yes: WNL Edema: Yes Edema: LLE: Trace, RLE: Trace Peripheral Pulses WNL: No Integumentary: Yes: WNL Neurological: Yes: Alert, Oriented ...Motor Strength: WNL Psychiatric: Yes: WNL Labs: CBC, BMP 02/21/19 07:05 02/21/19 07:05 Problem List - Problems (1) Acute hypoxemic respiratory failure Assessment/Plan: on supplemental oxygen. not home oxygen dependent, will wean off as tolerated. on lasix 80 mg iv bid, has mild trace edema on lower extremities. weights are improving since admission. monitor weights, maintain oxygen above 92% pulmonary following, recommendations appreciated encourage incentive spriometer use. Code(s): J96.01 - ACUTE RESPIRATORY FAILURE WITH HYPOXIA (2) [id number] kidney injury Assessment/Plan: monitor daily renal fx avoid nephrotoxic agents hold TOMAS/ARB daily weights strict I&Os renal following Code(s): N17.9 - ACUTE KIDNEY FAILURE, UNSPECIFIED; N18.9 - CHRONIC KIDNEY DISEASE, UNSPECIFIED (3) Fall Assessment/Plan: physical therapy as tolerated may need SNF Code(s): W19.XXXA - UNSPECIFIED FALL, INITIAL ENCOUNTER Qualifiers: Encounter type: initial encounter Qualified Code(s): W19.XXXA - Unspecified fall, initial encounter (4) Hypoxia Assessment/Plan: on supplemental oxygen, wean off as tolerated Code(s): R09.02 - HYPOXEMIA (5) Multiple rib fractures Assessment/Plan: supportive care with lidocaine patches and tylenol prn Code(s): S22.49XA - MULTIPLE FRACTURES OF RIBS, UNSP SIDE, INIT FOR CLOS FX Qualifiers: Encounter type: initial encounter Fracture type: closed Laterality: left Qualified Code(s): S22.42XA - Multiple fractures of ribs, left side, initial encounter for closed fracture (6) Ambulatory dysfunction Code(s): R26.2 - DIFFICULTY IN WALKING, NOT ELSEWHERE CLASSIFIED (7) CHF (congestive heart failure) Assessment/Plan: daily weights, on lasix, supplemental oxygen. Code(s): I50.9 - HEART FAILURE, UNSPECIFIED Qualifiers: Heart failure type: systolic Heart failure chronicity: acute on chronic Qualified Code(s): I50.23 - Acute on chronic systolic (congestive) heart failure (8) CKD (chronic kidney disease) stage 4, GFR 15-29 ml/min Assessment/Plan: Possible CAD based on chronic LBBB, wall motion abn on echo but previous stress tests without ischemia. c/w ASA 81mg daily, beta hannah, statin appreciate cardiology consultation Code(s): N18.4 - CHRONIC KIDNEY DISEASE, STAGE 4 (SEVERE) (9) Diabetes Assessment/Plan: controlled on novolog ss Code(s): E11.9 - TYPE 2 DIABETES MELLITUS WITHOUT COMPLICATIONS Qualifiers: Diabetes mellitus type: type 2 Diabetes mellitus retirement insulin use: with meterman use Diabetes mellitus complication status: with kidney complications Diabetes mellitus complication detail: with chronic kidney disease Chronic kidney disease stage: stage 4 (severe) Qualified Code(s): E11.22 - Type 2 diabetes mellitus with diabetic chronic kidney disease; N18.4 - Chronic kidney disease, stage 4 (severe); Z79.4 - predatory animal exterminator (current) use of insulin (10) DVT prophylaxis Assessment/Plan: SCDs bilaterally, on heparin Code(s): ETS9566 - (11) Prophylactic measure Assessment/Plan: FEN cardiac diet monitor electrolytes/Cr no IVF Dispo maintain on tele full code discharge planning Code(s): Z29.9 - ENCOUNTER FOR PROPHYLACTIC MEASURES, UNSPECIFIED Visit type - Emergency Visit Emergency Visit: Yes ED Registration Date: 02/09/19 Care time: The patient presented to the Emergency Department on the above date and was hospitalized for further evaluation of their emergent condition. - New Patient This patient is new to me today: No - Critical Care Critical Care patient: No - Discharge Referral Referred to [facility] Med P.C.: No
--- NOTE | 2019-02-21 15:37 | PN ---
Progress Note (short form) - Note Progress Note: Renal follow up for CKD and fluid overload Seen and examined at the bedside awake and alert sob is stable reports abd discomfort and distension no chest pain, fever, chills Vital Signs Temperature 98.1 F 02/21/19 10:00 Pulse Rate 81 02/21/19 10:00 Respiratory Rate 18 02/21/19 10:00 Blood Pressure 109/79 02/21/19 10:00 O2 Sat by Pulse Oximetry (%) 96 02/21/19 09:00 Intake & Output 02/18/19 02/19/19 02/20/19 02/21/19 23:59 23:59 23:59 23:59 Intake Total 820 610 Output Total 1150 1550 800 Balance -330 -940 -800 Weight 166.786 kg 134.292 kg 119.295 kg NAD neck supple, no JVD RRR, no M/R Dec BS obese, NT/ND + LE edema, no clubbing or cyanosis no bladder distension CBC, BMP 02/21/19 07:05 02/21/19 07:05 Current Medications Acetaminophen (Tylenol -) 650 mg PO Q4H PRN PRN Reason: MILD PAIN Last Admin: 02/19/19 05:32 Dose: 650 mg Albuterol Sulfate (Ventolin 0.083% Nebulizer Soln -) 1 amp NEB Q4H PRN PRN Reason: SHORT OF BREATH/WHEEZING Last Admin: 02/16/19 11:40 Dose: 1 amp Allopurinol (Zyloprim -) 100 mg PO BID [facility] Last Admin: 02/21/19 10:22 Dose: 100 mg Atorvastatin Calcium (Lipitor -) 10 mg PO HS [facility] Last Admin: 02/20/19 21:58 Dose: 10 mg Furosemide (Lasix Injection -) 80 mg IVPUSH BID@0600,1400 [facility] Last Admin: 02/21/19 14:22 Dose: 80 mg Gabapentin (Neurontin -) 300 mg PO BID [facility] Last Admin: 02/21/19 10:20 Dose: 300 mg Heparin Sodium (Porcine) (Heparin -) 5,000 unit SQ TID [facility] Last Admin: 02/21/19 14:22 Dose: 5,000 unit Insulin Aspart (Novolog Vial Sliding Scale -) 1 vial SQ BIDAC [facility]; Protocol Last Admin: 02/21/19 07:51 Dose: Not Given Insulin Detemir (Levemir Vial) 38 units SQ DAILY@0700 [facility] Last Admin: 02/21/19 07:51 Dose: 38 units Levalbuterol HCl (Xopenex) 0.31 mg IH RTID [facility] Last Admin: 02/21/19 15:00 Dose: 0.31 mg Lorazepam (Ativan -) 1 mg PO BID [facility] Last Admin: 02/21/19 10:21 Dose: 1 mg Metoprolol Succinate (Toprol Xl -) 25 mg PO BID [facility] Last Admin: 02/21/19 10:22 Dose: 25 mg Miscellaneous (Lidoderm Patch Removal) 1 each MC DAILY@2200 [facility] Last Admin: 02/20/19 21:59 Dose: 1 each Nystatin (Mycostatin Cream -) 1 applic TP BID [facility] Last Admin: 02/21/19 10:21 Dose: 1 applic Pantoprazole Sodium (Protonix -) 20 mg PO DAILY [facility] Last Admin: 02/21/19 10:22 Dose: 20 mg Potassium Chloride (Potassium Chloride Oral Liquid) 20 meq PO DAILY [facility] Last Admin: 02/21/19 10:22 Dose: 20 meq Ropinirole HCl (Requip -) 0.5 mg PO HS [facility] Last Admin: 02/20/19 21:58 Dose: 0.5 mg 83 year old woman with history of CKD, systolic HF, hypertension, hyperlipidemia , DM, obesity who presented from home s/p fall with rib factures and developed acute CHF with rising BUN/Cr during the admission. 1. CKD stage 4 (baseline Cr 1.8) with elevated BUN/Cr in setting of HF 2. Systolic heart failure 3. Fall 4. Rib fractures 5. Hypokalemia Renal function remains stable Continue IV Lasix as per cardiology as CXR shows persistent congestion Trend real function and electrolytes daily not currently on TOMAS/ARB, would hold off until off IV diuretics avoid NSAIDs for pain control supplement K while on IV diuresis Thank you Pablo Burks DO
[2019-02-21 15:45] LABS: ANISOCYTOSIS 1+; MACROCYTOSIS 1+; OVALOCYTE 1+; PLATELET ESTIMATE NORMAL; TEAR DROP CELLS 1+
[2019-02-21 17:18] VITALS: BMI 51.3
[2019-02-21] MEDS: LIDOCAINE PATCH REMOVAL MC SCH (22:26)
[2019-02-21] MEDS: rOPINIRole HCL 0.5 MG TABLET PO SCH (22:27)
[2019-02-21] MEDS: ATORVASTATIN CA 10 MG TABLET (FP) PO SCH (22:27)
[2019-02-22 02:49] VITALS: TEMP 98
[2019-02-22 06:47] VITALS: BP 111/67; PULSE 80
[2019-02-22] MEDS: HEPARIN NA (PORCINE) 5,000 UNITS/ML 1ML VIAL SQ SCH ×2 (06:50→13:50)
[2019-02-22] MEDS: INSULIN (LEVEMIR) 100 UNITS/ML UNITS SQ SCH (06:50)
[2019-02-22] MEDS: INSULIN SLIDING SCALE (NOVOLOG) 1 VIAL SQ SCH (06:50)
[2019-02-22] MEDS: FUROSEMIDE 40 MG/4 ML INJECTABLE VIAL IVPUSH SCH (06:50)
[2019-02-22 07:18] LABS: ALBUMIN 3.1 g/dl (3.4-5.0); BILIRUBIN,TOTAL 0.7 mg/dL (0.2-1); BLOOD UREA NITROGEN 83.4 mg/dL (7-18); CALCIUM 9.5 mg/dL (8.5-10.1); CREATININE 2.3 mg/dL (0.55-1.3); MAGNESIUM 2.4 mg/dL (1.8-2.4); POTASSIUM 3.6 mmol/L (3.5-5.1); TOT PROT 6.5 g/dl (6.4-8.2)
[2019-02-22] MEDS: LEVALBUTEROL HCL 0.31 MG/3 ML VIAL.NEB IH SCH ×2 (07:30→14:05)
[2019-02-22 08:11] LABS: BASO % 0.9 % (0-2.0); EOS % 3.3 % (0-4.5); HEMATOCRIT 32.4 % (32.4-45.2); HEMOGLOBIN 10.6 GM/dL (10.7-15.3); LYMPH % 21.7 % (8-40); MCH 31.3 pg (25.7-33.7); MCHC 32.6 g/dl (32.0-36.0); MEAN CELL VOLUME 95.8 fl (80-96); MEAN PLT VOLUME 9.9 fl (7.5-11.1); MONO % 7.9 % (3.8-10.2); NEUT % 66.2 % (42.8-82.8); PLATELET COUNT 205 K/MM3 (134-434); RBC 3.38 M/mm3 (3.60-5.2); RDW 16.6 % (11.6-15.6); WHITE BLOOD COUNT 9.4 K/mm3 (4.0-10.0)
--- NOTE | 2019-02-22 09:51 | PN ---
Progress Note, Physician Chief Complaint: no SOB or CP History of Present Illness: diuresing well - Current Medication List Current Medications: Active Medications Acetaminophen (Tylenol -) 650 mg PO Q4H PRN PRN Reason: MILD PAIN Last Admin: 02/19/19 05:32 Dose: 650 mg Albuterol Sulfate (Ventolin 0.083% Nebulizer Soln -) 1 amp NEB Q4H PRN PRN Reason: SHORT OF BREATH/WHEEZING Last Admin: 02/16/19 11:40 Dose: 1 amp Allopurinol (Zyloprim -) 100 mg PO BID [facility] Last Admin: 02/21/19 22:28 Dose: 100 mg Atorvastatin Calcium (Lipitor -) 10 mg PO HS [facility] Last Admin: 02/21/19 22:27 Dose: 10 mg Furosemide (Lasix Injection -) 80 mg IVPUSH BID@0600,1400 [facility] Last Admin: 02/22/19 06:50 Dose: 80 mg Gabapentin (Neurontin -) 300 mg PO BID [facility] Last Admin: 02/21/19 22:27 Dose: 300 mg Heparin Sodium (Porcine) (Heparin -) 5,000 unit SQ TID [facility] Last Admin: 02/22/19 06:50 Dose: 5,000 unit Insulin Aspart (Novolog Vial Sliding Scale -) 1 vial SQ BIDAC [facility]; Protocol Last Admin: 02/22/19 06:50 Dose: 2 units Insulin Detemir (Levemir Vial) 38 units SQ DAILY@0700 [facility] Last Admin: 02/22/19 06:50 Dose: 38 units Levalbuterol HCl (Xopenex) 0.31 mg IH RTID [facility] Last Admin: 02/22/19 07:30 Dose: Not Given Lorazepam (Ativan -) 1 mg PO BID [facility] Last Admin: 02/21/19 22:22 Dose: 1 mg Metoprolol Succinate (Toprol Xl -) 25 mg PO BID [facility] Last Admin: 02/21/19 22:28 Dose: 25 mg Miscellaneous (Lidoderm Patch Removal) 1 each MC DAILY@2200 [facility] Last Admin: 02/21/19 22:26 Dose: 1 each Nystatin (Mycostatin Cream -) 1 applic TP BID [facility] Last Admin: 02/21/19 22:27 Dose: 1 applic Pantoprazole Sodium (Protonix -) 20 mg PO DAILY [facility] Last Admin: 02/21/19 10:22 Dose: 20 mg Potassium Chloride (Potassium Chloride Oral Liquid) 20 meq PO DAILY [facility] Last Admin: 02/21/19 10:22 Dose: 20 meq Ropinirole HCl (Requip -) 0.5 mg PO HS [facility] Last Admin: 02/21/19 22:27 Dose: 0.5 mg - Objective Vital Signs: Vital Signs Temperature 98 F 02/22/19 06:00 Pulse Rate 80 02/22/19 06:00 Respiratory Rate 20 02/22/19 06:00 Blood Pressure 111/67 02/22/19 06:00 O2 Sat by Pulse Oximetry (%) 100 02/21/19 21:00 Constitutional: Yes: No Distress Cardiovascular: Yes: Regular Rate and Rhythm Respiratory: Yes: CTA Bilaterally Gastrointestinal: Yes: Soft, Abdomen, Obese Edema: Yes Edema: LLE: 1+, RLE: 1+ Neurological: Yes: Alert, Oriented Labs: CBC, BMP 02/22/19 05:55 02/22/19 05:55 Laboratory Tests 02/17/19 02/17/19 02/22/19 06:01 06:01 05:55 WBC 8.4 9.4 RBC 3.38 L Hgb 10.9 Hct 32.4 Plt Count 209 205 Sodium 138 Potassium 3.7 BUN 75.3 H Creatinine 2.2 H 02/22/19 05:55 WBC RBC Hgb Hct Plt Count Sodium 138 Potassium 3.6 BUN 83.4 H Creatinine 2.3 H - ....Imaging EKG: Image Reviewed Assessment/Plan Assessment/Plan Echo 02/21: mild decr EF 45%, apical, septal, AW hypokinesis. nl RV. valves WNL IMAGES REVIEWED: very TDS, suspect LV hypo is global and closer to 35% Echo 07/2018: Mildly reduced LVEF w/ mild ant. HK, nl RV, mod MAC, Mild MR, Mild TR, RVSP > 30mmHg, mild AR MPI 07/24: no ischemia/scar. mild-mod reduced EF 42%. no TID tele: SR, occ PVCs IMP: - Acute on chronic systolic CHF, difficult exam due to body habitus (EF upon our review closer to 35%) - OTF on CKD sec to cardiorenal syndrome (baseline creat 1.7-2.0) - Morbid obesity - VIDYA - Possible CAD (? LAD territory hypocontractility on echo, equivocal given TDS image quality) - DM - HTN REC: -Difficult physical exam to assess volume status due to body habitus, CT chest confirmed findings of congestion - breathing improving, cont lasix 80 mg IV BID - Cr stable, bed weight trend appears unreliable (given absence of signif edema and TDS phys exam, would use CXR and hypoxia/O2 req't as main parameter to guide diuretic decisions). -Switch to Lasix 80mg PO BID -Possible CAD based on chronic LBBB, wall motion abn on echo but previous stress tests without ischemia. Cont ASA 81mg daily, beta hannah, statin ( Atorva 10). outpt f/u--consider PET perfusion vs cath depending on clinical course, renal fxn recovery -syst HF GDMT: low dose metopr as doing (soft bp's), deferring TOMAS/ARB, spirono given soft bp's and low GFR - aggresively replete K/Mag (>4/2), for VT risk - rec outpatient echo with Definity for LVEF, ICD consideration as appropriate depending on that result
[2019-02-22] MEDS: metoPROLOL SUCCINATE 25 MG TAB.SR.24H (FP) PO SCH (10:09)
[2019-02-22] MEDS: GABAPENTIN 300 MG CAPSULE (FP) PO SCH (10:09)
[2019-02-22] MEDS: LORazepam 0.5 MG TABLET PO SCH (10:09)
[2019-02-22] MEDS: NYSTATIN 100,000 UNIT/GM TOPICAL CREAM 15 GM TUBE TP SCH (10:09)
[2019-02-22] MEDS: ALLOPURINOL 100 MG TABLET (FP) PO SCH (10:09)
[2019-02-22] MEDS: PANTOPRAZOLE 20 MG TABLET (FP) PO SCH (10:09)
[2019-02-22] MEDS: POTASSIUM CHLORIDE ORAL LIQUID 20 MEQ/15 ML PO SCH (10:09)
--- NOTE | 2019-02-22 10:25 | PN ---
Progress Note, Physician History of Present Illness: pulmonary alert,comfortable,-resp distress,o2 sat 96% on nasal cannula - Current Medication List Current Medications: Active Medications Acetaminophen (Tylenol -) 650 mg PO Q4H PRN PRN Reason: MILD PAIN Last Admin: 02/19/19 05:32 Dose: 650 mg Albuterol Sulfate (Ventolin 0.083% Nebulizer Soln -) 1 amp NEB Q4H PRN PRN Reason: SHORT OF BREATH/WHEEZING Last Admin: 02/16/19 11:40 Dose: 1 amp Allopurinol (Zyloprim -) 100 mg PO BID [facility] Last Admin: 02/22/19 10:09 Dose: 100 mg Atorvastatin Calcium (Lipitor -) 10 mg PO HS [facility] Last Admin: 02/21/19 22:27 Dose: 10 mg Furosemide (Lasix -) 80 mg PO BID@0600,1400 [facility] Gabapentin (Neurontin -) 300 mg PO BID [facility] Last Admin: 02/22/19 10:09 Dose: 300 mg Heparin Sodium (Porcine) (Heparin -) 5,000 unit SQ TID [facility] Last Admin: 02/22/19 06:50 Dose: 5,000 unit Insulin Aspart (Novolog Vial Sliding Scale -) 1 vial SQ BIDAC [facility]; Protocol Last Admin: 02/22/19 06:50 Dose: 2 units Insulin Detemir (Levemir Vial) 38 units SQ DAILY@0700 [facility] Last Admin: 02/22/19 06:50 Dose: 38 units Levalbuterol HCl (Xopenex) 0.31 mg IH RTID [facility] Last Admin: 02/22/19 07:30 Dose: Not Given Lorazepam (Ativan -) 1 mg PO BID [facility] Last Admin: 02/22/19 10:09 Dose: 1 mg Metoprolol Succinate (Toprol Xl -) 25 mg PO BID [facility] Last Admin: 02/22/19 10:09 Dose: 25 mg Miscellaneous (Lidoderm Patch Removal) 1 each MC DAILY@2200 [facility] Last Admin: 02/21/19 22:26 Dose: 1 each Nystatin (Mycostatin Cream -) 1 applic TP BID [facility] Last Admin: 02/22/19 10:09 Dose: 1 applic Pantoprazole Sodium (Protonix -) 20 mg PO DAILY [facility] Last Admin: 02/22/19 10:09 Dose: 20 mg Potassium Chloride (Potassium Chloride Oral Liquid) 20 meq PO DAILY [facility] Last Admin: 02/22/19 10:09 Dose: 20 meq Ropinirole HCl (Requip -) 0.5 mg PO HS [facility] Last Admin: 02/21/19 22:27 Dose: 0.5 mg - Objective Vital Signs: Vital Signs Temperature 98 F 02/22/19 06:00 Pulse Rate 80 02/22/19 06:00 Respiratory Rate 20 02/22/19 06:00 Blood Pressure 111/67 02/22/19 06:00 O2 Sat by Pulse Oximetry (%) 100 02/21/19 21:00 Constitutional: Yes: Calm, Obese Eyes: Yes: WNL HENT: Yes: WNL Neck: Yes: WNL Cardiovascular: Yes: Regular Rate and Rhythm, S1, S2 Respiratory: Yes: Diminished Gastrointestinal: Yes: Normal Bowel Sounds, Soft Extremities: Yes: WNL Edema: Yes Labs: CBC, BMP 02/22/19 05:55 02/22/19 05:55 Problem List - Problems (1) Acute hypoxemic respiratory failure Code(s): J96.01 - ACUTE RESPIRATORY FAILURE WITH HYPOXIA (2) Fall Code(s): W19.XXXA - UNSPECIFIED FALL, INITIAL ENCOUNTER Qualifiers: Encounter type: initial encounter Qualified Code(s): W19.XXXA - Unspecified fall, initial encounter (3) Multiple rib fractures Code(s): S22.49XA - MULTIPLE FRACTURES OF RIBS, UNSP SIDE, INIT FOR CLOS FX Qualifiers: Encounter type: initial encounter Fracture type: closed Laterality: left Qualified Code(s): S22.42XA - Multiple fractures of ribs, left side, initial encounter for closed fracture (4) CAD (coronary artery disease) Code(s): I25.10 - ATHSCL HEART DISEASE OF [place] CORONARY ARTERY W/O ANG PCTRS (5) CHF (congestive heart failure) Code(s): I50.9 - HEART FAILURE, UNSPECIFIED Qualifiers: Heart failure type: systolic Heart failure chronicity: acute on chronic Qualified Code(s): I50.23 - Acute on chronic systolic (congestive) heart failure (6) CKD (chronic kidney disease) stage 4, GFR 15-29 ml/min Code(s): N18.4 - CHRONIC KIDNEY DISEASE, STAGE 4 (SEVERE) (7) HTN (hypertension) with goal to be determined Code(s): I10 - ESSENTIAL (PRIMARY) HYPERTENSION (8) Hyperlipemia Code(s): E78.5 - HYPERLIPIDEMIA, UNSPECIFIED (9) Hypertension Code(s): I10 - ESSENTIAL (PRIMARY) HYPERTENSION Qualifiers: Hypertension type: essential hypertension Qualified Code(s): I10 - Essential (primary) hypertension (10) Morbid obesity Code(s): E66.01 - MORBID (SEVERE) OBESITY DUE TO EXCESS CALORIES (11) Neuropathy Code(s): G62.9 - POLYNEUROPATHY, UNSPECIFIED (12) Shortness of breath Code(s): R06.02 - SHORTNESS OF BREATH Assessment/Plan IMP ACUTE HYPOXIC RESPIRATORY FAILURE LIKELY SECONDARY TO ATELECTASIS SECONDARY TO PAIN DUE TO MULTIPLE RIB FX MULTIPLE NON-DISPLACED LEFT SIDED RIB FX S/P MECHANICAL FALL ACUTE ON CHRONIC CHF CLINICALLY IMPROVED VIDYA NOT ON CPAP PULMONARY HTN MORBID OBESITY ? OBESITY HYPOVENTILATION SYNDROME CKD DM PLAN ENCOURAGE INCENTIVE SPIROMETER LASIX PO INHALED BRONCHODILATORS ANALGESICS O2 BIPAP AT NIGHT IF PT COMPLIES DAILY WTS MONITOR LYTES,RENAL FUNCTION DVT PROPHYLAXIS BEDSIDE PT DR MOSLEY Problem List - Problems (1) Acute hypoxemic respiratory failure Code(s): J96.01 - ACUTE RESPIRATORY FAILURE WITH HYPOXIA (2) Fall Code(s): W19.XXXA - UNSPECIFIED FALL, INITIAL ENCOUNTER Qualifiers: Encounter type: initial encounter Qualified Code(s): W19.XXXA - Unspecified fall, initial encounter (3) Multiple rib fractures Code(s): S22.49XA - MULTIPLE FRACTURES OF RIBS, UNSP SIDE, INIT FOR CLOS FX Qualifiers: Encounter type: initial encounter Fracture type: closed Laterality: left Qualified Code(s): S22.42XA - Multiple fractures of ribs, left side, initial encounter for closed fracture (4) CAD (coronary artery disease) Code(s): I25.10 - ATHSCL HEART DISEASE OF [place] CORONARY ARTERY W/O ANG PCTRS (5) CHF (congestive heart failure) Code(s): I50.9 - HEART FAILURE, UNSPECIFIED Qualifiers: Heart failure type: systolic Heart failure chronicity: acute on chronic Qualified Code(s): I50.23 - Acute on chronic systolic (congestive) heart failure (6) CKD (chronic kidney disease) stage 4, GFR 15-29 ml/min Code(s): N18.4 - CHRONIC KIDNEY DISEASE, STAGE 4 (SEVERE) (7) HTN (hypertension) with goal to be determined Code(s): I10 - ESSENTIAL (PRIMARY) HYPERTENSION (8) Hyperlipemia Code(s): E78.5 - HYPERLIPIDEMIA, UNSPECIFIED (9) Hypertension Code(s): I10 - ESSENTIAL (PRIMARY) HYPERTENSION Qualifiers: Hypertension type: essential hypertension Qualified Code(s): I10 - Essential (primary) hypertension (10) Morbid obesity Code(s): E66.01 - MORBID (SEVERE) OBESITY DUE TO EXCESS CALORIES (11) Neuropathy Code(s): G62.9 - POLYNEUROPATHY, UNSPECIFIED (12) Shortness of breath Code(s): R06.02 - SHORTNESS OF BREATH
[2019-02-22 11:29] LABS: ANISOCYTOSIS 1+; MACROCYTOSIS 1+; OVALOCYTE 1+; PLATELET ESTIMATE NORMAL
--- NOTE | 2019-02-22 11:51 | DS ---
Physical Exam: SUBJECTIVE: Patient seen and examined at the bedside. She reports feeling better. Denies chest pain or shortness of breath. OBJECTIVE: Patient for discharge to rehab today Patient is an 83 year old female with a past medical history of diabetes, systolic CHF, HTN, HLD, and chronic kidney disease, arrived to ED for left shoulder pain post fall. On admission, patient complained of pain 7/10 unable to ambulate, left back pain radiating to left chest under breast area with sob at time. Patient denies hitting her head or losing consciousness. Hospitalization complicated when patient experienced respiratory failure and is now being managed with supplemental oxygen. She can ambulate with a RW at baseline but ambulation compromised with shortness of breath with physical exertion. Not home oxygen dependent. Vital Signs Period Temp Pulse Resp BP Sys/Lopez Pulse Ox Last 24 Hr 97.7 F-98.3 F 71-84 17-20 110-138/62-76 100-100 PHYSICAL EXAM GENERAL: The patient is awake, alert, and fully oriented, in no acute distress. HEAD: Normal with no signs of trauma. EYES: PERRL, extraocular movements intact, sclera anicteric, conjunctiva clear. ENT: Ears normal, nares patent, oropharynx clear without exudates, moist mucous membranes. NECK: Trachea midline, full range of motion, supple. LUNGS: diminished bilaterally HEART: Regular rate and rhythm ABDOMEN: Soft, nontender, obese abdomen EXTREMITIES: trace edema bilaterally +1 NEUROLOGICAL: Normal speech, gait not observed. PSYCH: Normal mood, normal affect. SKIN: Warm, dry, normal turgor, no rashes or lesions noted. LABS Laboratory Results - last 24 hr 02/21/19 02/21/19 02/22/19 07:05 16:55 05:55 WBC 10.6 H 9.4 RBC 3.53 L 3.38 L Hgb 11.0 10.6 L Hct 33.7 32.4 MCV 95.5 95.8 MCH 31.2 31.3 MCHC 32.6 32.6 RDW 16.3 H 16.6 H Plt Count 221 205 MPV 10.1 9.9 Absolute Neuts (auto) 7.7 6.2 Neutrophils % 72.2 66.2 Neutrophils % (Manual) 68.3 66.0 Band Neutrophils % 0.0 1.0 Lymphocytes % 17.3 21.7 D Lymphocytes % (Manual) 17.8 D 22.0 D Monocytes % 7.5 7.9 Monocytes % (Manual) 7 5 Eosinophils % 2.7 3.3 Eosinophils % (Manual) 3.0 4.0 Basophils % 0.3 0.9 Basophils % (Manual) 1.0 D 0.0 Myelocytes % (Man) 0 D 0 Promyelocytes % (Man) 0 0 Blast Cells % (Manual) 0 0 Nucleated RBC % 0 0 Metamyelocytes 0 1 D Hypochromia 0 0 Platelet Estimate Normal Normal Platelet Comment Present Polychromasia 1+ 0 Poikilocytosis 1+ 0 Basophilic Stippling 2+ Anisocytosis 1+ 1+ Microcytosis 1+ 1+ Macrocytosis 1+ 1+ Tear Drop Cells 1+ Ovalocytes 1+ 1+ Sodium Potassium Chloride Carbon Dioxide Anion Gap BUN Creatinine Est GFR (CKD-EPI)AfAm Est GFR (CKD-EPI)NonAf POC Glucometer 161 Random Glucose Calcium Magnesium Total Bilirubin AST ALT Alkaline Phosphatase Total Protein Albumin 02/22/19 02/22/19 05:55 06:08 WBC RBC Hgb Hct MCV MCH MCHC RDW Plt Count MPV Absolute Neuts (auto) Neutrophils % Neutrophils % (Manual) Band Neutrophils % Lymphocytes % Lymphocytes % (Manual) Monocytes % Monocytes % (Manual) Eosinophils % Eosinophils % (Manual) Basophils % Basophils % (Manual) Myelocytes % (Man) Promyelocytes % (Man) Blast Cells % (Manual) Nucleated RBC % Metamyelocytes Hypochromia Platelet Estimate Platelet Comment Polychromasia Poikilocytosis Basophilic Stippling Anisocytosis Microcytosis Macrocytosis Tear Drop Cells Ovalocytes Sodium 138 Potassium 3.6 Chloride 98 Carbon Dioxide 29 Anion Gap 10 BUN 83.4 H Creatinine 2.3 H Est GFR (CKD-EPI)AfAm 21.73 Est GFR (CKD-EPI)NonAf 18.75 POC Glucometer 159 Random Glucose 157 H Calcium 9.5 Magnesium 2.4 Total Bilirubin 0.7 AST 29 ALT 32 Alkaline Phosphatase 124 H Total Protein 6.5 Albumin 3.1 L HOSPITAL COURSE: Date of Admission:02/09/19 Date of Discharge: 02/22/19 Minutes to complete discharge: 60 Discharge Summary Reason For Visit: SLIPPED, FAST WALKER Current Active Problems Acute hypoxemic respiratory failure (Acute) [id number] kidney injury (Acute) Fall (Acute) Gout (Acute) Hypoxia (Acute) Multiple rib fractures (Acute) Prophylactic measure (Acute) Condition: Stable - Instructions Diet, Activity, Other Instructions: Mrs Carl: You were admitted on 02/09/2019 after you sustained a fall. You developed respiratory distress after your fall. During your hospitalization, you were seen by cardiology and pulmonary team. Here are our discharge recommendations: Pulmonary: Continue the oxygen at 2 - 3 liters and wean off as tolerated. Continue duonebs as needed for shortness of breath. If your breathing does not improve, you may need BiPap. Follow up with central services tech on discharge. Rib fracture: You sustained rib fractures after your fall. We have been giving you pain medications as well as lidoderm patches. Cardiology: Shortness of breath: Start on Lasix 80mg by mouth TWICE per day with close monitoring of your kidney function and electrolytes. We recommend your lab work is monitored closely at least 2-3 times per week initially until more stable. You will need a follow up echocardiogram for ICD consideration. Chronic Kidney Disease: We recommend that you follow up with Dr. Burks by calling his office and making an appointment. Continue your medications as outlined on your discharge instructions. Thank you for allowing us to care for you. Referrals: Singh Holman MD [Staff Physician] - (outpatient echo with [facility] for LVEF, ICD consideration as appropriate depending on that result) Disposition: [facility]ILITY - Home Medications Comprehensive Discharge Medication List: Ambulatory Orders Aspirin [Ecotrin] 81 mg PO Q2D 05/17/17 Atorvastatin Ca [Lipitor] 10 mg PO HS 05/17/17 Ergocalciferol [Vitamin D2] 50,000 unit PO MONTHLY 05/17/17 Gabapentin [Neurontin] 300 mg PO BID 05/17/17 Insulin (Levemir) [Levemir Vial] 38 unit SQ DAILY 05/17/17 Omeprazole Magnesium [Prilosec] 20 mg PO DAILY 05/17/17 Tramadol HCl 50 mg PO BID 05/17/17 Allopurinol [Zyloprim -] 100 mg PO BID 07/20/18 Glimepiride [Amaryl -] 1 mg PO HS 07/20/18 LORazepam [Ativan] 1 mg PO BID 07/20/18 Metoprolol Succinate [Toprol Xl] 25 mg PO BID 07/20/18 Ropinirole HCl [Requip] 0.5 mg PO HS 07/20/18 Torsemide 20 mg PO DAILY 07/24/18 Problem List - Problems (1) Acute on chronic systolic (congestive) heart failure Assessment/Plan: followed by pulmonary and cardiology converted to Lasix 80mg PO BID monitor vitals, daily weights, labs follow chest xray. - aggresively replete K/Mag (>4/2), for VT risk - rec outpatient echo with [facility] for LVEF, ICD consideration as appropriate depending on that result Code(s): I50.23 - ACUTE ON CHRONIC SYSTOLIC (CONGESTIVE) HEART FAILURE (2) Acute hypoxemic respiratory failure Assessment/Plan: on supplemental oxygen. not home oxygen dependent, will wean off as tolerated. on lasix 80 mg bid, has mild trace edema on lower extremities. weights are improving since admission. monitor weights, maintain oxygen above 92% pulmonary following, recommendations appreciated encourage incentive spriometer use. Code(s): J96.01 - ACUTE RESPIRATORY FAILURE WITH HYPOXIA (3) Bhqdd-si-awvtgen kidney injury Assessment/Plan: monitor daily renal fx avoid nephrotoxic agents hold TOMAS/ARB daily weights strict I&Os renal following Code(s): N17.9 - ACUTE KIDNEY FAILURE, UNSPECIFIED; N18.9 - CHRONIC KIDNEY DISEASE, UNSPECIFIED (4) Fall Assessment/Plan: physical therapy as tolerated Code(s): W19.XXXA - UNSPECIFIED FALL, INITIAL ENCOUNTER Qualifiers: Encounter type: initial encounter Qualified Code(s): W19.XXXA - Unspecified fall, initial encounter (5) Hypoxia Assessment/Plan: on supplemental oxygen, wean off as tolerated Code(s): R09.02 - HYPOXEMIA (6) Multiple rib fractures Assessment/Plan: supportive care with lidocaine patches and tylenol prn Code(s): S22.49XA - MULTIPLE FRACTURES OF RIBS, UNSP SIDE, INIT FOR CLOS FX Qualifiers: Encounter type: initial encounter Fracture type: closed Laterality: left Qualified Code(s): S22.42XA - Multiple fractures of ribs, left side, initial encounter for closed fracture (7) Ambulatory dysfunction Assessment/Plan: for rehab Code(s): R26.2 - DIFFICULTY IN WALKING, NOT ELSEWHERE CLASSIFIED (8) CHF (congestive heart failure) Assessment/Plan: daily weights, on lasix, supplemental oxygen. Code(s): I50.9 - HEART FAILURE, UNSPECIFIED Qualifiers: Heart failure type: systolic Heart failure chronicity: acute on chronic Qualified Code(s): I50.23 - Acute on chronic systolic (congestive) heart failure (9) CKD (chronic kidney disease) stage 4, GFR 15-29 ml/min Assessment/Plan: Possible CAD based on chronic LBBB, wall motion abn on echo but previous stress tests without ischemia. c/w ASA 81mg daily, beta hannah, statin appreciate cardiology consultation Code(s): N18.4 - CHRONIC KIDNEY DISEASE, STAGE 4 (SEVERE) (10) Diabetes Assessment/Plan: controlled on novolog ss Code(s): E11.9 - TYPE 2 DIABETES MELLITUS WITHOUT COMPLICATIONS Qualifiers: Diabetes mellitus type: type 2 Diabetes mellitus intermediate project manager insulin use: with intermediate project manager use Diabetes mellitus complication status: with kidney complications Diabetes mellitus complication detail: with chronic kidney disease Chronic kidney disease stage: stage 4 (severe) Qualified Code(s): E11.22 - Type 2 diabetes mellitus with diabetic chronic kidney disease; N18.4 - Chronic kidney disease, stage 4 (severe); Z79.4 - residential (current) use of insulin (11) DVT prophylaxis Assessment/Plan: SCDs bilaterally, on heparin Code(s): [id number] - (12) Prophylactic measure Assessment/Plan: Code(s): Z29.9 - ENCOUNTER FOR PROPHYLACTIC MEASURES, UNSPECIFIED This patient is new to me today: No Emergency Visit: Yes ED Registration Date: 02/09/19 Care time: The patient presented to the Emergency Department on the above date and was hospitalized for further evaluation of their emergent condition. Critical Care patient: No - Discharge Referral Referred to [facility] No
[2019-02-22] MEDS ORDERED: FUROSEMIDE 40 MG TABLET (FP) PO SCH (14:00)
== END 2019-02-22 14:26 | DRG 183 ==
LOC: FER 12:24 → FM/S 22:18 → J4W 02-14 19:49
PROVIDERS: ADMIT Internal Medicine; ATTEND Nurse Practitioner Family
DX: S22.42XA Multiple fractures of ribs, left side, initial encounter for closed fracture (principal); J96.01 Acute respiratory failure with hypoxia; I50.23 Acute on chronic systolic (congestive) heart failure; I13.0 Hypertensive heart and chronic kidney disease with heart failure and stage 1 through stage 4 chronic kidney disease, or unspecified chronic kidney disease; N18.4 Chronic kidney disease, stage 4 (severe); J98.11 Atelectasis; Z68.42 Body mass index [BMI] 45.0-49.9, adult; B37.89 Other sites of candidiasis; I10 Essential (primary) hypertension; E78.00 Pure hypercholesterolemia, unspecified; K59.09 Other constipation; Y92.89 Other specified places as the place of occurrence of the external cause; E11.9 Type 2 diabetes mellitus without complications; K21.9 Gastro-esophageal reflux disease without esophagitis; F41.8 Other specified anxiety disorders; M1A.9XX0 Chronic gout, unspecified, without tophus (tophi); M54.5 Low back pain; I44.7 Left bundle-branch block, unspecified; I25.10 Atherosclerotic heart disease of native coronary artery without angina pectoris; I44.0 Atrioventricular block, first degree; E11.22 Type 2 diabetes mellitus with diabetic chronic kidney disease; E66.01 Morbid (severe) obesity due to excess calories; I27.20 Pulmonary hypertension, unspecified; E87.6 Hypokalemia; G47.33 Obstructive sleep apnea (adult) (pediatric); E11.42 Type 2 diabetes mellitus with diabetic polyneuropathy; W18.39XA Other fall on same level, initial encounter; Z85.038 Personal history of other malignant neoplasm of large intestine; Z79.4 Long term (current) use of insulin
CPT/HCPCS: 36415; 36600; 71045-TC-FY; 71046-TC-FY; 71250-TC; 73030-TC-LT-FY; 80048; 80053; 81003; 82803; 82962; 83735; 83880; 84100; 85025; 85027; 87086; 93005; 93306-TC; 94640; 97116-GP; 97161-GP; 99284-25; J1644